=== PATIENT | male | born 1935 | race Caucasian/White ===

== ENCOUNTER 2020-01-03 11:58 | Observation (INO) | payer MEDICARE ==
[2020-01-03 12:03] LABS: Glucose,Whole Blood 87 mg/dL (75-99)
--- NOTE | 2020-01-03 12:09 | ED ---
General Adult HPI - General Chief complaint: Neuro Symptoms/Deficit Stated complaint: Altered Mental Status Time Seen by Provider: 01/03/20 11:58 Source: patient, EMS, RN notes reviewed, old records reviewed Mode of arrival: EMS Limitations: altered mental status - History of Present Illness Initial comments: patient is a pleasant 84-year-old male presenting to the emergency departmentfollowing episode of decreased responsiveness. Incident occurred just prior to arrival. Patient was eating lunchwhen he started shaking then fell back. Patient did strike the back of his head. Unclear whether or not patient lost consciousness. Patient has not been verbal with EMS. Patient has been moaning. EMS reports no change. Patient is talking at this point. Patient does state his name. Patient is unclear where he is athowever when told he does remember this. Patient does have some repetitive questioning. No complaint of headache. No chest pain or dyspnea. Unclear patient has history of similar symptoms previously. - Related Data Home Medications Medication Instructions Recorded Confirmed HYDROcodone/APAP 7.5-325MG [[place] 1 tab PO Q12H PRN 08/12/14 01/03/20 7.5-325] Pravastatin Sodium [Pravachol] 80 mg PO HS 09/26/14 01/03/20 Cetirizine HCl [Zyrtec] 10 mg PO DAILY 01/03/20 01/03/20 Fluocinolone Acetonide [Synalar] 1 applic TOPICAL HS 01/03/20 01/03/20 lisinopriL [Zestril] 2.5 mg PO DAILY 01/03/20 01/03/20 Previous Rx's Medication Instructions Recorded Tamsulosin [Flomax] 0.4 mg PO DAILY cap.er.24h 08/30/14 Allergies Allergy/AdvReac Type Severity Reaction Status Date / Time propoxyphene napsylate Allergy Unknown Nausea & Verified 01/03/20 13:26 [From Jr-N 100] Vomiting Surgical Tape AdvReac Severe Blisters Uncoded 09/26/14 13:27 Review of Systems ROS Statement: Those systems with pertinent positive or pertinent negative responses have been documented in the HPI. ROS Other: All systems not noted in ROS Statement are negative. Constitutional: Denies: fever Eyes: Denies: eye pain ENT: Denies: ear pain Respiratory: Denies: cough, dyspnea Cardiovascular: Denies: chest pain Endocrine: Denies: fatigue Gastrointestinal: Denies: abdominal pain Genitourinary: Denies: dysuria Musculoskeletal: Denies: back pain Skin: Denies: rash Neurological: Reports: as per HPI, confusion. Denies: headache, weakness Past Medical History Past Medical History: Cancer, Hyperlipidemia, Hypertension, Prostate Disorder Additional Past Medical History / Comment(s): HX OF 1 SEIZURE APPROX 30 YRS AGO History of Any Multi-Drug Resistant Organisms: None Reported Past Surgical History: Appendectomy, Back Surgery, Orthopedic Surgery Additional Past Surgical History / Comment(s): APPENDECTOMY (17 YRS OLD), LEFT ANKLE ACHEILLES TENDON, BACK SURGERYS, CERVICAL SPINE SURGERY WITH HARDWARE, CARPAL TUNNEL. , NERVE STIMULATOR LEFT HIP.(ST SULEMAN) Past Anesthesia/Blood Transfusion Reactions: Postoperative Nausea & Vomiting (PONV) Past Psychological History: No Psychological Hx Reported Past Alcohol Use History: Occasional Past Drug Use History: None Reported - Past Family History Mother Family Medical History: No Reported History General Exam Limitations: altered mental status General appearance: alert, in no apparent distress Head exam: Present: normocephalic Eye exam: Present: normal appearance, PERRL, EOMI ENT exam: Present: other (tongue abrasion) Neck exam: Present: normal inspection. Absent: tenderness Respiratory exam: Present: normal lung sounds bilaterally Cardiovascular Exam: Present: regular rate, normal rhythm GI/Abdominal exam: Present: soft. Absent: tenderness Extremities exam: Present: normal inspection, full ROM. Absent: tenderness Neurological exam: Present: alert, CN II-XII intact. Absent: motor sensory deficit Expanded Neurological exam: Present: protecting the airway Patient oriented to: Present: person. Absent: time Speech: Present: fluid speech Cranial nerves: EOM's Intact: Normal Sensory exam: Upper Extremity Light Touch: Normal, Lower Extremity Light Touch: Normal Motor strength exam: RUE: 5, LUE: 5, RLE: 5, LLE: 5 Eye Response: (4) open spontaneously Motor Response: (6) obeys commands Verbal Response: (4) confused conversation Psychiatric exam: Present: normal affect, normal mood Skin exam: Present: normal color Course Vital Signs 01/03/20 11:59 Temperature 98.1 F Pulse Rate 107 H Respiratory 16 Rate Blood Pressure 136/90 O2 Sat by Pulse 95 Oximetry EKG Findings - EKG Comments: EKG Findings:: sinus tachycardia 110. ID 156. QRS 88. QT 346. QTc 468. Normal axis. Normal QRS. No acute ST change. Medical Decision Making - Medical Decision Making patient reevaluated and significantly improved. Patient acting appropriately patient and spouse updated on results. Case was discussed with Dr. Bautista who did come evaluate patient and will admit.it is unclear still if patient lost consciousness. states she does not believe that he did however patient bel ieves that he did. - Lab Data Result diagrams: 01/03/20 12:13 01/03/20 12:13 Lab Results 01/03/20 01/03/20 01/03/20 Range/Units 12:01 12:13 12:13 WBC 12.4 H (3.8-10.6) k/uL RBC 4.99 (4.30-5.90) m/uL Hgb 16.1 (13.0-17.5) gm/dL Hct 48.6 (39.0-53.0) % MCV 97.5 (80.0-100.0) fL MCH 32.4 (25.0-35.0) pg MCHC 33.2 (31.0-37.0) g/dL RDW 12.8 (11.5-15.5) % Plt Count 273 (150-450) k/uL Neutrophils % 51 % Lymphocytes % 38 % Monocytes % 7 % Eosinophils % 2 % Basophils % 1 % Neutrophils # 6.3 (1.3-7.7) k/uL Lymphocytes # 4.6 (1.0-4.8) k/uL Monocytes # 0.8 (0-1.0) k/uL Eosinophils # 0.2 (0-0.7) k/uL Basophils # 0.1 (0-0.2) k/uL PT (9.0-12.0) sec INR (<1.2) APTT (22.0-30.0) sec Sodium 140 (137-145) mmol/L Potassium 4.1 (3.5-5.1) mmol/L Chloride 108 H (98-107) mmol/L Carbon Dioxide 13 L (22-30) mmol/L Anion Gap 19 mmol/L BUN 17 (9-20) mg/dL Creatinine 1.19 (0.66-1.25) mg/dL Est GFR (CKD-EPI)AfAm 65 (>60 ml/min/1.73 sqM) Est GFR (CKD-EPI)NonAf 56 (>60 ml/min/1.73 sqM) Glucose 88 (74-99) mg/dL POC Glucose (mg/dL) 87 (75-99) mg/dL POC Glu Patternmaker Sathya Zuniga Calcium 9.4 (8.4-10.2) mg/dL Magnesium 2.5 H (1.6-2.3) mg/dL Total Bilirubin 0.5 (0.2-1.3) mg/dL AST 29 (17-59) U/L ALT 21 (4-49) U/L Alkaline Phosphatase 55 (38-126) U/L Troponin I (0.000-0.034) ng/mL Total Protein 6.8 (6.3-8.2) g/dL Albumin 4.3 (3.5-5.0) g/dL 01/03/20 01/03/20 Range/Units 12:13 12:13 WBC (3.8-10.6) k/uL RBC (4.30-5.90) m/uL Hgb (13.0-17.5) gm/dL Hct (39.0-53.0) % MCV (80.0-100.0) fL MCH (25.0-35.0) pg MCHC (31.0-37.0) g/dL RDW (11.5-15.5) % Plt Count (150-450) k/uL Neutrophils % % Lymphocytes % % Monocytes % % Eosinophils % % Basophils % % Neutrophils # (1.3-7.7) k/uL Lymphocytes # (1.0-4.8) k/uL Monocytes # (0-1.0) k/uL Eosinophils # (0-0.7) k/uL Basophils # (0-0.2) k/uL PT 9.7 (9.0-12.0) sec INR 0.9 (<1.2) APTT 21.6 L (22.0-30.0) sec Sodium (137-145) mmol/L Potassium (3.5-5.1) mmol/L Chloride (98-107) mmol/L Carbon Dioxide (22-30) mmol/L Anion Gap mmol/L BUN (9-20) mg/dL Creatinine (0.66-1.25) mg/dL Est GFR (CKD-EPI)AfAm (>60 ml/min/1.73 sqM) Est GFR (CKD-EPI)NonAf (>60 ml/min/1.73 sqM) Glucose (74-99) mg/dL POC Glucose (mg/dL) (75-99) mg/dL POC Glu Patternmaker ID Calcium (8.4-10.2) mg/dL Magnesium (1.6-2.3) mg/dL Total Bilirubin (0.2-1.3) mg/dL AST (17-59) U/L ALT (4-49) U/L Alkaline Phosphatase (38-126) U/L Troponin I <0.012 (0.000-0.034) ng/mL Total Protein (6.3-8.2) g/dL Albumin (3.5-5.0) g/dL - Radiology Data Radiology results: report reviewed (computed tomography scan of the brain and cervical spine shows no acute abnormality. Chronic microvascular ischemic changes. Postsurgical spine changes. Degenerative spine changes.), image reviewed (chest x-ray shows some atelectasis, no acute process) Disposition Clinical Impression: Unresponsive episode Disposition: ADMITTED IP TO THIS HOSP Is patient prescribed a controlled substance at d/c from ED?: No Referrals: Nonstaff,Physician [REFERRING] - 1-2 days Decision Time: 13:37
[2020-01-03 12:40] LABS: Basophils # (A) 0.1 k/uL (0-0.2); Basophils % (A) 1 %; Eosinophils # (A) 0.2 k/uL (0-0.7); Eosinophils % (A) 2 %; HCT 48.6 % (39.0-53.0); HGB 16.1 gm/dL (13.0-17.5); Lymphocytes # (A) 4.6 k/uL (1.0-4.8); Lymphocytes % (A) 38 %; MCH 32.4 pg (25.0-35.0); MCHC 33.2 g/dL (31.0-37.0); MCV 97.5 fL (80.0-100.0); Mean Platelet Volume 7.6; Monocytes # (A) 0.8 k/uL (0-1.0); Monocytes % (A) 7 %; Neutrophils # (A) 6.3 k/uL (1.3-7.7); Neutrophils % (A) 51 %; Platelet Count 273 k/uL (150-450); RBC 4.99 m/uL (4.30-5.90); RDW 12.8 % (11.5-15.5); WBC 12.4 k/uL (3.8-10.6)
[2020-01-03 12:52] LABS: Albumin 4.3 g/dL (3.5-5.0); Calcium 9.4 mg/dL (8.4-10.2); Magnesium 2.5 mg/dL (1.6-2.3); Potassium 4.1 mmol/L (3.5-5.1); Total Bilirubin 0.5 mg/dL (0.2-1.3); Total Protein 6.8 g/dL (6.3-8.2)
[2020-01-03 12:59] LABS: INR 0.9 (<1.2); Partial Thromboplastin Time 21.6 sec (22.0-30.0); Prothrombin Time 9.7 sec (9.0-12.0)
--- NOTE | 2020-01-03 12:59 | CT ---
EXAMINATION TYPE: CT brain gayatriine wo con DATE OF EXAM: 01/03/2020 COMPARISON: CT brain 09/26/2014 HISTORY: Fall CT DLP: 1602.3 mGycm Automated exposure control for dose reduction was used. TECHNIQUE: CT scan of the head and cervical spine are performed without contrast. FINDINGS: There is no acute intracranial hemorrhage, mass effect, or midline shift identified. No extra-axial fluid collection. Patchy white matter hypodensities likely sequela of chronic microvascul ar ischemic change. The ventricles and sulci are within prominent in size concordant with volume loss . No depressed calvarial fracture. Globes are grossly symmetric with postsurgical changes. Mastoid ai r cells are clear. There is mucosal thickening of the left sphenoid sinus.. Anterior fixation changes of C3-C5. No evidence of hardware fracture or loosening. Diffuse degenerati ve changes of the spine. Varying degrees of neural foramina narrowing and canal stenosis. There may b e high-grade canal stenosis at C7-T1. Cervical spine is visualized in its entirety from C1 through up per thoracic levels and demonstrates no evidence of acute fracture or dislocation. Prevertebral soft tissue appears within normal limits. The C1-C2 articulation is unremarkable. IMPRESSION: 1. No acute intracranial hemorrhage, mass effect, or midline shift is seen. 2. Diffuse volume loss. Patchy white matter hypodensities are likely sequela of chronic microvascular ischemic change. 3. No acute fracture or dislocation of the cervical spine. C3-C5 anterior fixation hardware appears i ntact. 4. Cervical spine degenerative changes. There may be high-grade canal stenosis at C7-T1.
--- NOTE | 2020-01-03 13:04 | XR ---
EXAMINATION TYPE: XR chest 1V portable DATE OF EXAM: 01/03/2020 Comparison: 10/13/2014 Clinical History: 84 year-old male altered mental status, syncope, confusion Findings: Heart normal size. Spinal stimulator present at the mid thoracic spinal canal. Median sternotomy wire s and post-CABG clips. Heart upper limits of normal in size. Hazy lung densities relating to overlyin g soft tissue and portable technique. Slight asymmetric elevation left hemidiaphragm may in part be p ositional. No jamee consolidation or pleural effusion. Some strandy areas of atelectasis in the lower lungs. Impression: Some limitations due to portable technique and patient body habitus. There are strandy lower lung are as of atelectasis. No definite acute process.
[2020-01-03] MEDS ORDERED: LIDOCAINE VISCOUS 2% 15 ML CUP MUCOUS MEM SCH (13:15)
[2020-01-03] MEDS ORDERED: NALOXONE 0.4 MG/ML 1 ML VIAL IV PRN (13:37)
[2020-01-03] MEDS ORDERED: HYDROcodone/APAP 7.5-325MG 1 EACH TAB PO PRN (14:46)
--- NOTE | 2020-01-03 14:51 | P.HPIM ---
History of Present Illness H&P Date: 01/03/20 Chief Complaint: syncope This is an 84-year-old male patient of Dr. Bautista with past medical history of coronary artery disease with previous myocardial infarction and stenting status post 5 vessel CABG with placement of left internal mammary to the 100% occluded left anterior descending, reverse saphenous vein graft as a natural Y sequential to the 100% occluded first diagonal in the subtotally occluded second obtuse marginal, and reverse saphenous vein graft to the 80% occluded right coronary, which was a 2.5 mm vessel, and short jump graft to the terminal circumflex, seasonal ALLERGIES, hyperlipidemia, hypertension, benign prostatic hypertrophy, generalized osteoarthritis, 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 Patient's states that he was going to the refrigerator to get wind out of the refrigerator and fell backward hitting the hardwood floor and shaking all over. There is no bladder loss. His called 911 and patient was brought in to the hospital for evaluation. Patient denies having any headache. He does complain of soreness in his neck he does have history of spondylosis of the neck and lumbar spine. Patient noted to have abrasions on his tongue. He does have history of workup for thought to be seizure activity 30 years ago and [facility] was told it was vasovagal episode. Patient does not recall any incident home and just remembers waking up in the emergency center. Patient presented to [facility] emergency center for evaluation. Temperature 98.1, heart rate 107, blood pressure 136/90, pulse ox 95% on room air. EKG is a sinus rhythm with no acute ST changes. CBC reveals white count of 12.4, hemoglobin 16.1, platelet count 273. Sodium 140, potassium 4.1, chloride 108, CO2 13, BUN 17 and creatinine 1.19. Blood sugar 88. Magnesium 2.5, liver function tests normal. INR is 0.9. Troponin negative 1. Chest x-ray reveals limitations due to portable technique. Standing lower lung areas of atelectasis. No definite acute process. CAT scan of the brain and cervical spine reveals no acute intracranial hemorrhage, mass effect, or midline shift. Diffuse volume loss. Patchy white matter hypodensities are likely seque lae of chronic micro-vascular ischemic change. No acute fracture-dislocation of the cervical spine. C3 through C5 anterior fixation hardware appears intact. Cervical spine degenerative changes with high-grade spinal canal stenosis at C7- T1. Carotid ultrasound, echocardiogram, EEG, neuro consult requested and patient admitted to the floor. Review of Systems Constitutional: Denies anorexia, Denies chills, Denies fatigue, Denies fever, Denies lethargy, Denies malaise, Denies poor appetite, Denies weakness Eyes: denies blurred vision, denies pain Ears, nose, mouth and throat: Denies dysphagia, Denies headache, Denies nasal congestion, Denies nasal discharge, Denies sore throat, Denies vertigo Cardiovascular: Reports syncope, Denies chest pain, Denies decreased exercise tolerance, Denies dyspnea on exertion, Denies edema, Denies leg edema, Denies lightheadedness, Denies palpitations Respiratory: Denies cough, Denies cough with sputum, Denies dyspnea, Denies excessive sputum, Denies hemoptysis, Denies home oxygen, Denies respiratory infections, Denies wheezing Gastrointestinal: Denies abdominal pain, Denies diarrhea, Denies loss of appetite, Denies melena, Denies nausea, Denies vomiting Genitourinary: Denies dysuria, Denies urinary frequency, Denies urinary retention Musculoskeletal: Reports neck pain, Denies frequent falls, Denies gait dysfunction, Denies muscle weakness, Denies myalgias Integumentary: Denies pruritus, Denies rash, Denies wounds Neurological: Reports headaches, Reports syncope, Denies change in speech, Denies gait dysfunction, Denies numbness, Denies vertigo, Denies weakness Psychiatric: Denies anxiety, Denies depression Endocrine: Denies fatigue, Denies weight change Past Medical History Past Medical History: Cancer, Hyperlipidemia, Hypertension, Prostate Disorder Additional Past Medical History / Comment(s): HX OF 1 SEIZURE APPROX 30 YRS AGO History of Any Multi-Drug Resistant Organisms: None Reported Past Surgical History: Appendectomy, Back Surgery, Orthopedic Surgery Additional Past Surgical History / Comment(s): APPENDECTOMY (17 YRS OLD), LEFT ANKLE ACHEILLES TENDON, BACK SURGERYS, CERVICAL SPINE SURGERY WITH HARDWARE, CARPAL TUNNEL. 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 He drinks a glass of wine a couple times per week and last intake was on Friday. 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 Past Drug Use History: None Reported - Past Family History Mother Family Medical History: No Reported History Additional Family Medical History / Comment(s): Mother at age 76 with heart disease. Father Additional Family Medical History / Comment(s): Father at age 92 with history of coronary artery disease. Brother(s) Additional Family Medical History / Comment(s): Patient has total of 3 brothers one has from Parkinson's 1 from old age and one with throat cancer. Sister(s) Additional Family Medical History / Comment(s): Patient has one sister that from lung cancer with history of smoking and one at age 40 from a brain aneurysm. Patient has a total of 4 children. 3 sons, one has bipolar disorder. One daughter with no major medical problems. Medications and Allergies Home Medications Medication Instructions Recorded Confirmed Type HYDROcodone/APAP 7.5-325MG [[place] 1 tab PO Q12H PRN 08/12/14 01/03/20 History 7.5-325] Tamsulosin [Flomax] 0.4 mg PO DAILY cap.er.24h 08/30/14 01/03/20 Rx Pravastatin Sodium [Pravachol] 80 mg PO HS 09/26/14 01/03/20 History Cetirizine HCl [Zyrtec] 10 mg PO DAILY 01/03/20 01/03/20 History Fluocinolone Acetonide [Synalar] 1 applic TOPICAL HS 01/03/20 01/03/20 History lisinopriL [Zestril] 2.5 mg PO DAILY 01/03/20 01/03/20 History Allergies Allergy/AdvReac Type Severity Reaction Status Date / Time propoxyphene napsylate Allergy Unknown Nausea & Verified 01/03/20 13:26 [From Jr-N 100] Vomiting Surgical Tape AdvReac Severe Blisters Uncoded 09/26/14 13:27 Physical Exam Vitals: Vital Signs Temp Pulse Resp BP Pulse Ox 01/03/20 11:59 98.1 F 107 H 16 136/90 95 Intake and Output 10/01/03/20 01/03/20 22:59 06:59 14:59 Other: Weight 89.176 kg Physical Examination Gen: This is an 84-year-old male. He is resting on the ER stretcher and appears to be comfortable. Patient's is at bedside. HEENT: Head is atraumatic, normocephalic. Pupils equal, round. Sclerae is anicteric. Oral mucous membranes are slightly dry. Abrasions to the bilateral edges of the tongue. Hard cervical collar in place. NECK: Supple. No JVD. No lymphadenopathy. No thyromegaly. LUNGS: Clear to auscultation. No wheezes or rhonchi. No intercostal retractions. HEART: Regular rate and rhythm. No murmur. ABDOMEN: Soft. Bowel sounds are present. No masses. No tenderness. EXTREMITIES: No pedal edema. No calf tenderness. NEUROLOGICAL: Patient is awake, alert and oriented x3. Cranial nerves 2 through 12 are grossly intact. Poor recall of incident. Results CBC & Chem 7: 01/03/20 12:13 01/03/20 12:13 Labs: Abnormal Lab Results - Last 24 Hours (Table) 01/03/20 01/03/20 Range/Units 12:13 12:13 WBC 12.4 H (3.8-10.6) k/uL Chloride 108 H (98-107) mmol/L Carbon Dioxide 13 L (22-30) mmol/L Magnesium 2.5 H (1.6-2.3) mg/dL Thrombosis Risk Factor Assmnt - DVT/VTE Prophylaxis DVT/VTE Prophylaxis: Pharmacologic Prophylaxis ordered Assessment and Plan Plan: 1. Syncopal episode, rule out seizure disorder. Patient placed in the observation unit. Consult with neurology. Carotid ultrasound, echocardiogram, EEG ordered. Continue neuro checks per protocol. 2. Hypertension. Continue lisinopril 2.5 mg daily. 3. Hyperlipidemia. Continue pravastatin 80 mg at bedtime. 4. History of coronary artery disease status post 5 vessel CABG, stable. Patient follows with Dr. Alexis as an outpatient. 5. Seasonal ALLERGIES. Continue Zyrtec. 6. Benign prostatic hypertrophy. Continue Flomax 0.4 mg daily. 7. Spondylosis of the cervical spine and lumbar spine, stable. 8. Abrasions to the tongue. Viscous lidocaine. 9. Remote history of tobacco use and dependence. 10. DVT prophylaxis. Heparin subcu. 11. GI prophylaxis. Protonix. Patient will be admitted to the hospital for a minimum of 2 night stay. Discharge plan: Return home Impression and plan of care have been directed as dictated by the signing physician. Damaris Tanner nurse practitioner acting as scribe for signing physician.
--- NOTE | 2020-01-03 14:59 | US ---
EXAMINATION TYPE: US carotid duplex BILAT DATE OF EXAM: 01/03/2020 COMPARISON: CLINICAL HISTORY: syncope. Patient states passing out. No HTN. EXAM MEASUREMENTS: RIGHT: Peak Systolic Velocity (PSV) cm/sec ----- Right CCA: 90.0 ----- Right ICA: 119.4 ----- Right ECA: 148.5 ICA/CCA ratio: 1.3 RIGHT: End Diastole cm/sec ----- Right CCA: 0.0 ----- Right ICA: 12.8 ----- Right ECA: 0.0 LEFT: Peak Systolic Velocity (PSV) cm/sec ----- Left CCA: 68.0 ----- Left ICA: 85.3 ----- Left ECA: 69.1 ICA/CCA ratio: 1.3 LEFT: End Diastole cm/sec ----- Left CCA: 8.7 ----- Left ICA: 16.7 ----- Left ECA: 0.0 VERTEBRALS (direction of flow): Right Vertebral: Antegrade Left Vertebral: Antegrade Rhythm: Normal No significant stenosis. Plaque visualized in bilateral bulbs. Elevated right ECA. No wall thicken ing. Grayscale, color Doppler, spectral Doppler imaging performed of the carotid arteries. Waveform analysis does not show significant stenosis of the internal carotid arteries. IMPRESSION: No hemodynamic significant stenosis of the proximal internal carotid arteries by Doppler criteria, an indirect measurement of carotid stenosis Criteria for Assigning % of Stenosis / Diameter reduction (Estimation based on the indirect measurements of the internal carotid artery velocities (ICA PSV). 1. Normal (no stenosis)=ICA PSV < 125 cm/s: ratio < 2.0: ICA EDV<40 cm/s. 2. Less than 50% stenosis=ICA PSV < 125 cm/s: ratio < 2.0: ICA EDV<40 cm/s. 3. 50 to 69% stenosis=ICA PSV of 125 to 230 cm/s: ration 2.0 ? 4.0: ICA EDV 40-100 cm/s. 4. Greater than 70% stenosis to near occlusion= ICA PSV > 230 cm/s: ratio > 4.0: ICA EDV > 100 cm/s. 5. Near occlusion= ICA PSV velocities may be low or undetectable: variable ratio and ICA EDV. 6. Total occlusion=unable to detect flow.
--- NOTE | 2020-01-03 16:12 | EEG ---
ELECTROENCEPHALOGRAM REPORT CLINICAL HISTORY: This is an 84-year-old gentleman who presented to the emergency department on 01/03/2020 after an episode of shaking and loss of consciousness. This video EEG was obtained to evaluate for seizure and epileptiform activity. Relevant medication: None. EEG TYPE: This is a routine 21-channel EEG was performed with video using the 10/20 electrode placement system. DESCRIPTION: Wakefulness and drowsiness are obtained. During wakefulness, there is a posterior- dominant rhythm of low to moderate voltage, reactive, well-modulated 8-9 hertz activity. During drowsiness there is slowing and attenuation of the background activity. There was no physiological stage II sleep seen. Interictal and ictal: None. ACTIVATION PROCEDURE: Photic stimulation did not evoke a posterior driving response. Hyperventilation was not performed because of the patient's clinical history. CLINICAL INTERPRETATION: This is a normal routine EEG. There are no focal slowing, epileptiform activity or seizure seen during the study. Clinical correlation is recommended. VERA / MARLEYN: [id number] / BERNADETTE
[2020-01-03] MEDS: SODIUM CHLORIDE 0.9% 1,000 ML IV SCH (16:48)
[2020-01-03] MEDS: HYDROCORTISONE 1% CREAM 30 GM TUBE TOPICAL SCH (20:29)
[2020-01-03] MEDS: PRAVASTATIN SODIUM 80 MG TAB PO SCH (20:29)
[2020-01-03] MEDS: LIDOCAINE VISCOUS 2% 15 ML CUP MUCOUS MEM SCH (20:29)
[2020-01-03] MEDS: ACETAMINOPHEN TAB 325 MG TAB PO PRN (20:29)
--- NOTE | 2020-01-04 10:00 | ECHOF ---
Referral Reason:LVF MEASUREMENTS -------- HEIGHT: 180.3 cm WEIGHT: 91.6 kg BP: 140/85 RVIDd: 3.0 cm (< 3.3) IVSd: 1.1 cm (0.6 - 1.1) LVIDd: 4.0 cm (3.9 - 5.3) LVPWd: 1.0 cm (0.6 - 1.1) IVSs: 1.5 cm LVIDs: 2.4 cm LVPWs: 1.3 cm LA Diam: 2.7 cm (2.7 - 3.8) Ao Diam: 3.2 cm (2.0 - 3.7) AV Cusp: 2.0 cm (1.5 - 2.6) MV E Colton: 0.83 m/s MV DecT: 188 ms MV A Colton: 1.26 m/s MV E/A Ratio: 0.66 RAP: 5.00 mmHg RVSP: 23.73 mmHg FINDINGS -------- Sinus rhythm. This was a technically difficult study with suboptimal views. The left ventricular size is normal. There is borderline concentric left ventricular hypertrophy. Overall left ventricular systolic function is normal with, an EF between 60 - 65 %. The right ventricle is normal in size. The left atrial size is normal. The right atrium was not well visualized. 5 ml of Lumason was utilized for enhancement of images. Interatrial and interventricular septum intact. There is mild aortic valve sclerosis. The mitral valve is normal. Trace tricuspid regurgitation present. Right ventricular systolic pressure is normal at < 35 mmHg. The pulmonic valve was not well visualized. The aortic root size is normal. Normal inferior vena cava with normal inspiratory collapse consistent with estimated right atrial pre ssure of 5 mmHg. There is no pericardial effusion. CONCLUSIONS -------- 1. This was a technically difficult study with suboptimal views. 2. The left ventricular size is normal. 3. There is borderline concentric left ventricular hypertrophy. 4. Overall left ventricular systolic function is normal with, an EF between 60 - 65 %. 5. 5 ml of Lumason was utilized for enhancement of images. 6. Trace tricuspid regurgitation present. 7. There is no pericardial effusion. REHAB DIRECTOR: Anna Pulido RD
[2020-01-04] MEDS: LIDOCAINE VISCOUS 2% 15 ML CUP MUCOUS MEM SCH ×4 (10:09→20:57)
[2020-01-04] MEDS: LORATADINE 10 MG TAB PO SCH (10:09)
[2020-01-04] MEDS: TAMSULOSIN 0.4 MG CAP.ER.24H PO SCH (10:09)
--- NOTE | 2020-01-04 11:11 | P.CNNES ---
History of Present Illness Consult date: 01/04/20 Requesting physician: Damaris Tanner Reason for Consult: episode of unresponsiveness. Rule out seizure History of Present Illness: This is an 84-year-old left-handed gentleman with the medical history of CAD status post stenting and CABG, hyperlipidemia, hypertension, cervical s/p decompression and lumbar spondylosis, remote history of tobacco use who presented to the emergency department on 01/03/2020 because of episode of unresponsiveness. Patient stated that he does not recall the episode. He remembers that around noon, he was in the kitchen preparing his lunch, then was told that he went to the refrigerator then fell backwards and start shaken. He does not know the duration of the episode. He did bite that the side of both his tongues. He denies L5 urinary incontinence or bowel incontinence. He gerry es any warning signs prior to the episode that. He denies of any chest pain, palpitation or visual disturbance prior to the episode. He denies feeling diaphoretic. Denies fever. He said that about 30 years ago he had the similar presentation and the he was taken to the hospital. He doesn't recall off the workup but he does not recall having an EEG at. He does not feel like the hospital did a very thorough workup on him. Then he saw his Medicare physician and he was notified that he had vasovagal episode. He denies any history of seizures otherwise. He denies any family history of seizures. He denies being on any new medications. Patient uses a cane because of his the cervical tish nosis as well as lumbar stenosis and he's been using for he said 5-8 years. history: He is a product all thought normal at term. Normal vaginal delivery and no complication. His sister has a history of a brain aneurysm in her 30s which she as a result. Work-up in the hospital consisted of: Initial vital sign is a blood pressure of 136/90, heart rate 107, with fair is 16, temperature of 98.1 Fahrenheit axillary and pulse ox of 95% room air. CT of the head was reported as no acute intracranial hemorrhage, mass effect or midline shift is seen. There is diffuse volume loss. Patchy white matter hypodensity likely sequela of chronic microvascular ischemic changes. I personally reviewed the CT of the head and I do not see any acute ischemia or hemorrhage. Patient does have chronic small vessel ischemic changes. CT cervical spine was reported as no acute fracture or dislocation of cervical spine. C3 to C5 anterior fixation hardware appears intact. Cervical spine degenerative changes. There may be high grade canal stenosis at C7 to T1. EKG was reported as sinus tachycardia. Ventricle rate of 110. Cannot rule out inferior infarct, age undetermined. Abnormal EKG. Carotid duplex was reported as no hemodynamic significant stenosis of the proximal internal carotid arteries by Doppler criteria, and in direct measurement of carotid stenosis. Routine EEG was performed on 01/03/2020 and was the I personally viewed it and I felt was normal. There are no focal slowing, interictal or seizure during the routine EEG. Review of Systems Review of system: The 12 point system was reviewed and apparent positive and negative per HPI. Past Medical History Past Medical History: Cancer, Hyperlipidemia, Hypertension, Prostate Disorder Additional Past Medical History / Comment(s): HX OF 1 SEIZURE APPROX 30 YRS AGO History of Any Multi-Drug Resistant Organisms: None Reported Past Surgical History: Appendectomy, Back Surgery, Orthopedic Surgery Additional Past Surgical History / Comment(s): APPENDECTOMY (17 YRS OLD), LEFT ANKLE ACHEILLES TENDON, BACK SURGERYS, CERVICAL SPINE SURGERY WITH HARDWARE, CARPAL TUNNEL. 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 He drinks a glass of wine a couple times per week and last intake was on Friday. 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 Past Drug Use History: None Reported - Past Family History Father Additional Family Medical History / Comment(s): Father at age 92 with history of coronary artery disease. Brother(s) Additional Family Medical History / Comment(s): Patient has total of 3 brothers one has from Parkinson's 1 from old age and one with throat cancer. Sister(s) Additional Family Medical History / Comment(s): Patient has one sister that from lung cancer with history of smoking and one at age 40 from a brain aneurysm. Patient has a total of 4 children. 3 sons, one has bipolar disorder. One daughter with no major medical problems. Mother Family Medical History: No Reported History Additional Family Medical History / Comment(s): Mother at age 76 with heart disease. Medications and Allergies Home Medications Medication Instructions Recorded Confirmed Type HYDROcodone/APAP 7.5-325MG [Maury 1 tab PO Q12H PRN 08/12/14 01/03/20 History 7.5-325] Tamsulosin [Flomax] 0.4 mg PO DAILY cap.er.24h 08/30/14 01/03/20 Rx Pravastatin Sodium [Pravachol] 80 mg PO HS 09/26/14 01/03/20 History Cetirizine HCl [Zyrtec] 10 mg PO DAILY 01/03/20 01/03/20 History Fluocinolone Acetonide [Synalar] 1 applic TOPICAL HS 01/03/20 01/03/20 History lisinopriL [Zestril] 2.5 mg PO DAILY 01/03/20 01/03/20 History Allergies Allergy/AdvReac Type Severity Reaction Status Date / Time propoxyphene napsylate Allergy Unknown Nausea & Verified 01/03/20 13:26 [From Darvocet-N 100] Vomiting Surgical Tape AdvReac Severe Blisters Uncoded 09/26/14 13:27 Physical Examination - Vital Signs Vital Signs: Vital Signs Temp Pulse Pulse Resp BP BP Pulse Ox 01/04/20 08:31 98.2 F 66 16 125/73 96 01/04/20 02:00 98 F 61 17 116/61 98 01/03/20 20:05 98.7 F 79 16 127/71 96 01/03/20 14:22 80 17 145/76 98 01/03/20 14:10 97.3 F L 76 16 151/78 97 01/03/20 12:30 98.0 F 79 17 130/76 01/03/20 12:15 98.1 F 80 18 122/77 98 01/03/20 12:00 98.0 F 78 17 134/72 97 01/03/20 11:59 98.1 F 107 H 16 136/90 95 Intake and Output 01/03/20 01/04/20 01/04/20 22:59 06:59 14:59 Other: Voiding Method Toilet Toilet Toilet # Voids 1 1 GENERAL: The patient is lying in bed and is not in acute distress. CHEST: The heart rate is regular rate rhythm. No murmurs to auscultation. LUNG: Clear to auscultation bilaterally no wheezing noted throughout. Not labored breathing. ABDOMEN/GI: Bowel sounds present in all 4 quadrants. No tenderness to palpation throughout. NEUROLOGICAL: Higher mental function: The patient is awake, alert, oriented to self, place and time. Patient is following commands. No aphasia and no neglect. Cranial nerves: The pupils are round, equal (3mm) and reactive to light and accommodation. Visual jacobsen are full to confrontation throughout. Extraocular movement is intact no nystagmus is noted. Facial sensation is normal to touch throughout. The facial strength is normal throughout. Hearing is normal bilaterally to hand rub. Tongue has bruise on lateral side of both tongues. To ngue is midline and moved [id number] without any difficulty. No dysarthria is noted. Shoulder shrug is normal bilaterally. Motor: Gait is defered. The strength is 5 over 5 throughout. Normal tone and bulk. Cerebellum: Normal finger to nose heel to chin bilaterally. Sensation: Sensation is normal to touch throughout. Reflexes (right/left): 2+ Plantars are downgoing bilaterally. Results Medium of 2.5 the. AST of 29, ALT of 21. Correlation study: PT of 9.7, INR 0.9, PTT of 21.6. - Laboratory Findings CBC and BMP: 01/03/20 12:13 01/03/20 12:13 Abnormal Lab Findings: Abnormal Labs 01/03/20 01/03/20 01/03/20 12:13 12:13 12:13 WBC 12.4 H APTT 21.6 L Chloride 108 H Carbon Dioxide 13 L Magnesium 2.5 H Assessment and Plan Assessment: 84-year-old gentleman with multiple medical problems that presented for an episode of unresponsiveness. Patient had a seizure-like episode about 30 years ago and was told it was vasovagal. Episode seemed more seizure. Had similar episode 30 years ago and was told ?vasovagal syncope. Cannot rule out cardiac etiology. High grade stenosis C7-T1 Hx Cervical spondylosis s/p decompression Lumbar spondylosis Hypertension Hyperlipidemia Coronary artery disease status post stenting Hx of CABG Remote history of tobacco use Plan: This current episode seemed seizure-like and he had a similar episode about 30 years ago but he said that was questionable vasovagal syncope but he said that he didn't have a good workup and he didn't have an EEG at that time. Therefore I will place the patient on Keppra 500 mg twice a day. Routine EEG on 01/03/2020 was normal. There is no focal slowing, epileptiform discharges or seizure seen on the study. MRI the brain was ordered by the primary team which is pending. I ordered MRA of the head because of the family history of brain aneurysm. Pending 2-D echo. Continue cardiac monitoring. Cardiology is on board Recommend the Holter monitoring to rule out any cardiac etiology. Regarding the patient high-grade stenosis C7 to T1 I consulted orthopedic surgery team. Patient was notified that since he had an episode of unresponsiveness this current event that that he is to avoid the driving for 6 month according to the [facility] law. He is also to avoid the swimming unassisted, avoid climbing ladders or heights and that using had heavy machinery. Upon discharge the patient needs to follow-up with a neurologist as an outpatient Thank you for the consultation. The plan was discussed with the patient. Major Vital M.D. Neuro-hospitalist Time with Patient: Greater than 30
[2020-01-04] MEDS: levETIRAcetam 500 MG TAB PO SCH ×2 (12:00→19:54)
--- NOTE | 2020-01-04 12:09 | P.PN ---
Subjective Progress Note Date: 01/04/20 This is an 84-year-old male patient of Dr. Bautista with past medical history of coronary artery disease with previous myocardial infarction and stenting status post 5 vessel CABG with placement of left internal mammary to the 100% occluded left anterior descending, reverse saphenous vein graft as a natural Y sequential to the 100% occluded first diagonal in the subtotally occluded second obtuse marginal, and reverse saphenous vein graft to the 80% occluded right coronary, which was a 2.5 mm vessel, and short jump graft to the terminal circumflex, seasonal ALLERGIES, hyperlipidemia, hypertension, benign prostatic hypertrophy, generalized osteoarthritis, 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 Patient's states that he was going to the refrigerator to get wind out of the refrigerator and fell backward hitting the hardwood floor and shaking all over. There is no bladder loss. His called 911 and patient was brought in to the hospital for evaluation. Patient denies having any headache. He does complain of soreness in his neck he does have history of spondylosis of the neck and lumbar spine. Patient noted to have abrasions on his tongue. He does have history of workup for thought to be seizure activity 30 years ago and [facility] was told it was vasovagal episode. Patient does not recall any incident home and just remembers waking up in the emergency center. Patient presented to [facility] emergency center for evaluation. Temperature 98.1, heart rate 107, blood pressure 136/90, pulse ox 95% on room air. EKG is a sinus rhythm with no acute ST changes. CBC reveals white count of 12.4, hemoglobin 16.1, platelet count 273. Sodium 140, potassium 4.1, chloride 108, CO2 13, BUN 17 and creatinine 1.19. Blood sugar 88. Magnesium 2.5, liver function tests normal. INR is 0.9. Troponin negative 1. Chest x-ray reveals limitations due to portable technique. Standing lower lung areas of atelectasis. No definite acute process. CAT scan of the brain and cervical spine reveals no acute intracranial hemorrhage, mass effect, or midline shift. Diffuse volume loss. Patchy white matter hypodensities are likely sequelae of chronic micro-vascular ischemic change. No acute fracture- dislocation of the cervical spine. C3 through C5 anterior fixation hardware appears intact. Cervical spine degenerative changes with high-grade spinal canal stenosis at C7-T1. Carotid ultrasound, echocardiogram, EEG, neuro consult requested and patient admitted to the floor. 01/03: Patient has been seen by neurology for seizure like episode and started on Keppra 500 mg twice daily. MRI of the brain ordered and MRA of the head was also ordered by neurology due to family history of brain aneurysm. EEG was normal with no focal slowing, epileptiform activity or seizure. Echocardiogram reveals EF of 60-65%, borderline concentric left ventricular hypertrophy, trace tricuspid regurgitation. Carotid ultrasound reveals no hemodynamically significant stenosis of the carotid arteries. Consult with cardiology added. Patient has been afebrile, heart rate in the 60s, blood pressure 125/73, pulse ox 96% on room air. Orthostatic vital signs have been negative. Troponins negative on 3 draws. Anticipate possible discharge in the next 24-48 hrs. Objective - Vital Signs Vital signs: Vital Signs Temp 98.2 F 01/04/20 08:31 Pulse 66 01/04/20 08:31 Resp 16 01/04/20 08:31 BP 125/73 01/04/20 08:31 Pulse Ox 96 01/04/20 08:31 Intake & Output 01/03/20 01/04/20 01/04/20 18:59 06:59 18:59 Weight 89.176 kg Other: Voiding Method Toilet Toilet # Voids 1 - Exam Review of Systems Constitutional: Denies anorexia, Denies chills, Denies fatigue, Denies fever, Denies lethargy, Denies malaise, Denies poor appetite, Denies weakness Eyes: denies blurred vision, denies pain, no double vision Ears, nose, mouth and throat: Denies dysphagia, Denies headache, Denies nasal congestion, Denies nasal discharge, Denies sore throat, Denies vertigo Cardiovascular: Reports syncope, Denies chest pain, Denies decreased exercise tolerance, Denies dyspnea on exertion, Denies edema, Denies leg edema, Denies lightheadedness, Denies palpitations Respiratory: Denies cough, Denies cough with sputum, Denies dyspnea, Denies excessive sputum, Denies hemoptysis, Denies home oxygen, Denies respiratory infections, Denies wheezing Gastrointestinal: Denies abdominal pain, Denies diarrhea, Denies loss of appetite, Denies melena, Denies nausea, Denies vomiting Genitourinary: Denies dysuria, Denies urinary frequency, Denies urinary retention Musculoskeletal: Reports neck pain, Denies frequent falls, Denies gait dysfunction, Denies muscle weakness, Denies myalgias Integumentary: Denies pruritus, Denies rash, Denies wounds Neurological: Reports headaches, Reports syncope, Denies change in speech, Denies gait dysfunction, Denies numbness, Denies vertigo, Denies weakness Psychiatric: Denies anxiety, Denies depression Endocrine: Denies fatigue, Denies weight change Physical Examination Gen: This is an 84-year-old male. He is resting on the ER stretcher and appears to be comfortable. HEENT: Head is atraumatic, normocephalic. Pupils equal, round. Sclerae is anicteric. Oral mucous membranes are slightly dry. Abrasions to the bilateral edges of the tongue. Hard cervical collar in place. NECK: Supple. No JVD. No lymphadenopathy. No thyromegaly. LUNGS: Clear to auscultation. No wheezes or rhonchi. No intercostal retractions. HEART: Regular rate and rhythm. No murmur. ABDOMEN: Soft. Bowel sounds are present. No masses. No tenderness. EXTREMITIES: No pedal edema. No calf tenderness. NEUROLOGICAL: Patient is awake, alert and oriented x3. Cranial nerves 2 through 12 are grossly intact. Poor recall of incident. - Labs CBC & Chem 7: 01/03/20 12:13 01/03/20 12:13 Labs: Abnormal Lab Results - Last 24 Hours (Table) 01/03/20 01/03/20 01/03/20 Range/Units 12:13 12:13 12:13 WBC 12.4 H (3.8-10.6) k/uL APTT 21.6 L (22.0-30.0) sec Chloride 108 H (98-107) mmol/L Carbon Dioxide 13 L (22-30) mmol/L Magnesium 2.5 H (1.6-2.3) mg/dL Assessment and Plan Plan: 1. Syncopal episode, rule out seizure disorder, rule out cardiac cause. Cons ult with neurology appreciated. Patient started on Keppra 500 mg every 12 hours. MRI and MRA of the brain have been ordered. Cardiology consult added. 2. Hypertension. Continue lisinopril 2.5 mg daily. 3. Hyperlipidemia. Continue pravastatin 80 mg at bedtime. 4. History of coronary artery disease status post 5 vessel CABG, stable. Patient follows with Dr. Alexis as an outpatient. 5. Seasonal ALLERGIES. Continue Zyrtec. 6. Benign prostatic hypertrophy. Continue Flomax 0.4 mg daily. 7. Spondylosis of the cervical spine and lumbar spine, stable. 8. Abrasions to the tongue. Viscous lidocaine. 9. Remote history of tobacco use and dependence. 10. DVT prophylaxis. Heparin subcu. 11. GI prophylaxis. Protonix. Discharge plan: Return home in the next 24 hours Impression and plan of care have been directed as dictated by the signing physician. Damaris Tanner nurse practitioner acting as scribe for signing physician.
--- NOTE | 2020-01-04 12:37 | P.CRDCN ---
History of Present Illness Consult date: 01/04/20 History of present illness: CHIEF COMPLAINT: Syncope HISTORY OF PRESENT ILLNESS: This is a 84-year old male with a past medical history significant for coronary artery disease with previous CABG 5 in 2015, hypertension, and hyperlipidemia. Patient follows in the office with Dr Alexis. We have been asked to see the patient in consultation for syncope. Patient reports he was standing in his kitchen when he suddenly fell to the floor. Patient reports hitting his head. He states he did not feel any chest pain or pressure, shortness of breath, or dizziness or lightheadedness prior to this episode. Patient does not remember anything following that until he woke up in the emergency room. Patient states he bit his tongue during this episode. His is not at the bedside but apparently she believes she witnessed some "shaking" movements by the patient when he was on the floor. DIAGNOSTICS: EKG reveals sinus tachycardia without acute ischemic changes Chest xray some limitations due to portable technique. Strandy lower lung areas of atelectasis. No definite acute process. Laboratory data: WBC 12.4. Hemoglobin 16.1. Platelet count 273. Sodium 140. Potassium 4.1. BUN 17. Creatinine 1.19. Magnesium 2.5. Troponin negative x 3. Current home cardiac medications include lisinopril 2.5 mg daily, Pravachol 80 mg daily Carotid Doppler: No significant stenosis of internal carotid arteries EEG negative for seizure activity Echocardiogram: Ejection fraction 60-65%, trace tricuspid regurgitation REVIEW OF SYSTEMS: At the time of my exam: CONSTITUTIONAL: Denies fever or chills. HEENT: Denies blurred vision, vision changes, or eye pain. Denies hemoptysis CARDIOVASCULAR: Denies chest pain, orthopnea, PND or palpitations RESPIRATORY: No shortness of breath. GASTROINTESTINAL: Denies abdominal pain. Denies nausea or vomiting. HEMATOLOGIC: Denies bleeding disorders. GENITOURINARY: Denies any blood in urine. SKIN: Denies pruitis. Denies rash. PHYSICAL EXAM: VITAL SIGNS: Reviewed. GENERAL: Well-developed in no acute distress. HEENT: Head is normocephalic. Pupils are equal, round. Sclerae anicteric. Mucous membranes of the mouth are moist. Neck supple. No JVD or thyromegaly LUNGS: Respirations even and unlabored. Lungs essentially clear to auscultation bilaterally. HEART: Regular rate and rhythm. S1 and S2 heard. ABDOMEN: Soft. Nondistended. Nontender. EXTREMITIES: Normal range of motion. No clubbing or cyanosis. Peripheral pulses intact. No lower extremity edema NEUROLOGIC: Awake and alert. Oriented x 3. ASSESSMENT: Syncope, suspected seizure Coronary artery disease with previous CABG 2014 Hypertension Hyperlipidemia History of nicotine dependence, in remission PLAN: Orthostatics unremarkable No evidence of an acute coronary event Patients syncopal episode appears to be more likely due to seizure activity rather than vasovagal episode Neurology is following and has started the patient on Keppra No further workup from a cardiac standpoint We will follow on as-needed basis. Please call with questions or concerns Nurse practitioner note has been reviewed by physician. Signing provider agrees with the documented findings, assessment, and plan of care. Past Medical History Past Medical History: Cancer, Hyperlipidemia, Hypertension, Prostate Disorder Additional Past Medical History / Comment(s): HX OF 1 SEIZURE APPROX 30 YRS AGO History of Any Multi-Drug Resistant Organisms: None Reported Past Surgical History: Appendectomy, Back Surgery, Orthopedic Surgery Additional Past Surgical History / Comment(s): APPENDECTOMY (17 YRS OLD), LEFT ANKLE ACHEILLES TENDON, BACK SURGERYS, CERVICAL SPINE SURGERY WITH HARDWARE, CARPAL TUNNEL. 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 He drinks a glass of wine a couple times per week and last intake was on Friday. 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 Past Drug Use History: None Reported - Past Family History Father Additional Family Medical History / Comment(s): Father at age 92 with history of coronary artery disease. Brother(s) Additional Family Medical History / Comment(s): Patient has total of 3 brothers one has from Parkinson's 1 from old age and one with throat cancer. Sister(s) Additional Family Medical History / Comment(s): Patient has one sister that from lung cancer with history of smoking and one at age 40 from a brain aneurysm. Patient has a total of 4 children. 3 sons, one has bipolar disorder. One daughter with no major medical problems. Mother Family Medical History: No Reported History Additional Family Medical History / Comment(s): Mother at age 76 with heart disease. Medications and Allergies Home Medications Medication Instructions Recorded Confirmed Type HYDROcodone/APAP 7.5-325MG [[place] 1 tab PO Q12H PRN 08/12/14 01/03/20 History 7.5-325] Tamsulosin [Flomax] 0.4 mg PO DAILY cap.er.24h 08/30/14 01/03/20 Rx Pravastatin Sodium [Pravachol] 80 mg PO HS 09/26/14 01/03/20 History Cetirizine HCl [Zyrtec] 10 mg PO DAILY 01/03/20 01/03/20 History Fluocinolone Acetonide [Synalar] 1 applic TOPICAL HS 01/03/20 01/03/20 History lisinopriL [Zestril] 2.5 mg PO DAILY 01/03/20 01/03/20 History Allergies Allergy/AdvReac Type Severity Reaction Status Date / Time propoxyphene napsylate Allergy Unknown Nausea & Verified 01/03/20 13:26 [From Darcet-N 100] Vomiting Surgical Tape AdvReac Severe Blisters Uncoded 09/26/14 13:27 Physical Exam Vitals: Vital Signs Temp Pulse Pulse Pulse Pulse Pulse Resp 01/04/20 10:35 69 68 63 01/04/20 08:31 98.2 F 66 16 01/04/20 02:00 98 F 61 17 01/03/20 20:05 98.7 F 79 16 01/03/20 14:22 80 17 01/03/20 14:10 97.3 F L 76 16 01/03/20 12:30 98.0 F 79 17 01/03/20 12:15 98.1 F 80 18 01/03/20 12:00 98.0 F 78 17 01/03/20 11:59 98.1 F 107 H 16 BP BP BP BP BP Pulse Ox 01/04/20 10:35 135/74 130/77 129/69 01/04/20 08:31 125/73 96 01/04/20 02:00 116/61 98 01/03/20 20:05 127/71 96 01/03/20 14:22 145/76 98 01/03/20 14:10 151/78 97 01/03/20 12:30 130/76 01/03/20 12:15 122/77 98 01/03/20 12:00 134/72 97 01/03/20 11:59 136/90 95 Intake and Output 01/03/20 01/04/20 01/04/20 22:59 06:59 14:59 Other: Voiding Method Toilet Toilet Toilet # Voids 1 1 Results 01/03/20 12:13 01/03/20 12:13 Cardiac Enzymes 01/03/20 01/03/20 01/03/20 Range/Units 12:13 12:13 15:38 AST 29 (17-59) U/L Troponin I <0.012 <0.012 (0.000-0.034) ng/mL 01/03/20 Range/Units 17:48 AST (17-59) U/L Troponin I 0.021 (0.000-0.034) ng/mL Coagulation 01/03/20 Range/Units 12:13 PT 9.7 (9.0-12.0) sec APTT 21.6 L (22.0-30.0) sec CBC 01/03/20 Range/Units 12:13 WBC 12.4 H (3.8-10.6) k/uL RBC 4.99 (4.30-5.90) m/uL Hgb 16.1 (13.0-17.5) gm/dL Hct 48.6 (39.0-53.0) % Plt Count 273 (150-450) k/uL Comprehensive Metabolic Panel 01/03/20 Range/Units 12:13 Sodium 140 (137-145) mmol/L Potassium 4.1 (3.5-5.1) mmol/L Chloride 108 H (98-107) mmol/L Carbon Dioxide 13 L (22-30) mmol/L BUN 17 (9-20) mg/dL Creatinine 1.19 (0.66-1.25) mg/dL Glucose 88 (74-99) mg/dL Calcium 9.4 (8.4-10.2) mg/dL AST 29 (17-59) U/L ALT 21 (4-49) U/L Alkaline Phosphatase 55 (38-126) U/L Total Protein 6.8 (6.3-8.2) g/dL Albumin 4.3 (3.5-5.0) g/dL Current Medications Generic Name Dose Route Start Last Admin Trade Name Cmailoq PRN Reason Stop Dose Admin Acetaminophen 650 mg 01/03/20 13:37 01/03/20 20:29 Acetaminophen Tab 325 Mg Tab PO 650 mg Q6HR PRN Administration Mild Pain or Fever > 100.5 Hydrocodone Bitart/Acetaminophen 1 each 01/03/20 14:46 Hydrocodone/Apap 7.5-325mg 1 Each Tab PO Q12H PRN Pain Hydrocortisone 1 applic 01/03/20 21:00 01/03/20 20:29 Hydrocortisone 1% Cream 30 Gm Tube TOPICAL 1 applic HS GUCCI Administration Sodium Chloride 1,000 mls @ 20 mls/hr 01/03/20 13:45 01/03/20 16:48 Saline 0.9% IV 20 mls/hr .Q24H GUCCI Administration Lidocaine HCl 5 ml 01/03/20 21:00 01/04/20 10:09 Lidocaine Viscous 2% 15 Ml Cup MUCOUS MEM 5 ml QID GUCCI Administration Lisinopril 2.5 mg 01/04/20 09:00 01/04/20 10:24 Lisinopril 2.5 Mg Tab PO 2.5 mg DAILY GUCCI Administration Loratadine 10 mg 01/04/20 09:00 01/04/20 10:09 Loratadine 10 Mg Tab PO 10 mg DAILY GUCCI Administration Naloxone HCl 0.2 mg 01/03/20 13:37 Naloxone 0.4 Mg/Ml 1 Ml Vial IV Q2M PRN Opioid Reversal Pravastatin Sodium 80 mg 01/03/20 21:00 01/03/20 20:29 Pravastatin Sodium 80 Mg Tab PO 80 mg HS GUCCI Administration Tamsulosin HCl 0.4 mg 01/04/20 09:00 01/04/20 10:09 Tamsulosin 0.4 Mg Cap.Er.24h PO 0.4 mg DAILY GUCCI Administration Intake and Output 01/03/20 01/04/20 01/04/20 22:59 06:59 14:59 Other: Voiding Method Toilet Toilet Toilet # Voids 1 1 01/03/20 12:13 01/03/20 12:13
--- NOTE | 2020-01-04 12:53 | P.CNOR ---
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 He presented to the hospital due to an unresponsive episode and possible seizure. He had imaging and workup and was found have significant degenerative changes at his cervical spine and has history of spinal surgery at his neck. We're counseled in regards to his cervical spinal stenosis. The patient feels that his symptoms at his neck have not really changed. He does not really have radicular symptoms or numbness tingling at his upper extremities. He had surgery at his cervical spine with Dr. Lovelace more than 20 years ago and feels that it did well for him. He says that he has significant issues in his lower back with stenosis and lower extremity radicular symptoms and neurogenic claudication which has been there for years as well. He does not feel that this has had acute change. He is unsure if he had a seizure. He denies any chest pain shortness of breath. Denies any fevers chills or night sweats. She denies any new weakness in his upper extremities. He feels that he has some general deconditioning at his bilateral upper and lower extremities without any specific pattern. He denies any new neck pain. Review of Systems He is unsure whether he had a seizure. He apparently was unresponsive and that brought him into the hospital. As stated per HPI he denies any new changes in his neurologic status at his upper extremities and lower extremity. Denies any neck pain. Past Medical History Past Medical History: Cancer, Hyperlipidemia, Hypertension, Prostate Disorder Additional Past Medical History / Comment(s): HX OF 1 SEIZURE APPROX 30 YRS AGO. History of cervical stenosis with prior surgery over 20 years ago with fusion at C4 5 and C3 4 History of Any Multi-Drug Resistant Organisms: None Reported Past Surgical History: Appendectomy, Back Surgery, Orthopedic Surgery Additional Past Surgical History / Comment(s): APPENDECTOMY (17 YRS OLD), LEFT ANKLE ACHEILLES TENDON, BACK SURGERYS, CERVICAL SPINE SURGERY WITH HARDWARE, CARPAL TUNNEL. 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 He drinks a glass of wine a couple times per week and last intake was on Friday. 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 Past Drug Use History: None Reported - Past Family History Father Additional Family Medical History / Comment(s): Father at age 92 with history of coronary artery disease. Brother(s) Additional Family Medical History / Comment(s): Patient has total of 3 brothers one has from Parkinson's 1 from old age and one with throat cancer. Sister(s) Additional Family Medical History / Comment(s): Patient has one sister that from lung cancer with history of smoking and one at age 40 from a brain aneurysm. Patient has a total of 4 children. 3 sons, one has bipolar disorder. One daughter with no major medical problems. Mother Family Medical History: No Reported History Additional Family Medical History / Comment(s): Mother at age 76 with heart disease. Medications and Allergies Home Medications Medication Instructions Recorded Confirmed Type HYDROcodone/APAP 7.5-325MG [[place] 1 tab PO Q12H PRN 08/12/14 01/03/20 History 7.5-325] Tamsulosin [Flomax] 0.4 mg PO DAILY cap.er.24h 08/30/14 01/03/20 Rx Pravastatin Sodium [Pravachol] 80 mg PO HS 09/26/14 01/03/20 History Cetirizine HCl [Zyrtec] 10 mg PO DAILY 01/03/20 01/03/20 History Fluocinolone Acetonide [Synalar] 1 applic TOPICAL HS 01/03/20 01/03/20 History lisinopriL [Zestril] 2.5 mg PO DAILY 01/03/20 01/03/20 History Allergies Allergy/AdvReac Type Severity Reaction Status Date / Time propoxyphene napsylate Allergy Unknown Nausea & Verified 01/03/20 13:26 [From [place]-N 100] Vomiting Surgical Tape AdvReac Severe Blisters Uncoded 09/26/14 13:27 Physical Examination Osteopathic Statement: *. No significant issues noted on an osteopathic struc tural exam other than those noted in the History and Physical/Consult. Results - Labs Labs: Abnormal Lab Results - Last 24 Hours (Table) 01/03/20 01/03/20 Range/Units 12:13 12:13 APTT 21.6 L (22.0-30.0) sec Chloride 108 H (98-107) mmol/L Carbon Dioxide 13 L (22-30) mmol/L Magnesium 2.5 H (1.6-2.3) mg/dL H & H 01/03/20 Range/Units 12:13 Hgb 16.1 (13.0-17.5) gm/dL Hct 48.6 (39.0-53.0) % Coagulation 01/03/20 Range/Units 12:13 INR 0.9 (<1.2) Result Diagrams: 01/03/20 12:13 01/03/20 12:13 - Diagnostic results CT scan - cervical: report reviewed, image reviewed (Computed tomography scan of cervical spine shows evidence of prior fusion C3 4 5. It appears to be stable. He has significant degenerative disease and evidence of stenosis at C56 and C6 7. No new fracture.) Assessment and Plan Assessment: Recent seizure History of cervical stenosis with prior fusion C3 4 5 which is stable. 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 He is not having any new radicular symptoms or evidence of myelopathy. He is not having acute neurologic decline in terms of his upper or lower extremities. I do not think that we need new imaging acutely at his cervical spine at this point. It is okay for him to mobilize to his tolerance. At his lumbar spine he has significant spinal stenosis and lower extremity claudication with some radiculopathy. He has had interventional pain management in the past with some limited results. I think it is reasonable to continue conservative care which can be done outpatient basis with interventional pain management. He has seen Dr. Grey in the past for his interventional pain management and I think that is appropriate. I discussed this with him and his at bedside and they're agreeable. We will have therapy see him to try to mobilize and work on his mobility and ablation and gait and balance. He can follow-up with us on an as-needed basis.
[2020-01-04] MEDS: ACETAMINOPHEN TAB 325 MG TAB PO PRN (19:53)
[2020-01-04] MEDS: PRAVASTATIN SODIUM 80 MG TAB PO SCH (19:54)
[2020-01-04] MEDS: HYDROCORTISONE 1% CREAM 30 GM TUBE TOPICAL SCH (19:54)
[2020-01-04] MEDS: SODIUM CHLORIDE 0.9% 1,000 ML IV SCH (22:28)
[2020-01-05] MEDS: TAMSULOSIN 0.4 MG CAP.ER.24H PO SCH (08:16)
[2020-01-05] MEDS: levETIRAcetam 500 MG TAB PO SCH (08:16)
[2020-01-05] MEDS: LORATADINE 10 MG TAB PO SCH (08:16)
[2020-01-05] MEDS: LIDOCAINE VISCOUS 2% 15 ML CUP MUCOUS MEM SCH (08:22)
[2020-01-05] MEDS ORDERED: TRIAMCINOLONE ACET 0.1% ORAL PASTE 5 GM TUBE MUCOUS MEM SCH (08:30)
[2020-01-05 10:00] LABS: Calcium 9.1 mg/dL (8.4-10.2); Potassium 4.4 mmol/L (3.5-5.1)
[2020-01-05 10:14] VITALS: BP 123/71; PULSE 74; RESP 18; TEMP 97.6
--- NOTE | 2020-01-05 12:41 | P.DS ---
Providers Date of admission: 01/04/20 09:32 Expected date of discharge: 01/05/20 Attending physician: Mehnaz Bautista Consults: 01/03/20 13:09 Consult Physician Routine Consulting Provider: Major Vital Consult Reason/Comments: syncope, r/o seizure Do you want consulting provider notified?: Yes 01/04/20 09:05 Consult Physician Routine Consulting Provider: Kari Kaye Consult Reason/Comments: syncope Do you want consulting provider notified?: Yes 01/04/20 10:56 Consult Physician Routine Consulting Provider: Jenni Zamora Consult Reason/Comments: High grade cervical stenosis Do you want consulting provider notified?: Yes Primary care physician: Mehnaz Bautista [place] Hospital Course: This is an 84-year-old male patient of Dr. Bautista with past medical history of coronary artery disease with previous myocardial infarction and stenting status post 5 vessel CABG with placement of left internal mammary to the 100% occluded left anterior descending, reverse saphenous vein graft as a natural Y sequential to the 100% occluded first diagonal in the subtotally occluded second obtuse marginal, and reverse saphenous vein graft to the 80% occluded right coronary, which was a 2.5 mm vessel, and short jump graft to the terminal circumflex, seasonal ALLERGIES, hyperlipidemia, hypertension, benign prostatic hypertrophy, generalized osteoarthritis, 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 Patient's states that he was going to the refrigerator to get wind out of the refrigerator and fell backward hitting the hardwood floor and shaking all over. There is no bladder loss. His called 911 and patient was brought in to the hospital for evaluation. Patient denies having any headache. He does complain of soreness in his neck he does have history of spondylosis of the neck and lumbar spine. Patient noted to have abrasions on his tongue. He does have history of workup for thought to be seizure activity 30 years ago and [facility] was told it was vasovagal episode. Patient does not recall any incident home and just remembers waking up in the emergency center. Patient presented to [facility] emergency center for evaluation. Temperature 98.1, heart rate 107, blood pressure 136/90, pulse ox 95% on room air. EKG is a sinus rhythm with no acute ST changes. CBC reveals white count of 12.4, hemoglobin 16.1, platelet count 273. Sodium 140, potassium 4.1, chloride 108, CO2 13, BUN 17 and creatinine 1.19. Blood sugar 88. Magnesium 2.5, liver function tests normal. INR is 0.9. Troponin negative 1. Chest x-ray reveals limitations due to portable technique. Standing lower lung areas of atelectasis. No definite acute process. CAT scan of the brain and cervical spine reveals no acute intracranial hemorrhage, mass effect, or midline shift. Diffuse volume loss. Patchy white matter hypodensities are likely sequelae of chronic micro-vascular ischemic change. No acute fracture- dislocation of the cervical spine. C3 through C5 anterior fixation hardware appears intact. Cervical spine degenerative changes with high-grade spinal canal stenosis at C7-T1. Carotid ultrasound, echocardiogram, EEG, neuro consult requested and patient admitted to the floor. 01/03: Patient has been seen by neurology for seizure like episode and started on Keppra 500 mg twice daily. MRI of the brain ordered and MRA of the head was also ordered by neurology due to family history of brain aneurysm. EEG was normal with no focal slowing, epileptiform activity or seizure. Echocardiogram reveals EF of 60-65%, borderline concentric left ventricular hypertrophy, trace tricuspid regurgitation. Carotid ultrasound reveals no hemodynamically significant stenosis of the carotid arteries. Consult with cardiology added. Patient has been afebrile, heart rate in the 60s, blood pressure 125/73, pulse ox 96% on room air. Orthostatic vital signs have been negative. Troponins negative on 3 draws. Anticipate possible discharge in the next 24-48 hrs. 01/04: Patient has a spinal cord stimulator that was placed in his back by Dr. Tim. Because of this, we will cancel the MRI and obtain CT angiogram of the [place]. If this is normal, patient will be discharged home today. Again patient has been reminded that he is unable to drive for 6 months. He has been seen by Dr. Rangel regarding cervical stenosis with recommendations that patient could mobilize to his tolerance and continue conservative management for the lumbar spinal stenosis. He has been afebrile, heart rate 74, blood pressure 123/71, pulse ox 95% on room air. Repeat chemistry reveals normal electrolytes, BUN 18 and creatinine 0.93, blood sugar 196. Patient will be discharged home to day in stable condition. CT angiogram of the [place] revealed no significant new focal stenosis or aneurysmal change. Discharge diagnoses: 1. Syncopal episode, most likely seizure disorder. 2. Hypertension. 3. Hyperlipidemia. 4. History of coronary artery disease status post 5 vessel CABG, stable. 5. Seasonal ALLERGIES. 6. Benign prostatic hypertrophy. 7. Spondylosis and stenosis of the cervical spine and lumbar spine, stable. 8. Abrasions to the tongue. 9. Remote history of tobacco use and dependence. Discharge plan: Return home Impression and plan of care have been directed as dictated by the signing physician. Damaris Tanner nurse practitioner acting as scribe for signing physician. Patient Condition at Discharge: Good Plan - Discharge Summary Discharge Rx Participant: No New Discharge Prescriptions: New levETIRAcetam [Keppra] 500 mg PO Q12HR #60 tab Triamcinolone 0.1% Paste [Oralone 0.1% Paste] 1 applic MUCOUS MEM PC-TID #1 tube Continue HYDROcodone/APAP 7.5-325MG [[place] 7.5-325] 1 tab PO Q12H PRN PRN Reason: Pain Tamsulosin [Flomax] 0.4 mg PO DAILY cap.er.24h Pravastatin Sodium [Pravachol] 80 mg PO HS lisinopriL [Zestril] 2.5 mg PO DAILY Cetirizine HCl [Zyrtec] 10 mg PO DAILY Fluocinolone Acetonide [Synalar] 1 applic TOPICAL HS Discharge Medication List HYDROcodone/APAP 7.5-325MG [[place] 7.5-325] 1 tab PO Q12H PRN 08/12/14 [History] Tamsulosin [Flomax] 0.4 mg PO DAILY cap.er.24h 08/30/14 [Rx] Pravastatin Sodium [Pravachol] 80 mg PO HS 09/26/14 [History] Cetirizine HCl [Zyrtec] 10 mg PO DAILY 01/03/20 [History] Fluocinolone Acetonide [Synalar] 1 applic TOPICAL HS 01/03/20 [History] lisinopriL [Zestril] 2.5 mg PO DAILY 01/03/20 [History] Triamcinolone 0.1% Paste [Oralone 0.1% Paste] 1 applic MUCOUS MEM PC-TID #1 tube 01/05/20 [Rx] levETIRAcetam [Keppra] 500 mg PO Q12HR #60 tab 01/05/20 [Rx] Follow up Appointment(s)/Referral(s): Mehnaz Bautista MD [Primary Care Provider] - 1 Week Discharge Disposition: HOME SELF-CARE
--- NOTE | 2020-01-05 12:45 | CT ---
EXAMINATION TYPE: CT angio COW [place] DATE OF EXAM: 01/05/2020 11:55 AM COMPARISON: MRA brain July 18, 2011 HISTORY: Unresponsive episode, family history of aneurysm, seizure. CT DLP: 1071.3 mGycm Automated exposure control for dose reduction was used. TECHNIQUE: Performed with IV Contrast, patient injected with 100 mL of Isovue 370. 2-D and 3-D reconstructive im ages. Independent workstation and reviewed. . FINDINGS: Redemonstration of dominant left vertebral artery. Vertebral arteries remain patent to basilar juncti on. Persistent patent but small caliber left posterior communicating artery. Hypoplastic right pnp ior communicating artery. No significant focal stenosis or aneurysmal change in the posterior circula tion. There is small caliber right A1 segment with better filling of A2 segment due to patent anterior comm unicating artery redemonstrated. No new significant focal stenosis or aneurysmal change in the anteri or circulation. There is persistent mild to moderate diffuse cerebral atrophy and moderate to advanced chronic small vessel ischemic change. There is anterior fusion plate in the mid cervical spine noted on localizer. Bilateral scleral calcifications are present. Some dependent fluid in the dominant or larger right sp henoid sinus noted along left aspect similar to CT 2 days earlier IMPRESSION: No significant new focal stenosis or aneurysmal change at the level of the [place] is.
--- NOTE | 2020-01-05 18:53 | P.PN ---
Subjective Progress Note Date: 01/05/20 He was seen at bedside and he had that he had no further seizure episodes. Per the patient nurse he also stated that the had no further seizure episodes. Patient states that he's doing well and has no further neurological complaints. Patient was unable to get MRI of the brain or MRA since he has spinal cord stimulator that was placed back by Dr. Tim because of his lower back pain. Therefore as CT angiography was ordered instead. Objective - Vital Signs Vital signs: Vital Signs Temp 97.6 F 01/05/20 09:00 Pulse 74 01/05/20 09:00 Resp 18 01/05/20 09:00 BP 123/71 01/05/20 09:00 Pulse Ox 95 01/05/20 09:00 Intake & Output 01/04/20 01/05/20 01/05/20 18:59 06:59 18:59 Intake Total 300 1080 480 Balance 300 1080 480 Intake: Oral 300 1080 480 Other: Voiding Method Toilet Toilet Toilet # Voids 2 1 1 - Exam GENERAL: The patient is lying in bed and is not in acute distress. CHEST: The heart rate is regular rate rhythm. No murmurs to auscultation. LUNG: Clear to auscultation bilaterally no wheezing noted throughout. Not labored breathing. NEUROLOGICAL: Higher mental function: The patient is awake, alert, oriented to self, place and time. Patient is following commands. No aphasia and no neglect. Cranial nerves: The pupils are round, equal (3mm) and reactive to light and accommodation. Visual jacobsen are full to confrontation throughout. Extraocular movement is intact no nystagmus is noted. Facial sensation is normal to touch throughout. The facial strength is normal throughout. Hearing is normal bilaterally to hand rub. Tongue has bruise on lateral side of both tongues. Tongue is midline and moved [id number] without any difficulty. No dysarthria is noted. Shoulder shrug is normal bilaterally. Motor: Gait is defered. The strength is 5 over 5 throughout. Normal tone and bulk. Cerebellum: Normal finger to nose heel to chin bilaterally. Sensation: Sensation is normal to touch throughout. Reflexes (right/left): 2+ Plantars are downgoing bilaterally. - Labs CBC & Chem 7: 01/03/20 12:13 01/05/20 09:08 Labs: Abnormal Lab Results - Last 24 Hours (Table) 01/05/20 Range/Units 09:08 Glucose 196 H (74-99) mg/dL Assessment and Plan Assessment: 84-year-old gentleman with multiple medical problems that presented for an episode of unresponsiveness. Patient had a seizure-like episode about 30 years ago and was told it was vasovagal. Episode seemed more of seizure. 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 Therefore I will place the patient on Keppra 500 mg twice a day. Routine EEG on 01/03/2020 was normal. There is no focal slowing, epileptiform discharges or seizure seen on the study. MRI of the brain and MRA cannot be done because of the spinal cord stimulator that was placed by Dr. Tim because of the patient Back pain in the past. CT angiography of the head was done because of a family history of aneurysm, and was reported as the no significant focal stenosis or aneurysm Pending 2-D echo. Continue cardiac monitoring. Cardiology is on board Recommend the Holter monitoring to rule out any cardiac etiology. Orthopedic surgery valid the patient and surgical candidate for now inserted management for his cervical stenosis. Patient was notified that since he had an episode of unresponsiveness this current event that that he is to avoid the driving for 6 month according to the [facility] law. He is also to avoid the swimming unassisted, avoid climbing ladders or heights and that using had heavy machinery. Upon discharge the patient needs to follow-up with a neurologist as an outpatient There is no further workup from neurology standpoint. The plan was discussed with the patient. Major Vital M.D. Neuro-hospitalist Time with Patient: Less than 30
== END 2020-01-05 14:05 | disposition home or self-care (01) ==
LOC: EC 11:58 → 3NCARDOBS 13:49 → OBSVTOIN 01-04 09:32 → INTOOBSV 01-04 09:32 → UNDODISIN 01-05 14:05
PROVIDERS: ADMIT Internal Medicine; ATTEND Internal Medicine
DX: R55 Syncope and collapse (principal); I10 Essential (primary) hypertension; E78.5 Hyperlipidemia, unspecified; I25.10 Atherosclerotic heart disease of native coronary artery without angina pectoris; J30.2 Other seasonal allergic rhinitis; N40.0 Benign prostatic hyperplasia without lower urinary tract symptoms; M47.893 Other spondylosis, cervicothoracic region; M48.03 Spinal stenosis, cervicothoracic region; M47.26 Other spondylosis with radiculopathy, lumbar region; M48.062 Spinal stenosis, lumbar region with neurogenic claudication; S00.512A Abrasion of oral cavity, initial encounter; I67.82 Cerebral ischemia; J98.11 Atelectasis; R00.0 Tachycardia, unspecified; I25.2 Old myocardial infarction; M15.9 Polyosteoarthritis, unspecified; I65.23 Occlusion and stenosis of bilateral carotid arteries; R94.31 Abnormal electrocardiogram [ECG] [EKG]; Z79.899 Other long term (current) drug therapy; Z79.891 Long term (current) use of opiate analgesic; Z79.52 Long term (current) use of systemic steroids; Z88.5 Allergy status to narcotic agent; Z91.09 Other allergy status, other than to drugs and biological substances; Z85.9 Personal history of malignant neoplasm, unspecified; Z86.69 Personal history of other diseases of the nervous system and sense organs; Z90.49 Acquired absence of other specified parts of digestive tract; Z98.890 Other specified postprocedural states; Z87.39 Personal history of other diseases of the musculoskeletal system and connective tissue; Z96.82 Presence of neurostimulator; Z91.89 Other specified personal risk factors, not elsewhere classified; Z95.5 Presence of coronary angioplasty implant and graft; Z95.1 Presence of aortocoronary bypass graft; Z87.891 Personal history of nicotine dependence; Z98.1 Arthrodesis status; Z82.49 Family history of ischemic heart disease and other diseases of the circulatory system; Z81.8 Family history of other mental and behavioral disorders; Z80.8 Family history of malignant neoplasm of other organs or systems; Z80.1 Family history of malignant neoplasm of trachea, bronchus and lung; Z81.2 Family history of tobacco abuse and dependence; W18.39XA Other fall on same level, initial encounter; Y92.010 Kitchen of single-family (private) house as the place of occurrence of the external cause
CPT/HCPCS: 99285; 36415; 95816; 93005; 97161; 80053; 80048; 83735; 84484; 85025; 85610; 85730; 71045; 93880; 72125; 70496; 70450; G0378 ×3; C8929; Q9950; Q9967; 93306

== ENCOUNTER → 2020-07-28 | Outpatient (CLI) | payer MEDICARE ==
--- NOTE | 2020-07-28 11:39 | XR ---
EXAMINATION TYPE: XR lumbar spine 2 or 3V DATE OF EXAM: 07/28/2020 CLINICAL HISTORY: pain TECHNIQUE: Three views of the lumbar spine are submitted. COMPARISON: None. FINDINGS: Severe multilevel degenerative disc space narrowing greatest at L4-5 and L5-S1. Grade 1 anterolisthes is L4 and L5 of 7.9 mm. Endplate sclerosis and facet joint arthropathy noted. No compression fracture s seen. IMPRESSION: Advanced degenerative changes.
== END | disposition home or self-care (01) ==
LOC: RADXRMAIN 10:48
PROVIDERS: ATTEND Internal Medicine
DX: M47.816 Spondylosis without myelopathy or radiculopathy, lumbar region (principal)
CPT/HCPCS: 72100

== ENCOUNTER → 2020-08-04 | Outpatient (CLI) | payer MEDICARE ==
--- NOTE | 2020-08-04 07:42 | CT ---
EXAMINATION TYPE: CT lumbar spine wo con DATE OF EXAM: 08/04/2020 COMPARISON: HISTORY: Spondylosis of lumbar region CT DLP: 824.[address] of the lumbar spine was performed. Bone and soft tissue window settings are submitted as well as coronal and sagittal reconstructions. L1-L2: Vacuum disc changes noted. Mild posterior disc bulge. No evidence for herniation protrusion or central stenosis. No foraminal encroachment. Mild facet joint arthropathy. L2-L3: Vacuum disc changes noted. Posterior disc bulge. Degenerative changes of the facet joints with hypertrophy of the ligamentum flavum resulting in ylby-gx-zrlynscr central stenosis. L3-L4: Vacuum disc changes noted. Posterior disc bulge. Degenerative changes of the facet joints with hypertrophy of the ligamentum flavum resulting in oxkx-ej-zkhagrfx central stenosis. L4-L5: Vacuum disc changes noted. Grade 1 anterolisthesis measuring 6 mm of L4 and L5. Lumbar laminec rusty changes. Lack of contrast limits evaluation for recurrent or residual disease. L5-S1: Vacuum disc changes noted. Grade 1 retrolisthesis L5 on S1 of approximately 3.3 mm. Posterior disc bulge. Decompressive laminectomy changes. Bilateral foraminal encroachment. No definite evidence for recurrent or residual disease. Mild curvature convex to the left of the lumbar spine. Ventral spondylosis. No evidence for compressi on fracture. IMPRESSION: 1. Multilevel degenerative disc disease with central stenosis at L2-3 and L3-4.
== END | disposition home or self-care (01) ==
LOC: RADCTMAIN 06:36
PROVIDERS: ATTEND Internal Medicine
DX: M47.816 Spondylosis without myelopathy or radiculopathy, lumbar region (principal); M48.061 Spinal stenosis, lumbar region without neurogenic claudication; M51.36 Other intervertebral disc degeneration, lumbar region
CPT/HCPCS: 72131

== ENCOUNTER 2020-09-15 07:47 | Day surgery (SDC) | payer MEDICARE ==
[~2020-09-15 07:47] MED LIST: PREMYELOGRAM MEDICATION REVIEW 1 EACH MISC PO ONE
[2020-09-15] MEDS ORDERED: diazePAM 5 MG TAB PO STA (08:59)
[2020-09-15 09:36] VITALS: TEMP 97.9
[2020-09-15] MEDS ORDERED: HYDROcodone/APAP 5-325MG 1 EACH TAB PO PRN (10:03)
--- NOTE | 2020-09-15 10:54 | FL ---
PROCEDURE: Fluoroscopic lumbar myelogram injection DATE: 09/15/2020 CLINICAL HISTORY: 85-year-old male M47.16, lumbar region spondylosis and pain COMPLICATIONS: None Fluoroscopy time: 2 minutes 46 seconds Total images: 7. The patient and the patient's vital signs were monitored by qualified independent radiology personnel . TECHNIQUE: The procedure and potential risks were explained to patient and an informed consent was obtained with teach back. Site and side was verified. A time out was performed. The patient was placed prone on the fluoroscopy table and the L3-L4 level was localized and the skin was marked and was prepped and draped in the usual sterile fashion. Lidocaine was used for local anesthesia. Utilizing fluoroscopic guidance a 22-gauge 5 inch spinal nee dle was placed through the skin but multiple attempts at accessing the subarachnoid space were unsucc essful. Subsequently, lidocaine was used for local anesthesia at the L5 level given the patient's laminectomy and the spinal needle was successfully advanced into the subarachnoid space. Clear CSF was visualized. Subsequently, a total of 10 mL Isovue-M 300 was administered into the theca l sac. The patient tolerated the procedure well and was to CT to complete the exam. The estimated blood loss was minimal. The patient's condition was unchanged following the procedure. IMPRESSION: Successful lumbar myelogram injection for CT at the patient's L5 laminectomy level.
[2020-09-15 15:33] VITALS: RESP 16
[2020-09-15 15:50] VITALS: PULSE 67
[2020-09-15 15:51] VITALS: BP 141/82
--- NOTE | 2020-09-15 17:45 | CT ---
EXAMINATION TYPE: CT lumbar spine w con DATE OF EXAM: 09/15/2020 COMPARISON: None HISTORY: 85-year-old male M43.16, low back pain, spondylolisthesis TECHNIQUE: Contiguous axial scanning of the lumbar spine performed after lumbar myelogram injection. Please refer to mammogram injection report of the same day for further details. Coronal and sagittal reconstructions performed. CT DLP: 995.6 mGycm Automated exposure control for dose reduction was used. FINDINGS: Left-sided generator device. Leads extend up along the left posterior back with stimulator array in t he mid thoracic spinal canal. Vertebral body heights are preserved. Advanced hypertrophic facet arthropathy throughout the lumbar spine. Degenerative grade 1 anterolisthesis at L4-L5. Moderate multilevel degenerative disc disease with bulging discs and vacuum phenomenon throughout. Conus medullaris is normal. At T11-T12, small left paracentral protrusion impressing on the thecal sac. Ligamentum flavum thicken ing is also present. No significant canal or foraminal stenosis. At T12-L1, no significant canal or foraminal stenosis. At L1-L2, large right paracentral disc extrusion with some superior migration of disc material. Corre sponding ligamentum flavum thickening and facet arthropathy. There is moderate spinal canal stenosis with right lateral recess stenosis. Moderate to severe right neuroforaminal stenosis. At L2-L3, diffuse disc bulge with facet arthropathy and ligamentum flavum thickening. Moderate focal spinal canal stenosis along with moderate bilateral neuroforaminal stenosis. At L3-L4, diffuse disc bulge, facet arthropathy, and moderate right and mild left neural foraminal st enosis. There appears to be right lateral recess stenosis and mild overall spinal canal stenosis. At L4-L5, advanced hypertrophic facet arthropathy with grade 1 anterolisthesis. No spinal canal steno sis. There is moderate right and mild left neuroforaminal stenosis. At L5-S1, there is laminectomy with decompression of the ventral spinal canal. Mild disc bulge and fa cet arthropathy is present. No spinal canal stenosis. There is severe left and moderate to severe rig ht neuroforaminal stenosis. IMPRESSION: 1. PREVIOUS L5 LAMINECTOMY. 2. MODERATE MULTILEVEL DEGENERATIVE DISC DISEASE. HYPERTROPHIC FACET ARTHROPATHY AND LIGAMENTUM FLAVU M THICKENING THROUGHOUT. 3. DEGENERATIVE GRADE 1 ANTEROLISTHESIS L4-L5. 4. LARGE RIGHT PARACENTRAL DISC EXTRUSION WITH SUPERIOR MIGRATION OF DISC MATERIAL AT L1-L2. THERE IS MODERATE SPINAL CANAL STENOSIS HERE WITH RIGHT LATERAL RECESS STENOSIS AND MODERATE TO SEVERE RIGHT NEUROFORAMINAL STENOSIS. 5. OVERALL MODERATE FOCAL SPINAL CANAL STENOSIS AT L2-L3 WITH MODERATE BILATERAL NEUROFORAMINAL STENO SIS. 6. OVERALL MILD SPINAL CANAL STENOSIS AT L3-L4 THOUGH WITH RIGHT LATERAL RECESS STENOSIS AND MODERATE RIGHT NEUROFORAMINAL STENOSIS. 7. AT L5-S1, THERE IS DORSAL DECOMPRESSION OF THE SPINAL CANAL BUT SEVERE LEFT AND MODERATE TO SEVERE RIGHT NEUROFORAMINA STENOSIS.
== END 2020-09-15 14:04 | disposition home or self-care (01) ==
LOC: RADPROMAIN 07:47
PROVIDERS: ATTEND Neurological Surgery
DX: M43.16 Spondylolisthesis, lumbar region (principal); M47.16 Other spondylosis with myelopathy, lumbar region
CPT/HCPCS: 62304; 72132; J2001; Q9967

== ENCOUNTER → 2020-11-03 | Outpatient (CLI) | payer MEDICARE ==
[2020-11-03 11:55] LABS: Appearance,Urine Clear (Clear); Bilirubin,Urine Negative (Negative); Blood,Urine Negative (Negative); Color,Urine Yellow; Glucose,Urine (UA) Negative (Negative); Ketones,Urine Negative (Negative); Leukocyte Esterase,Urine Negative (Negative); Nitrite,Urine Negative (Negative); Protein,Urine Negative (Negative); Specific Gravity,Urine 1.024 (1.001-1.035); Urobilinogen,Urine <2.0 mg/dL (<2.0)
[2020-11-03 11:56] LABS: Basophils % (A) 1 %; Eosinophils # (A) 0.2 k/uL (0-0.7); Eosinophils % (A) 3 %; HCT 47.3 % (39.0-53.0); HGB 15.7 gm/dL (13.0-17.5); Lymphocytes # (A) 1.7 k/uL (1.0-4.8); Lymphocytes % (A) 26 %; MCH 32.1 pg (25.0-35.0); MCHC 33.3 g/dL (31.0-37.0); MCV 96.6 fL (80.0-100.0); Mean Platelet Volume 7.9; Monocytes # (A) 0.4 k/uL (0-1.0); Monocytes % (A) 6 %; Neutrophils # (A) 4.1 k/uL (1.3-7.7); Neutrophils % (A) 62 %; Platelet Count 251 k/uL (150-450); RBC 4.89 m/uL (4.30-5.90); RDW 13.1 % (11.5-15.5); WBC 6.6 k/uL (3.8-10.6)
[2020-11-03 12:20] LABS: ALT 16 U/L (4-49); AST 23 U/L (17-59); African American GFR (CKD) >90 (>60 ml/min/1.73 sqM); Albumin 4.2 g/dL (3.5-5.0); Alkaline Phosphatase 63 U/L (38-126); Anion Gap 8 mmol/L; Blood Urea Nitrogen 25 mg/dL (9-20); Calcium 9.6 mg/dL (8.4-10.2); Carbon Dioxide 26 mmol/L (22-30); Chloride 104 mmol/L (98-107); Glucose 85 mg/dL (74-99); Non-African American GFR(CKD) 79 (>60 ml/min/1.73 sqM); Potassium 4.1 mmol/L (3.5-5.1); Sodium 138 mmol/L (137-145); Total Bilirubin 0.3 mg/dL (0.2-1.3); Total Protein 6.4 g/dL (6.3-8.2)
--- NOTE | 2020-11-03 12:20 | XR ---
EXAMINATION TYPE: XR chest 2V DATE OF EXAM: 11/03/2020 COMPARISON: 01/03/2020 HISTORY: 85-year-old male preoperative for spine surgery. M43.16,M47.16 TECHNIQUE: Frontal and lateral views FINDINGS: Median sternotomy wires are present. Post-CABG clips. Spinal stimulator ray centered along the mid to lower thoracic spinal canal. Asymmetric elevation left hemidiaphragm is unchanged. Atherosclerotic a rch calcifications. Heart normal size. Suspect normal variant azygous fissure. Mild interstitial prom inence has a chronic appearance. No consolidation or pleural effusion. Minimal strandy atelectasis at the left base. IMPRESSION: Chronic changes. No acute cardiopulmonary process. Similar asymmetric elevation left hemidiaphragm. I f indicated, sniff test can be performed to exclude hemidiaphragmatic paralysis.
[2020-11-03 12:35] LABS: INR 0.9 (<1.2); Partial Thromboplastin Time 24.2 sec (22.0-30.0); Prothrombin Time 10.1 sec (9.0-12.0)
== END | disposition home or self-care (01) ==
LOC: RADXRMAIN 10:32
PROVIDERS: ATTEND Neurological Surgery
DX: Z01.818 Encounter for other preprocedural examination (principal); J98.6 Disorders of diaphragm
CPT/HCPCS: 36415; 71046; 80053; 81003; 85025; 85610; 85730; 87070

== ENCOUNTER → 2021-04-09 | Outpatient (CLI) | payer MEDICARE ==
[2021-04-09 08:36] LABS: Appearance,Urine Clear (Clear); Bilirubin,Urine Negative (Negative); Blood,Urine Negative (Negative); Color,Urine Yellow; Glucose,Urine (UA) Negative (Negative); Ketones,Urine Negative (Negative); Leukocyte Esterase,Urine Negative (Negative); Nitrite,Urine Negative (Negative); Protein,Urine Negative (Negative); Specific Gravity,Urine 1.021 (1.001-1.035); Urobilinogen,Urine <2.0 mg/dL (<2.0)
[2021-04-09 10:09] LABS: Basophils # (A) 0.03 X 10*3/uL (0.00-0.10); Basophils % (A) 0.4 %; Eosinophils % (A) 2.9 %; HCT 47.7 % (39.6-50.0); HGB 15.7 g/dL (13.0-17.0); Lymphocytes # (A) 1.86 X 10*3/uL (0.90-5.00); Lymphocytes % (A) 26.6 %; MCH 30.9 pg (27.0-32.0); MCHC 32.9 g/dL (32.0-37.0); MCV 93.9 fL (80.0-97.0); Monocytes # (A) 0.56 X 10*3/uL (0.20-1.00); Neutrophils # (A) 4.31 X 10*3/uL (1.80-7.70); Neutrophils % (A) 61.7 %; Platelet Count 226 X 10*3/uL (140-440); RBC 5.08 X 10*6/uL (4.40-5.60); RDW 13.2 % (11.5-14.5); WBC 6.99 X 10*3/uL (4.50-10.00)
[2021-04-09 10:31] LABS: ALT 13 U/L (10-49); AST 19 U/L (14-35); African American GFR (CKD) 90.6 (60.0-200.0); Albumin 4.5 g/dL (3.8-4.9); Alkaline Phosphatase 72 U/L (41-126); BUN/Creat Ratio 23.33 Ratio (12.00-20.00); Calcium 9.7 mg/dL (8.7-10.3); Carbon Dioxide 22.6 mmol/L (20.0-27.5); Chloride 104 mmol/L (96-109); Chol/HDL Ratio 2.34 Ratio; Globulin 2.5 g/dL (1.6-3.3); Glucose 90 mg/dL (70-110); LDL Cholesterol,Calculated 57.8 mg/dL (0.0-131.0); Magnesium 2.3 mg/dL (1.5-2.4); Non-African American GFR(CKD) 78.2 (60.0-200.0); Potassium 4.5 mmol/L (3.5-5.5); Sodium 140 mmol/L (135-145)
== END | disposition home or self-care (01) ==
LOC: LABWHC1 07:05
PROVIDERS: ATTEND Internal Medicine
DX: I10 Essential (primary) hypertension (principal); E78.2 Mixed hyperlipidemia; R56.9 Unspecified convulsions
CPT/HCPCS: 36415; 80053; 80061; 80177; 81003; 83735; 84443; 85025

== ENCOUNTER → 2021-07-05 | Outpatient (CLI) | payer MEDICARE | END | disposition home or self-care (01) | LOC: LABWHC1 07:07 | PROVIDERS: ATTEND Internal Medicine | DX: Z53.9 Procedure and treatment not carried out, unspecified reason (principal) ==

== ENCOUNTER → 2021-07-09 | Outpatient (CLI) | payer MEDICARE ==
[2021-07-09 10:47] LABS: Basophils # (A) 0.02 X 10*3/uL (0.00-0.10); Basophils % (A) 0.3 %; Eosinophils # (A) 0.22 X 10*3/uL (0.04-0.35); Eosinophils % (A) 3.4 %; HCT 45.3 % (39.6-50.0); HGB 14.8 g/dL (13.0-17.0); Immature Grans, Automated 0.3 %; Lymphocytes # (A) 1.71 X 10*3/uL (0.90-5.00); Lymphocytes % (A) 26.1 %; MCH 30.5 pg (27.0-32.0); MCHC 32.7 g/dL (32.0-37.0); MCV 93.2 fL (80.0-97.0); Mean Platelet Volume 10.5 fL (9.5-12.2); Monocytes # (A) 0.52 X 10*3/uL (0.20-1.00); Monocytes % (A) 7.9 %; NRBC Per 100 WBC 0 /100 WBCS (0.0-0.0); Neutrophils # (A) 4.07 X 10*3/uL (1.80-7.70); Platelet Count 256 X 10*3/uL (140-440); RBC 4.86 X 10*6/uL (4.40-5.60); WBC 6.56 X 10*3/uL (4.50-10.00)
[2021-07-09 11:12] LABS: ALT 17 U/L (10-49); AST 21 U/L (14-35); African American GFR (CKD) 95.1 (60.0-200.0); Albumin 4.2 g/dL (3.8-4.9); Albumin/Globulin Ratio 1.68 (1.60-3.17); Alkaline Phosphatase 77 U/L (41-126); BUN/Creat Ratio 22.25 Ratio (12.00-20.00); Blood Urea Nitrogen 17.8 mg/dL (9.0-27.0); Calcium 9.5 mg/dL (8.7-10.3); Carbon Dioxide 22.8 mmol/L (20.0-27.5); Chloride 105 mmol/L (96-109); Chol/HDL Ratio 2.18 Ratio; Globulin 2.5 g/dL (1.6-3.3); Glucose 93 mg/dL (70-110); LDL Cholesterol,Calculated 49.3 mg/dL (0.0-131.0); Potassium 4.3 mmol/L (3.5-5.5); Sodium 139 mmol/L (135-145); Total Protein 6.7 g/dL (6.2-8.2); VLDL Calculation 18.38 mg/dL (5.00-40.00)
== END | disposition home or self-care (01) ==
LOC: LABWHC1 06:55
PROVIDERS: ATTEND Internal Medicine
DX: Z13.29 Encounter for screening for other suspected endocrine disorder (principal); I10 Essential (primary) hypertension; E78.2 Mixed hyperlipidemia; R56.9 Unspecified convulsions
CPT/HCPCS: 36415; 80053; 80061; 80177; 84153; 84443; 85025

== ENCOUNTER → 2022-01-28 | Outpatient (CLI) | payer MEDICARE ==
[2022-01-28 10:43] LABS: Basophils # (A) 0.02 X 10*3/uL (0.00-0.10); Basophils % (A) 0.3 %; Eosinophils # (A) 0.22 X 10*3/uL (0.04-0.35); HGB 14.8 g/dL (13.0-17.0); Immature Grans, Automated 0.4 %; Lymphocytes # (A) 1.62 X 10*3/uL (0.90-5.00); Lymphocytes % (A) 22.3 %; MCH 30.8 pg (27.0-32.0); MCHC 32.9 g/dL (32.0-37.0); MCV 93.6 fL (80.0-97.0); Mean Platelet Volume 10.3 fL (9.5-12.2); Monocytes % (A) 8.2 %; NRBC Per 100 WBC 0 /100 WBCS (0.0-0.0); Neutrophils # (A) 4.79 X 10*3/uL (1.80-7.70); Neutrophils % (A) 65.8 %; Platelet Count 243 X 10*3/uL (140-440); RBC 4.81 X 10*6/uL (4.40-5.60); RDW 13.5 % (11.5-14.5); WBC 7.28 X 10*3/uL (4.50-10.00)
[2022-01-28 11:02] LABS: ALT 14 U/L (10-49); AST 15 U/L (14-35); African American GFR (CKD) 94.4 (60.0-200.0); Albumin 4.3 g/dL (3.8-4.9); Albumin/Globulin Ratio 2.05 (1.60-3.17); Alkaline Phosphatase 87 U/L (41-126); Calcium 9.6 mg/dL (8.7-10.3); Carbon Dioxide 25.2 mmol/L (20.0-27.5); Chloride 102 mmol/L (96-109); Chol/HDL Ratio 2.08 Ratio; Globulin 2.1 g/dL (1.6-3.3); Glucose 86 mg/dL (70-110); LDL Cholesterol,Calculated 46.1 mg/dL (0.0-131.0); Magnesium 2.1 mg/dL (1.5-2.4); Non-African American GFR(CKD) 81.5 (60.0-200.0); Potassium 4.1 mmol/L (3.5-5.5); Sodium 143 mmol/L (135-145); Total Protein 6.4 g/dL (6.2-8.2)
== END | disposition home or self-care (01) ==
LOC: LABWHC1 06:57
PROVIDERS: ATTEND Internal Medicine
DX: E55.9 Vitamin D deficiency, unspecified (principal); I10 Essential (primary) hypertension; E78.2 Mixed hyperlipidemia; R56.9 Unspecified convulsions
CPT/HCPCS: 36415; 80053; 80061; 80177; 82306; 83036; 83735; 84439; 84443; 85025

== ENCOUNTER 2022-11-14 23:54 | Emergency (ER) | payer MEDICARE ==
--- NOTE | 2022-11-15 01:00 | XR ---
EXAM: XR Chest, 1 View CLINICAL HISTORY: ITS.REASON XR Reason: chest pain TECHNIQUE: Frontal view of the chest. COMPARISON: Prior dated 11/03/20. FINDINGS: Lungs: Unremarkable. No consolidation. Pleural space: Unremarkable. No pneumothorax. Heart: Unremarkable. No cardiomegaly. Mediastinum: Unremarkable. Bones/joints: Median sternotomy wires. Upper 3 wires are fractured, similar to the prior. Vasculature: Tortuous aorta with calcifications. Tubes, lines and devices: Spinal stimulator as on the prior. Upper abdomen: Elevated left hemidiaphragm, stable. IMPRESSION: No acute findings in the chest.
[2022-11-15] MEDS ORDERED: KETOROLAC 15 MG/ML 1 ML VIAL IVP STA (01:13)
[2022-11-15 02:06] LABS: Basophils % (A) 0 %; Eosinophils # (A) 0.2 k/uL (0-0.7); Eosinophils % (A) 2 %; HCT 41.9 % (39.0-53.0); HGB 14.2 gm/dL (13.0-17.5); Lymphocytes # (A) 1.7 k/uL (1.0-4.8); Lymphocytes % (A) 17 %; MCH 31.5 pg (25.0-35.0); MCV 92.8 fL (80.0-100.0); Mean Platelet Volume 8.7; Monocytes # (A) 0.6 k/uL (0-1.0); Monocytes % (A) 6 %; Neutrophils # (A) 7.3 k/uL (1.3-7.7); Neutrophils % (A) 73 %; Platelet Count 224 k/uL (150-450); RBC 4.52 m/uL (4.30-5.90); RDW 13.4 % (11.5-15.5); WBC 9.9 k/uL (3.8-10.6)
[2022-11-15 02:17] LABS: Partial Thromboplastin Time 24.4 sec (22.0-30.0); Prothrombin Time 10.2 sec (9.0-12.0)
[2022-11-15 02:35] VITALS: TEMP 98.2
--- NOTE | 2022-11-15 02:54 | ED ---
Chest Pain HPI - General Chief Complaint: Chest Pain Stated Complaint: Chest pain Time Seen by Provider: 11/15/22 00:28 Source: patient, EMS Mode of arrival: EMS - History of Present Illness Initial Comments: 87-year-old male with past medical history of coronary artery disease status post bypass surgery, chronic back pain who presents to the emergency department reporting chest pain. States that he was woken up from sleep around 10:30 PM with pain on his right lateral chest wall. States that the pain is reproducible upon movement of his right arm and therefore does not want to lift his arm greater than 90 due to pain. The area is also tender to touch over the right chest wall. He denies any trauma. He is left-hand dominant therefore denies any repetitive movements with the right arm. He denies any shoulder pain. He did take some Tylenol at home which did not help the symptoms. He has a mild nonproductive cough and no fevers. Denies shortness of breath. He denies any calf pain or swelling. No history of DVT or PE. No other alleviating, precipitating or modifying factors - Related Data Home Medications Medication Instructions Recorded Confirmed HYDROcodone/APAP 7.5-325MG [[place] 1 tab PO Q6H PRN 08/12/14 09/07/20 7.5-325] Pravastatin Sodium [Pravachol] 80 mg PO HS 09/26/14 09/07/20 Cetirizine HCl [Zyrtec] 10 mg PO HS 01/03/20 09/07/20 Fluocinolone Acetonide [[place]alar 1 applic TOPICAL HS 01/03/20 09/07/20 0.01%] lisinopriL [Zestril] 2.5 mg PO DAILY 01/03/20 09/07/20 Aspirin [Adult Low Dose Aspirin EC] 81 mg PO DAILY 09/07/20 09/07/20 Biotin [Biotin Disolve] 5,000 mcg PO DAILY 09/07/20 09/07/20 Cholecalciferol [Vitamin D3 (25 50 mcg PO DAILY 09/07/20 09/07/20 Mcg = 1000 Iu)] Ferrous Sulfate [Feosol] 325 mg PO DAILY 09/07/20 09/07/20 Tamsulosin [Flomax] 0.4 mg PO HS 09/07/20 09/07/20 bisacodyL [Dulcolax] 5 mg PO DAILY PRN 09/07/20 09/07/20 Previous Rx's Medication Instructions Recorded levETIRAcetam [Keppra] 500 mg PO Q12HR #60 tab 01/05/20 polyethylene glycoL 3350 [Miralax] 17 gm PO DAILY #14 packet 07/26/21 Ketorolac [Toradol] 10 mg PO Q8HR #15 tab 11/15/22 Allergies Allergy/AdvReac Type Severity Reaction Status Date / Time propoxyphene napsylate Allergy Unknown Nausea & Verified 07/26/21 01:25 [From Darvocet-N 100] Vomiting Surgical Tape AdvReac Severe Blisters Uncoded 07/26/21 01:25 Review of Systems ROS Statement: Those systems with pertinent positive or pertinent negative responses have been documented in the HPI. ROS Other: All systems not noted in ROS Statement are negative. Past Medical History Past Medical History: Prostate Disorder Additional Past Medical History / Comment(s): HX OF 1 SEIZURE APPROX 30 YRS AGO History of Any Multi-Drug Resistant Organisms: None Reported Past Surgical History: Appendectomy, Back Surgery, Coronary Bypass/CABG, Orthopedic Surgery Additional Past Surgical History / Comment(s): APPENDECTOMY (17 YRS OLD), LEFT ANKLE ACHEILLES TENDON, BACK SURGERYS, CERVICAL SPINE SURGERY WITH HARDWARE, CARPAL TUNNEL. , NERVE STIMULATOR LEFT HIP.(ST SULEMAN), CABG Past Anesthesia/Blood Transfusion Reactions: Postoperative Nausea & Vomiting (PONV) Past Psychological History: No Psychological Hx Reported Smoking Status: Former smoker Past Alcohol Use History: Occasional Past Drug Use History: None Reported - Past Family History Father Additional Family Medical History / Comment(s): Father at age 92 with history of coronary artery disease. Brother(s) Additional Family Medical History / Comment(s): Patient has total of 3 brothers one has from Parkinson's 1 from old age and one with throat cancer. Sister(s) Additional Family Medical History / Comment(s): Patient has one sister that from lung cancer with history of smoking and one at age 40 from a brain aneurysm. Patient has a total of 4 children. 3 sons, one has bipolar disorder. One daughter with no major medical problems. Mother Family Medical History: No Reported History Additional Family Medical History / Comment(s): Mother at age 76 with heart disease. General Exam General appearance: alert, in no apparent distress Head exam: Present: atraumatic, normocephalic, normal inspection Eye exam: Present: normal appearance, PERRL, EOMI. Absent: scleral icterus, conjunctival injection, periorbital swelling ENT exam: Present: normal exam, mucous membranes moist Neck exam: Present: normal inspection. Absent: tenderness, meningismus, lymphadenopathy Respiratory exam: Present: normal lung sounds bilaterally, chest wall tenderness (Right lateral chest wall/ pectoral muscle). Absent: respiratory distress, wheezes, rales, rhonchi, stridor Cardiovascular Exam: Present: regular rate, normal rhythm, normal heart sounds. Absent: systolic murmur, diastolic murmur, rubs, gallop, clicks GI/Abdominal exam: Present: soft, normal bowel sounds. Absent: distended, tenderness, guarding, rebound, rigid Extremities exam: Present: normal inspection, full ROM, normal capillary refill. Absent: tenderness, pedal edema, joint swelling, calf tenderness Back exam: Present: normal inspection Neurological exam: Present: alert, oriented X3, CN II-XII intact Psychiatric exam: Present: normal affect, normal mood Skin exam: Present: warm, dry, intact, normal color. Absent: rash Course Vital Signs 11/14/22 11/15/22 11/15/22 23:57 02:34 03:43 Temperature 98.6 F 98.2 F Pulse Rate 71 67 68 Respiratory 18 17 18 Rate Blood Pressure 161/78 147/80 142/80 O2 Sat by Pulse 98 98 97 Oximetry Chest Pain MDM - MDM Was pt. sent in by a medical professional or institution (, PA, ACADEMIC SUPPORT CENTER DIRECTOR, urgent care, hospital, or jail...) When possible be specific @ -No Did you speak to anyone other than the patient for history (EMS, parent, family, police, friend...)? What history was obtained from this source @ -No Did you review nursing and triage notes (agree or disagree)? Why? @ -I reviewed and agree with nursing and triage notes Were old charts reviewed (outside hosp., previous admission, EMS record, old EKG, old radiological studies, urgent care reports/EKG's, jail records)? Report findings @ -No old charts were reviewed Differential Diagnosis (chest pain, altered mental status, abdominal pain women, abdominal pain men, vaginal bleeding, weakness, fever, dyspnea, syncope, headache, dizziness, GI bleed, back pain, seizure, CVA, palpatations, mental health, musculoskeletal)? @ -Differential Chest Pain: Stable Angina, Unstable Angina, STEMI, NSTEMI Aortic Dissection, Pneumothorax, Musculoskeletal, Esophageal Spasm GERD, Cholecystitis, Pancreatitis, Zoster, this is not meant to be an all-inclusive list. EKG interpreted by me (3pts min.). @ -Yes and demonstrates sinus rhythm with a rate of 68. OH interval 198. QRS 84. QTC of 394. No acute ST segment elevations or depressions X-rays interpreted by me (1pt min.). @ -Yes and demonstrates no acute intrathoracic process. No rib fractures CT interpreted by me (1pt min.). @ -None done U/S interpreted by me (1pt. min.). @ -None done What testing was considered but not performed or refused? (CT, X-rays, U/S, labs)? Why? @ -None What meds were considered but not given or refused? Why? @ -Narcotic pain medications were considered however patient had good relief with Toradol Did you discuss the management of the patient with other professionals (professionals i.e. , PA, [facility] DIRECTOR, lab, RT, psych nurse, social work administrator, precision honing machine operator, teacher, housing officer, caser)? Give summary @ -No Was smoking cessation discussed for >3mins.? @ -No Was critical care preformed (if so, how long)? @ -No Were there social determinants of health that impacted care today? How? (Homelessness, low income, unemployed, alcoholism, drug addiction, transportation, low edu. Level, literacy, decrease access to med. care, prison, rehab)? @ -None Was there de-escalation of care discussed even if they declined (Discuss DNR or withdrawal of care, Hospice)? DNR status @ -No What co-morbidities impacted this encounter? (DM, HTN, Smoking, COPD, CAD, Cancer, CVA, ARF, Chemo, Hep., AIDS, mental health diagnosis, sleep apnea, morbid obesity)? @ -Coronary artery disease status post bypass Was patient admitted / discharged? Hospital course, mention meds given and route , prescriptions, significant lab abnormalities, going to OR and other pertinent info. @ -Upon arrival patient was placed into room 17. A thorough history and physical exam was performed. Patient does have reproducible pain upon palpation of the right lateral chest wall, especially with elevation of the right arm. He is offered something for pain control. He is given a dose of Toradol. IV access is established and laboratory studies were conducted. 12-lead EKG was completed and the patient remains on continuous pulse ox and cardiac monitoring. Chest x-rays performed. Upon return results they're discuss the patient. I did offer admission to the hospital in order to trend his troponins and have him see cardiology however the patient refused. States he would prefer to go home at this time. The risks of leaving and are discussed with the patient. He does understand these risks. I requested the patient follow up with his primary care doctor within the next 2-4 days. He'll be prescribed Toradol as he did have good improvement in his pain with the medication. Return for any worsening symptoms. patient was agreeable to plan and was discharged in stable condition Undiagnosed new problem with uncertain prognosis? @ -Yes Drug Therapy requiring intensive monitoring for toxicity (Heparin, Nitro, Insuli n, Cardizem)? @ -No Were any procedures done? @ -No Diagnosis/symptom? @ -Acute right-sided chest wall pain Acute, or Chronic, or Acute on Chronic? @ -Acute Uncomplicated (without systemic symptoms) or Complicated (systemic symptoms)? @ -Acute Side effects of treatment? @ -No Exacerbation, Progression, or Severe Exacerbation? @ -No Poses a threat to life or bodily function? How? (Chest pain, [place], [place], pneumonia, PE, COPD, DKA, ARF, appy, cholecystitis, CVA, Diverticulitis, Homicidal, Suicidal, threat to staff... and all critical care pts) @ -No Disposition Clinical Impression: Chest wall pain Disposition: HOME SELF-CARE Condition: Stable Instructions (If sedation given, give patient instructions): Chest Wall Pain (ED) Additional Instructions: Please use the pain medications as needed. Follow-up with your primary care in 2-4 days. Return for any new or worsening symptoms Prescriptions: Ketorolac [Toradol] 10 mg PO Q8HR #15 tab Is patient prescribed a controlled substance at d/c from ED?: No Referrals: Mehnaz Bautista MD [Primary Care Provider] - 1-2 days Time of Disposition: 03:36
[2022-11-15 03:06] LABS: ALT 20 U/L (4-49); AST 24 U/L (17-59); African American GFR (CKD) >90 (>60 ml/min/1.73 sqM); Albumin 3.9 g/dL (3.5-5.0); Alkaline Phosphatase 104 U/L (38-126); Anion Gap 10 mmol/L; Blood Urea Nitrogen 21 mg/dL (9-20); Calcium 9.4 mg/dL (8.4-10.2); Carbon Dioxide 22 mmol/L (22-30); Chloride 105 mmol/L (98-107); Glucose 105 mg/dL (74-99); Magnesium 2.2 mg/dL (1.6-2.3); Non-African American GFR(CKD) 80 (>60 ml/min/1.73 sqM); Potassium 4.3 mmol/L (3.5-5.1); Sodium 137 mmol/L (137-145); Total Bilirubin 0.5 mg/dL (0.2-1.3); Total Protein 6.6 g/dL (6.3-8.2)
[2022-11-15 03:47] VITALS: BP 142/80; PULSE 68; RESP 18
== END 2022-11-15 03:46 | disposition home or self-care (01) ==
LOC: EC 23:54
DX: R07.89 Other chest pain (principal); I25.10 Atherosclerotic heart disease of native coronary artery without angina pectoris; Z79.82 Long term (current) use of aspirin; Z79.899 Other long term (current) drug therapy; Z87.891 Personal history of nicotine dependence; Z90.49 Acquired absence of other specified parts of digestive tract; Z95.1 Presence of aortocoronary bypass graft
CPT/HCPCS: 36415; 93005; 80053; 83735; 84484; 85025; 85610; 85730; 71045; 99285; 96374; J1885

== ENCOUNTER 2023-02-14 09:55 | Emergency (ER) | payer MEDICARE ==
[2023-02-14 10:12] VITALS: BP 174/85; PULSE 79; RESP 17; TEMP 97.7
[2023-02-14] MEDS ORDERED: KETOROLAC 15 MG/ML 1 ML VIAL IVP STA (10:28)
--- NOTE | 2023-02-14 10:40 | ED ---
Back Pain HPI - General Chief Complaint: Back Pain/Injury Stated Complaint: back pain Time Seen by Provider: 02/14/23 10:17 Source: patient, EMS, RN notes reviewed Limitations: no limitations - History of Present Illness Initial Comments: Patient is a 7-year-old male presented ER with chief complaint of back pain and urinary retention. Patient has a past medical history significant for spinal stenosis and enlarged prostate. Patient has had numerous surgeries on his back. Patient states getting in the shower this morning he believes he twisted and now is endorsing pain on his right lower back right hip with radiation down his right leg. Pain is worse with movement. Patient states that he did take a [id number] Motrin with no relief. Patient also has tried lidocaine patches. Patient denies any fevers, chills, night sweats, paresthesias. He also states that he has not urinated today and he feels pressure in his bladder. - Related Data Home Medications Medication Instructions Recorded Confirmed Pravastatin Sodium [Pravachol] 80 mg PO HS 09/26/14 02/14/23 lisinopriL [Zestril] 2.5 mg PO DAILY 01/03/20 02/14/23 Aspirin [Adult Low Dose Aspirin EC] 81 mg PO HS 09/07/20 02/14/23 Cholecalciferol [Vitamin D3 (25 25 mcg PO DAILY 09/07/20 02/14/23 Mcg = 1000 Iu)] Tamsulosin [Flomax] 0.4 mg PO HS 09/07/20 02/14/23 Biotin [Biotin Disolve] 10,000 mcg PO DAILY 02/14/23 02/14/23 Co Q-10 100mg 100 mg PO DAILY 02/14/23 02/14/23 Cyanocobalamin (Vitamin B-12) 1,000 mcg PO DAILY 02/14/23 02/14/23 [Vitamin B-12] Docusate [Colace] 300 mg PO DAILY 02/14/23 02/14/23 Fluocinolone 0.01% Oil 1 applic TOPICAL BID PRN 02/14/23 02/14/23 HYDROcodone/APAP 10-325MG [[place] 1 tab PO Q12H PRN 02/14/23 02/14/23 10-325] Isosorbide Mononitrate ER [Imdur] 30 mg PO DAILY 02/14/23 02/14/23 Vit C/E/Zn/Coppr/Lutein/Zeaxan 1 cap PO BID 02/14/23 02/14/23 [Preservision Areds 2 Softgel] levETIRAcetam [Keppra] 500 mg PO Q12H 02/14/23 02/14/23 Allergies Allergy/AdvReac Type Severity Reaction Status Date / Time propoxyphene napsylate AdvReac Unknown Nausea & Verified 02/14/23 13:08 [From Darvocet-N 100] Vomiting Surgical Tape Allergy Severe Blisters Uncoded 02/14/23 13:08 Review of Systems ROS Statement: Those systems with pertinent positive or pertinent negative responses have been documented in the HPI. ROS Other: All systems not noted in ROS Statement are negative. Past Medical History Past Medical History: Prostate Disorder Additional Past Medical History / Comment(s): HX OF 1 SEIZURE APPROX 30 YRS AGO History of Any Multi-Drug Resistant Organisms: None Reported Past Surgical History: Appendectomy, Back Surgery, Coronary Bypass/CABG, Orthopedic Surgery Additional Past Surgical History / Comment(s): APPENDECTOMY (17 YRS OLD), LEFT ANKLE ACHEILLES TENDON, BACK SURGERYS, CERVICAL SPINE SURGERY WITH HARDWARE, CARPAL TUNNEL. , NERVE STIMULATOR LEFT HIP.(ST SULEMAN), CABG Past Anesthesia/Blood Transfusion Reactions: Postoperative Nausea & Vomiting (PONV) Past Psychological History: No Psychological Hx Reported Smoking Status: Former smoker Past Alcohol Use History: Occasional Past Drug Use History: None Reported - Past Family History Father Additional Family Medical History / Comment(s): Father at age 92 with history of coronary artery disease. Brother(s) Additional Family Medical History / Comment(s): Patient has total of 3 brothers one has from Parkinson's 1 from old age and one with throat cancer. Sister(s) Additional Family Medical History / Comment(s): Patient has one sister that from lung cancer with history of smoking and one at age 40 from a brain aneurysm. Patient has a total of 4 children. 3 sons, one has bipolar disorder. One daughter with no major medical problems. Mother Family Medical History: No Reported History Additional Family Medical History / Comment(s): Mother at age 76 with heart disease. General Exam Limitations: no limitations General appearance: alert, in no apparent distress Head exam: Present: atraumatic, normocephalic, normal inspection Respiratory exam: Present: normal lung sounds bilaterally. Absent: respiratory distress, wheezes, rales, rhonchi, stridor Cardiovascular Exam: Present: regular rate, normal rhythm, normal heart sounds. Absent: systolic murmur, diastolic murmur, rubs, gallop, clicks Back exam: Present: normal inspection, tenderness (lumbar) Neurological exam: Present: alert, oriented X3, CN II-XII intact Psychiatric exam: Present: normal affect, normal mood Skin exam: Present: warm, dry, intact, normal color. Absent: rash Course Vital Signs 02/14/23 09:57 Temperature 97.7 F Pulse Rate 79 Respiratory 17 Rate Blood Pressure 174/85 O2 Sat by Pulse 97 Oximetry Medical Decision Making - Medical Decision Making Was pt. sent in by a medical professional or institution (, PA, CUSTOMER SALES SPECIALIST, urgent care, hospital, or long-term...) When possible be specific @ -No Did you speak to anyone other than the patient for history (EMS, parent, family, police, friend...)? What history was obtained from this source @ - Did you review nursing and triage notes (agree or disagree)? Why? @ -I reviewed and agree with nursing and triage notes Were old charts reviewed (outside hosp., previous admission, EMS record, old EKG, old radiological studies, urgent care reports/EKG's, long-term records)? Report findings @ -No old charts were reviewed Differential Diagnosis (chest pain, altered mental status, abdominal pain women, abdominal pain men, vaginal bleeding, weakness, fever, dyspnea, syncope, headache, dizziness, GI bleed, back pain, seizure, CVA, palpatations, mental health, musculoskeletal)? @ -Differential Back Pain: Strain, zoster, cauda equina syndrome, epidural abscess, vertebral osteomyelitis, discitis, fracture, subluxation, disc herniation, DJD, spinal stenosis, dissection, AAA, pancreatitis, peptic ulcer disease, pyelonephritis, kidney stone, this is not meant to be an all-inclusive list. EKG interpreted by me (3pts min.). @ -None X-rays interpreted by me (1pt min.). @ -Lumbar spine x-ray shows no acute radiographic abnormality. There is osseous demineralization and moderate to severe multilevel degenerative changes of lumbar spine. CT interpreted by me (1pt min.). @ -None done U/S interpreted by me (1pt. min.). @ -None done What testing was considered but not performed or refused? (CT, X-rays, U/S, labs)? Why? @ -None What meds were considered but not given or refused? Why? @ -None Did you discuss the management of the patient with other professionals (professionals i.e. , PA, CUSTOMER SALES SPECIALIST, lab, RT, psych nurse, geriatric social worker, physician allergist immunologist, teacher, safety security officer, briefcase sewer)? Give summary @ -No Was smoking cessation discussed for >3mins.? @ -No Was critical care preformed (if so, how long)? @ -No Were there social determinants of health that impacted care today? How? (Homelessness, low income, unemployed, alcoholism, drug addiction, transportation, low edu. Level, literacy, decrease access to med. care, shelter, rehab)? @ -No Was there de-escalation of care discussed even if they declined (Discuss DNR or withdrawal of care, Hospice)? DNR status @ -No What co-morbidities impacted this encounter? (DM, HTN, Smoking, COPD, CAD, Cancer, CVA, ARF, Chemo, Hep., AIDS, mental health diagnosis, sleep apnea, morbid obesity)? @ -Chronic back pain, benign prostatic hypertrophy Was patient admitted / discharged? Hospital course, mention meds given and route, prescriptions, significant lab abnormalities, going to OR and other pertinent info. @ -Discharged. Patient is an 87 year old male presenting to the ER with a chief complaint of increasing back pain. Upon examination, patient was afebrile. Patient was tender to palpation of lumbar spine and had a positive straight leg raise. Patient received IV toradol prior to X-rays. A dowd catheter was placed due to urinary retention. Lumbar spine x-ray shows no acute radiographic abnormality. There is osseous demineralization moderate to severe multilevel degenerative changes of lumbar spine. Upon re-evaluation, patient was stating his pain was an 8/10 he then received IV 0.5 Dilaudid and Zofran. Shortly after patient stated his pain was a 2/10. Prior to discharge a bladder scan was done and showed 0 residual volume. Dowd catheter was removed. I discussed with patient will return parameters. I advised patient to follow-up with PCP and urology. Patient was discharged in stable condition with follow-up to PCP. Patient exposed understanding and agreement with care plan. Undiagnosed new problem with uncertain prognosis? @ -No Drug Therapy requiring intensive monitoring for toxicity (Heparin, Nitro, Insulin, Cardizem)? @ -No Were any procedures done? @ -No Diagnosis/symptom? @ -Back pain/urinary retention Acute, or Chronic, or Acute on Chronic? @ -Chronic Uncomplicated (without systemic symptoms) or Complicated (systemic symptoms)? @ -Uncomplicated Side effects of treatment? @ -No Exacerbation, Progression, or Severe Exacerbation? @ -No Poses a threat to life or bodily function? How? (Chest pain, [place], [place], pneumonia, PE, COPD, DKA, ARF, appy, cholecystitis, CVA, Diverticulitis, Homicidal, Suicidal, threat to staff... and all critical care pts) @ -No - Radiology Data Radiology results: report reviewed, image reviewed Disposition Clinical Impression: Back pain, Urinary retention due to benign prostatic hyperplasia Disposition: HOME SELF-CARE Additional Instructions: Please return to the Emergency Department if symptoms worsen or any other concerns. Is patient prescribed a controlled substance at d/c from ED?: No Referrals: Mehnaz Bautista MD [Primary Care Provider] - 1-2 days Time of Disposition: 14:30
--- NOTE | 2023-02-14 11:44 | XR ---
EXAMINATION TYPE: XR lumbar spine 2 or 3V DATE OF EXAM: 02/14/2023 11:19 AM CLINICAL INDICATION:Male, 87 years old with history of pain; [facility] COMPARISON: None TECHNIQUE: XR lumbar spine 2 or 3V - Frontal, lateral and coned in L5-S1 lateral views of the spine. FINDINGS: Bones appear demineralized. There is moderate to severe multilevel degenerative disc diseas e with disc space narrowing and marginal osteophytes. Moderate to severe multilevel facet arthrosis. There is straightening of the normal lumbar lordosis and grade 1 anterolisthesis L4 over L5 measuring about 9 mm. No evidence of compression fracture or destructive bony lesion. Mild mid lumbar levoscol iosis. Moderately heavy atherosclerotic calcification of the aorta and iliac arteries. Partial fusion of the SI joints. Partially seen electronic conduction device in the posterior soft tissues of the u pper left pelvis, the leads extend into the thoracic region with the tips beyond the field of view. IMPRESSION: 1. Osseous demineralization, and moderate to severe multilevel degenerative changes of the lumbar sp ine as above. 2. No acute radiographic abnormality.
[2023-02-14] MEDS ORDERED: HYDROmorphone 0.5 MG/0.5 ML SYRINGE IVP STA (11:58)
[2023-02-14] MEDS ORDERED: ONDANSETRON 4 MG/2 ML VIAL IVP STA (11:58)
== END 2023-02-14 14:50 | disposition home or self-care (01) ==
LOC: EC 09:55
DX: N40.0 Benign prostatic hyperplasia without lower urinary tract symptoms (principal); R33.8 Other retention of urine; M47.816 Spondylosis without myelopathy or radiculopathy, lumbar region; Z87.891 Personal history of nicotine dependence; Z88.8 Allergy status to other drugs, medicaments and biological substances
CPT/HCPCS: 51798; 72100; 51702; 99284; 96374; 96375 ×2; J2405; J1885; J1170

== ENCOUNTER 2023-02-15 07:43 | Emergency (ER) | payer MEDICARE ==
[2023-02-15] MEDS ORDERED: KETOROLAC 15 MG/ML 1 ML VIAL IVP STA (08:06)
[2023-02-15] MEDS ORDERED: ORPHENADRINE 30 MG/ML 2 ML VIAL IVP STA (08:06)
[2023-02-15] MEDS ORDERED: HYDROmorphone 0.5 MG/0.5 ML SYRINGE IVP STA (08:06)
[2023-02-15] MEDS ORDERED: LIDOCAINE 4% PATCH TOPICAL ONE (08:07)
[2023-02-15 08:19] VITALS: RESP 18
--- NOTE | 2023-02-15 08:22 | ED ---
Back Pain HPI - General Chief Complaint: Back Pain/Injury Stated Complaint: lower back pain Time Seen by Provider: 02/15/23 07:48 Source: patient, family, RN notes reviewed Mode of arrival: wheelchair Limitations: no limitations - History of Present Illness Initial Comments: This is an 87-year-old male who presents to the emergency department for lower b ack pain. Patient was evaluated here yesterday for lower back pain that began after getting out of the shower that morning. Believes that he twisted wrong, causing this pain. He does have a history of chronic low back pain and multiple surgeries, and this is an exacerbation of his chronic pain. He was taking ibuprofen and using lidocaine patches with no relief. He was also exhibiting urinary retention yesterday and was catheterized. He has since been able to urinate on his own at home. Denies any loss of bowel/bladder control or saddle anesthesia. Yesterday he had pain going down the right leg, which he states is still the case, however he now feels like he has numbness in the left foot as well. MD Complaint: back pain - Related Data Home Medications Medication Instructions Recorded Confirmed Pravastatin Sodium [Pravachol] 80 mg PO HS 09/26/14 02/14/23 lisinopriL [Zestril] 2.5 mg PO DAILY 01/03/20 02/14/23 Aspirin [Adult Low Dose Aspirin EC] 81 mg PO HS 09/07/20 02/14/23 Cholecalciferol [Vitamin D3 (25 25 mcg PO DAILY 09/07/20 02/14/23 Mcg = 1000 Iu)] Tamsulosin [Flomax] 0.4 mg PO HS 09/07/20 02/14/23 Biotin [Biotin Disolve] 10,000 mcg PO DAILY 02/14/23 02/14/23 Co Q-10 100mg 100 mg PO DAILY 02/14/23 02/14/23 Cyanocobalamin (Vitamin B-12) 1,000 mcg PO DAILY 02/14/23 02/14/23 [Vitamin B-12] Docusate [Colace] 300 mg PO DAILY 02/14/23 02/14/23 Fluocinolone 0.01% Oil 1 applic TOPICAL BID PRN 02/14/23 02/14/23 HYDROcodone/APAP 10-325MG [[place] 1 tab PO Q12H PRN 02/14/23 02/14/23 10-325] Isosorbide Mononitrate ER [Imdur] 30 mg PO DAILY 02/14/23 02/14/23 Vit C/E/Zn/Coppr/Lutein/Zeaxan 1 cap PO BID 02/14/23 02/14/23 [Preservision Areds 2 Softgel] levETIRAcetam [Keppra] 500 mg PO Q12H 02/14/23 02/14/23 Previous Rx's Medication Instructions Recorded Lidocaine 5% Patch [Lidoderm 5% 1 patch TOPICAL DAILY PRN #30 patch 02/15/23 Patch] methocarbamoL [Robaxin-750] 1,500 mg PO TID PRN #30 tab 02/15/23 predniSONE 50 mg PO DAILY 5 Days #5 tab 02/15/23 Allergies Allergy/AdvReac Type Severity Reaction Status Date / Time propoxyphene napsylate AdvReac Unknown Nausea & Verified 02/15/23 07:58 [From Jr-N 100] Vomiting Surgical Tape Allergy Severe Blisters Uncoded 02/15/23 07:58 Review of Systems ROS Statement: Those systems with pertinent positive or pertinent negative responses have been documented in the HPI. ROS Other: All systems not noted in ROS Statement are negative. Past Medical History Past Medical History: Prostate Disorder Additional Past Medical History / Comment(s): HX OF 1 SEIZURE APPROX 30 YRS AGO History of Any Multi-Drug Resistant Organisms: None Reported Past Surgical History: Appendectomy, Back Surgery, Coronary Bypass/CABG, Orthopedic Surgery Additional Past Surgical History / Comment(s): APPENDECTOMY (17 YRS OLD), LEFT ANKLE ACHEILLES TENDON, BACK SURGERYS, CERVICAL SPINE SURGERY WITH HARDWARE, CARPAL TUNNEL. , NERVE STIMULATOR LEFT HIP.(ST SULEMAN), CABG Past Anesthesia/Blood Transfusion Reactions: Postoperative Nausea & Vomiting (PONV) Past Psychological History: No Psychological Hx Reported Smoking Status: Former smoker Past Alcohol Use History: Occasional Past Drug Use History: None Reported - Past Family History Father Additional Family Medical History / Comment(s): Father at age 92 with history of coronary artery disease. Brother(s) Additional Family Medical History / Comment(s): Patient has total of 3 brothers one has from Parkinson's 1 from old age and one with throat cancer. Sister(s) Additional Family Medical History / Comment(s): Patient has one sister that from lung cancer with history of smoking and one at age 40 from a brain aneurysm. Patient has a total of 4 children. 3 sons, one has bipolar disorder. One daughter with no major medical problems. Mother Family Medical History: No Reported History Additional Family Medical History / Comment(s): Mother at age 76 with heart disease. General Exam Limitations: no limitations General appearance: alert, in no apparent distress Head exam: Present: atraumatic, normocephalic, normal inspection Respiratory exam: Present: normal lung sounds bilaterally. Absent: respiratory distress, wheezes, rales, rhonchi, stridor Cardiovascular Exam: Present: regular rate, normal rhythm, normal heart sounds. Absent: systolic murmur, diastolic murmur, rubs, gallop, clicks Back exam: Present: tenderness (Lower lumbar spine) Neurological exam: Present: alert, oriented X3, CN II-XII intact Psychiatric exam: Present: normal affect, normal mood Skin exam: Present: warm, dry, intact, normal color. Absent: rash Course Vital Signs 02/15/23 02/15/23 02/15/23 07:50 08:34 10:05 Temperature 97.7 F 97.9 F Pulse Rate 78 84 66 Respiratory 18 18 18 Rate Blood Pressure 197/99 175/88 156/72 O2 Sat by Pulse 98 96 97 Oximetry Medical Decision Making - Medical Decision Making This is an 87 year old male who presents to the emergency department for lower back pain. Was pt. sent in by a medical professional or institution? @ -No Did you speak to anyone other than the patient for history? @ -No Did you review nursing and triage notes? @ -Yes, and I agree, it is accurate with regards to the patient's symptoms. Were old charts reviewed? @ -X-ray of the lumbar spine obtained yesterday demonstrating osseous demineralization and moderate to severe multilevel degenerative changes of the lumbar spine without any acute process. Differential Diagnosis? @ -Differential Back Pain: Strain, zoster, cauda equina syndrome, epidural abscess, vertebral osteomyelitis, discitis, fracture, subluxation, disc herniation, DJD, spinal stenosis, dissection, AAA, pancreatitis, peptic ulcer disease, pyelonephritis, kidney stone, this is not meant to be an all-inclusive list. EKG interpreted by me (3pts min.)? @ -Not obtained X-rays interpreted by me (1pt min.)? @ -Not obtained CT interpreted by me (1pt min.)? @ -Not obtained U/S interpreted by me (1pt. min.)? @ -Not obtained What testing was considered but not performed? (CT, X-rays, U/S, labs)? Why? @ -None What meds were considered but not given? Why? @ -None Did you discuss the management of the patient with other professionals? @ -No Did you reconcile home meds? @ -No Was smoking cessation discussed for >3mins.? @ -No Was critical care preformed (if so, how long)? @ -No Were there social determinants of health that impacted care today? How? (Heather elessness, low income, unemployed, alcoholism, drug addiction, transportation, low edu. Level, literacy, decrease access to med. care, snf, rehab)? @ -No Was there de-escalation of care discussed even if they declined? (Discuss DNR or withdrawal of care, Hospice)? @ -No What co-morbidities impacted this encounter? (DM, HTN, Smoking, COPD, CAD, Cancer, CVA, Hep., AIDS, mental health diagnosis, sleep apnea, morbid obesity)? @ -Chronic back pain Was patient admitted / discharged? @ -Discharged. X-ray of the lumbar spine obtained yesterday was reviewed demonstrating degenerative changes without any acute process. Urinalysis negative for signs of infection. His symptoms were well controlled in the emergency department. When discussing outpatient management, states that he has been treated with steroids and muscle relaxants in the past. Given that he has not had any improvement with what he has been on already, he was given a prescription for prednisone, robaxin, and lidocaine patches with dosing instructions reviewed. Otherwise advised follow up with his primary care provider. Patient discharged home in stable condition. Undiagnosed new problem with uncertain prognosis? @ -None Drug Therapy requiring intensive monitoring for toxicity (Heparin, Nitro, Insulin, Cardizem)? @ -None Were any procedures done? @ -None Diagnosis/symptom? @ -Lumbar strain, lumbar radiculopathy Acute, or Chronic, or Acute on Chronic? @ -Acute Uncomplicated (without systemic symptoms) or Complicated (systemic symptoms)? @ -Uncomplicated Side effects of treatment? @ -None Exacerbation, Progression, or Severe Exacerbation] @ -Not applicable Poses a threat to life or bodily function? @ -No Return precautions reviewed in depth, the patient is instructed to return to the emergency department with any new, worsening, or concerning symptoms. Patient verbalized understanding. This case was discussed in detail with the attending ED physician, Dr. Dougherty. Presentation, findings, and treatment plan discussed in detail as well. - Lab Data Lab Results 02/15/23 Range/Units 08:56 Urine Color Yellow Urine Appearance Clear (Clear) Urine pH 6.0 (5.0-8.0) Ur Specific [place] 1.030 (1.001-1.035) Urine Protein Trace H (Negative) Urine Glucose (UA) Negative (Negative) Urine Ketones Negative (Negative) Urine Blood Negative (Negative) Urine Nitrite Negative (Negative) Urine Bilirubin Negative (Negative) Urine Urobilinogen <2.0 (<2.0) mg/dL Ur Leukocyte Esterase Negative (Negative) Disposition Clinical Impression: Strain of lumbar region, Lumbar radiculopathy Disposition: HOME SELF-CARE Instructions (If sedation given, give patient instructions): Low Back Strain (ED), Acute Low Back Pain (ED), Lumbar Radiculopathy (ED) Additional Instructions: Return to the emergency department with any new, worsening, or concerning symptoms. Take the prednisone daily for 5 days. You can take the Robaxin as 1- 2 tablets up to 3-4 times daily. Be aware that this may make you drowsy and you should avoid driving or operating machinery until you know how it effects you. Take the Tramadol sparingly when your pain is the most severe and avoid driving or operating machinery when taking this medication. You can take MiraLAX or another stool softener preemptively due to the risk of constipation with the Tramadol. You can apply lidocaine patches daily as well. Follow up with your primary care provider in 1-2 days. Prescriptions: Lidocaine 5% Patch [Lidoderm 5% Patch] 1 patch TOPICAL DAILY PRN #30 patch PRN Reason: Pain predniSONE 50 mg PO DAILY 5 Days #5 tab methocarbamoL [Robaxin-750] 1,500 mg PO TID PRN #30 tab PRN Reason: Pain Is patient prescribed a controlled substance at d/c from ED?: No Referrals: Mehnaz Bautista MD [Primary Care Provider] - 1-2 days
[2023-02-15 09:11] LABS: Appearance,Urine Clear (Clear); Bilirubin,Urine Negative (Negative); Blood,Urine Negative (Negative); Color,Urine Yellow; Glucose,Urine (UA) Negative (Negative); Ketones,Urine Negative (Negative); Protein,Urine Trace (Negative)
[2023-02-15 09:12] LABS: Leukocyte Esterase,Urine Negative (Negative); Nitrite,Urine Negative (Negative); Urobilinogen,Urine <2.0 mg/dL (<2.0)
[2023-02-15] MEDS ORDERED: traMADol 50 MG STARTER PACK 3 TAB BTL PO STA (09:49)
[2023-02-15] MEDS ORDERED: DEXAMETHASONE SOD PHOSPHATE 10 MG/ML 1 ML VIAL IVP STA (09:53)
[2023-02-15 10:13] VITALS: BP 156/72; PULSE 66; TEMP 97.9
== END 2023-02-15 10:12 | disposition home or self-care (01) ==
LOC: EC 07:43
DX: S39.012A Strain of muscle, fascia and tendon of lower back, initial encounter (principal); Z87.891 Personal history of nicotine dependence; Z79.82 Long term (current) use of aspirin; Z91.09 Other allergy status, other than to drugs and biological substances; Z88.8 Allergy status to other drugs, medicaments and biological substances; X50.0XXA Overexertion from strenuous movement or load, initial encounter
CPT/HCPCS: 51798; 81003; 99284; 96374; 96375 ×2; J2360; J1885; J1170

== ENCOUNTER 2023-02-26 05:46 | Emergency (ER) | payer MEDICARE ==
[2023-02-26 05:58] VITALS: TEMP 97.6
[2023-02-26] MEDS ORDERED: LIDOCAINE 4% PATCH TOPICAL ONE (06:34)
[2023-02-26] MEDS ORDERED: KETOROLAC 15 MG/ML 1 ML VIAL IM STA (06:35)
[2023-02-26] MEDS ORDERED: CYCLOBENZAPRINE 10 MG TAB PO STA (06:36)
[2023-02-26] MEDS ORDERED: methylPREDNISolone SOD SUCCI 125 MG/2 ML VIAL IM ONE (07:01)
--- NOTE | 2023-02-26 07:24 | ED ---
General Adult HPI - General Chief complaint: Back Pain/Injury Stated complaint: back pain Time Seen by Provider: 02/26/23 06:06 Source: patient, EMS, RN notes reviewed Mode of arrival: EMS - History of Present Illness Initial comments: 87-year-old male with a past medical history significant for chronic back pain presents to the emergency department with a chief complaint of low back pain. Patient reports that he was seen and evaluated here on 02/15/2023. He reports no change in symptoms. He reports that with light movement his pain will flare up and will be a 20 out of 10. He denies any trauma or injury from the time of last evaluation. He denies any bedside symptoms such as fever, saddle paresthesia or loss of bowel or bladder function. Patient does offer that he has a pain management appointment@1:15 at this facility. Of note patient is refusing narcotics because he will cause him to be constipated. - Related Data Home Medications Medication Instructions Recorded Confirmed Pravastatin Sodium [Pravachol] 80 mg PO HS 09/26/14 02/14/23 lisinopriL [Zestril] 2.5 mg PO DAILY 01/03/20 02/14/23 Aspirin [Adult Low Dose Aspirin EC] 81 mg PO HS 09/07/20 02/14/23 Cholecalciferol [Vitamin D3 (25 25 mcg PO DAILY 09/07/20 02/14/23 Mcg = 1000 Iu)] Tamsulosin [Flomax] 0.4 mg PO HS 09/07/20 02/14/23 Biotin [Biotin Disolve] 10,000 mcg PO DAILY 02/14/23 02/14/23 Co Q-10 100mg 100 mg PO DAILY 02/14/23 02/14/23 Cyanocobalamin (Vitamin B-12) 1,000 mcg PO DAILY 02/14/23 02/14/23 [Vitamin B-12] Docusate [Colace] 300 mg PO DAILY 02/14/23 02/14/23 Fluocinolone 0.01% Oil 1 applic TOPICAL BID PRN 02/14/23 02/14/23 HYDROcodone/APAP 10-325MG [[place] 1 tab PO Q12H PRN 02/14/23 02/14/23 10-325] Isosorbide Mononitrate ER [Imdur] 30 mg PO DAILY 02/14/23 02/14/23 Vit C/E/Zn/Coppr/Lutein/Zeaxan 1 cap PO BID 02/14/23 02/14/23 [Preservision Areds 2 Softgel] levETIRAcetam [Keppra] 500 mg PO Q12H 02/14/23 02/14/23 Previous Rx's Medication Instructions Recorded Lidocaine 5% Patch [Lidoderm 5% 1 patch TOPICAL DAILY PRN #30 patch 02/15/23 Patch] methocarbamoL [Robaxin-750] 1,500 mg PO TID PRN #30 tab 02/15/23 predniSONE 50 mg PO DAILY 5 Days #5 tab 02/15/23 traMADol HCL 50 mg PO Q6H PRN 3 Days #12 tab 02/16/23 Allergies Allergy/AdvReac Type Severity Reaction Status Date / Time propoxyphene napsylate AdvReac Unknown Nausea & Verified 02/15/23 07:58 [From Darnickicet-N 100] Vomiting Surgical Tape Allergy Severe Blisters Uncoded 02/15/23 07:58 Review of Systems ROS Statement: Those systems with pertinent positive or pertinent negative responses have been documented in the HPI. ROS Other: All systems not noted in ROS Statement are negative. Past Medical History Past Medical History: Prostate Disorder Additional Past Medical History / Comment(s): HX OF 1 SEIZURE APPROX 30 YRS AGO History of Any Multi-Drug Resistant Organisms: None Reported Past Surgical History: Appendectomy, Back Surgery, Coronary Bypass/CABG, Orthopedic Surgery Additional Past Surgical History / Comment(s): APPENDECTOMY (17 YRS OLD), LEFT ANKLE ACHEILLES TENDON, BACK SURGERYS, CERVICAL SPINE SURGERY WITH HARDWARE, CARPAL TUNNEL. , NERVE STIMULATOR LEFT HIP.(ST SULEMAN), CABG Past Anesthesia/Blood Transfusion Reactions: Postoperative Nausea & Vomiting (PONV) Past Psychological History: No Psychological Hx Reported Smoking Status: Former smoker Past Alcohol Use History: Occasional Past Drug Use History: None Reported - Past Family History Father Additional Family Medical History / Comment(s): Father at age 92 with history of coronary artery disease. Brother(s) Additional Family Medical History / Comment(s): Patient has total of 3 brothers one has from Parkinson's 1 from old age and one with throat cancer. Sister(s) Additional Family Medical History / Comment(s): Patient has one sister that from lung cancer with history of smoking and one at age 40 from a brain aneurysm. Patient has a total of 4 children. 3 sons, one has bipolar disorder. One daughter with no major medical problems. Mother Family Medical History: No Reported History Additional Family Medical History / Comment(s): Mother at age 76 with heart disease. General Exam - General Exam Comments Initial Comments: General: Alert, in no acute distress Head: atraumatic normocephalic. Eyes PERRL, EOMI intact, mucous membranes moist Respiratory: Lungs clear to auscultation bilaterally Cardiovascular: Rate regular rate and rhythm Abdominal: Soft without guarding or rebound Extremities: Normal inspection with full range of motion and normal capillary refill Neuroogic: alert and oriented 3, CN II-XII intact, able to ambulate with steady gait Skin: warm dry and intact with normal color Course Vital Signs 02/26/23 02/26/23 05:51 07:31 Temperature 97.6 F Pulse Rate 78 70 Respiratory 19 18 Rate Blood Pressure 116/78 107/65 O2 Sat by Pulse 97 95 Oximetry - Reevaluation(s) Reevaluation #1: 02/26/23 06:30 Initial history and physical exam performed. Patient refusing narcotics. Agreeable to lidoderm, muscle relaxers, and NSAIDs for management Reevaluation #2: 02/26/23 07:15 Notified of patient's bladder scan results. Patient requesting gastric catheterization done and to be discharged Medical Decision Making - Medical Decision Making Was pt. sent in by a medical professional or institution (, PA, WOOD FENCE INSTALLER, urgent care, hospital, or long term...) When possible be specific @ -[No] Did you speak to anyone other than the patient for history (EMS, parent, family, police, friend...)? What history was obtained from this source @ -[No] Did you review nursing and triage notes (agree or disagree)? Why? @ -[I reviewed and agree with nursing and triage notes] Were old charts reviewed (outside hosp., previous admission, EMS record, old EKG, old radiological studies, urgent care reports/EKG's, long term records)? Report findings @ -Yes, XR from 02/15/2023 do not reveal any evidence of acute fracture or dislocation, there are severe osteoarthritic changes Differential Diagnosis (chest pain, altered mental status, abdominal pain women, abdominal pain men, vaginal bleeding, weakness, fever, dyspnea, syncope, headache, dizziness, GI bleed, back pain, seizure, CVA, palpatations, mental health, musculoskeletal)? @ -[not applicable] EKG interpreted by me (3pts min.). @ -[As above] X-rays interpreted by me (1pt min.). @ -[None done] CT interpreted by me (1pt min.). @ -[None done] U/S interpreted by me (1pt. min.). @ -[None done] What testing was considered but not performed or refused? (CT, X-rays, U/S, labs)? Why? @ -X-rays were considered however patient is denying any new symptoms from previous visit What meds were considered but not given or refused? Why? @ -[None] Did you discuss the management of the patient with other professionals (professionals i.e. , PA, WOOD FENCE INSTALLER, lab, RT, psych nurse, social work associate, motor mechanic, teacher, contracting officer, rn field case manager)? Give summary @ -[No] Was smoking cessation discussed for >3mins.? @ -[No] Was critical care preformed (if so, how long)? @ -[No] Were there social determinants of health that impacted care today? How? (Homelessness, low income, unemployed, alcoholism, drug addiction, transportation, low edu. Level, literacy, decrease access to med. care, care home, rehab)? @ -[No] Was there de-escalation of care discussed even if they declined (Discuss DNR or withdrawal of care, Hospice)? DNR status @ -[No] What co-morbidities impacted this encounter? (DM, HTN, Smoking, COPD, CAD, Cancer, CVA, ARF, Chemo, Hep., AIDS, mental health diagnosis, sleep apnea, morbid obesity)? @ -[None] Was patient admitted / discharged? Hospital course, mention meds given and route, prescriptions, significant lab abnormalities, going to OR and other pertinent info. @ -Discharged. This is a pleasant 87-year-old male who presents the emergency department with back pain. Patient had a thorough history and physical exam performed. Physical exam is essentially unremarkable. Heart rate regular rate and rhythm, lungs auscultation bilaterally. He should was offered imaging however he denies any new symptoms which was decision-making was made between the patient and myself. He is agreeable for pain management and to be discharged home in order to attend his 1:15 pain management appointment. Of note patient's bladder scan to be 360s. Patient will have straight catheteri zation, she reports problems with his prostate in which his PCP manage his for him. In addition patient was offered narcotics however he refused. Patient be discharged home in stable condition. Return precautions discussed at length. Case discussed with Dr. Rizzo, ED attending who agrees with plan of care Undiagnosed new problem with uncertain prognosis? @ -[No] Drug Therapy requiring intensive monitoring for toxicity (Heparin, Nitro, Insulin, Cardizem)? @ -[No] Were any procedures done? @ -[No] Diagnosis/symptom? @ -Chronic Back Pain Acute, or Chronic, or Acute on Chronic? @ -Acute on Chronic Uncomplicated (without systemic symptoms) or Complicated (systemic symptoms)? @ -Uncomplicated Side effects of treatment? @ -[No] Exacerbation, Progression, or Severe Exacerbation? @ -[No] Poses a threat to life or bodily function? How? (Chest pain, USA, VT, pneumonia, PE, COPD, DKA, ARF, appy, cholecystitis, CVA, Diverticulitis, Homicidal, Suicidal, threat to staff... and all critical care pts) @ -Low likelihood Disposition Clinical Impression: Back pain Disposition: HOME SELF-CARE Condition: Stable Instructions (If sedation given, give patient instructions): Acute Low Back Pain (ED) Additional Instructions: PLease follow up with your pain management appointment at 1:15pm PLease return if worsening pain or symptoms Is patient prescribed a controlled substance at d/c from ED?: No Referrals: Mehnaz Bautista MD [Primary Care Provider] - 1-2 days Time of Disposition: 07:23
[2023-02-26 07:57] VITALS: BP 107/65; PULSE 70; RESP 18
== END 2023-02-26 08:15 | disposition home or self-care (01) ==
LOC: EC 05:46
DX: G89.29 Other chronic pain (principal); M54.9 Dorsalgia, unspecified; Z87.891 Personal history of nicotine dependence; Z79.82 Long term (current) use of aspirin; Z91.09 Other allergy status, other than to drugs and biological substances; Z88.8 Allergy status to other drugs, medicaments and biological substances
CPT/HCPCS: 99285; 96372 ×2; J2930; J1885

== ENCOUNTER → 2023-02-26 | Outpatient (CLI) | payer MEDICARE ==
[2023-02-26 13:42] VITALS: BP 103/60; PULSE 85; RESP 15; TEMP 98.6
--- NOTE | 2023-02-26 14:11 | P.PAINPG ---
PQRS Measure Charge Sheet Comment: HISTORY OF PRESENT ILLNESS: A 87 yr old wheelchair bound male w and grandchildren at side as a referral from Dr Bautista presents today w severe and chronic LBP secondary to post laminectomy syndrome for evaluation. Pt states pain level is provoked at 10 /10 in intensity, constant, localized in the lower lumbar spine, predominantly axial, R> L tingling in character w occasional shooting pain towards the R hip. Pain is provoked by sitting for periods >10 min. Pain is alleviated by PT in 2020, physician guided home stretches daily since 2020, medications ([place]akin Sabot, Robaxin), heat, manual massage, use of a wheelchair or cane for ambulatory assistance, repositioning and rest . Oswestry axial pain score at 32. PMH: OA, BPH, Seizure (in ), BL Carpal Tunnel, Vitamin D Deficiency PSH: Appendectomy (age 17), CABG x5 (2014), L Ankle Achilles Tendon Surgery (2004), L5-S1 Laminectomy (), Cervical Surgeries w Hardware (2007), L Hip PNS Device, R Total Hip Arthroplasty (2014), R Shoulder Surgery (2008), BL Cataract Extraction (2014), Colonoscopy SH: Former tobacco user, Occasional ETOH use, No illicit drug use FH: Mo- CAD/ age 76. Fa- CAD/ age 92. Bro- Parkinsons Disease/ . Bro- Esophageal CA. Sis- Lung CA/ . Sis- Brain Aneurysm/ . Son- Bipolar Disorder. Daughter- No Reported History All: See list Meds: See list REVIEW OF ORGAN SYSTEMS: CONSTITUTIONAL: No fevers or chills. No recent weight loss. NEUROLOGICAL: + numbness and tingling along the distal extremities. No seizure disorders or headaches. MUSCULOSKELETAL: + pain PSYCHIATRIC: Denies current depression or suicidal thoughts. Physical Examinations : Constitutional : Cooperative , not in acute distress . Neurologic : Cranial nerve II to XII intact. No focal neurological deficits. Psychiatric : alert & oriented x 3. Matching mood & appropriate affect. Judgment & insight intact. Musculoskeletal : Cervical Spine Motor strength in the deltoid and biceps: Normal right side. Normal Left side Motor strength biceps and the wrist extensors: Normal right side . Normal left side Motor strength in the triceps muscle: Normal right side. Normal left side Deep tendon reflexes: Normal at the biceps. Normal at Brachioradialis. Normal at triceps Vertebral body tenderness to deep palpation over Cervical facet loading test: positive bilaterally Spurling test: positive bilaterally Neck distraction test: positive bilaterally Rich sign: positive bilaterally Lumbar spine Motor strength lower extremities ,thigh and legs 5/5 Right side , 5/5 Left side Deep tendon reflexes : Normal Knee Jerk. Normal Ankle Jerk Vertebral body tenderness over Gregorio Test positive Lumbar facet Loading Test: positive Right / positive Left Range of motion of the lumbar spine Flexion 30 degrees, extension 10 degrees Straight Leg Raise test: Left/ Right positive at degrees Julio test: positive right / positive left. Severe tenderness over the Sacroiliac joint on the Right / Left sides Gaenslen test: positive bilaterally Seated flexion test: positive bilaterally. Sacral spine : Severe tenderness over the Sacroiliac joint: right side / left side Range of motion: Flexion of the lumbar spine <60 degrees Range of motion: Extension of the lumbar spine <20 degrees Gaenslen's Test positive R > L Julio test: positive right side > left side Thigh Thrust Test Sacral Thrust Test BL positive Imaging: CT with contrast of the lumbar spine from 09/15/20 reviewed Assessment/ Plan : Lumbar post laminectomy syndrome Recommendation of BL SI injection #1. May need a series of injections for optimal pain relief. Risks, benefits of procedure discussed and patient verbalized understanding. Admits to anti- coagulant use or medical history of diabetes. Protocol for discontinuation/ continuation of medications lisa procedure discussed. All questions answered. I have spent greater than 30 minutes on patient care today. Dr Saunders was available by phone for the evaluation of this patient. The time was used to review the medical records including relevant urine studies and Prescription history (MAPs), review of the available imaging, evaluation and examination of the patient, coordination of care with the medical staff and if applicable referring physicians, as well as creation of the medical record PQRS Narrative: Smoking Status Former smoker Home Medications: Ambulatory Orders Pravastatin Sodium [Pravachol] 80 mg PO HS 09/26/14 lisinopriL [Zestril] 2.5 mg PO DAILY 01/03/20 Aspirin [Adult Low Dose Aspirin EC] 81 mg PO HS 09/07/20 Cholecalciferol [Vitamin D3 (25 Mcg = 1000 Iu)] 25 mcg PO DAILY 09/07/20 Tamsulosin [Flomax] 0.4 mg PO HS 09/07/20 Biotin [Biotin Disolve] 10,000 mcg PO DAILY 02/14/23 Co Q-10 100mg 100 mg PO DAILY 02/14/23 Cyanocobalamin (Vitamin B-12) [Vitamin B-12] 1,000 mcg PO DAILY 02/14/23 Docusate [Colace] 300 mg PO DAILY 02/14/23 Fluocinolone 0.01% Oil 1 applic TOPICAL BID PRN 02/14/23 HYDROcodone/APAP 10-325MG [[place] 10-325] 1 tab PO Q12H PRN 02/14/23 Isosorbide Mononitrate ER [Imdur] 30 mg PO DAILY 02/14/23 Vit C/E/Zn/Coppr/Lutein/Zeaxan [Preservision Areds 2 Softgel] 1 cap PO BID 02/14/23 levETIRAcetam [Keppra] 500 mg PO Q12H 02/14/23 Lidocaine 5% Patch [Lidoderm 5% Patch] 1 patch TOPICAL DAILY PRN #30 patch 02/15/23 methocarbamoL [Robaxin-750] 1,500 mg PO TID PRN #30 tab 02/15/23 predniSONE 50 mg PO DAILY 5 Days #5 tab 02/15/23 traMADol HCL 50 mg PO Q6H PRN 3 Days #12 tab 02/16/23 Controlled Substance Measures - Controlled Substance Measures Is patient prescribed a controlled substance at discharge?: No
== END ==
LOC: PNWHC3 12:59
PROVIDERS: ATTEND Specialist
DX: M96.1 Postlaminectomy syndrome, not elsewhere classified (principal); M47.816 Spondylosis without myelopathy or radiculopathy, lumbar region; M19.90 Unspecified osteoarthritis, unspecified site; N40.0 Benign prostatic hyperplasia without lower urinary tract symptoms; G56.03 Carpal tunnel syndrome, bilateral upper limbs; Z86.69 Personal history of other diseases of the nervous system and sense organs; Z87.891 Personal history of nicotine dependence; Z79.82 Long term (current) use of aspirin; Z88.8 Allergy status to other drugs, medicaments and biological substances; Z91.048 Other nonmedicinal substance allergy status
CPT/HCPCS: 99211

== ENCOUNTER 2023-02-27 19:38 | Inpatient (IN) | payer MEDICARE ==
--- NOTE | 2023-02-27 21:34 | ED ---
General Adult HPI - General Source: patient Mode of arrival: wheelchair Limitations: physical limitation <Zaire Perrin - Last Filed: 02/27/23 21:36> <Hank Cruz - Last Filed: 02/28/23 01:43> - General Chief complaint: Urogenital Stated complaint: Trouble urinating Time Seen by Provider: 02/27/23 21:36 - History of Present Illness Initial comments: 87-year-old male presenting to the ED with a chief complaint of urinary frequency. Patient states for the past 1-2 days has had dysuria and urinary frequency. (Zaire Perrin) Dictation was produced using [employer] dictation software. please excuse any grammatical, word or spelling errors. Chief Complaint: 87-year-old male presents with acute on chronic back pain and urinary dribbling History of Present Illness: Patient is a 7-year-old male who presents to the ER for urinary dribbling and acute on chronic back pain patient has history of spine surgery. He states that his back pain feels like his usual back pain though slightly worse. Patient also has been having urinary dribbling for the last 2-3 days. He has history of prostate disorder. Denies any sick contacts. The ROS documented in this emergency department record has been reviewed and confirmed by me. Those systems with pertinent positive or negative responses have been documented in the HPI. All other systems are other negative and/or no ncontributory. (Hank Cruz) - Related Data Home Medications Medication Instructions Recorded Confirmed Pravastatin Sodium [Pravachol] 80 mg PO HS 09/26/14 02/14/23 lisinopriL [Zestril] 2.5 mg PO DAILY 01/03/20 02/14/23 Aspirin [Adult Low Dose Aspirin EC] 81 mg PO HS 09/07/20 02/14/23 Cholecalciferol [Vitamin D3 (25 25 mcg PO DAILY 09/07/20 02/14/23 Mcg = 1000 Iu)] Tamsulosin [Flomax] 0.4 mg PO HS 09/07/20 02/14/23 Biotin [Biotin Disolve] 10,000 mcg PO DAILY 02/14/23 02/14/23 Co Q-10 100mg 100 mg PO DAILY 02/14/23 02/14/23 Cyanocobalamin (Vitamin B-12) 1,000 mcg PO DAILY 02/14/23 02/14/23 [Vitamin B-12] Docusate [Colace] 300 mg PO DAILY 02/14/23 02/14/23 Fluocinolone 0.01% Oil 1 applic TOPICAL BID PRN 02/14/23 02/14/23 HYDROcodone/APAP 10-325MG [[place] 1 tab PO Q12H PRN 02/14/23 02/14/23 10-325] Isosorbide Mononitrate ER [Imdur] 30 mg PO DAILY 02/14/23 02/14/23 Vit C/E/Zn/Coppr/Lutein/Zeaxan 1 cap PO BID 02/14/23 02/14/23 [Preservision Areds 2 Softgel] levETIRAcetam [Keppra] 500 mg PO Q12H 02/14/23 02/14/23 Previous Rx's Medication Instructions Recorded Lidocaine 5% Patch [Lidoderm 5% 1 patch TOPICAL DAILY PRN #30 patch 02/15/23 Patch] methocarbamoL [Robaxin-750] 1,500 mg PO TID PRN #30 tab 02/15/23 predniSONE 50 mg PO DAILY 5 Days #5 tab 02/15/23 traMADol HCL 50 mg PO Q6H PRN 3 Days #12 tab 02/16/23 Allergies Allergy/AdvReac Type Severity Reaction Status Date / Time propoxyphene napsylate AdvReac Unknown Nausea & Verified 02/27/23 19:46 [From Darvocet-N 100] Vomiting Surgical Tape Allergy Severe Blisters Uncoded 02/15/23 07:58 Review of Systems ROS Other: All systems not noted in ROS Statement are negative. <Zaire Perrin - Last Filed: 02/27/23 21:36> ROS Other: All systems not noted in ROS Statement are negative. <Hank Cruz - Last Filed: 02/28/23 01:43> ROS Statement: Those systems with pertinent positive or pertinent negative responses have been documented in the HPI. Past Medical History Past Medical History: Prostate Disorder Additional Past Medical History / Comment(s): HX OF 1 SEIZURE APPROX 30 YRS AGO History of Any Multi-Drug Resistant Organisms: None Reported Past Surgical History: Appendectomy, Back Surgery, Coronary Bypass/CABG, Orthopedic Surgery Additional Past Surgical History / Comment(s): APPENDECTOMY (17 YRS OLD), LEFT ANKLE ACHEILLES TENDON, BACK SURGERYS, CERVICAL SPINE SURGERY WITH HARDWARE, CARPAL TUNNEL. , NERVE STIMULATOR LEFT HIP.([employer]), CABG Past Anesthesia/Blood Transfusion Reactions: Postoperative Nausea & Vomiting (PONV) Past Psychological History: No Psychological Hx Reported Smoking Status: Former smoker Past Alcohol Use History: Occasional Past Drug Use History: None Reported - Past Family History Father Additional Family Medical History / Comment(s): Father at age 92 with history of coronary artery disease. Brother(s) Additional Family Medical History / Comment(s): Patient has total of 3 brothers one has from Parkinson's 1 from old age and one with throat cancer. Sister(s) Additional Family Medical History / Comment(s): Patient has one sister that from lung cancer with history of smoking and one at age 40 from a brain aneurysm. Patient has a total of 4 children. 3 sons, one has bipolar disorder. One daughter with no major medical problems. Mother Family Medical History: No Reported History Additional Family Medical History / Comment(s): Mother at age 76 with heart disease. <Zaire Perrin - Last Filed: 02/27/23 21:36> General Exam Limitations: physical limitation <Zaire Perrin - Last Filed: 02/27/23 21:36> <Hank Cruz - Last Filed: 02/28/23 01:43> - General Exam Comments Initial Comments: Visual Physical Exam Vital signs reviewed General: Well-appearing, nontoxic, no acute distress. Head: Normocephalic, atraumatic Eyes: PERRLA, EOMI ENT: Airway patent Chest: Nonlabored breathing Skin: No visual rash, normal skin tone Neuro: Alert and oriented 3 Musculoskeletal: No gross abnormalities (Zaire Perrin) PHYSICAL EXAM: General Impression: Alert and oriented x3, not in acute distress HEENT: Normocephalic atraumatic, extra-ocular movements intact, pupils equal and reactive to light bilaterally, mucous membranes moist. Cardiovascular: Heart regular rate and rhythm Chest: Able to complete full sentences, no retractions, no tachypnea Abdomen: abdomen soft, non-tender, non-distended, no organomegaly Musculoskeletal: Pulses present and equal in all extremities, no peripheral edema Motor: no focal deficits noted Neurological: CN II-XII grossly intact, no focal motor or sensory deficits noted Skin: Intact with no visualized rashes Psych: Normal affect and mood (Hank Cruz) Course <Hank Cruz - Last Filed: 02/28/23 01:43> Vital Signs 02/27/23 02/27/23 02/28/23 19:44 22:35 00:09 Temperature 98.0 F 102.2 F H 103.3 F H Pulse Rate 75 Respiratory 18 Rate Blood Pressure 149/78 O2 Sat by Pulse 96 Oximetry - Reevaluation(s) Reevaluation #1: 02/27/23 22:59 Patient seen and evaluated at the bedside. Vital signs reviewed showing that patient's febrile at 102.2. He does report some symptoms of chills. However he does not have any localizing symptoms. (Hank Cruz) Procedures - Sepsis Sepsis Focused Exam #1 Time Sepsis Criteria Met: 00:49 Sepsis Focused Exam Date: 02/28/23 Sepsis Focused Exam Time: 00:49 Sepsis Focused Exam Complete: Yes Vital Signs & RN Notes Reviewed: Yes Capillary Refill: < 2 Seconds: Fingers, Toes Peripheral Pulses: Normal: Radial (R), Radial (L), Posterior Tibialis (R), Posterior Tibialis (L), Dorsalis Pedis (R), Dorsalis Pedis (L) Skin Color: Normal for Patient Respiratory Exam: normal lung sounds Cardiovascular Exam: regular rate, normal rhythm <Hank Cruz - Last Filed: 02/28/23 01:43> Medical Decision Making <Zaire Perrin - Last Filed: 02/27/23 21:36> - Lab Data Result diagrams: 02/27/23 22:58 02/27/23 22:58 <Hank Cruz - Last Filed: 02/28/23 01:43> - Medical Decision Making Quicknote portion performed. Signed Zaire Perrin PA-C (Zaire Perrin) Was pt. sent in by a medical professional or institution (, PA, POWER TRANSFORMER REPAIRER, urgent care, hospital, or halfway...) When possible be specific @ -No Did you speak to anyone other than the patient for history (EMS, parent, family, police, friend...)? What history was obtained from this source @ -No Did you review nursing and triage notes (agree or disagree)? Why? @ -I reviewed and agree with nursing and triage notes Were old charts reviewed (outside hosp., previous admission, EMS record, old EKG, old radiological studies, urgent care reports/EKG's, halfway records)? Report findings @ -No old charts were reviewed Differential Diagnosis (chest pain, altered mental status, abdominal pain women, abdominal pain men, vaginal bleeding, musculoskeletal, weakness, fever, dyspnea, syncope, headache, dizziness, GI bleed, back pain, seizure, CVA, palpatations, mental health)? @ -Differential Fever: Pneumonia, viral URI, endocarditis, myocarditis, pericarditis, otitis, sinusitis, peritonsillar Abscess, retropharyngeal Abscess, epiglottitis, peritonitis, appendicitis, Isabela cystitis, diverticulitis, hepatitis, colitis, UTI, PID, TOA, pyelonephritis, prostatitis, epididymitis, meningitis, encephalitis, pulmonary embolism, CVA, thyroid storm, pancreatitis, adrenal crisis, cavernous sinus thrombosis, this is not meant to be an all-inclusive list. EKG interpreted by me (3pts min.). @ -None done X-rays interpreted by me (1pt min.). @ -Chest x-ray shows no lung infiltrate CT interpreted by me (1pt min.). @ -None done U/S interpreted by me (1pt. min.). @ -None done What testing was considered but not performed or refused? (CT, X-rays, U/S, labs)? Why? @ -None What meds were considered but not given or refused? Why? @ -None Did you discuss the management of the patient with other professionals (professionals i.e. , PA, POWER TRANSFORMER REPAIRER, lab, RT, psych nurse, healthcare social worker, parking technician, teacher, chief security and safety officer, case managers)? Give summary @ -Discussed with Dr. Dr. Bautista for admission Was smoking cessation discussed for >3mins.? @ -No Was critical care preformed (if so, how long)? @ -No Were there social determinants of health that impacted care today? How? (Homelessness, low income, unemployed, alcoholism, drug addiction, transportation, low edu. Level, literacy, decrease access to med. care, nursing home, rehab)? @ -No Was there de-escalation of care discussed even if they declined (Discuss DNR or withdrawal of care, Hospice)? DNR status @ -No What co-morbidities impacted this encounter? (DM, HTN, Smoking, COPD, CAD, Cancer, CVA, ARF, Chemo, Hep., AIDS, mental health diagnosis, sleep apnea, morbid obesity)? @ -None Was patient admitted / discharged? Hospital course, mention meds given and route, prescriptions, significant lab abnormalities, going to OR and other pertinent info. @ -Year-old male presents emergency department for urinary symptoms and lower back pain. Vital signs upon arrival showed temperature of 90.0. Repeat temperature is 102.2 and repeat temperature is 103.3. Rest vital signs within acceptable limits. Patient in no acute distress at the bedside. Laboratory evaluation obtained. Leukocytosis of 17.3. Lactic acidosis 2.7. Urine positive for urinary tract infection. Viral testing negative. X-ray shows no acute infiltrate. Clinical presentation consistent with UTI sepsis. Patient treated with antibiotic to be admitted for further care. Patient does not meet criteria for severe sepsis Undiagnosed new problem with uncertain prognosis? @ -No Drug Therapy requiring intensive monitoring for toxicity (Heparin, Nitro, Insulin, Cardizem)? @ -No Were any procedures done? @ -No Diagnosis/symptom? Acute, or Chronic, or Acute on Chronic? Uncomplicated (without systemic symptoms) or Complicated (systemic symptoms)? @ -UTI sepsis Side effects of treatment? @ -No Exacerbation, Progression, or Severe Exacerbation? @ -No (Hank Cruz) - Lab Data Lab Results 02/27/23 02/27/23 02/27/23 Range/Units 22:58 22:58 22:58 WBC 17.3 H (3.8-10.6) k/uL RBC 4.96 (4.30-5.90) m/uL Hgb 15.3 (13.0-17.5) gm/dL Hct 46.3 (39.0-53.0) % MCV 93.2 (80.0-100.0) fL MCH 30.8 (25.0-35.0) pg MCHC 33.1 (31.0-37.0) g/dL RDW 13.0 (11.5-15.5) % Plt Count 228 (150-450) k/uL MPV 7.7 Neutrophils % 94 % Lymphocytes % 3 % Monocytes % 3 % Eosinophils % 0 % Basophils % 0 % Neutrophils # 16.2 H (1.3-7.7) k/uL Lymphocytes # 0.5 L (1.0-4.8) k/uL Monocytes # 0.5 (0-1.0) k/uL Eosinophils # 0.1 (0-0.7) k/uL Basophils # 0.0 (0-0.2) k/uL Sodium 139 (137-145) mmol/L Potassium 4.9 (3.5-5.1) mmol/L Chloride 102 (98-107) mmol/L Carbon Dioxide 22 (22-30) mmol/L Anion Gap 15 mmol/L BUN 40 H (9-20) mg/dL Creatinine 0.97 (0.66-1.25) mg/dL Est GFR (CKD-EPI)AfAm 82 (>60 ml/min/1.73 sqM) Est GFR (CKD-EPI)NonAf 71 (>60 ml/min/1.73 sqM) Glucose 102 H (74-99) mg/dL Plasma Lactic Acid Mack (0.7-2.0) mmol/L Calcium 9.8 (8.4-10.2) mg/dL Total Bilirubin 0.8 (0.2-1.3) mg/dL AST 37 (17-59) U/L ALT 42 (4-49) U/L Alkaline Phosphatase 89 (38-126) U/L C-Reactive Protein 0.6 (<1.0) mg/dL Total Protein 7.2 (6.3-8.2) g/dL Albumin 4.6 (3.5-5.0) g/dL Urine Color Light Yellow Urine Appearance Cloudy (Clear) Urine pH 5.0 (5.0-8.0) Ur Specific [place] 1.026 (1.001-1.035) Urine Protein Trace H (Negative) Urine Glucose (UA) Negative (Negative) Urine Ketones Negative (Negative) Urine Blood Small H (Negative) Urine Nitrite Negative (Negative) Urine Bilirubin Negative (Negative) Urine Urobilinogen <2.0 (<2.0) mg/dL Ur Leukocyte Esterase Large H (Negative) Urine RBC 15 H (0-5) /hpf Urine WBC >182 H (0-5) /hpf Urine WBC Clumps Occasional H (None) /hpf Ur Squamous Epith Cells <1 (0-4) /hpf Urine Bacteria Occasional H (None) /hpf Hyaline Casts 3 H (0-2) /lpf Urine Mucus Rare H (None) /hpf Influenza Type A (PCR) (Not Detectd) Influenza Type B (PCR) (Not Detectd) RSV (PCR) (Not Detectd) SARS-CoV-2 (PCR) (Not Detectd) 02/27/23 02/27/23 Range/Units 22:58 22:58 WBC (3.8-10.6) k/uL RBC (4.30-5.90) m/uL Hgb (13.0-17.5) gm/dL Hct (39.0-53.0) % MCV (80.0-100.0) fL MCH (25.0-35.0) pg MCHC (31.0-37.0) g/dL RDW (11.5-15.5) % Plt Count (150-450) k/uL MPV Neutrophils % % Lymphocytes % % Monocytes % % Eosinophils % % Basophils % % Neutrophils # (1.3-7.7) k/uL Lymphocytes # (1.0-4.8) k/uL Monocytes # (0-1.0) k/uL Eosinophils # (0-0.7) k/uL Basophils # (0-0.2) k/uL Sodium (137-145) mmol/L Potassium (3.5-5.1) mmol/L Chloride (98-107) mmol/L Carbon Dioxide (22-30) mmol/L Anion Gap mmol/L BUN (9-20) mg/dL Creatinine (0.66-1.25) mg/dL Est GFR (CKD-EPI)AfAm (>60 ml/min/1.73 sqM) Est GFR (CKD-EPI)NonAf (>60 ml/min/1.73 sqM) Glucose (74-99) mg/dL Plasma Lactic Acid Mack 2.7 H* (0.7-2.0) mmol/L Calcium (8.4-10.2) mg/dL Total Bilirubin (0.2-1.3) mg/dL AST (17-59) U/L ALT (4-49) U/L Alkaline Phosphatase (38-126) U/L C-Reactive Protein (<1.0) mg/dL Total Protein (6.3-8.2) g/dL Albumin (3.5-5.0) g/dL Urine Color Urine Appearance (Clear) Urine pH (5.0-8.0) Ur Specific [place] (1.001-1.035) Urine Protein (Negative) Urine Glucose (UA) (Negative) Urine Ketones (Negative) Urine Blood (Negative) Urine Nitrite (Negative) Urine Bilirubin (Negative) Urine Urobilinogen (<2.0) mg/dL Ur Leukocyte Esterase (Negative) Urine RBC (0-5) /hpf Urine WBC (0-5) /hpf Urine WBC Clumps (None) /hpf Ur Squamous Epith Cells (0-4) /hpf Urine Bacteria (None) /hpf Hyaline Casts (0-2) /lpf Urine Mucus (None) /hpf Influenza Type A (PCR) Not Detected (Not Detectd) Influenza Type B (PCR) Not Detected (Not Detectd) RSV (PCR) Not Detected (Not Detectd) SARS-CoV-2 (PCR) Not Detected (Not Detectd) Disposition <Zaire Perrin - Last Filed: 02/27/23 21:36> Decision Time: 01:00 <Hank Cruz - Last Filed: 02/28/23 01:43> Clinical Impression: Sepsis secondary to UTI Disposition: ADMITTED IP TO THIS HOSP Condition: Fair Referrals: Mehnaz Bautista MD [Primary Care Provider] - 1-2 days
[2023-02-27] MEDS ORDERED: SODIUM CHLORIDE 0.9% 500 ML 500 ML IV STA (22:51)
[2023-02-27] MEDS ORDERED: ACETAMINOPHEN TAB 500 MG TAB PO STA (22:51)
[2023-02-27 23:30] LABS: Basophils % (A) 0 %; Eosinophils # (A) 0.1 k/uL (0-0.7); Eosinophils % (A) 0 %; HCT 46.3 % (39.0-53.0); HGB 15.3 gm/dL (13.0-17.5); Lymphocytes # (A) 0.5 k/uL (1.0-4.8); Lymphocytes % (A) 3 %; MCH 30.8 pg (25.0-35.0); MCHC 33.1 g/dL (31.0-37.0); MCV 93.2 fL (80.0-100.0); Mean Platelet Volume 7.7; Monocytes # (A) 0.5 k/uL (0-1.0); Monocytes % (A) 3 %; Neutrophils # (A) 16.2 k/uL (1.3-7.7); Neutrophils % (A) 94 %; Platelet Count 228 k/uL (150-450); RBC 4.96 m/uL (4.30-5.90); WBC 17.3 k/uL (3.8-10.6)
[2023-02-27 23:34] LABS: Appearance,Urine Cloudy (Clear); Bacteria,Urine Occasional /hpf; Bilirubin,Urine Negative (Negative); Blood,Urine Small (Negative); Color,Urine Light Yellow; Glucose,Urine (UA) Negative (Negative); Hyaline Casts,Urine 3 /lpf (0-2); Ketones,Urine Negative (Negative); Leukocyte Esterase,Urine Large (Negative); Mucus,Urine Rare /hpf; Nitrite,Urine Negative (Negative); Protein,Urine Trace (Negative); RBC,Urine 15 /hpf (0-5); Specific Gravity,Urine 1.026 (1.001-1.035); Squamous Epithelial Cell,Urine <1 /hpf (0-4); Urobilinogen,Urine <2.0 mg/dL (<2.0); WBC,Urine >182 /hpf (0-5)
[2023-02-27 23:44] LABS: ALT 42 U/L (4-49); AST 37 U/L (17-59); African American GFR (CKD) 82 (>60 ml/min/1.73 sqM); Albumin 4.6 g/dL (3.5-5.0); Alkaline Phosphatase 89 U/L (38-126); Anion Gap 15 mmol/L; Blood Urea Nitrogen 40 mg/dL (9-20); C Reactive Protein 0.6 mg/dL (<1.0); Calcium 9.8 mg/dL (8.4-10.2); Carbon Dioxide 22 mmol/L (22-30); Chloride 102 mmol/L (98-107); Glucose 102 mg/dL (74-99); Non-African American GFR(CKD) 71 (>60 ml/min/1.73 sqM); Potassium 4.9 mmol/L (3.5-5.1); Sodium 139 mmol/L (137-145); Total Bilirubin 0.8 mg/dL (0.2-1.3); Total Protein 7.2 g/dL (6.3-8.2)
[2023-02-27] MEDS ORDERED: cefTRIAXone IN SWFI 1,000 MG/10 ML SYRINGE IVP STA (23:44)
--- NOTE | 2023-02-28 03:18 | XR ---
EXAM: XR Chest, 1 View CLINICAL HISTORY: ITS.REASON XR Reason: sepsis TECHNIQUE: Frontal view of the chest. COMPARISON: No relevant prior studies available. FINDINGS: Lungs: No consolidation or mass. Pleural space: No acute findings Heart: No cardiomegaly. Bones/joints: No acute findings. IMPRESSION: No acute cardiopulmonary process.
[2023-02-28] MEDS ORDERED: NALOXONE 0.4 MG/ML 1 ML VIAL IV PRN (04:16)
[2023-02-28 09:27] LABS: Erythrocyte Sedimentation Rate 32 mm/Hr (0-20)
[2023-02-28] MEDS ORDERED: FLUOCINOLONE 0.01% TOPICAL PRN (13:29)
[2023-02-28] MEDS ORDERED: bisacodyL 5 MG TABLET.DR PO PRN (13:29)
[2023-02-28] MEDS ORDERED: DOCUSATE 100 MG CAP PO PRN (13:29)
[2023-02-28] MEDS ORDERED: ACETAMINOPHEN TAB 325 MG TAB PO PRN (14:23)
[2023-02-28] MEDS: levETIRAcetam 500 MG TAB PO SCH (14:56)
[2023-02-28] MEDS: SODIUM CHLORIDE 0.9% 1,000 ML IV SCH (15:32)
--- NOTE | 2023-02-28 15:48 | P.HPIM ---
History of Present Illness H&P Date: 02/28/23 Chief Complaint: UTI with sepsis/ Urinary retention HISTORY OF PRESENT ILLNESS: This is an 87-year-old male patient of Dr. Bautista with past medical history of coronary artery disease with previous myocardial infarction and stenting status post 5 vessel CABG with placement of left internal mammary to the 100% occluded left anterior descending, reverse saphenous vein graft as a natural Y sequential to the 100% occluded first diagonal in the subtotally occluded second obtuse marginal, and reverse saphenous vein graft to the 80% occluded right coronary, which was a 2.5 mm vessel, and short jump graft to the terminal circumflex, seasonal ALLERGIES, hyperlipidemia, hypertension, benign prostatic hypertrophy, generalized osteoarthritis, 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 SI joint injection and possible epidural injection for pain control, as the patient is not controlled with the current pain management including the [place] as well as muscle relaxer, patient was seen in my office few days ago, he was placed on [place] 10/325 mg orally twice every day along with methocarbamol 750 mg orally 3 times every day, without any relief, patient developed to have a significant pain lumbar spine associated with inability to urinate, he had a high temperature, he ended up coming to the emergency department at [facility] last night, he was found to have urinary tract infection with sepsis with urinary retention, had a Taylor catheter placement, he was started on IV antibiotic in the form of ceftriaxone 2 g IV piggyback every 24 hours, he was admitted to the hospital after obtaining urine culture and blood culture and infectious disease consultation was obtained from Dr. Singh and urology consultation from Dr. Covarrubias REVIEW OF SYSTEMS: Constitutional: positive for documented fever, positive for chills, no night sweats. No weight change. positive for weakness, fatigue or lethargy. positive for daytime sleepiness. HEENT: No headache. No blurred vision or double vision, no loss of vision. positive for loss of Hearing, no ringing in the ears, no dizziness. No nasal drainage or congestion. No epistaxis. No sore throat. Lungs: No shortness of breath, no cough, no sputum production. No wheezing. R eports dyspnea with activity. Cardiovascular: No chest pain, no lower extremity edema. No palpitations. No paroxysmal nocturnal dyspnea. No orthopnea. No lightheadedness or dizziness. No syncopal episodes. Abdominal: Reports no abdominal pain. No nausea, vomiting. No diarrhea. positive for constipation. No bloody or tarry stools reports loss of appetite. Genitourinary: No dysuria, increased frequency, urgency. positive for urinary retention. Musculoskeletal: No myalgias. positive for muscle weakness, positive for gait dysfunction, frequent falls. severe back pain. moderate neck pain. Integumentary: No wounds, no lesions. No rash or pruritus. No unusual bruising. No change in hair or nails. Neurologic: No aphasia. No facial droop. No change in mentation. No head injury. No headache. No paralysis. No paresthesia. Psychiatric: No depression. No anxiety. No mood swings. Endocrine: No abnormal blood sugars. No weight change. PAST MEDICAL HISTORY: CAD post CABG 5 with MARTINEZ to LAD, as. G2 first diagonal and second obtuse marginal SVG to the RCA, SVG to LCx Hypertension and hypertensive cardio vascular disease. Hyperlipidemia. ALLERGIC rhinitis. BPH. Osteoarthritis. Spondylo-listhesis of the lumbar spine and cervical spine. Seizure. Constipation. postlaminectomy syndrome. PAST SURGICAL HISTORY: CABG 5. Appendectomy. Multiple back surgeries. Posterior or cervical discectomy with fusion. Spinal cord stimulator on the left side. left Achilles tendon repair SOCIAL HISTORY: Patient is as well as a pack every day, he smoked for years and quit many years ago, he drinks occasionally, he loses , he uses a walker and wheelchair for ambulation. FAMILY HISTORY: Father at age 92 from coronary artery disease, mother at age of 76 from [place], patient had 3 brothers one from old age one from Parkinson and the other one from throat cancer patient had 2 sisters one from lung cancer and the other one at age of 40 from brain aneurysm patient has 3 sons one with bipolar and one daughter PHYSICAL EXAMINATION: General: 87-year-old male laying down in bed in minimal distress. HEENT: Head is atraumatic, normocephalic, pupils were equal round reactive to light and recommendation, extraocular muscle movement were intact, sclera nonicteric, conjunctivae were pale, mucous membranes of the mouth are somewhat dry. Neck: Supple, no JVP, normal carotid upstroke bilaterally, no lymphadenopathy. Chest: Decreased breath sounds at the bases, few rhonchi, no expiratory wheezes, no chest wall tenderness, no intercostal retractions. Heart: First heart sound is normal, second heart sound is normal there is systolic ejection murmur 2/6 located in the left sternal border. Abdomen: Soft, nontender, nondistended, positive bowel sounds. Extremities: There is no edema no calf tenderness DP +2 bilaterally. Neurologic examination: Patient is awake alert and oriented X 3, cranial nerves II-12 appear grossly intact, muscle power were 4 out of 5 in upper extremities and 3 out of 5 in bilateral lower extremities, deep tendon reflexes normal bilaterally. ASSESSMENT AND PLAN: 1. Urinary tract infection with sepsis. Blood culture, urine culture, Rocephin 2 g IV piggyback every 24 hours, Tylenol 650 every 6 hours as needed, ID consult, IV fluid resuscitation the form of normal saline 100 mL an hour. 2. Urinary retention. Continue patient with Taylor catheter, continue IV antibiotic, consult urology, continue tamsulosin 0.4 mg once every day. 3. Coronary artery disease status post coronary artery bypass graft 5. Continue patient on aspirin 81 mg once every day, pravastatin 80 mg at bedtime. 4. Hypertension and hypertensive cardiovascular disease. Continue patient on lisinopril 2.5 mg orally once every day. 5. Mixed hyperlipidemia. Continue pravastatin 80 mg at bedtime, monitor lipid panel, keep LDL 55-70. 6. Seizure disorder. Continue Keppra 500 mg orally twice every day. 7. BPH with urinary retention continue tamsulosin 0.4 mg once every day urology consultation. 8. Constipation. Continue Dulcolax 5 mg once every day, Colace 100 mg once every day, increase fluid intake. 9. Lumbar spondylolisthesis status post multiple back surgeries. Continue methocarbamol 1500 mg orally 2 times every day, hydrocodone 10/325 mg orally twice every day. 10. ALLERGIC rhinitis. Continue loratadine 10 mg once every day, Flonase nasal. 1 puff in each nostril twice every day. 11. DVT prophylaxis. Lovenox 40 mg subcutaneous every 24 hours. 12. GI prophylaxis. Continue Protonix 40 mg orally once every day. 13. Admit to inpatient. Estimate a length of stay 2 midnights. 14. Full code. Past Medical History Past Medical History: Prostate Disorder Additional Past Medical History / Comment(s): HX OF 1 SEIZURE APPROX 30 YRS AGO History of Any Multi-Drug Resistant Organisms: None Reported Past Surgical History: Appendectomy, Back Surgery, Coronary Bypass/CABG, Ortho pedic Surgery Additional Past Surgical History / Comment(s): APPENDECTOMY (17 YRS OLD), LEFT ANKLE ACHEILLES TENDON, BACK SURGERYS, CERVICAL SPINE SURGERY WITH HARDWARE, CARPAL TUNNEL. , NERVE STIMULATOR LEFT HIP.(ST SULEMAN), CABG Past Anesthesia/Blood Transfusion Reactions: Postoperative Nausea & Vomiting (PONV) Past Psychological History: No Psychological Hx Reported Smoking Status: Former smoker Past Alcohol Use History: Occasional Past Drug Use History: None Reported - Past Family History Father Additional Family Medical History / Comment(s): Father at age 92 with history of coronary artery disease. Brother(s) Additional Family Medical History / Comment(s): Patient has total of 3 brothers one has from Parkinson's 1 from old age and one with throat cancer. Sister(s) Additional Family Medical History / Comment(s): Patient has one sister that from lung cancer with history of smoking and one at age 40 from a brain aneurysm. Patient has a total of 4 children. 3 sons, one has bipolar disorder. One daughter with no major medical problems. Mother Family Medical History: No Reported History Additional Family Medical History / Comment(s): Mother at age 76 with heart disease. Medications and Allergies Home Medications Medication Instructions Recorded Confirmed Type Pravastatin Sodium [Pravachol] 80 mg PO HS 09/26/14 02/28/23 History lisinopriL [Zestril] 2.5 mg PO DAILY 01/03/20 02/28/23 History Aspirin [Adult Low Dose Aspirin EC] 81 mg PO HS 09/07/20 02/28/23 History Cholecalciferol [Vitamin D3 (25 25 mcg PO DAILY 09/07/20 02/28/23 History Mcg = 1000 Iu)] Tamsulosin [Flomax] 0.4 mg PO HS 09/07/20 02/28/23 History Biotin [Biotin Disolve] 10,000 mcg PO DAILY 02/14/23 02/28/23 History Docusate [Colace] 100 mg PO DAILY PRN 02/14/23 02/28/23 History Fluocinolone 0.01% Oil 1 applic TOPICAL BID PRN 02/14/23 02/28/23 History HYDROcodone/APAP 10-325MG [[place] 1 tab PO Q12H PRN 02/14/23 02/28/23 History 10-325] Vit C/E/Zn/Coppr/Lutein/Zeaxan 1 cap PO BID 02/14/23 02/28/23 History [Preservision Areds 2 Softgel] levETIRAcetam [Keppra] 500 mg PO Q12H 02/14/23 02/28/23 History methocarbamoL [Robaxin-750] 1,500 mg PO TID PRN #30 tab 02/15/23 02/28/23 Rx Cetirizine HCl [Zyrtec] 10 mg PO DAILY 02/28/23 02/28/23 History Co Q-10 200mg 1 cap PO DAILY 02/28/23 02/28/23 History Fluticasone Nasal [place] [Flonase 1 spray EA NOSTRIL DAILY 02/28/23 02/28/23 History Nasal [place]] bisacodyL [Dulcolax] 5 mg PO DAILY PRN 02/28/23 02/28/23 History Allergies Allergy/AdvReac Type Severity Reaction Status Date / Time propoxyphene napsylate AdvReac Unknown Nausea & Verified 02/28/23 09:07 [From Jr-N 100] Vomiting Surgical Tape Allergy Severe Blisters Uncoded 02/28/23 09:07 Physical Exam Vitals: Vital Signs Temp Pulse Resp BP Pulse Ox 02/28/23 10:09 99.1 F 88 20 106/62 94 L 02/28/23 06:00 99.7 F H 95 18 106/67 94 L 02/28/23 02:08 101.3 F H 94 16 106/65 93 L 02/28/23 00:09 103.3 F H 02/27/23 22:35 102.2 F H 02/27/23 19:44 98.0 F 75 18 149/78 96 Intake and Output 02/27/23 02/28/23 02/28/23 22:59 06:59 14:59 Other: Voiding Method Urinal Weight 84.368 kg Results CBC & Chem 7: 02/27/23 22:58 02/27/23 22:58 Labs: Abnormal Lab Results - Last 24 Hours (Table) 02/27/23 02/27/23 02/27/23 Range/Units 22:58 22:58 22:58 WBC 17.3 H (3.8-10.6) k/uL Neutrophils # 16.2 H (1.3-7.7) k/uL Lymphocytes # 0.5 L (1.0-4.8) k/uL ESR 32 H (0-20) mm/Hr BUN 40 H (9-20) mg/dL Glucose 102 H (74-99) mg/dL Plasma Lactic Acid Mack (0.7-2.0) mmol/L Urine Protein Trace H (Negative) Urine Blood Small H (Negative) Ur Leukocyte Esterase Large H (Negative) Urine RBC 15 H (0-5) /hpf Urine WBC >182 H (0-5) /hpf Urine WBC Clumps Occasional H (None) /hpf Urine Bacteria Occasional H (None) /hpf Hyaline Casts 3 H (0-2) /lpf Urine Mucus Rare H (None) /hpf 02/27/23 02/28/23 Range/Units 22:58 01:56 WBC (3.8-10.6) k/uL Neutrophils # (1.3-7.7) k/uL Lymphocytes # (1.0-4.8) k/uL ESR (0-20) mm/Hr BUN (9-20) mg/dL Glucose (74-99) mg/dL Plasma Lactic Acid Mack 2.7 H* 2.5 H* (0.7-2.0) mmol/L Urine Protein (Negative) Urine Blood (Negative) Ur Leukocyte Esterase (Negative) Urine RBC (0-5) /hpf Urine WBC (0-5) /hpf Urine WBC Clumps (None) /hpf Urine Bacteria (None) /hpf Hyaline Casts (0-2) /lpf Urine Mucus (None) /hpf
[2023-02-28] MEDS: methocarbamoL 750 MG TAB PO PRN (18:38)
[2023-02-28] MEDS: PRAVASTATIN SODIUM 80 MG TAB PO SCH (20:58)
[2023-02-28] MEDS: TAMSULOSIN 0.4 MG CAP.ER.24H PO SCH (20:58)
[2023-02-28] MEDS: ASPIRIN 81 MG PO SCH (20:58)
[2023-02-28] MEDS: VIT A,C & E-LUTEIN-MINERALS 1 EACH TAB PO SCH (20:58)
--- NOTE | 2023-02-28 22:25 | P.CONS ---
History of Present Illness - Reason for Consult Consult date: 02/28/23 Sepsis Requesting physician: Hank Cruz - Chief Complaint Difficulty urination and dribbling x few days - History of Present Illness Patient is a 87-year-old male with a past medical history significant for enlarged prostate history of seizure disorder patient presenting to the hospital last night for evaluation of urinary dribbling and did have some burni ng and difficulty urination patient symptom has been getting worse for the last 2 to 3 days before presentation to the hospital patient denies having any suprapubic or flank pain patient did have some nausea but no vomiting no chest pain shortness of breath or cough on arrival to the ER the patient was noticed to be in urinary retention requiring Taylor catheter placement he also noticed to have a temperature of 102.2 F patient was mildly tachycardic but not hypotensive or hypoxic 24 supplemental oxygen did have white count of 17.3 with a left shift lactic acid was elevated creatinine was normal urine was positive influenza RSV and COVID testing was negative patient did have a chest x-ray no acute cardiopulmonary disease process patient was given a dose of Rocephin admit to the hospital infectious disease was consulted for further management of antibiotic therapy Review of Systems Positive point and negatives has been mentioned in the HPI, complete review of systems was performed and all other systems are negative Past Medical History Past Medical History: Prostate Disorder Additional Past Medical History / Comment(s): HX OF 1 SEIZURE APPROX 30 YRS AGO History of Any Multi-Drug Resistant Organisms: None Reported Past Surgical History: Appendectomy, Back Surgery, Coronary Bypass/CABG, Orthopedic Surgery Additional Past Surgical History / Comment(s): APPENDECTOMY (17 YRS OLD), LEFT ANKLE ACHEILLES TENDON, BACK SURGERYS, CERVICAL SPINE SURGERY WITH HARDWARE, CARPAL TUNNEL. , NERVE STIMULATOR LEFT HIP.(ST SULEMAN), CABG Past Anesthesia/Blood Transfusion Reactions: Postoperative Nausea & Vomiting (PONV) Past Psychological History: No Psychological Hx Reported Smoking Status: Former smoker Past Alcohol Use History: Occasional Past Drug Use History: None Reported - Past Family History Father Additional Family Medical History / Comment(s): Father at age 92 with history of coronary artery disease. Brother(s) Additional Family Medical History / Comment(s): Patient has total of 3 brothers one has from Parkinson's 1 from old age and one with throat cancer. Sister(s) Additional Family Medical History / Comment(s): Patient has one sister that from lung cancer with history of smoking and one at age 40 from a brain aneurysm. Patient has a total of 4 children. 3 sons, one has bipolar disorder. One daughter with no major medical problems. Mother Family Medical History: No Reported History Additional Family Medical History / Comment(s): Mother at age 76 with heart disease. Medications and Allergies Home Medications Medication Instructions Recorded Confirmed Type Pravastatin Sodium [Pravachol] 80 mg PO HS 09/26/14 02/28/23 History lisinopriL [Zestril] 2.5 mg PO DAILY 01/03/20 02/28/23 History Aspirin [Adult Low Dose Aspirin EC] 81 mg PO HS 09/07/20 02/28/23 History Cholecalciferol [Vitamin D3 (25 25 mcg PO DAILY 09/07/20 02/28/23 History Mcg = 1000 Iu)] Tamsulosin [Flomax] 0.4 mg PO HS 09/07/20 02/28/23 History Biotin [Biotin Disolve] 10,000 mcg PO DAILY 02/14/23 02/28/23 History Docusate [Colace] 100 mg PO DAILY PRN 02/14/23 02/28/23 History Fluocinolone 0.01% Oil 1 applic TOPICAL BID PRN 02/14/23 02/28/23 History HYDROcodone/APAP 10-325MG [[place] 1 tab PO Q12H PRN 02/14/23 02/28/23 History 10-325] Vit C/E/Zn/Coppr/Lutein/Zeaxan 1 cap PO BID 02/14/23 02/28/23 History [Preservision Areds 2 Softgel] levETIRAcetam [Keppra] 500 mg PO Q12H 02/14/23 02/28/23 History methocarbamoL [Robaxin-750] 1,500 mg PO TID PRN #30 tab 02/15/23 02/28/23 Rx Cetirizine HCl [Zyrtec] 10 mg PO DAILY 02/28/23 02/28/23 History Co Q-10 200mg 1 cap PO DAILY 02/28/23 02/28/23 History Fluticasone Nasal [place] [Flonase 1 spray EA NOSTRIL DAILY 02/28/23 02/28/23 History Nasal [place]] bisacodyL [Dulcolax] 5 mg PO DAILY PRN 02/28/23 02/28/23 History cefUROXime axetiL [Ceftin] 500 mg PO BID 10 Days #20 tab 03/04/23 Rx Allergies Allergy/AdvReac Type Severity Reaction Status Date / Time propoxyphene napsylate AdvReac Unknown Nausea & Verified 02/28/23 09:07 [From [facility]-N 100] Vomiting Surgical Tape Allergy Severe Blisters Uncoded 02/28/23 09:07 Physical Exam Vitals: Vital Signs Temp Pulse Resp BP Pulse Ox 02/28/23 10:09 99.1 F 88 20 106/62 94 L 02/28/23 06:00 99.7 F H 95 18 106/67 94 L 02/28/23 02:08 101.3 F H 94 16 106/65 93 L 02/28/23 00:09 103.3 F H 02/27/23 22:35 102.2 F H 02/27/23 19:44 98.0 F 75 18 149/78 96 Intake and Output 02/27/23 02/28/23 02/28/23 22:59 06:59 14:59 Other: Voiding Method Urinal Weight 84.368 kg GENERAL DESCRIPTION elderly male lying in bed, no distress. No tachypnea or accessory muscle of respiration use. HEENT: Shows Pallor , no scleral icterus. Oral mucous membrane is dry. No pharyngeal erythema or thrush NECK: Trachea central, no thyromegaly. LUNGS: Unlabored breathing. Clear to auscultation anteriorly. No wheeze or crackle. HEART: S1, S2, regular rate and rhythm. No loud murmur ABDOMEN: Soft, no tenderness , guarding or rigidity, no organomegaly EXTREMITIES: No edema of feet. SKIN: No rash, no masses palpable. NEUROLOGICAL: The patient is awake, alert, oriented x3, mood and affect normal. Results CBC & Chem 7: 03/03/23 05:56 03/03/23 05:56 Labs: Abnormal Lab Results - Last 24 Hours (Table) 02/27/23 02/27/23 02/27/23 Range/Units 22:58 22:58 22:58 WBC 17.3 H (3.8-10.6) k/uL Neutrophils # 16.2 H (1.3-7.7) k/uL Lymphocytes # 0.5 L (1.0-4.8) k/uL ESR 32 H (0-20) mm/Hr BUN 40 H (9-20) mg/dL Glucose 102 H (74-99) mg/dL Plasma Lactic Acid Mack (0.7-2.0) mmol/L Urine Protein Trace H (Negative) Urine Blood Small H (Negative) Ur Leukocyte Esterase Large H (Negative) Urine RBC 15 H (0-5) /hpf Urine WBC >182 H (0-5) /hpf Urine WBC Clumps Occasional H (None) /hpf Urine Bacteria Occasional H (None) /hpf Hyaline Casts 3 H (0-2) /lpf Urine Mucus Rare H (None) /hpf 02/27/23 02/28/23 Range/Units 22:58 01:56 WBC (3.8-10.6) k/uL Neutrophils # (1.3-7.7) k/uL Lymphocytes # (1.0-4.8) k/uL ESR (0-20) mm/Hr BUN (9-20) mg/dL Glucose (74-99) mg/dL Plasma Lactic Acid Mack 2.7 H* 2.5 H* (0.7-2.0) mmol/L Urine Protein (Negative) Urine Blood (Negative) Ur Leukocyte Esterase (Negative) Urine RBC (0-5) /hpf Urine WBC (0-5) /hpf Urine WBC Clumps (None) /hpf Urine Bacteria (None) /hpf Hyaline Casts (0-2) /lpf Urine Mucus (None) /hpf Assessment and Plan (1) Sepsis secondary to UTI Status: Acute Code(s): A41.9 - SEPSIS, UNSPECIFIED ORGANISM; N39.0 - URINARY TRACT INFECTION, SITE NOT SPECIFIED SNOMED Code(s): 413154752 Plan: 1patient presents to hospital with sepsis in this patient who did have a fever tachycardia elevated white count and elevated lactic acid source is likely urinary in this patient with a positive UA and did have a urinary symptoms suggestive of urinary tract infection likely from enteric gram-negative pathogen 2-we will obtain ultrasound of the kidney bladder to make sure no evidence of any obstructive uropathy 3-we will start the patient on Rocephin 2 g daily while waiting for the culture to finalize We will follow on clinical condition and cultures to further adjust medication if needed Thank you for this consultation we will follow the patient along with you Dictation was produced using [employer] dictation software. please excuse any grammatical, word or spelling errors. Time with Patient: Greater than 30
[2023-03-01] MEDS: levETIRAcetam 500 MG TAB PO SCH ×3 (01:14→23:22)
[2023-03-01] MEDS: SODIUM CHLORIDE 0.9% 1,000 ML IV SCH ×3 (01:15→20:37)
[2023-03-01] MEDS: methocarbamoL 750 MG TAB PO PRN ×2 (05:25→13:32)
[2023-03-01] MEDS ORDERED: NON FORMULARY DRUG (Biotin [Biotin Disolve] 10,000 MCG Tablet) PO SCH (09:00)
[2023-03-01] MEDS ORDERED: CO Q10 200 MG PO SCH (09:00)
[2023-03-01] MEDS: LORATADINE 10 MG TAB PO SCH (09:09)
[2023-03-01] MEDS: CHOLECALCIFEROL 25 MCG (1000 IU) TABLET PO SCH (09:10)
[2023-03-01] MEDS: FLUTICASONE 50MCG/SPRAY NASAL 16GM EA NOSTRIL SCH ×3 (09:10→10:11)
[2023-03-01] MEDS: HYDROcodone/APAP 10-325MG 1 EACH TAB PO PRN ×2 (09:10→23:21)
[2023-03-01] MEDS: ENOXAPARIN 40 MG/0.4 ML SYRINGE SQ SCH (09:10)
[2023-03-01] MEDS: VIT A,C & E-LUTEIN-MINERALS 1 EACH TAB PO SCH ×2 (09:10→20:37)
[2023-03-01 09:13] LABS: Basophils # (A) 0.06 X 10*3/uL (0.00-0.10); Basophils % (A) 0.3 %; Eosinophils # (A) 0.03 X 10*3/uL (0.04-0.35); Eosinophils % (A) 0.1 %; HCT 40.3 % (39.6-50.0); HGB 13.7 g/dL (13.0-17.0); Lymphocytes # (A) 1.18 X 10*3/uL (0.90-5.00); Lymphocytes % (A) 5.7 %; MCH 30.8 pg (27.0-32.0); MCV 90.6 FL (80.0-97.0); Mean Platelet Volume 10.2 FL (9.5-12.2); Monocytes # (A) 1.05 X 10*3/uL (0.20-1.00); Monocytes % (A) 5.1 %; NRBC Per 100 WBC 0 X 10*3/uL (0.00-0.01); Neutrophils # (A) 18.19 X 10*3/uL (1.80-7.70); Neutrophils % (A) 88.2 %; Platelet Count 175 X 10*3/uL (140-440); RBC 4.45 X 10*6/uL (4.40-5.60); RDW 13.7 % (11.5-14.5); WBC 20.64 X 10*3/uL (4.50-10.00)
[2023-03-01 09:23] LABS: ALT 23 U/L (10-49); AST 23 U/L (14-35); Albumin 3.4 g/dL (3.8-4.9); Albumin/Globulin Ratio 1.89 Ratio (1.60-3.17); Alkaline Phosphatase 75 U/L (41-126); Calcium 8.8 mg/dL (8.7-10.3); Carbon Dioxide 20.7 mmol/L (21.6-31.8); Chloride 106 mmol/L (96-109); Globulin 1.8 g/dL (1.6-3.3); Glucose 91 mg/dL (70-110); Potassium 4.3 mmol/L (3.5-5.5); Sodium 137 mmol/L (135-145); Total Bilirubin 0.3 mg/dL (0.3-1.2); Total Protein 5.2 g/dL (6.2-8.2)
--- NOTE | 2023-03-01 13:10 | P.GSCN ---
History of Present Illness Consult date: 03/01/23 Reason for Consult: Urinary retention, UTI Requesting physician: Mehnaz Bautista History of present illness: The patient is an 87-year-old white male well known to me. I previously followed him annually for BPH. Though I have not seen him in the office in many years, he continues to take tamsulosin. He states that he has experienced difficulty voiding "for years". Specifically, he states that he sits to void and experiences hesitancy, and only voids small amounts at a time. He states that he came to the ER for exacerbation of back pain, and experienced chills in the ER. He stated to me that he has not experienced dysuria, though the ER records indicate that he did report dysuria upon presentation. He reports significant degenerative disc disease causing spinal stenosis. Review of Systems - Constitutional Reports chills, Reports fever - Genitourinary Reports as per HPI Past Medical History Past Medical History: Prostate Disorder Additional Past Medical History / Comment(s): HX OF 1 SEIZURE APPROX 30 YRS AGO History of Any Multi-Drug Resistant Organisms: None Reported Past Surgical History: Appendectomy, Back Surgery, Coronary Bypass/CABG, Orthopedic Surgery Additional Past Surgical History / Comment(s): APPENDECTOMY (17 YRS OLD), LEFT ANKLE ACHEILLES TENDON, BACK SURGERYS, CERVICAL SPINE SURGERY WITH HARDWARE, CARPAL TUNNEL. , NERVE STIMULATOR LEFT HIP.([employer]), CABG Past Anesthesia/Blood Transfusion Reactions: Postoperative Nausea & Vomiting (PONV) Past Psychological History: No Psychological Hx Reported Smoking Status: Former smoker Past Alcohol Use History: Occasional Past Drug Use History: None Reported - Past Family History Father Additional Family Medical History / Comment(s): Father at age 92 with history of coronary artery disease. Brother(s) Additional Family Medical History / Comment(s): Patient has total of 3 brothers one has from Parkinson's 1 from old age and one with throat cancer. Sister(s) Additional Family Medical History / Comment(s): Patient has one sister that from lung cancer with history of smoking and one at age 40 from a brain aneurysm. Patient has a total of 4 children. 3 sons, one has bipolar disorder. One daughter with no major medical problems. Mother Family Medical History: No Reported History Additional Family Medical History / Comment(s): Mother at age 76 with heart disease. Medications and Allergies Home Medications Medication Instructions Recorded Confirmed Type Pravastatin Sodium [Pravachol] 80 mg PO HS 09/26/14 02/28/23 History lisinopriL [Zestril] 2.5 mg PO DAILY 01/03/20 02/28/23 History Aspirin [Adult Low Dose Aspirin EC] 81 mg PO HS 09/07/20 02/28/23 History Cholecalciferol [Vitamin D3 (25 25 mcg PO DAILY 09/07/20 02/28/23 History Mcg = 1000 Iu)] Tamsulosin [Flomax] 0.4 mg PO HS 09/07/20 02/28/23 History Biotin [Biotin Disolve] 10,000 mcg PO DAILY 02/14/23 02/28/23 History Docusate [Colace] 100 mg PO DAILY PRN 02/14/23 02/28/23 History Fluocinolone 0.01% Oil 1 applic TOPICAL BID PRN 02/14/23 02/28/23 History HYDROcodone/APAP 10-325MG [[place] 1 tab PO Q12H PRN 02/14/23 02/28/23 History 10-325] Vit C/E/Zn/Coppr/Lutein/Zeaxan 1 cap PO BID 02/14/23 02/28/23 History [Preservision Areds 2 Softgel] levETIRAcetam [Keppra] 500 mg PO Q12H 02/14/23 02/28/23 History methocarbamoL [Robaxin-750] 1,500 mg PO TID PRN #30 tab 02/15/23 02/28/23 Rx Cetirizine HCl [Zyrtec] 10 mg PO DAILY 02/28/23 02/28/23 History Co Q-10 200mg 1 cap PO DAILY 02/28/23 02/28/23 History Fluticasone Nasal [place] [Flonase 1 spray EA NOSTRIL DAILY 02/28/23 02/28/23 History Nasal [place]] bisacodyL [Dulcolax] 5 mg PO DAILY PRN 02/28/23 02/28/23 History Allergies Allergy/AdvReac Type Severity Reaction Status Date / Time propoxyphene napsylate AdvReac Unknown Nausea & Verified 02/28/23 09:07 [From Darvocet-N 100] Vomiting Surgical Tape Allergy Severe Blisters Uncoded 02/28/23 09:07 Surgical - Exam Vital Signs Temp Pulse Resp BP Pulse Ox 98.0 F 75 18 149/78 96 02/27/23 19:44 02/27/23 19:44 02/27/23 19:44 02/27/23 19:44 02/27/23 19:44 - General well developed, well nourished, no distress - Respiratory normal respiratory effort - Abdomen Abdomen: soft, non tender, no guarding, no rigid, no rebound - Genitourinary Normal phallus. Taylor catheter is draining clear yellow urine. The scrotum and testes are normal. A small right hydrocele is noted. - Rectum Rectum: normal sphincter tone, no masses, other (Prostate approximately 50 g in size and smooth in consistency; non-tender.) - Psychiatric oriented to time, oriented to person, oriented to place, speech is normal, memory intact Results - Labs 03/01/23 06:08 03/01/23 06:08 Abnormal Lab Results - Last 24 Hours (Table) 02/27/23 Range/Units 22:58 ESR 32 H (0-20) mm/Hr Microbiology - Last 24 Hours (Table) 02/27/23 22:58 Blood Culture Gram Stain - Preliminary Blood Assessment and Plan (1) Sepsis secondary to UTI Current Visit: Yes Status: Acute Code(s): A41.9 - SEPSIS, UNSPECIFIED ORGANISM; N39.0 - URINARY TRACT INFECTION, SITE NOT SPECIFIED SNOMED Code(s): 641057389 (2) Urinary retention due to benign prostatic hyperplasia Current Visit: No Status: Acute Code(s): N40.1 - BENIGN PROSTATIC HYPERPLASIA WITH LOWER URINARY TRACT SYMP; R33.8 - OTHER RETENTION OF URINE SNOMED Code(s): 942117893 Plan: Urinalysis is suggestive of a UTI. A urine culture was not obtained, but blood cultures have shown gram-negative bacilli which I presume to be of urinary origin. A Taylor catheter was placed for urinary retention. Unfortunately, the amount of urine obtained upon catheter placement was not recorded. However, based upon the patient's history it appears that the urinary retention is chronic or subacute rather than acute. In view of this, I would suggest that the catheter remain in place and that Mr. Lowery continue to receive broad- spectrum antibiotics pending the final culture result. He is currently afebrile, but his leukocytosis persists. If this fails to improve, consider renal ultrasound for upper tract evaluation. Once Mr. Lowery's condition has improved, he may be discharged home on culture appropriate antibiotics, with the Taylor catheter. My office will contact him to arrange in office urodynamic testing and cystoscopy for further evaluation. Time with Patient: Greater than 30
--- NOTE | 2023-03-01 14:45 | P.PN ---
Subjective Progress Note Date: 03/01/23 This is an 87-year-old male patient of Dr. Bautista with past medical history of coronary artery disease with previous myocardial infarction and stenting status post 5 vessel CABG with placement of left internal mammary to the 100% occluded left anterior descending, reverse saphenous vein graft as a natural Y sequential to the 100% occluded first diagonal in the subtotally occluded second obtuse marginal, and reverse saphenous vein graft to the 80% occluded right coronary, which was a 2.5 mm vessel, and short jump graft to the terminal circumflex, seasonal ALLERGIES, hyperlipidemia, hypertension, benign prostatic hypertrophy, generalized osteoarthritis, 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 SI joint injection and possible epidural injection for pain control, as the patient is not controlled with the current pain management including the [place] as well as muscle relaxer, patient was seen in my office few days ago, he was placed on [place] 10/325 mg orally twice every day along with methocarbamol 750 mg orally 3 times every day, without any relief, patient developed to have a significant pain lumbar spine associated with inability to urinate, he had a high temperature, he ended up coming to the emergency department at [facility] last night, he was found to have urinary tract infection with sepsis with urinary retention, had a Taylor catheter placement, he was started on IV antibiotic in the form of ceftriaxone 2 g IV piggyback every 24 hours, he was admitted to the hospital after obtaining urine culture and blood culture and infectious disease consultation was obtained from Dr. Singh and urology consultation from Dr. Covarrubias 03/01. Patient seen and examined. Patient has been afebrile. White cell count still elevated at 20,000. Denies any nausea vomiting or abdominal pain. REVIEW OF SYSTEMS: CONSTITUTIONAL: No fever, no malaise,. CARDIOVASCULAR: No chest pain, no palpitations, no syncope. PULMONARY: No shortness of breath, no cough, GASTROINTESTINAL: No diarrhea, no nausea, no vomiting, no abdominal pain. NEUROLOGICAL: No headaches, no weakness, PHYSICAL EXAMINATION: GENERAL: The patient is alert and oriented x3, not in any acute distress. Well developed, well nourished. HEENT: Pupils are round and equally reacting to light. EOMI. No scleral icterus. No conjunctival pallor. Normocephalic, atraumatic. No pharyngeal erythema. No thyromegaly. CARDIOVASCULAR: S1 and S2 present. No murmurs, rubs, or gallops. PULMONARY: Chest is clear to auscultation, no wheezing or crackles. ABDOMEN: Soft, nontender, nondistended, normoactive bowel sounds. No palpable organomegaly. MUSCULOSKELETAL: No joint swelling or deformity. EXTREMITIES: No cyanosis, clubbing, or pedal edema. NEUROLOGICAL: Gross neurological examination did not reveal any focal deficits. SKIN: No rashes. Assessment and plan Urinary tract infection with sepsis. Monitor vital signs Monitor CBC Follow-up on Blood culture, urine culture Continue Rocephin 2 g IV piggyback every 24 hours, ID following Urinary retention. BPH Continue patient with Taylor catheter, continue tamsulosin 0.4 mg once every day. Urology following Coronary artery disease status post coronary artery bypass graft 5. Continue patient on aspirin 81 mg once every day, pravastatin 80 mg at bedtime. Hypertension and hypertensive cardiovascular disease. Continue patient on lisinopril 2.5 mg orally once every day. Mixed hyperlipidemia. Continue pravastatin 80 mg at bedtime, monitor lipid panel, keep LDL 55-70. Seizure disorder. Continue Keppra 500 mg orally twice every day. Constipation. Continue Dulcolax 5 mg once every day, Colace 100 mg once every day, increase fluid intake. Lumbar spondylolisthesis status post multiple back surgeries. Continue methocarbamol 1500 mg orally 2 times every day, hydrocodone 10/325 mg orally twice every day. Labs and medication were reviewed.. Continue same treatment. Continue with symptomatic treatment. Resume home medication. Monitor labs and vitals. DVT and GI prophylaxis. Further recommendations as per clinical course of the patient Dictation was produced using [employer] dictation software. please excuse any grammatical, word or spelling errors. Objective - Vital Signs Vital signs: Vital Signs Temp 98.6 F 03/01/23 08:01 Pulse 72 03/01/23 08:01 Resp 16 03/01/23 08:01 BP 113/58 03/01/23 08:01 Pulse Ox 97 03/01/23 08:01 FiO2 Intake & Output 02/28/23 03/01/23 03/01/23 18:59 06:59 18:59 Output Total 100 500 Balance -100 -500 Weight 84.368 kg Output: Urine 100 500 Other: Voiding Method Indwelling Catheter # Voids 1 - Labs CBC & Chem 7: 03/01/23 06:08 03/01/23 06:08 Labs: Abnormal Lab Results - Last 24 Hours (Table) 03/01/23 03/01/23 Range/Units 06:08 06:08 WBC 20.64 H (4.50-10.00) X 10*3/uL Immature Gran # 0.13 H (0.00-0.04) X 10*3/uL Neutrophils # 18.19 H (1.80-7.70) X 10*3/uL Monocytes # 1.05 H (0.20-1.00) X 10*3/uL Eosinophils # 0.03 L (0.04-0.35) X 10*3/uL Carbon Dioxide 20.7 L (21.6-31.8) mmol/L BUN/Creatinine Ratio 27.50 H (12.00-20.00) Ratio Total Protein 5.2 L (6.2-8.2) g/dL Albumin 3.4 L (3.8-4.9) g/dL Microbiology - Last 24 Hours (Table) 02/27/23 22:58 Blood Culture Gram Stain - Preliminary Blood Blood Culture - Preliminary Gram Neg Bacilli
--- NOTE | 2023-03-01 16:02 | US ---
EXAMINATION TYPE: US kidneys/renal and bladder DATE OF EXAM: 03/01/2023 COMPARISON: NONE CLINICAL INDICATION: Male, 87 years old with history of uti and bacteremia; Bladder Dowd. EXAM MEASUREMENTS: Right Kidney: 9.6 x 5.0 x 5.4 cm Left Kidney: 9.7 x 4.6 x 6.0 cm Right Kidney: No hydronephrosis or masses seen Left Kidney: Multiple hypoechoic lesion = 1.1 x 1.0 x 1.1 cm. Low level echoes could be artifactual o r could represent debris. Bladder: Bladder dowd Bilateral Jets not seen due to Dowd IMPRESSION: 1. No hydronephrosis. 2. Indeterminate 1.1 cm mid pole cortical lesion left kidney. Suspect a cyst with low-level echoes re presenting artifact or debris. Six-month follow-up ultrasound to reassess. 3. Bladder not adequately assessed due to the indwelling Dowd catheter.
[2023-03-01] MEDS: PRAVASTATIN SODIUM 80 MG TAB PO SCH (20:37)
[2023-03-01] MEDS: TAMSULOSIN 0.4 MG CAP.ER.24H PO SCH (20:37)
[2023-03-01] MEDS: ASPIRIN 81 MG PO SCH (20:37)
[2023-03-02] MEDS: SODIUM CHLORIDE 0.9% 1,000 ML IV SCH (05:43)
[2023-03-02] MEDS: LORATADINE 10 MG TAB PO SCH (08:35)
[2023-03-02] MEDS: VIT A,C & E-LUTEIN-MINERALS 1 EACH TAB PO SCH ×2 (08:35→20:10)
[2023-03-02] MEDS: FLUTICASONE 50MCG/SPRAY NASAL 16GM EA NOSTRIL SCH (08:35)
[2023-03-02] MEDS: ENOXAPARIN 40 MG/0.4 ML SYRINGE SQ SCH (08:35)
[2023-03-02] MEDS: CHOLECALCIFEROL 25 MCG (1000 IU) TABLET PO SCH (08:35)
[2023-03-02] MEDS: HYDROcodone/APAP 10-325MG 1 EACH TAB PO PRN (08:43)
[2023-03-02 10:26] LABS: HCT 40.1 % (39.6-50.0); HGB 13.4 g/dL (13.0-17.0); MCH 30.2 pg (27.0-32.0); MCHC 33.4 g/dL (32.0-37.0); MCV 90.5 FL (80.0-97.0); Mean Platelet Volume 10.5 FL (9.5-12.2); NRBC Per 100 WBC 0 X 10*3/uL (0.00-0.01); Platelet Count 171 X 10*3/uL (140-440); RBC 4.43 X 10*6/uL (4.40-5.60); RDW 13.4 % (11.5-14.5); WBC 12.55 X 10*3/uL (4.50-10.00)
[2023-03-02 10:34] LABS: BUN/Creat Ratio 21.14 Ratio (12.00-20.00); Blood Urea Nitrogen 14.8 mg/dL (9.0-27.0); Glucose 75 mg/dL (70-110)
[2023-03-02 10:35] LABS: ALT 20 U/L (10-49); AST 22 U/L (14-35); Albumin 3.1 g/dL (3.8-4.9); Albumin/Globulin Ratio 1.72 Ratio (1.60-3.17); Alkaline Phosphatase 74 U/L (41-126); Calcium 8.5 mg/dL (8.7-10.3); Carbon Dioxide 19.3 mmol/L (21.6-31.8); Chloride 106 mmol/L (96-109); Globulin 1.8 g/dL (1.6-3.3); Potassium 4.3 mmol/L (3.5-5.5); Sodium 136 mmol/L (135-145); Total Bilirubin 0.4 mg/dL (0.3-1.2); Total Protein 4.9 g/dL (6.2-8.2)
--- NOTE | 2023-03-02 11:21 | P.PN ---
Subjective Progress Note Date: 03/01/23 Principal diagnosis: Reason for follow-up visit urinary tract infection and bacteremia Patient is a 87-year-old male with a past medical history significant for enlarged prostate history of seizure disorder patient presenting to the hospital for evaluation of urine dribbling burning and difficulty urination patient was noticed to be febrile elevated white count concerning for sepsis from urinary tract infection. On today's evaluation that is 03/01/2023 patient did have resolution of his fever and is afebrile this morning patient is breathing comfortably on room air patient denies having any chest pain shortness of breath or cough no nausea vomiting no abdominal pain no diarrhea. Patient white count is up to 20.64 creatinine 0.8 blood cultures came back posit ana with gram-negative bacilli Objective - Vital Signs Vital signs: Vital Signs Temp 98.6 F 03/01/23 08:01 Pulse 72 03/01/23 08:01 Resp 16 03/01/23 08:01 BP 113/58 03/01/23 08:01 Pulse Ox 97 03/01/23 08:01 FiO2 Intake & Output 02/28/23 03/01/23 03/01/23 18:59 06:59 18:59 Output Total 100 500 Balance -100 -500 Weight 84.368 kg Output: Urine 100 500 Other: Voiding Method Indwelling Catheter Indwelling Catheter # Voids 1 # Bowel Movements 1 - Exam GENERAL DESCRIPTION: An elderly male lying in bed in no distress RESPIRATORY SYSTEM: Unlabored breathing , decreased breath sounds at bases HEART: S1 S2 regular rate and rhythm , ABDOMEN: Soft , no tenderness EXTREMITIES: No edema feet - Labs CBC & Chem 7: 03/02/23 06:00 03/02/23 06:00 Labs: Abnormal Lab Results - Last 24 Hours (Table) 03/01/23 03/01/23 Range/Units 06:08 06:08 WBC 20.64 H (4.50-10.00) X 10*3/uL Immature Gran # 0.13 H (0.00-0.04) X 10*3/uL Neutrophils # 18.19 H (1.80-7.70) X 10*3/uL Monocytes # 1.05 H (0.20-1.00) X 10*3/uL Eosinophils # 0.03 L (0.04-0.35) X 10*3/uL Carbon Dioxide 20.7 L (21.6-31.8) mmol/L BUN/Creatinine Ratio 27.50 H (12.00-20.00) Ratio Total Protein 5.2 L (6.2-8.2) g/dL Albumin 3.4 L (3.8-4.9) g/dL Microbiology - Last 24 Hours (Table) 02/27/23 22:58 Blood Culture Gram Stain - Preliminary Blood Blood Culture - Preliminary Gram Neg Bacilli Assessment and Plan (1) Leukocytosis Current Visit: Yes Status: Acute Code(s): D72.829 - ELEVATED WHITE BLOOD CELL COUNT, UNSPECIFIED SNOMED Code(s): 440767553 (2) Gram-negative bacteremia Current Visit: Yes Status: Acute Code(s): R78.81 - BACTEREMIA SNOMED C ode(s): 991597355377 (3) Sepsis secondary to UTI Current Visit: Yes Status: Acute Code(s): A41.9 - SEPSIS, UNSPECIFIED ORGANISM; N39.0 - URINARY TRACT INFECTION, SITE NOT SPECIFIED SNOMED Code(s): 597877569 Plan: 1patient presents to hospital with sepsis in this patient who did have a fever tachycardia elevated white count and elevated lactic acid source is likely urinary in this patient with a positive UA and did have a urinary symptoms suggestive of urinary tract infection likely from enteric gram-negative pathogen 2currently waiting for ultrasound of the kidney bladder area. 3patient clinical course complicated by development of bacteremia with gram- negative, Source likely complicated UTI and also noticed to have worsening of his white count will be monitored closely 4we will give the patient Rocephin 2 g daily while waiting for the culture to finalize Question concern were answered Dictation was produced using [employer] dictation software. please excuse any grammatical, word or spelling errors.
--- NOTE | 2023-03-02 11:23 | P.PN ---
Subjective Progress Note Date: 03/02/23 Principal diagnosis: Reason for follow-up visit urinary tract infection and bacteremia Patient is a 87-year-old male with a past medical history significant for enlarged prostate history of seizure disorder patient presenting to the hospital for evaluation of urine dribbling burning and difficulty urination patient was noticed to be febrile elevated white count concerning for sepsis from urinary tract infection. On today's evaluation that is 03/02/2023 patient remains to be afebrile, the patient is breathing comfortably on room air patient denies having any chest pain shortness of breath or cough no nausea vomiting abdominal pain or any diarrhea Patient white count is down to 12.55, creatinine 0.7 blood culture with gram- negative bacilli ID sensitivities pending Objective - Vital Signs Vital signs: Vital Signs Temp 98.2 F 03/02/23 07:29 Pulse 69 03/02/23 07:29 Resp 16 03/02/23 07:29 BP 157/83 03/02/23 07:29 Pulse Ox 96 03/02/23 07:29 FiO2 Intake & Output 03/01/23 03/02/23 03/02/23 18:59 06:59 18:59 Intake Total 1250 Output Total 800 400 Balance 450 -400 Intake: Intake, IV Titration 1250 Amount Sodium Chloride 0.9% 1, 1200 000 ml @ 100 mls/hr IV . Q10H GUCCI Rx#:[id number] cefTRIAXone 2 gm In 50 Sodium Chloride 0.9% 50 ml @ 100 mls/hr IVPB Q24HR GUCCI Rx#:[id number] Output: Urine 800 400 Other: Voiding Method Indwelling Catheter Indwelling Catheter # Bowel Movements 1 - Exam GENERAL DESCRIPTION: An elderly male lying in bed in no distress RESPIRATORY SYSTEM: Unlabored breathing , decreased breath sounds at bases HEART: S1 S2 regular rate and rhythm , ABDOMEN: Soft , no tenderness EXTREMITIES: No edema feet - Labs CBC & Chem 7: 03/02/23 06:00 03/02/23 06:00 Labs: Microbiology - Last 24 Hours (Table) 02/28/23 15:00 Blood Culture - Preliminary Blood 02/28/23 14:45 Blood Culture - Preliminary Blood 02/27/23 22:58 Blood Culture Gram Stain - Preliminary Blood Blood Culture - Preliminary Gram Neg Bacilli Assessment and Plan (1) Gram-negative bacteremia Current Visit: Yes Status: Acute Code(s): R78.81 - BACTEREMIA SNOMED Code(s): 596798325728 (2) Leukocytosis Current Visit: Yes Status: Acute Code(s): D72.829 - ELEVATED WHITE BLOOD CELL COUNT, UNSPECIFIED SNOMED Code(s): 967793156 (3) Sepsis secondary to UTI Current Visit: Yes Status: Acute Code(s): A41.9 - SEPSIS, UNSPECIFIED ORGANISM; N39.0 - URINARY TRACT INFECTION, SITE NOT SPECIFIED SNOMED Code(s): 467686046 Plan: 1patient presents to hospital with sepsis in this patient who did have a fever tachycardia elevated white count and elevated lactic acid source is likely urinary in this patient with a positive UA and did have a urinary symptoms suggestive of urinary tract infection likely from enteric gram-negative pathogen 2 ultrasound of the kidney bladder area did not show any obstructive uropathy or abscess. 3patient with gram-negative bacteremia source likely urinary ID sensitivities pending 4patient to continue with Rocephin 2 g daily while waiting for the culture to finalize Question concern were answered Dictation was produced using [employer] dictation software. please excuse any grammatical, word or spelling errors.
[2023-03-02] MEDS: levETIRAcetam 500 MG TAB PO SCH (13:18)
--- NOTE | 2023-03-02 13:38 | P.PN ---
Subjective Progress Note Date: 03/02/23 This is an 87-year-old male patient of Dr. Bautista with past medical history of coronary artery disease with previous myocardial infarction and stenting status post 5 vessel CABG with placement of left internal mammary to the 100% occluded left anterior descending, reverse saphenous vein graft as a natural Y sequential to the 100% occluded first diagonal in the subtotally occluded second obtuse marginal, and reverse saphenous vein graft to the 80% occluded right coronary, which was a 2.5 mm vessel, and short jump graft to the terminal circumflex, seasonal ALLERGIES, hyperlipidemia, hypertension, benign prostatic hypertrophy, generalized osteoarthritis, 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 SI joint injection and possible epidural injection for pain control, as the patient is not controlled with the current pain management including the [place] as well as muscle relaxer, patient was seen in my office few days ago, he was placed on [place] 10/325 mg orally twice every day along with methocarbamol 750 mg orally 3 times every day, without any relief, patient developed to have a significant pain lumbar spine associated with inability to urinate, he had a high temperature, he ended up coming to the emergency department at [facility] last night, he was found to have urinary tract infection with sepsis with urinary retention, had a Taylor catheter placement, he was started on IV antibiotic in the form of ceftriaxone 2 g IV piggyback every 24 hours, he was admitted to the hospital after obtaining urine culture and blood culture and infectious disease consultation was obtained from Dr. Singh and urology consultation from Dr. Covarrubias 03/01. Patient seen and examined. Patient has been afebrile. White cell count still elevated at 20,000. Denies any nausea vomiting or abdominal pain. 03/02. Patient seen and examined. Patient still has leukocytosis. Denies any fever or chills. Vital signs stable REVIEW OF SYSTEMS: CONSTITUTIONAL: No fever, no malaise,. CARDIOVASCULAR: No chest pain, no palpitations, no syncope. PULMONARY: No shortness of breath, no cough, GASTROINTESTINAL: No diarrhea, no nausea, no vomiting, no abdominal pain. NEUROLOGICAL: No headaches, no weakness, PHYSICAL EXAMINATION: GENERAL: The patient is alert and oriented x3, not in any acute distress. Well developed, well nourished. HEENT: Pupils are round and equally reacting to light. EOMI. No scleral icterus. No conjunctival pallor. Normocephalic, atraumatic. No pharyngeal erythema. No thyromegaly. CARDIOVASCULAR: S1 and S2 present. No murmurs, rubs, or gallops. PULMONARY: Chest is clear to auscultation, no wheezing or crackles. ABDOMEN: Soft, nontender, nondistended, normoactive bowel sounds. No palpable organomegaly. MUSCULOSKELETAL: No joint swelling or deformity. EXTREMITIES: No cyanosis, clubbing, or pedal edema. NEUROLOGICAL: Gross neurological examination did not reveal any focal deficits. SKIN: No rashes. Assessment and plan Urinary tract infection with sepsis. Monitor vital signs Monitor CBC Follow-up on Blood culture, urine culture DC fluids Continue Rocephin 2 g IV piggyback every 24 hours, ID following Urinary retention. BPH Continue patient with Taylor catheter, continue tamsulosin 0.4 mg once every day. Urology following Coronary artery disease status post coronary artery bypass graft 5. Continue patient on aspirin 81 mg once every day, pravastatin 80 mg at bedtime. Hypertension and hypertensive cardiovascular disease. Continue patient on lisinopril 2.5 mg orally once every day. Mixed hyperlipidemia. Continue pravastatin 80 mg at bedtime, monitor lipid panel, keep LDL 55-70. Seizure disorder. Continue Keppra 500 mg orally twice every day. Constipation. Continue Dulcolax 5 mg once every day, Colace 100 mg once every day, increase fluid intake. Lumbar spondylolisthesis status post multiple back surgeries. Continue methocarbamol 1500 mg orally 2 times every day, hydrocodone 10/325 mg orally twice every day. Labs and medication were reviewed.. Continue same treatment. Continue with symptomatic treatment. Resume home medication. Monitor labs and vitals. DVT and GI prophylaxis. Further recommendations as per clinical course of the patient Dictation was produced using [employer] dictation software. please excuse any grammatical, word or spelling errors. Objective - Vital Signs Vital signs: Vital Signs Temp 98.3 F 03/02/23 11:18 Pulse 75 03/02/23 11:18 Resp 16 03/02/23 11:18 BP 158/88 03/02/23 11:18 Pulse Ox 96 03/02/23 11:18 FiO2 Intake & Output 03/01/23 03/02/23 03/02/23 18:59 06:59 18:59 Intake Total 1250 Output Total 800 400 Balance 450 -400 Intake: Intake, IV Titration 1250 Amount Sodium Chloride 0.9% 1, 1200 000 ml @ 100 mls/hr IV . Q10H [facility] Rx#:[id number] cefTRIAXone 2 gm In 50 Sodium Chloride 0.9% 50 ml @ 100 mls/hr IVPB Q24HR [facility] Rx#:[id number] Output: Urine 800 400 Other: Voiding Method Indwelling Catheter Indwelling Catheter Indwelling Catheter # Bowel Movements 1 - Labs CBC & Chem 7: 03/02/23 06:00 03/02/23 06:00 Labs: Abnormal Lab Results - Last 24 Hours (Table) 03/02/23 03/02/23 Range/Units 06:00 06:00 WBC 12.55 H (4.50-10.00) X 10*3/uL Carbon Dioxide 19.3 L (21.6-31.8) mmol/L BUN/Creatinine Ratio 21.14 H (12.00-20.00) Ratio Calcium 8.5 L (8.7-10.3) mg/dL Total Protein 4.9 L (6.2-8.2) g/dL Albumin 3.1 L (3.8-4.9) g/dL Microbiology - Last 24 Hours (Table) 02/28/23 15:00 Blood Culture - Preliminary Blood 02/28/23 14:45 Blood Culture - Preliminary Blood 02/27/23 22:58 Blood Culture Gram Stain - Preliminary Blood Blood Culture - Preliminary Gram Neg Bacilli
[2023-03-02] MEDS: TAMSULOSIN 0.4 MG CAP.ER.24H PO SCH (20:10)
[2023-03-02] MEDS: PRAVASTATIN SODIUM 80 MG TAB PO SCH (20:10)
[2023-03-02] MEDS: ASPIRIN 81 MG PO SCH (20:10)
[2023-03-03] MEDS: levETIRAcetam 500 MG TAB PO SCH ×2 (01:32→13:18)
[2023-03-03] MEDS: HYDROcodone/APAP 10-325MG 1 EACH TAB PO PRN ×2 (01:36→15:50)
[2023-03-03] MEDS: methocarbamoL 750 MG TAB PO PRN (04:47)
[2023-03-03 08:58] LABS: HCT 39.1 % (39.6-50.0); HGB 13.4 g/dL (13.0-17.0); MCH 30.5 pg (27.0-32.0); MCHC 34.3 g/dL (32.0-37.0); MCV 88.9 FL (80.0-97.0); Mean Platelet Volume 10.3 FL (9.5-12.2); NRBC Per 100 WBC 0 X 10*3/uL (0.00-0.01); Platelet Count 196 X 10*3/uL (140-440); RDW 13.2 % (11.5-14.5); WBC 7.48 X 10*3/uL (4.50-10.00)
[2023-03-03 08:59] LABS: Basophils # (A) 0.03 X 10*3/uL (0.00-0.10); Basophils % (A) 0.4 %; Eosinophils # (A) 0.11 X 10*3/uL (0.04-0.35); Eosinophils % (A) 1.5 %; Lymphocytes # (A) 0.96 X 10*3/uL (0.90-5.00); Lymphocytes % (A) 12.8 %; Monocytes # (A) 0.77 X 10*3/uL (0.20-1.00); Monocytes % (A) 10.3 %; Neutrophils # (A) 5.57 X 10*3/uL (1.80-7.70); Neutrophils % (A) 74.5 %
[2023-03-03 09:18] LABS: ALT 42 U/L (10-49); AST 37 U/L (14-35); Albumin/Globulin Ratio 1.58 Ratio (1.60-3.17); Alkaline Phosphatase 66 U/L (41-126); BUN/Creat Ratio 18.57 Ratio (12.00-20.00); Calcium 8.6 mg/dL (8.7-10.3); Carbon Dioxide 20.5 mmol/L (21.6-31.8); Chloride 106 mmol/L (96-109); Globulin 1.9 g/dL (1.6-3.3); Glucose 92 mg/dL (70-110); Potassium 4.1 mmol/L (3.5-5.5); Sodium 137 mmol/L (135-145); Total Bilirubin 0.3 mg/dL (0.3-1.2); Total Protein 4.9 g/dL (6.2-8.2)
[2023-03-03] MEDS: LORATADINE 10 MG TAB PO SCH (09:40)
[2023-03-03] MEDS: CHOLECALCIFEROL 25 MCG (1000 IU) TABLET PO SCH (09:40)
[2023-03-03] MEDS: FLUTICASONE 50MCG/SPRAY NASAL 16GM EA NOSTRIL SCH (09:40)
[2023-03-03] MEDS: ENOXAPARIN 40 MG/0.4 ML SYRINGE SQ SCH (09:40)
[2023-03-03] MEDS: VIT A,C & E-LUTEIN-MINERALS 1 EACH TAB PO SCH ×2 (09:40→21:11)
--- NOTE | 2023-03-03 10:36 | P.PN ---
Subjective Progress Note Date: 03/03/23 This is an 87-year-old male patient of Dr. Bautista with past medical history of coronary artery disease with previous myocardial infarction and stenting status post 5 vessel CABG with placement of left internal mammary to the 100% occluded left anterior descending, reverse saphenous vein graft as a natural Y sequential to the 100% occluded first diagonal in the subtotally occluded second obtuse marginal, and reverse saphenous vein graft to the 80% occluded right coronary, which was a 2.5 mm vessel, and short jump graft to the terminal circumflex, seasonal ALLERGIES, hyperlipidemia, hypertension, benign prostatic hypertrophy, generalized osteoarthritis, 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 SI joint injection and possible epidural injection for pain control, as the patient is not controlled with the current pain management including the [place] as well as muscle relaxer, patient was seen in my office few days ago, he was placed on [place] 10/325 mg orally twice every day along with methocarbamol 750 mg orally 3 times every day, without any relief, patient developed to have a significant pain lumbar spine associated with inability to urinate, he had a high temperature, he ended up coming to the emergency department at [facility] last night, he was found to have urinary tract infection with sepsis with urinary retention, had a Taylor catheter placement, he was started on IV antibiotic in the form of ceftriaxone 2 g IV piggyback every 24 hours, he was admitted to the hospital after obtaining urine culture and blood culture and infectious disease consultation was obtained from Dr. Singh and urology consultation from Dr. Covarrubias 03/01. Patient seen and examined. Patient has been afebrile. White cell count still elevated at 20,000. Denies any nausea vomiting or abdominal pain. 03/02. Patient seen and examined. Patient still has leukocytosis. Denies any fever or chills. Vital signs stable 03/03. Patient seen and examined. Laying comfortably in bed, not in acute distress. Discussed with patient and I'll need for him to get out of the bed and sit in chair. Patient worried about Taylor being pulled while walking. Ex plained to him the need for him to ambulate on his own and to sit in the chair, patient agreeable. REVIEW OF SYSTEMS: CONSTITUTIONAL: No fever, no malaise,. CARDIOVASCULAR: No chest pain, no palpitations, no syncope. PULMONARY: No shortness of breath, no cough, GASTROINTESTINAL: No diarrhea, no nausea, no vomiting, no abdominal pain. NEUROLOGICAL: No headaches, no weakness, PHYSICAL EXAMINATION: GENERAL: The patient is alert and oriented x3, not in any acute distress. Well developed, well nourished. HEENT: Pupils are round and equally reacting to light. EOMI. No scleral icterus. No conjunctival pallor. Normocephalic, atraumatic. No pharyngeal erythema. No thyromegaly. CARDIOVASCULAR: S1 and S2 present. No murmurs, rubs, or gallops. PULMONARY: Chest is clear to auscultation, no wheezing or crackles. ABDOMEN: Soft, nontender, nondistended, normoactive bowel sounds. No palpable organomegaly. MUSCULOSKELETAL: No joint swelling or deformity. EXTREMITIES: No cyanosis, clubbing, or pedal edema. NEUROLOGICAL: Gross neurological examination did not reveal any focal deficits. SKIN: No rashes. Assessment and plan Urinary tract infection with sepsis. Gram-negative bacteremia Monitor vital signs Monitor CBC Follow-up on Blood culture growing E. coli, urine culture Continue Rocephin 2 g IV piggyback every 24 hours, ID following Urinary retention. BPH Continue patient with Taylor catheter, continue tamsulosin 0.4 mg once every day. Urology following Coronary artery disease status post coronary artery bypass graft 5. Continue patient on aspirin 81 mg once every day, pravastatin 80 mg at bedtime. Hypertension and hypertensive cardiovascular disease. Continue patient on lisinopril 2.5 mg orally once every day. Mixed hyperlipidemia. Continue pravastatin 80 mg at bedtime, monitor lipid panel, keep LDL 55-70. Seizure disorder. Continue Keppra 500 mg orally twice every day. Constipation. Continue Dulcolax 5 mg once every day, Colace 100 mg once every day, increase fluid intake. Lumbar spondylolisthesis status post multiple back surgeries. Continue methocarbamol 1500 mg orally 2 times every day, hydrocodone 10/325 mg orally twice every day. Labs and medication were reviewed.. Continue same treatment. Continue with symptomatic treatment. Resume home medication. Monitor labs and vitals. DVT and GI prophylaxis. Further recommendations as per clinical course of the patient Dictation was produced using [employer] dictation software. please excuse any grammatical, word or spelling errors. Objective - Vital Signs Vital signs: Vital Signs Temp 99.2 F 03/03/23 08:12 Pulse 74 03/03/23 08:12 Resp 18 03/03/23 08:12 BP 140/76 03/03/23 08:12 Pulse Ox 97 03/03/23 08:12 FiO2 Intake & Output 03/02/23 03/03/23 03/03/23 18:59 06:59 18:59 Output Total 1600 1300 Balance -1600 -1300 Output: Urine 1600 1300 Other: Voiding Method Indwelling Catheter Indwelling Catheter - Labs CBC & Chem 7: 03/03/23 05:56 03/03/23 05:56 Labs: Abnormal Lab Results - Last 24 Hours (Table) 03/02/23 03/03/23 03/03/23 Range/Units 06:00 05:56 05:56 Hct 39.1 L (39.6-50.0) % Carbon Dioxide 19.3 L 20.5 L (21.6-31.8) mmol/L BUN/Creatinine Ratio 21.14 H (12.00-20.00) Ratio Calcium 8.5 L 8.6 L (8.7-10.3) mg/dL AST 37 H (14-35) U/L Total Protein 4.9 L 4.9 L (6.2-8.2) g/dL Albumin 3.1 L 3.0 L (3.8-4.9) g/dL Albumin/Globulin Ratio 1.58 L (1.60-3.17) Ratio Microbiology - Last 24 Hours (Table) 02/28/23 15:00 Blood Culture - Preliminary Blood 02/28/23 14:45 Blood Culture - Preliminary Blood 02/27/23 22:58 Blood Culture Gram Stain - Final Blood Blood Culture - Final Escherichia coli
[2023-03-03] MEDS: PRAVASTATIN SODIUM 80 MG TAB PO SCH (21:11)
[2023-03-03] MEDS: ASPIRIN 81 MG PO SCH (21:11)
[2023-03-03] MEDS: TAMSULOSIN 0.4 MG CAP.ER.24H PO SCH (21:11)
[2023-03-04] MEDS: HYDROcodone/APAP 10-325MG 1 EACH TAB PO PRN ×2 (00:29→13:59)
[2023-03-04] MEDS: levETIRAcetam 500 MG TAB PO SCH ×2 (00:29→13:03)
[2023-03-04] MEDS: methocarbamoL 750 MG TAB PO PRN ×2 (04:23→14:46)
--- NOTE | 2023-03-04 07:16 | P.PN ---
Subjective Progress Note Date: 03/03/23 Principal diagnosis: Reason for follow-up visit urinary tract infection and bacteremia Patient is a 87-year-old male with a past medical history significant for enlarged prostate history of seizure disorder patient presenting to the hospital for evaluation of urine dribbling burning and difficulty urination patient was noticed to be febrile elevated white count concerning for sepsis from urinary tract infection. On today's evaluation that is 03/03/2023 the patient continues to be afebrile the patient is breathing comfortably on room air without need for supplemental oxygen patient denies having any chest pain shortness of breath or cough no nausea no vomiting no abdominal pain or diarrhea. The patient white count normalized to 7.48, creatinine 0.7. Objective - Vital Signs Vital signs: Vital Signs Temp 99.4 F 03/03/23 14:10 Pulse 75 03/03/23 14:10 Resp 18 03/03/23 14:10 BP 129/78 03/03/23 14:10 Pulse Ox 99 03/03/23 14:10 FiO2 Intake & Output 03/02/23 03/03/23 03/03/23 18:59 06:59 18:59 Output Total 1600 1300 Balance -1600 -1300 Output: Urine 1600 1300 Other: Voiding Method Indwelling Catheter Indwelling Catheter Indwelling Catheter - Exam GENERAL DESCRIPTION: An elderly male lying in bed in no distress RESPIRATORY SYSTEM: Unlabored breathing , decreased breath sounds at bases HEART: S1 S2 regular rate and rhythm , ABDOMEN: Soft , no tenderness EXTREMITIES: No edema feet - Labs CBC & Chem 7: 03/03/23 05:56 03/03/23 05:56 Labs: Abnormal Lab Results - Last 24 Hours (Table) 03/03/23 03/03/23 Range/Units 05:56 05:56 Hct 39.1 L (39.6-50.0) % Carbon Dioxide 20.5 L (21.6-31.8) mmol/L Calcium 8.6 L (8.7-10.3) mg/dL AST 37 H (14-35) U/L Total Protein 4.9 L (6.2-8.2) g/dL Albumin 3.0 L (3.8-4.9) g/dL Albumin/Globulin Ratio 1.58 L (1.60-3.17) Ratio Microbiology - Last 24 Hours (Table) 02/28/23 15:00 Blood Culture - Preliminary Blood 02/28/23 14:45 Blood Culture - Preliminary Blood 02/27/23 22:58 Blood Culture Gram Stain - Final Blood Blood Culture - Final Escherichia coli Assessment and Plan (1) Gram-negative bacteremia Current Visit: Yes Status: Acute Code(s): R78.81 - BACTEREMIA SNOMED Code(s): 923577475843 (2) Leukocytosis Current Visit: Yes Status: Acute Code(s): D72.829 - ELEVATED WHITE BLOOD CELL COUNT, UNSPECIFIED SNOMED Code(s): 328381335 (3) Sepsis secondary to UTI Current Visit: Yes Status: Acute Code(s): A41.9 - SEPSIS, UNSPECIFIED ORGANISM; N39.0 - URINARY TRACT INFECTION, SITE NOT SPECIFIED SNOMED Code(s): 521242783 Plan: 1patient presents to hospital with sepsis in this patient who did have a fever tachycardia elevated white count and elevated lactic acid source is likely urinary in this patient with a positive UA and did have a urinary symptoms suggestive of urinary tract infection likely from enteric gram-negative pathogen 2 ultrasound of the kidney bladder area did not show any obstructive uropathy or abscess. 3patient with an E. coli bacteremia source likely urinary unfortunately no urine culture done, blood culture finalized with the sensitive pathogen. 4patient to continue with Rocephin 2 g daily with a plan to finish therapy with oral Ceftin x 10 days on discharge Dictation was produced using [employer] dictation software. please excuse any gram matical, word or spelling errors.
[2023-03-04] MEDS: VIT A,C & E-LUTEIN-MINERALS 1 EACH TAB PO SCH (09:15)
[2023-03-04] MEDS: LORATADINE 10 MG TAB PO SCH (09:15)
[2023-03-04] MEDS: FLUTICASONE 50MCG/SPRAY NASAL 16GM EA NOSTRIL SCH (09:16)
[2023-03-04] MEDS: CHOLECALCIFEROL 25 MCG (1000 IU) TABLET PO SCH (09:16)
[2023-03-04] MEDS: ENOXAPARIN 40 MG/0.4 ML SYRINGE SQ SCH (09:16)
--- NOTE | 2023-03-04 13:00 | P.DS ---
Providers Date of admission: 02/28/23 04:16 Expected date of discharge: 03/04/23 Attending physician: Mehnaz Bautista Consults: 02/28/23 00:49 Consult Physician Routine Consulting Provider: Adrienne Singh Consult Reason/Comments: sepsis Do you want consulting provider notified?: Yes 02/28/23 13:31 Consult Physician Routine Consulting Provider: Justin Covarrubias Consult Reason/Comments: Urinary retention Do you want consulting provider notified?: Yes Primary care physician: Mehnaz Bautista Hospital Course: Discharge diagnoses; Urinary tract infection with sepsis. Gram-negative bacteremia Discharge on oral Ceftin for 10 days Urinary retention. BPH continue tamsulosin 0.4 mg once every day Coronary artery disease status post coronary artery bypass graft 5. Continue patient on aspirin 81 mg once every day, pravastatin 80 mg at bedtime. Hypertension and hypertensive cardiovascular disease. Continue patient on lisinopril 2.5 mg orally once every day. Mixed hyperlipidemia. Continue pravastatin 80 mg at bedtime, monitor lipid panel, keep LDL 55-70. Seizure disorder. Continue Keppra 500 mg orally twice every day. Constipation. Continue Dulcolax 5 mg once every day, Colace 100 mg once every day, increase fluid intake. Lumbar spondylolisthesis status post multiple back surgeries. Continue methocarbamol 1500 mg orally 2 times every day, hydrocodone 10/325 mg orally twice every day. Hospital course; This is an 87-year-old male patient of Dr. Bautista with past medical history of coronary artery disease with previous myocardial infarction and stenting status post 5 vessel CABG with placement of left internal mammary to the 100% occluded left anterior descending, reverse saphenous vein graft as a natural Y sequential to the 100% occluded first diagonal in the subtotally occluded second obtuse marginal, and reverse saphenous vein graft to the 80% occluded right coronary, which was a 2.5 mm vessel, and short jump graft to the terminal circumflex, seasonal ALLERGIES, hyperlipidemia, hypertension, benign prostatic hypertrophy, generalized osteoarthritis, 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 SI joint injection and possible epidural injection for pain control, as the patient is not controlled with the current pain management including the [place] as well as muscle relaxer, patient was seen in my office few days ago, he was placed on [place] 10/325 mg orally twice every day along with methocarbamol 750 mg orally 3 times every day, without any relief, patient developed to have a significant pain lumbar spine associated with inability to urinate, he had a high temperature, he ended up coming to the emergency department at [facility] last night, he was found to have urinary tract infection with sepsis with urinary retention, had a Taylor catheter placement, he was started on IV antibiotic in the form of ceftriaxone 2 g IV piggyback every 24 hours, he was admitted to the hospital after obtaining urine culture and blood culture and infectious disease consultation was obtained from Dr. Singh and urology consultation from Dr. Covarrubias 03/01. Patient seen and examined. Patient has been afebrile. White cell count still elevated at 20,000. Denies any nausea vomiting or abdominal pain. 03/02. Patient seen and examined. Patient still has leukocytosis. Denies any fever or chills. Vital signs stable 03/03. Patient seen and examined. Laying comfortably in bed, not in acute distress. Discussed with patient and I'll need for him to get out of the bed and sit in chair. Patient worried about Taylor being pulled while walking. Explained to him the need for him to ambulate on his own and to sit in the chair, patient agreeable. 03/04. Patient seen and examined. Patient keen to go home. Being discharged on oral Ceftin for 10 more days PHYSICAL EXAMINATION: GENERAL: The patient is alert and oriented x3, not in any acute distress. Well developed, well nourished. HEENT: Pupils are round and equally reacting to light. EOMI. No scleral icterus. No conjunctival pallor. Normocephalic, atraumatic. No pharyngeal erythema. No thyromegaly. CARDIOVASCULAR: S1 and S2 present. No murmurs, rubs, or gallops. PULMONARY: Chest is clear to auscultation, no wheezing or crackles. ABDOMEN: Soft, nontender, nondistended, normoactive bowel sounds. No palpable organomegaly. MUSCULOSKELETAL: No joint swelling or deformity. EXTREMITIES: No cyanosis, clubbing, or pedal edema. NEUROLOGICAL: Gross neurological examination did not reveal any focal deficits. SKIN: No rashes. Dictation was produced using [employer] dictation software. please excuse any grammatical, word or spelling errors. Plan - Discharge Summary Discharge Rx Participant: No New Discharge Prescriptions: New cefUROXime axetiL [Ceftin] 500 mg PO BID 10 Days #20 tab Continue Pravastatin Sodium [Pravachol] 80 mg PO HS lisinopriL [Zestril] 2.5 mg PO DAILY Cholecalciferol [Vitamin D3 (25 Mcg = 1000 Iu)] 25 mcg PO DAILY Aspirin [Adult Low Dose Aspirin EC] 81 mg PO HS levETIRAcetam [Keppra] 500 mg PO Q12H Co Q-10 200mg 1 cap PO DAILY Cetirizine HCl [Zyrtec] 10 mg PO DAILY Tamsulosin [Flomax] 0.4 mg PO HS Docusate [Colace] 100 mg PO DAILY PRN PRN Reason: Constipation Biotin [Biotin Disolve] 10,000 mcg PO DAILY Vit C/E/Zn/Coppr/Lutein/Zeaxan [Preservision Areds 2 Softgel] 1 cap PO BID HYDROcodone/APAP 10-325MG [[place] 10-325] 1 tab PO Q12H PRN PRN Reason: Pain Fluocinolone 0.01% Oil 1 applic TOPICAL BID PRN PRN Reason: Groin/Ear methocarbamoL [Robaxin-750] 1,500 mg PO TID PRN #30 tab PRN Reason: Pain bisacodyL [Dulcolax] 5 mg PO DAILY PRN PRN Reason: Constipation Fluticasone Nasal [place] [Flonase Nasal [place]] 1 spray EA NOSTRIL DAILY Discharge Medication List Pravastatin Sodium [Pravachol] 80 mg PO HS 09/26/14 [History] lisinopriL [Zestril] 2.5 mg PO DAILY 01/03/20 [History] Aspirin [Adult Low Dose Aspirin EC] 81 mg PO HS 09/07/20 [History] Cholecalciferol [Vitamin D3 (25 Mcg = 1000 Iu)] 25 mcg PO DAILY 09/07/20 [History] Tamsulosin [Flomax] 0.4 mg PO HS 09/07/20 [History] Biotin [Biotin Disolve] 10,000 mcg PO DAILY 02/14/23 [History] Docusate [Colace] 100 mg PO DAILY PRN 02/14/23 [History] Fluocinolone 0.01% Oil 1 applic TOPICAL BID PRN 02/14/23 [History] HYDROcodone/APAP 10-325MG [[place] 10-325] 1 tab PO Q12H PRN 02/14/23 [History] Vit C/E/Zn/Coppr/Lutein/Zeaxan [Preservision Areds 2 Softgel] 1 cap PO BID 02/14/23 [History] levETIRAcetam [Keppra] 500 mg PO Q12H 02/14/23 [History] methocarbamoL [Robaxin-750] 1,500 mg PO TID PRN #30 tab 02/15/23 [Rx] Cetirizine HCl [Zyrtec] 10 mg PO DAILY 02/28/23 [History] Co Q-10 200mg 1 cap PO DAILY 02/28/23 [History] Fluticasone Nasal [place] [Flonase Nasal [place]] 1 spray EA NOSTRIL DAILY 02/28/23 [History] bisacodyL [Dulcolax] 5 mg PO DAILY PRN 02/28/23 [History] cefUROXime axetiL [Ceftin] 500 mg PO BID 10 Days #20 tab 03/04/23 [Rx] Follow up Appointment(s)/Referral(s): Mehnaz Bautista MD [Primary Care Provider] - 1-2 days Adrienne Singh MD [STAFF PHYSICIAN] - 1 Week Discharge Disposition: HOME WITH HOME HEALTH SERVICES
[2023-03-04 13:03] VITALS: BP 124/78; PULSE 71; RESP 17; TEMP 98.1
--- NOTE | 2023-03-04 15:39 | P.PN ---
Subjective Progress Note Date: 03/04/23 Principal diagnosis: Reason for follow-up visit urinary tract infection and bacteremia Patient is a 87-year-old male with a past medical history significant for enlarged prostate history of seizure disorder patient presenting to the hospital for evaluation of urine dribbling burning and difficulty urination patient was noticed to be febrile elevated white count concerning for sepsis from urinary tract infection. On today's evaluation that is 03/04/2023 the patient remains to be afebrile, the patient is breathing comfortably on room air, the patient [place] having any chest pain shortness of breath or cough no nausea vomiting no abdominal pain no diarrhea feeling better wants to go home. The patient white count normalized to 7.4 as of yesterday creatinine 0.7 blood culture repeat has been negative Objective - Vital Signs Vital signs: Vital Signs Temp 97.6 F 03/04/23 07:54 Pulse 67 03/04/23 07:54 Resp 16 03/04/23 07:54 BP 113/65 03/04/23 07:54 Pulse Ox 99 03/04/23 07:54 FiO2 Intake & Output 03/03/23 03/04/23 03/04/23 18:59 06:59 18:59 Intake Total 1020 590 Output Total 1000 700 Balance 20 -110 Intake: Oral 1020 590 Output: Urine 1000 700 Other: Voiding Method Indwelling Catheter Indwelling Catheter Indwelling Catheter - Exam GENERAL DESCRIPTION: An elderly male lying in bed in no distress RESPIRATORY SYSTEM: Unlabored breathing , decreased breath sounds at bases HEART: S1 S2 regular rate and rhythm , ABDOMEN: Soft , no tenderness EXTREMITIES: No edema feet - Labs CBC & Chem 7: 03/03/23 05:56 03/03/23 05:56 Labs: Microbiology - Last 24 Hours (Table) 02/28/23 15:00 Blood Culture - Preliminary Blood 02/28/23 14:45 Blood Culture - Preliminary Blood Assessment and Plan (1) Gram-negative bacteremia Status: Acute Code(s): R78.81 - BACTEREMIA SNOMED Code(s): 040681971264 (2) Leukocytosis Status: Acute Code(s): D72.829 - ELEVATED WHITE BLOOD CELL COUNT, UNSPECIFIED SNOMED Code(s): 808759782 (3) Sepsis secondary to UTI Status: Acute Code(s): A41.9 - SEPSIS, UNSPECIFIED ORGANISM; N39.0 - URINARY TRACT INFECTION, SITE NOT SPECIFIED SNOMED Code(s): 635282450 Plan: 1patient presents to hospital with sepsis in this patient who did have a fever tachycardia elevated white count and elevated lactic acid source is likely urinary in this patient with a positive UA and did have a urinary symptoms suggestive of urinary tract infection likely from enteric gram-negative pathogen 2 ultrasound of the kidney bladder area did not show any obstructive uropathy or abscess. 3patient with an E. coli bacteremia source likely urinary unfortunately no urine culture done, blood culture finalized with the sensitive pathogen. 4patient has shown overall clinical improvement on Rocephin plan is to finish therapy with oral Ceftin x 10 days prescription was sent to the pharmacy and close outpatient follow-up Dictation was produced using [employer] dictation software. please excuse any grammatical, word or spelling errors. Time with Patient: Less than 30
== END 2023-03-04 14:52 | disposition home or self-care (01) | DRG 872 ==
LOC: EC 19:38 → 5NMEDONC 02-28 04:16
PROVIDERS: ADMIT Internal Medicine; ATTEND Internal Medicine
DX: A41.50 Gram-negative sepsis, unspecified (principal); E87.20 Acidosis, unspecified; N39.0 Urinary tract infection, site not specified; I11.9 Hypertensive heart disease without heart failure; G40.909 Epilepsy, unspecified, not intractable, without status epilepticus; E11.9 Type 2 diabetes mellitus without complications; I25.10 Atherosclerotic heart disease of native coronary artery without angina pectoris; G89.4 Chronic pain syndrome; E78.2 Mixed hyperlipidemia; N40.1 Benign prostatic hyperplasia with lower urinary tract symptoms; R33.8 Other retention of urine; M43.16 Spondylolisthesis, lumbar region; M47.812 Spondylosis without myelopathy or radiculopathy, cervical region; M96.1 Postlaminectomy syndrome, not elsewhere classified; M48.00 Spinal stenosis, site unspecified; K59.00 Constipation, unspecified; J30.9 Allergic rhinitis, unspecified; I25.2 Old myocardial infarction; M15.9 Polyosteoarthritis, unspecified; Z79.82 Long term (current) use of aspirin; Z79.899 Other long term (current) drug therapy; Z87.891 Personal history of nicotine dependence; Z95.1 Presence of aortocoronary bypass graft; Z95.5 Presence of coronary angioplasty implant and graft; Z88.5 Allergy status to narcotic agent
CPT/HCPCS: 36415; 51798; 71045; 76770; 80053; 81001; 83605; 85025; 85027; 85652; 86140; 87040; 87077; 87186; 87636; 96361; 96365; 96366; 96376; 99285

== ENCOUNTER 2023-04-03 05:36 | Day surgery (SDC) | payer MEDICARE ==
[2023-03-28 16:09] VITALS: BMI 25.2
[2023-04-03] MEDS ORDERED: LACTATED RINGERS 1,000 ML IV SCH (06:06)
[2023-04-03 06:39] VITALS: TEMP 97.4
[2023-04-03] MEDS ORDERED: ROPIVACAINE 5MG/ML 20ML VIAL ONE (07:01)
[2023-04-03] MEDS ORDERED: IOPAMIDOL M200 10 ML VIAL ONE (07:01)
[2023-04-03] MEDS ORDERED: methylPREDNISolone ACETATE 40 MG/ML 1 ML VIAL ONE (07:01)
--- NOTE | 2023-04-03 07:16 | P.PCN ---
Date of Procedure: 04/03/23 Procedure(s) Performed: Procedure= bilateral sacroiliac joints steroid injection under fluoroscopy guidance (fluoroscopy image stored on file in the radiology Department ) Preoperative diagnosis= 1-sacroiliitis 2-lumbar degenerative disc disease 3- history of lumbar laminectomy surgery Postoperative diagnosis=Same as preop Diagnosis . Complication = none Condition= stable Anesthesia= local anesthesia with ropivacaine 0.5% 4 ml only Indication for the procedure= patient complaining of low back pain , examination was positive for severe tenderness over the sacroiliac joints bilaterally and patient diagnosed with sacroiliitis, for this reason he was good candidate for sacroiliac joint steroid injection. Description of the procedure= procedure risk and benefits discussed with the patient, including but not limited, risk of infection and bleeding, and ALLERGIC reaction to the medication and not complete pain relief and patient agreed with the preceding patient taken to the operating room, placed in prone position or standard monitors applied to the patient then after induction of anesthesia back prepped with chlorhexidine 3 times , Then under strict sterile technique, first I did the right sacroiliac joint the which was identified under fluoroscopy guidance been local infiltration of the skin and subcu interstitial with lidocaine 1% then 22-gauge Quincke Needle advanced slowly under fluoroscopy and placed in the right sacroiliac joint needle placement confirmed with AP and oblique and lateral view, then after that Isovue 200 one mL injected which confirmed the correct needle placement with the appropriate arthrogram of the sacroiliac joint, and after appropriate needle placement confirmed and after negative aspiration, or heme , then Ropivacaine 0.5% 2 mL, and 20 mg of Depo-Medrol mixed together and injected in the right sacroiliac joint after negative aspiration patient tolerated the procedure well without any complication. Then the left sacroiliac joint steroid injection done under strict sterile technique local infiltration of the skin and subcu interstitial at the location of the left sacroiliac joint then a 22-gauge Quincke Needle advanced slowly under fluoroscopy time placed in the left sacroiliac joint, needle placement confirmed with AP and oblique and lateral view then after appropriate needle placement confirmed, with the AP and oblique and lateral then after negative aspiration Isovue 200 1 mL injected showed arthropathy of the left sacroiliac joint, and after negative aspiration 0.5% Ropivacaine 2 mL and 20 mg of Depo- Medrol injected in the left sacroiliac joint after negative aspiration patient tolerated the procedure well that any complications and she will follow up in clinic 3 weeks
[2023-04-03 07:53] VITALS: BP 113/68; PULSE 60; RESP 20
--- NOTE | 2023-04-03 08:16 | FL ---
EXAMINATION TYPE: FL guided pain mgmt statistic Intraoperative/procedural fluoroscopic services were provided. Total fluoroscopy time is 21.5 seconds with a total of 5 submitted images to PACS. Please s ee the operative/procedural note for further details. DAP: 0.96833 mGym2
== END 2023-04-03 07:51 | disposition home or self-care (01) ==
LOC: ORPAIN 05:36
PROVIDERS: ATTEND Specialist
DX: M46.1 Sacroiliitis, not elsewhere classified (principal); M51.36 Other intervertebral disc degeneration, lumbar region; Z79.82 Long term (current) use of aspirin
CPT/HCPCS: J1030; Q9966; J2795; G0260

== ENCOUNTER → 2023-04-24 | Outpatient (CLI) | payer MEDICARE ==
--- NOTE | 2023-04-24 13:43 | P.PAINPG ---
PQRS Measure Charge Sheet Comment: HISTORY OF PRESENT ILLNESS: A 87 yr old wheelchair bound male w at side presents today w severe and chronic LBP secondary to post laminectomy syndrome for evaluation s/p BL SI injection #1. Pt states he experienced 100% pain relief x 2 wks s/p procedure. Pt states pain level is provoked at 9 /10 in intensity, constant, localized in the lower lumbar spine, predominantly axial, R> L tingling in character w occasional shooting pain towards the R hip. Pain is provoked by sitting for periods >10 min. Pain is alleviated by PT in 2020, physician guided home stretches daily since 2020, medications, heat, manual massage, use of a wheelchair or cane for ambulatory assistance, repositioning and rest . Oswestry axial pain score at 31. Interventional procedures include BL SI injection #1 Medications include Holcomb, Robaxin REVIEW OF ORGAN SYSTEMS: CONSTITUTIONAL: No fevers or chills. No recent weight loss. NEUROLOGICAL: + numbness and tingling along the distal extremities. No seizure disorders or headaches. MUSCULOSKELETAL: + pain PSYCHIATRIC: Denies current depression or suicidal thoughts. Physical Examinations : Constitutional : Cooperative , not in acute distress . Neurologic : Cranial nerve II to XII intact. No focal neurological deficits. Psychiatric : alert & oriented x 3. Matching mood & appropriate affect. Judgment & insight intact. Musculoskeletal : Cervical Spine Motor strength in the deltoid and biceps: Normal right side. Normal Left side Motor strength biceps and the wrist extensors: Normal right side . Normal left side Motor strength in the triceps muscle: Normal right side. Normal left side Deep tendon reflexes: Normal at the biceps. Normal at Brachioradialis. Normal at triceps Vertebral body tenderness to deep palpation over Cervical facet loading test: positive bilaterally Spurling test: positive bilaterally Neck distraction test: positive bilaterally Rich sign: positive bilaterally Lumbar spine Motor strength lower extremities ,thigh and legs 5/5 Right side , 5/5 Left side Deep tendon reflexes : Normal Knee Jerk. Normal Ankle Jerk Vertebral body tenderness over L5 Gregorio Test positive Lumbar facet Loading Test: positive Right / positive Left Range of motion of the lumbar spine Flexion 30 degrees, extension 10 degrees Straight Leg Raise test: Left/ Right positive at <30 degrees Julio test: positive right / positive left. Severe tenderness over the Sacroiliac joint on the Right / Left sides Gaenslen test: positive bilaterally Seated flexion test: positive bilaterally. Sacral spine : Severe tenderness over the Sacroiliac joint: right side / left side Range of motion: Flexion of the lumbar spine <60 degrees Range of motion: Extension of the lumbar spine <20 degrees Gaenslen's Test positive R > L Julio test: positive right side > left side Thigh Thrust Test Sacral Thrust Test BL positive Imaging: CT with contrast of the lumbar spine from 09/15/20 reviewed Assessment/ Plan : Lumbar post laminectomy syndrome Recommendation of R TFESI L5-S1 #1. May need a series of injections for optimal pain relief. Risks, benefits of procedure discussed and patient verbalized understanding. Admits to anti- coagulant use or medical history of diabetes. Protocol for discontinuation/ continuation of medications lisa procedure discussed. All questions answered. I have spent greater than 30 minutes on patient care today. Dr Saunders was available by phone for the evaluation of this patient. The time was used to review the medical records including relevant urine studies and Prescription history (MAPs), review of the available imaging, evaluation and examination of the patient, coordination of care with the medical staff and if applicable referring physicians, as well as creation of the medical record PQRS Narrative: Smoking Status Former smoker Hx Alcohol Use (MH) No Home Medications: Ambulatory Orders Pravastatin Sodium [Pravachol] 80 mg PO HS 09/26/14 lisinopriL [Zestril] 2.5 mg PO DAILY 01/03/20 Aspirin [Adult Low Dose Aspirin EC] 81 mg PO HS 09/07/20 Cholecalciferol [Vitamin D3 (25 Mcg = 1000 Iu)] 25 mcg PO DAILY 09/07/20 Tamsulosin [Flomax] 0.4 mg PO HS 09/07/20 Biotin [Biotin Disolve] 10,000 mcg PO DAILY 02/14/23 Docusate [Colace] 300 mg PO DAILY PRN 02/14/23 HYDROcodone/APAP 10-325MG [Holcomb 10-325] 1 tab PO Q12H PRN 02/14/23 Vit C/E/Zn/Coppr/Lutein/Zeaxan [Preservision Areds 2 Softgel] 1 cap PO BID 02/14/23 levETIRAcetam [Keppra] 500 mg PO Q12H 02/14/23 Co Q-10 200mg 1 cap PO DAILY 12/22/23 Finasteride [Proscar] 5 mg PO DAILY 03/28/23 Isosorbide Mononitrate [Isosorbide Mononitrate ER] 30 mg PO DAILY 03/28/23 Lactulose 15 gm PO BID PRN 03/28/23 Sennosides/Docusate Sodium [Senna Plus 8.6-50 mg Softgel] 2 tab PO DAILY Vitamin B-12 (Unknown Dose) 1 tab PO DAILY 03/28/23 diazePAM [Valium] 5 - 10 mg PO DAILY PRN 03/28/23 Controlled Substance Measures - Controlled Substance Measures Is patient prescribed a controlled substance at discharge?: No
[2023-04-24 14:00] VITALS: BP 120/56; PULSE 78; RESP 16; TEMP 97.1
== END ==
LOC: PNWHC3 12:52
PROVIDERS: ATTEND Specialist
DX: M96.1 Postlaminectomy syndrome, not elsewhere classified (principal); Z87.891 Personal history of nicotine dependence; Z79.82 Long term (current) use of aspirin; Z88.5 Allergy status to narcotic agent; Z91.048 Other nonmedicinal substance allergy status
CPT/HCPCS: 99211

== ENCOUNTER 2023-05-08 05:45 | Day surgery (SDC) | payer MEDICARE ==
[2023-05-06 16:10] VITALS: BMI 25.7
[2023-05-08] MEDS ORDERED: LACTATED RINGERS 1,000 ML IV SCH (06:18)
[2023-05-08 06:40] VITALS: RESP 18; TEMP 97.4
[2023-05-08] MEDS ORDERED: IOPAMIDOL M300 15ML VIAL ONE (07:17)
[2023-05-08] MEDS ORDERED: DEXAMETHASONE SOD PHOSPHATE 10 MG/ML 1 ML VIAL ONE (07:17)
[2023-05-08] MEDS ORDERED: ROPIVACAINE 5MG/ML 20ML VIAL ONE (07:17)
--- NOTE | 2023-05-08 07:51 | P.PCN ---
Description of Procedure: PREOPERATIVE DIAGNOSIS: 1-Lumbar radiculopathy . 2-lumbar degenerative disc disease. 3-lumbar spondylosis with lumbar facet arthropathy without myelopathy POSTOPERATIVE DIAGNOSIS: 1-lumbar radiculopathy. 2-lumbar degenerative disc disease. 3-lumbar spondylosis with facet arthropathy without myelopathy PROCEDURE 1. Transforaminal epidural steroid injection under fluoroscopic guidance at right L5-S1 level. (Fluoroscopy images stored on file in the radiology Department ) 2. Lumbar epidurogram . ANESTHESIA: Local with 1% lidocaine 3 ml. EBL: Minimal PROCEDURE INDICATION: The patient with low back pain and radiculopathy symptoms unresponsive to conservative treatment. PROCEDURE DESCRIPTION / TECHNIQUE: The patient was seen and identified in the preoperative area. Risks, benefits, complications, and alternatives were discussed with the patient. The patient agreed to proceed with the procedure and signed the consent. IV was started, and vital signs were stable. Patient was taken to the OR and time out was completed. The patient was placed in the prone position on procedure table and a pillow was placed under the abdomen to reduce lumbar lordosis. The lumbosacral area was prepped and draped in the usual sterile fashion. Critical pause was taken. Vital signs were closely monitored during the procedure. Patient in OR in prone position. Back prepped with chlorhexidine and draped in sterile fashion. After injecting 5 cc of plain 1% lidocaine subcutaneously, a 22-gauge spinal needle was introduced, and oblique view at L5-S1 level. The tip of the needle was in the posterior inferior quadrant of the intervertebral forearm and in lateral view of the fluoroscope. After needle position confirmation by AP and crosstable lateral view, after negative aspiration, Isovue 300 contrast was injected with continuous fluoroscopy to rule out any intrathecal or intravascular injection. After repeat negative aspiration 3 cc solution was injected which consists of 1 cc of preservative-free normal saline mixed with 2 cc of 20 mg dexamethasone. Spinal needle was taken out. Band-Aid was applied. COMPLICATIONS:none DISPOSITION / PLANS: The patient was placed in a supine position and transferred to the recovery area in a stable condition for observation. There was no evidence of lower extremity motor or sensory deficit after the procedure. Patient was discharged from the recovery room after meeting discharge criteria. Home discharge instructions were given to the patient by the staff. The patient was reexamined prior to discharge.
--- NOTE | 2023-05-08 08:05 | FL ---
Fluoroscopy INDICATION: Pain FINDINGS: Fluoroscopy time: 1.22 seconds. Total dose area product (DAP) in uGy*m?, mGy*cm? (or similar): 0.97474 Images obtained: 3. IMPRESSION: 1. Documentation of fluoroscopy.
[2023-05-08 08:19] VITALS: BP 105/58; PULSE 60
== END 2023-05-08 08:11 | disposition home or self-care (01) ==
LOC: ORPAIN 05:45
PROVIDERS: ATTEND Pain Medicine Interventional Pain Medicine
DX: M51.16 Intervertebral disc disorders with radiculopathy, lumbar region (principal); M47.26 Other spondylosis with radiculopathy, lumbar region; Z79.82 Long term (current) use of aspirin
CPT/HCPCS: 64483; J1100; Q9967; J2795

== ENCOUNTER → 2023-05-22 | Outpatient (CLI) | payer MEDICARE ==
--- NOTE | 2023-05-22 14:00 | P.PAINPG ---
PQRS Measure Charge Sheet Comment: HISTORY OF PRESENT ILLNESS: A 74 yr old male w at side presents today w severe and chronic LBP x 1 yr secondary to DDD, spondylosis and facet arthropathy without myelopathy for evaluation s/p R TFESI L5-S1 #1. Pt states he experienced 70 % pain relief x 2 wks s/p procedure. Pt states pain level is provoked at 7 /10 in intensity, intermittent, localized in the mid to lower lumbar spine, sharp in character w shooting pain towards the knees. Pain is provoked by standing from a sitting position. Pain is alleviated by heat, ice, medications, topical, repositioning, reclining and rest. He admits there is a click in his knees, and he has to reposition while standing to induce the click before he can stand for 15 min to wash dishes. Oswestry axial pain score at 30. Interventional procedures include R TFESI L5-S1 #1 Medications include Ibu, Damon 5/325mg #90 REVIEW OF ORGAN SYSTEMS: CONSTITUTIONAL: No fevers or chills. No recent weight loss. NEUROLOGICAL: + numbness and tingling along the distal extremities. No seizure disorders or headaches. MUSCULOSKELETAL: + pain PSYCHIATRIC: Denies current depression or suicidal thoughts. Physical Examinations : Constitutional : Cooperative , not in acute distress . Neurologic : Cranial nerve II to XII intact. No focal neurological deficits. Psychiatric : alert & oriented x 3. Matching mood & appropriate affect. Judgment & insight intact. Musculoskeletal : Cervical Spine Motor strength in the deltoid and biceps: Normal right side. Normal Left side Motor strength biceps and the wrist extensors: Normal right side . Normal left side Motor strength in the triceps muscle: Normal right side. Normal left side Deep tendon reflexes: Normal at the biceps. Normal at Brachioradialis. Normal at triceps Vertebral body tenderness to deep palpation over Cervical facet loading test: positive bilaterally Spurling test: positive bilaterally Neck distraction test: positive bilaterally Rich sign: positive bilaterally Lumbar spine +BL Knee Diffuse TTP Motor strength lower extremities ,thigh and legs 5/5 Right side , 5/5 Left side Deep tendon reflexes : Normal Knee Jerk. Normal Ankle Jerk Vertebral body tenderness over Gregorio Test positive Lumbar facet Loading Test: positive Right / positive Left Range of motion of the lumbar spine Flexion 30 degrees, extension 10 degrees Straight Leg Raise test: Left/ Right positive at degree Julio test: positive right / positive left. Severe tenderness over the Sacroiliac joint on the Right / Left sides Gaenslen test: positive bilaterally Seated flexion test: positive bilaterally. Sacral spine : Severe tenderness over the Sacroiliac joint: right side / left side Range of motion: Flexion of the lumbar spine <60 degrees Range of motion: Extension of the lumbar spine <20 degrees Gaenslen's Test positive Jose's Test positive Julio test: positive right side / left side Thigh Thrust Test Sacral Thrust Test Imaging: CT non contrast of the lumbar spine from 11/13/22 reviewed X-ray BL knees from 12/23/22 reviewed Assessment/ Plan : Lumbar stenosis, Lumbar DDD, BL knee OA Recommendation of medication management. Opiate/ narcotic agreement signed 01/13/23 but receives Damon 7.5/325gm #[address] Bautista regularly per [facility]. Senokot #60 w 1 RF. Use, side effects, adverse reactions and safe storage discussed. Pt and at side acknowledged understanding. All questions answered. I have spent greater than 30 minutes on patient care today. Dr Saunders was available by phone for the evaluation of this patient. The time was used to review the medical records including relevant urine studies and Prescription history (MAPs), review of the available imaging, evaluation and examination of the patient, coordination of care with the medical staff and if applicable referring physicians, as well as creation of the medical record PQRS Narrative: Smoking Status Former smoker Hx Alcohol Use (MH) No Home Medications: Ambulatory Orders Pravastatin Sodium [Pravachol] 80 mg PO HS 09/26/14 Aspirin [Adult Low Dose Aspirin EC] 81 mg PO HS 09/07/20 Cholecalciferol [Vitamin D3 (25 Mcg = 1000 Iu)] 25 mcg PO DAILY 09/07/20 Tamsulosin [Flomax] 0.4 mg PO HS 09/07/20 Biotin [Biotin Disolve] 10,000 mcg PO DAILY 02/14/23 Docusate [Colace] 300 mg PO DAILY PRN 02/14/23 HYDROcodone/APAP 10-325MG [Damon 10-325] 1 tab PO Q12H PRN 02/14/23 Vit C/E/Zn/Coppr/Lutein/Zeaxan [Preservision Areds 2 Softgel] 1 cap PO BID 02/14/23 levETIRAcetam [Keppra] 500 mg PO Q12H 02/14/23 Co Q-10 200mg 1 cap PO DAILY 02/28/23 Finasteride [Proscar] 5 mg PO DAILY 03/28/23 Isosorbide Mononitrate [Isosorbide Mononitrate ER] 30 mg PO DAILY 03/28/23 Lactulose 15 gm PO BID PRN 03/28/23 Sennosides/Docusate Sodium [Senna Plus 8.6-50 mg Softgel] 2 tab PO DAILY 03/28/23 Vitamin B-12 (Unknown Dose) 1 tab PO DAILY 03/28/23 diazePAM [Valium] 5 - 10 mg PO DAILY PRN 03/28/23 Controlled Substance Measures - Controlled Substance Measures Is patient prescribed a controlled substance at discharge?: No
[2023-05-22 14:03] VITALS: BP 122/58; PULSE 64; RESP 16
== END ==
LOC: PNWHC3 12:51
PROVIDERS: ATTEND Specialist
DX: M51.36 Other intervertebral disc degeneration, lumbar region (principal); M48.061 Spinal stenosis, lumbar region without neurogenic claudication; M17.0 Bilateral primary osteoarthritis of knee; Z87.891 Personal history of nicotine dependence; Z79.82 Long term (current) use of aspirin; Z88.5 Allergy status to narcotic agent; Z91.048 Other nonmedicinal substance allergy status
CPT/HCPCS: 99211

== ENCOUNTER → 2023-07-17 | Outpatient (CLI) | payer MEDICARE ==
[2023-07-17 14:26] VITALS: BP 147/67; PULSE 69; RESP 16
--- NOTE | 2023-07-17 14:35 | P.PAINPG ---
PQRS Measure Charge Sheet Comment: HISTORY OF PRESENT ILLNESS: A 87 yr old wheelchair bound male w at side presents today w severe and chronic LBP > 1 yr secondary to DDD, spondylosis and facet arthropathy without myelopathy for evaluation. Pt states pain level is provoked at 7 /10 in intensity, intermittent, localized in the mid to lower lumbar spine, sharp in character w shooting pain towards the knees. Pain is provoked by standing from a sitting position. Pain is alleviated by injections, heat, ice, medications, topical, repositioning, reclining and rest. Oswestry axial pain score at 34. Interventional procedures include BL SI x1 (mar 2023), R TFESI L5-S1 x1 (Apr 2023) Medications include Ibu, Wild Rose 7.5/325mg #[address] Bautista REVIEW OF ORGAN SYSTEMS: CONSTITUTIONAL: No fevers or chills. No recent weight loss. NEUROLOGICAL: + numbness and tingling along the distal extremities. No seizure disorders or headaches. MUSCULOSKELETAL: + pain PSYCHIATRIC: Denies current depression or suicidal thoughts. Physical Examinations : Constitutional : Cooperative , not in acute distress . Neurologic : Cranial nerve II to XII intact. No focal neurological deficits. Psychiatric : alert & oriented x 3. Matching mood & appropriate affect. Judgment & insight intact. Musculoskeletal : Cervical Spine Motor strength in the deltoid and biceps: Normal right side. Normal Left side Motor strength biceps and the wrist extensors: Normal right side . Normal left side Motor strength in the triceps muscle: Normal right side. Normal left side Deep tendon reflexes: Normal at the biceps. Normal at Brachioradialis. Normal at triceps Vertebral body tenderness to deep palpation over Cervical facet loading test: positive bilaterally Spurling test: positive bilaterally Neck distraction test: positive bilaterally Rich sign: positive bilaterally Lumbar spine Motor strength lower extremities ,thigh and legs 5/5 Right side , 5/5 Left side Deep tendon reflexes : Normal Knee Jerk. Normal Ankle Jerk Vertebral body tenderness over Gregorio Test positive Lumbar facet Loading Test: positive Right / positive Left Range of motion of the lumbar spine Flexion 30 degrees, extension 10 degrees Straight Leg Raise test: Left/ Right positive at degree Julio test: positive right / positive left. Severe tenderness over the Sacroiliac joint on the Right / Left sides Gaenslen test: positive bilaterally Seated flexion test: positive bilaterally. Sacral spine : Severe tenderness over the Sacroiliac joint: right side / left side Range of motion: Flexion of the lumbar spine <60 degrees Range of motion: Extension of the lumbar spine <20 degrees Gaenslen's Test positive Jose's Test positive Julio test: positive right side / left side Thigh Thrust Test Sacral Thrust Test Imaging: CT non contrast of the lumbar spine from 11/13/22 reviewed X-ray BL knees from 12/23/22 reviewed Assessment/ Plan : Lumbar stenosis, Lumbar DDD, BL knee OA Recommendation of TENS unit use, form completed. Receives Wild Rose 7.5/325gm #[address] Bautista regularly per [facility]. Senokot #60 w 1 RF. Use, side effects, adverse reactions and safe storage discussed. Pt and at side acknowledged understanding. All questions answered. I have spent greater than 30 minutes on patient care today. Dr Saunders was available by phone for the evaluation of this patient. The time was used to review the medical records including relevant urine studies and Prescription history (MAPs), review of the available imaging, evaluation and examination of t he patient, coordination of care with the medical staff and if applicable referring physicians, as well as creation of the medical record PQRS Narrative: Smoking Status Former smoker Hx Alcohol Use (MH) No Home Medications: Ambulatory Orders Pravastatin Sodium [Pravachol] 80 mg PO HS 09/26/14 Aspirin [Adult Low Dose Aspirin EC] 81 mg PO HS 09/07/20 Cholecalciferol [Vitamin D3 (25 Mcg = 1000 Iu)] 25 mcg PO DAILY 09/07/20 Tamsulosin [Flomax] 0.4 mg PO HS 09/07/20 Biotin [Biotin Disolve] 10,000 mcg PO DAILY 02/14/23 Docusate [Colace] 300 mg PO DAILY PRN 02/14/23 HYDROcodone/APAP 10-325MG [Wild Rose 10-325] 1 tab PO Q12H PRN 02/14/23 Vit C/E/Zn/Coppr/Lutein/Zeaxan [Preservision Areds 2 Softgel] 1 cap PO BID 02/14/23 levETIRAcetam [Keppra] 500 mg PO Q12H 02/14/23 Co Q-10 200mg 1 cap PO DAILY 02/28/23 Finasteride [Proscar] 5 mg PO DAILY 03/28/23 Isosorbide Mononitrate [Isosorbide Mononitrate ER] 30 mg PO DAILY 03/28/23 Lactulose 15 gm PO BID PRN 03/28/23 Sennosides/Docusate Sodium [Senna Plus 8.6-50 mg Softgel] 2 tab PO DAILY 03/28/23 Vitamin B-12 (Unknown Dose) 1 tab PO DAILY 03/28/23 diazePAM [Valium] 5 - 10 mg PO DAILY PRN 03/28/23 Sennosides [Senokot] 8.6 mg PO BID PRN 30 Days #60 tablet 07/17/23 Controlled Substance Measures - Controlled Substance Measures Is patient prescribed a controlled substance at discharge?: No
== END ==
LOC: PNWHC3 12:51
PROVIDERS: ATTEND Specialist
DX: M48.061 Spinal stenosis, lumbar region without neurogenic claudication (principal); M51.36 Other intervertebral disc degeneration, lumbar region; M17.0 Bilateral primary osteoarthritis of knee; G89.29 Other chronic pain; Z87.891 Personal history of nicotine dependence; Z88.8 Allergy status to other drugs, medicaments and biological substances; Z91.048 Other nonmedicinal substance allergy status
CPT/HCPCS: 99211

== ENCOUNTER 2023-08-19 22:32 | Emergency (ER) | payer MEDICARE ==
[2023-08-19 22:38] VITALS: RESP 18
--- NOTE | 2023-08-19 23:03 | ED ---
Back Pain HPI - General Source: patient, RN notes reviewed Limitations: no limitations <Shruti Molina - Last Filed: 08/19/23 23:01> <Zaire Perrin - Last Filed: 08/20/23 00:10> - General Chief Complaint: Back Pain/Injury Stated Complaint: back pain Time Seen by Provider: 08/19/23 23:01 - History of Present Illness Initial Comments: Quick [id number] male with history of spinal stenosis presenting with back pain. States his low back pain has been gradually worsening and is now radiating down his left leg. States he has been seeing pain management and has been taking Waldron for pain. Denies numbness, weakness, or loss of bowel or bladder control. Denies trauma or injury. (Shruti Molina) 88-year-old male presenting to the ED with a chief complaint of back pain. Patient reports pain is chronic in nature. States he has a history of spinal stenosis. States over the last few days pain has been worse than usual. Has been seeing pain management for this however has not seen an infection prevention specialist. Denies saddle anesthesia or incontinence. Denies chest pain shortness of breath. Denies fever or chills. No other complaints at this time. (Zaire Perrin) - Related Data Home Medications Medication Instructions Recorded Confirmed Pravastatin Sodium [Pravachol] 80 mg PO HS 09/26/14 07/17/23 Aspirin [Adult Low Dose Aspirin EC] 81 mg PO HS 09/07/20 07/17/23 Cholecalciferol [Vitamin D3 (25 25 mcg PO DAILY 09/07/20 07/17/23 Mcg = 1000 Iu)] Tamsulosin [Flomax] 0.4 mg PO HS 09/07/20 07/17/23 Biotin [Biotin Disolve] 10,000 mcg PO DAILY 02/14/23 07/17/23 Docusate [Colace] 300 mg PO DAILY PRN 02/14/23 07/17/23 HYDROcodone/APAP 10-325MG [Waldron 1 tab PO Q12H PRN 02/14/23 07/17/23 10-325] Vit C/E/Zn/Coppr/Lutein/Zeaxan 1 cap PO BID 02/14/23 07/17/23 [Preservision Areds 2 Softgel] levETIRAcetam [Keppra] 500 mg PO Q12H 02/14/23 07/17/23 Co Q-10 200mg 1 cap PO DAILY 02/28/23 07/17/23 Finasteride [Proscar] 5 mg PO DAILY 03/28/23 07/17/23 Isosorbide Mononitrate [Isosorbide 30 mg PO DAILY 03/28/23 07/17/23 Mononitrate ER] Lactulose 15 gm PO BID PRN 03/28/23 07/17/23 Sennosides/Docusate Sodium [Senna 2 tab PO DAILY 03/28/23 07/17/23 Plus 8.6-50 mg Softgel] Vitamin B-12 (Unknown Dose) 1 tab PO DAILY 03/28/23 07/17/23 diazePAM [Valium] 5 - 10 mg PO DAILY PRN 03/28/23 07/17/23 Previous Rx's Medication Instructions Recorded Sennosides [Senokot] 8.6 mg PO BID PRN 30 Days #60 07/17/23 tablet Allergies Allergy/AdvReac Type Severity Reaction Status Date / Time propoxyphene napsylate AdvReac Unknown Nausea & Verified 08/19/23 22:38 [From Darvocet-N 100] Vomiting Surgical Tape Allergy Severe Blisters Uncoded 08/19/23 22:38 Review of Systems ROS Other: All systems not noted in ROS Statement are negative. <Shruti Molina - Last Filed: 08/19/23 23:01> ROS Other: All systems not noted in ROS Statement are negative. <Zaire Perrin - Last Filed: 08/20/23 00:10> ROS Statement: Those systems with pertinent positive or pertinent negative responses have been documented in the HPI. Past Medical History Past Medical History: Cancer, Eye Disorder, Hypertension, Musculoskeletal Disorder, Prostate Disorder, Sleep Apnea/CPAP/BIPAP Additional Past Medical History / Comment(s): "Get rash on joints, dry skin". Recent Bladder Infection/Sepsis, hospitalized 02/28/23-03/04/23. 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 Chronic pain. 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 Orthostatic hypotension. Spinal Stenosis. Constipation. HX OF 1 SEIZURE APPROX 30 YRS AGO. No CPAP use. History of Any Multi-Drug Resistant Organisms: None Reported Past Surgical History: Appendectomy, Back Surgery, Coronary Bypass/CABG, Orthopedic Surgery Additional Past Surgical History / Comment(s): "Dr Covarrubias blasted something." LEFT ANKLE ACHEILLES TENDON, BACK SURGERIES, CERVICAL SPINE SURGERY WITH HARDWARE, CARPAL TUNNEL SURGERY, NERVE STIMULATOR PLACED LEFT HIP(ST SULEMAN). Past Anesthesia/Blood Transfusion Reactions: Postoperative Nausea & Vomiting (PONV) Past Psychological History: No Psychological Hx Reported Smoking Status: Former smoker Past Alcohol Use History: None Reported Past Drug Use History: None Reported - Past Family History Father Family Medical History: Coronary Artery Disease (CAD) Additional Family Medical History / Comment(s): Father at age 92. Brother(s) Family Medical History: Cancer Additional Family Medical History / Comment(s): Patient has total of 3 brothers one has from Parkinson's, 1 from old age and one with throat cancer. Sister(s) Family Medical History: Cancer Additional Family Medical History / Comment(s): Patient has one sister that from cancer with history of smoking and one at age 40 from a brain aneurysm. Patient has a total of 4 children. 3 sons, one has bipolar disorder. One daughter with no major medical problems. Mother Family Medical History: No Reported History Additional Family Medical History / Comment(s): Mother at age 76 with heart disease. <Shruti Molina - Last Filed: 08/19/23 23:01> General Exam Limitations: no limitations <Shruti Molina - Last Filed: 08/19/23 23:01> General appearance: alert, in no apparent distress Eye exam: Present: normal appearance Neck exam: Present: normal inspection Respiratory exam: Present: normal lung sounds bilaterally Cardiovascular Exam: Present: regular rate GI/Abdominal exam: Present: soft Extremities exam: Present: normal inspection Back exam: Present: normal inspection Neurological exam: Present: alert, oriented X3, normal gait Skin exam: Present: warm, dry <Zaire Perrin - Last Filed: 08/20/23 00:10> - General Exam Comments Initial Comments: Visual Physical Exam Vital signs reviewed General: Well-appearing, nontoxic, no acute distress. Head: Normocephalic, atraumatic Eyes: PERRLA, EOMI ENT: Airway patent Chest: Nonlabored breathing Skin: No visual rash, normal skin tone Neuro: Alert and oriented 3 Musculoskeletal: No gross abnormalities (JesseShruti) Course Vital Signs 08/19/23 22:35 Temperature 98.3 F Pulse Rate 68 Respiratory 18 Rate Blood Pressure 168/85 O2 Sat by Pulse 96 Oximetry Medical Decision Making <JesseShruti - Last Filed: 08/19/23 23:01> <Zaire Perrin - Last Filed: 08/20/23 00:10> - Medical Decision Making I completed the quick note portion of this chart signed Shruti Molina PA-C (Shruti Molina) Was pt. sent in by a medical professional or institution (, PA, TRANSFERRER, urgent care, hospital, or usp...) When possible be specific @ -No Did you speak to anyone other than the patient for history (EMS, parent, family, police, friend...)? What history was obtained from this source @ -No Did you review nursing and triage notes (agree or disagree)? Why? @ -I reviewed and agree with nursing and triage notes Were old charts reviewed (outside hosp., previous admission, EMS record, old EKG, old radiological studies, urgent care reports/EKG's, usp records)? Report findings @ -No old charts were reviewed Differential Diagnosis (chest pain, altered mental status, abdominal pain women, abdominal pain men, vaginal bleeding, weakness, fever, dyspnea, syncope, headache, dizziness, GI bleed, back pain, seizure, CVA, palpatations, mental health, musculoskeletal)? @ -Differential Back Pain: Strain, zoster, cauda equina syndrome, epidural abscess, vertebral osteomyelitis, discitis, fracture, subluxation, disc herniation, DJD, spinal stenosis, dissection, AAA, pancreatitis, peptic ulcer disease, pyelonephritis, kidney stone, this is not meant to be an all-inclusive list. EKG interpreted by me (3pts min.). @ -None X-rays interpreted by me (1pt min.). @ -None done CT interpreted by me (1pt min.). @ -None done U/S interpreted by me (1pt. min.). @ -None done What testing was considered but not performed or refused? (CT, X-rays, U/S, labs)? Why? @ -Imaging study was considered however at this time patient reports pain is chronic in nature and has not had any recent injuries or trauma. Additionally no red flag symptoms. What meds were considered but not given or refused? Why? @ -None Did you discuss the management of the patient with other professionals (professionals i.e. , PA, TRANSFERRER, lab, RT, psych nurse, social welfare research worker, indirect fire infantryman, teacher, tactical intelligence officer, complex case manager)? Give summary @ -No Was smoking cessation discussed for >3mins.? @ -No Was critical care preformed (if so, how long)? @ -No Were there social determinants of health that impacted care today? How? (Homelessness, low income, unemployed, alcoholism, drug addiction, transportation, low edu. Level, literacy, decrease access to med. care, fpc, rehab)? @ -No Was there de-escalation of care discussed even if they declined (Discuss DNR or withdrawal of care, Hospice)? DNR status @ -No What co-morbidities impacted this encounter? (DM, HTN, Smoking, COPD, CAD, Cancer, CVA, ARF, Chemo, Hep., AIDS, mental health diagnosis, sleep apnea, morbid obesity)? @ -None Was patient admitted / discharged? Hospital course, mention meds given and route, prescriptions, significant lab abnormalities, going to OR and other pertinent info. @ -Discharge 88-year-old male presenting to the ED with complaints of back pain. Pain is chronic in nature. Follows with pain management however notes Waldron at home has not been helping for the past few days which prompted presentation to the ED for further evaluation. No red flag symptoms. Afebrile vital signs stable. Patient provided analgesia here and discharged home in stable condition with referral to see orthopedics. Discussed strict return precautions with patient who verbalized agreement. Undiagnosed new problem with uncertain prognosis? @ -No Drug Therapy requiring intensive monitoring for toxicity (Heparin, Nitro, Insulin, Cardizem)? @ -No Were any procedures done? @ -No Diagnosis/symptom? @ -Back pain Acute, or Chronic, or Acute on Chronic? @ -Acute on chronic Uncomplicated (without systemic symptoms) or Complicated (systemic symptoms)? @ -Uncomplicated Side effects of treatment? @ -No Exacerbation, Progression, or Severe Exacerbation? @ -No Poses a threat to life or bodily function? How? (Chest pain, [place], [place], pneumonia, PE, COPD, DKA, ARF, appy, cholecystitis, CVA, Diverticulitis, Homicidal, Suicidal, threat to staff... and all critical care pts) @ -No (Zaire Perrin) Disposition <Shruti Molina - Last Filed: 08/19/23 23:01> Is patient prescribed a controlled substance at d/c from ED?: No Time of Disposition: 00:10 <Zaire Perrin - Last Filed: 08/20/23 00:10> Clinical Impression: Back pain Disposition: HOME SELF-CARE Condition: Good Additional Instructions: Please return to the Emergency Department if symptoms worsen or any other concerns. Please follow-up with your PCP, orthopedics, and pain management. Referrals: Mehnaz Bautista MD [Primary Care Provider] - 1-2 days Manjit Sandoval DO [Doctor of Osteopathic Medicine] - 1-2 days
[2023-08-20] MEDS: KETOROLAC 15 MG/ML 1 ML VIAL IM STA (00:20)
[2023-08-20] MEDS: HYDROmorphone 1 MG/ML 1 ML SYRINGE IM STA (00:21)
[2023-08-20] MEDS: ACETAMINOPHEN TAB 500 MG TAB PO STA (00:23)
[2023-08-20 00:42] VITALS: BP 160/83; PULSE 69; TEMP 98.2
== END 2023-08-20 02:22 | disposition home or self-care (01) ==
LOC: EC 22:32
DX: M54.50 Low back pain, unspecified (principal); Z87.891 Personal history of nicotine dependence; Z88.8 Allergy status to other drugs, medicaments and biological substances
CPT/HCPCS: 99283; 96372 ×2; J1170; J1885

== ENCOUNTER 2023-08-22 01:12 | Emergency (ER) | payer MEDICARE ==
[2023-08-22 01:17] VITALS: RESP 18
[2023-08-22 01:39] LABS: Basophils % (A) 0 %; Eosinophils # (A) 0.2 k/uL (0-0.7); Eosinophils % (A) 2 %; HCT 43.9 % (39.0-53.0); HGB 14.2 gm/dL (13.0-17.5); Lymphocytes # (A) 1.9 k/uL (1.0-4.8); Lymphocytes % (A) 23 %; MCHC 32.3 g/dL (31.0-37.0); MCV 92.9 fL (80.0-100.0); Mean Platelet Volume 8.2; Monocytes # (A) 0.6 k/uL (0-1.0); Monocytes % (A) 7 %; Neutrophils # (A) 5.5 k/uL (1.3-7.7); Neutrophils % (A) 66 %; Platelet Count 235 k/uL (150-450); RBC 4.72 m/uL (4.30-5.90); RDW 12.9 % (11.5-15.5); WBC 8.3 k/uL (3.8-10.6)
[2023-08-22 01:53] LABS: ALT 29 U/L (4-49); AST 25 U/L (17-59); African American GFR (CKD) >90 (>60 ml/min/1.73 sqM); Albumin 4.1 g/dL (3.5-5.0); Alkaline Phosphatase 86 U/L (38-126); Anion Gap 7 mmol/L; Blood Urea Nitrogen 25 mg/dL (9-20); Calcium 9.2 mg/dL (8.4-10.2); Carbon Dioxide 24 mmol/L (22-30); Chloride 108 mmol/L (98-107); Glucose 101 mg/dL (74-99); Magnesium 2.2 mg/dL (1.6-2.3); Non-African American GFR(CKD) 82 (>60 ml/min/1.73 sqM); Potassium 3.9 mmol/L (3.5-5.1); Sodium 139 mmol/L (137-145); Total Bilirubin 0.7 mg/dL (0.2-1.3); Total Protein 6.2 g/dL (6.3-8.2)
[2023-08-22 01:57] LABS: Partial Thromboplastin Time 25.5 sec (22.0-30.0); Prothrombin Time 10.5 sec (10.0-12.5)
--- NOTE | 2023-08-22 05:44 | ED ---
General Adult HPI - General Chief complaint: Chest Pain Stated complaint: Chest pain, neck pain, back pain Source: patient Mode of arrival: wheelchair Limitations: no limitations - History of Present Illness Onset/Timin -: hour(s) Location: chest Radiation: back Quality: aching Consistency: now resolved Improves with: none Worsens with: none Associated Symptoms: denies other symptoms - Related Data Home Medications Medication Instructions Recorded Confirmed Pravastatin Sodium [Pravachol] 80 mg PO HS 09/26/14 09/12/23 Aspirin [Adult Low Dose Aspirin EC] 81 mg PO HS 09/07/20 09/12/23 Cholecalciferol [Vitamin D3 (25 25 mcg PO DAILY 09/07/20 09/12/23 Mcg = 1000 Iu)] Tamsulosin [Flomax] 0.4 mg PO HS 09/07/20 09/12/23 Biotin [Biotin Disolve] 10,000 mcg PO DAILY 02/14/23 09/12/23 Docusate [Colace] 300 mg PO DAILY PRN 02/14/23 09/12/23 HYDROcodone/APAP 10-325MG [Pike 1 tab PO Q12H PRN 02/14/23 09/12/23 10-325] Vit C/E/Zn/Coppr/Lutein/Zeaxan 1 cap PO BID 02/14/23 09/12/23 [Preservision Areds 2 Softgel] levETIRAcetam [Keppra] 500 mg PO Q12H 02/14/23 09/12/23 Co Q-10 200mg 1 cap PO DAILY 02/28/23 09/12/23 Isosorbide Mononitrate [Isosorbide 30 mg PO DAILY 03/28/23 09/12/23 Mononitrate ER] Lactulose 15 gm PO BID PRN 03/28/23 09/12/23 Sennosides/Docusate Sodium [Senna 2 tab PO DAILY 03/28/23 09/12/23 Plus 8.6-50 mg Softgel] Vitamin B-12 (Unknown Dose) 1 tab PO DAILY 03/28/23 09/12/23 diazePAM [Valium] 5 - 10 mg PO DAILY PRN 03/28/23 09/12/23 Previous Rx's Medication Instructions Recorded Sennosides [Senokot] 8.6 mg PO BID PRN 30 Days #60 07/17/23 tablet Amitriptyline HCl [Elavil] 25 mg PO HS 30 Days #30 tablet 08/27/23 Allergies Allergy/AdvReac Type Severity Reaction Status Date / Time propoxyphene napsylate AdvReac Unknown Nausea & Verified 09/12/23 15:19 [From Jr-N 100] Vomiting Surgical Tape Allergy Severe Blisters Uncoded 09/12/23 15:19 Review of Systems ROS Statement: Those systems with pertinent positive or pertinent negative responses have been documented in the HPI. ROS Other: All systems not noted in ROS Statement are negative. Constitutional: Denies: fever, chills Respiratory: Denies: dyspnea Cardiovascular: Reports: chest pain. Denies: palpitations, orthopnea, edema, syncope Gastrointestinal: Denies: abdominal pain, nausea, vomiting, diarrhea, constipation Genitourinary: Denies: dysuria, hematuria Musculoskeletal: Denies: back pain, arthralgia Skin: Denies: rash Neurological: Denies: headache, weakness, numbness Past Medical History Past Medical History: Cancer, Eye Disorder, Hypertension, Musculoskeletal Disorder, Prostate Disorder, Sleep Apnea/CPAP/BIPAP Additional Past Medical History / Comment(s): "Get rash on joints, dry skin". Recent Bladder Infection/Sepsis, hospitalized 02/28/23-03/04/23. 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 Chronic pain. 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 Orthostatic hypotension. Spinal Stenosis. Constipation. HX OF 1 SEIZURE APPROX 30 YRS AGO. No CPAP use. History of Any Multi-Drug Resistant Organisms: None Reported Past Surgical History: Appendectomy, Back Surgery, Coronary Bypass/CABG, Orthopedic Surgery Additional Past Surgical History / Comment(s): "Dr Covarrubias blasted something." LEFT ANKLE ACHEILLES TENDON, BACK SURGERIES, CERVICAL SPINE SURGERY WITH HARDWARE, CARPAL TUNNEL SURGERY, NERVE STIMULATOR PLACED LEFT HIP(ST SULEMAN). Past Anesthesia/Blood Transfusion Reactions: Postoperative Nausea & Vomiting (PONV) Past Psychological History: No Psychological Hx Reported Smoking Status: Former smoker Past Alcohol Use History: None Reported Past Drug Use History: None Reported - Past Family History Father Family Medical History: Coronary Artery Disease (CAD) Additional Family Medical History / Comment(s): Father at age 92. Brother(s) Family Medical History: Cancer Additional Family Medical History / Comment(s): Patient has total of 3 brothers one has from Parkinson's, 1 from old age and one with throat cancer. Sister(s) Family Medical History: Cancer Additional Family Medical History / Comment(s): Patient has one sister that from cancer with history of smoking and one at age 40 from a brain aneurysm. Patient has a total of 4 children. 3 sons, one has bipolar disorder. One daughter with no major medical problems. Mother Family Medical History: No Reported History Additional Family Medical History / Comment(s): Mother at age 76 with heart disease. General Exam Limitations: no limitations General appearance: alert, in no apparent distress Head exam: Present: atraumatic, normocephalic Eye exam: Present: normal appearance. Absent: scleral icterus, conjunctival i njection ENT exam: Present: normal exam Neck exam: Present: normal inspection, full ROM Respiratory exam: Present: normal lung sounds bilaterally. Absent: respiratory distress, wheezes, rales, rhonchi, stridor, accessory muscle use Cardiovascular Exam: Present: regular rate, normal rhythm, normal heart sounds. Absent: systolic murmur, diastolic murmur, rubs, gallop GI/Abdominal exam: Present: soft. Absent: distended, tenderness, guarding, rigid Extremities exam: Present: normal inspection, normal capillary refill. Absent: pedal edema, calf tenderness Back exam: Present: normal inspection. Absent: CVA tenderness (R), CVA tenderness (L) Neurological exam: Present: alert Skin exam: Present: warm, dry, intact, normal color. Absent: rash Course Vital Signs 08/22/23 08/22/23 01:16 05:57 Temperature 97.8 F 98 F Pulse Rate 81 60 Respiratory 18 18 Rate Blood Pressure 176/84 176/78 O2 Sat by Pulse 95 97 Oximetry Medical Decision Making - Medical Decision Making The patient had chest x-ray that I interpreted as negative for acute infiltrate, pneumothorax, congestive heart failure Was pt. sent in by a medical professional or institution (, PA, SINGE WINDER, urgent care, hospital, or usp...) When possible be specific @ -[No] Did you speak to anyone other than the patient for history (EMS, parent, family, police, friend...)? What history was obtained from this source @ -[No] Did you review nursing and triage notes (agree or disagree)? Why? @ -[I reviewed and agree with nursing and triage notes] Were old charts reviewed (outside hosp., previous admission, EMS record, old EKG, old radiological studies, urgent care reports/EKG's, usp records)? Report findings @ -[No old charts were reviewed] Differential Diagnosis (chest pain, altered mental status, abdominal pain women, abdominal pain men, vaginal bleeding, weakness, fever, dyspnea, syncope, headache, dizziness, GI bleed, back pain, seizure, CVA, palpatations, mental health, musculoskeletal)? @ -[Differential Chest Pain: Stable Angina, Unstable Angina, STEMI, NSTEMI Aortic Dissection, Pneumothorax, Musculoskeletal, Esophageal Spasm GERD, Cholecystitis, Pancreatitis, Zoster, this is not meant to be an all-inclusive list. EKG interpreted by me (3pts min.). @ -[As above] X-rays interpreted by me (1pt min.). @ -[I interpreted as above I interpreted as above CT interpreted by me (1pt min.). @ -[None done] U/S interpreted by me (1pt. min.). @ -[None done] What testing was considered but not performed or refused? (CT, X-rays, U/S, labs)? Why? @ -[None] What meds were considered but not given or refused? Why? @ -[None] Did you discuss the management of the patient with other professionals (professionals i.e. , PA, SINGE WINDER, lab, RT, psych nurse, child protective services social worker, electric motor fitter, teacher, jailer/training officer, employment evaluator/case manager)? Give summary @ -[No] Was smoking cessation discussed for >3mins.? @ -[No] Was critical care preformed (if so, how long)? @ -[No] Were there social determinants of health that impacted care today? How? (Homelessness, low income, unemployed, alcoholism, drug addiction, transportation, low edu. Level, literacy, decrease access to med. care, residential, rehab)? @ -[No] Was there de-escalation of care discussed even if they declined (Discuss DNR or withdrawal of care, Hospice)? DNR status @ -[No] What co-morbidities impacted this encounter? (DM, HTN, Smoking, COPD, CAD, Cancer, CVA, ARF, Chemo, Hep., AIDS, mental health diagnosis, sleep apnea, morbid obesity)? @ -[None] Was patient admitted / discharged? Hospital course, mention meds given and route, prescriptions, significant lab abnormalities, going to OR and other pertinent info. @ -[hospital course] Undiagnosed new problem with uncertain prognosis? @ -[No] Drug Therapy requiring intensive monitoring for toxicity (Heparin, Nitro, Insulin, Cardizem)? @ -[No] Were any procedures done? @ -[No] Diagnosis/symptom? @ -Acute chest pain Acute, or Chronic, or Acute on Chronic? @ -[Acute Uncomplicated (without systemic symptoms) or Complicated (systemic symptoms)? @ -[Uncomplicated Side effects of treatment? @ -[No] Exacerbation, Progression, or Severe Exacerbation? @ -[No] Poses a threat to life or bodily function? How? (Chest pain, [place], [place], pneumonia, PE, COPD, DKA, ARF, appy, cholecystitis, CVA, Diverticulitis, Homicidal, Suicidal, threat to staff... and all critical care pts) @ -[No] - Lab Data Result diagrams: 08/22/23 01:26 08/22/23 01:26 Lab Results 08/22/23 08/22/23 08/22/23 Range/Units 01:26 01: 01:26 WBC 8.3 (3.8-10.6) k/uL RBC 4.72 (4.30-5.90) m/uL Hgb 14.2 (13.0-17.5) gm/dL Hct 43.9 (39.0-53.0) % MCV 92.9 (80.0-100.0) fL MCH 30.0 (25.0-35.0) pg MCHC 32.3 (31.0-37.0) g/dL RDW 12.9 (11.5-15.5) % Plt Count 235 (150-450) k/uL MPV 8.2 Neutrophils % 66 % Lymphocytes % 23 % Monocytes % 7 % Eosinophils % 2 % Basophils % 0 % Neutrophils # 5.5 (1.3-7.7) k/uL Lymphocytes # 1.9 (1.0-4.8) k/uL Monocytes # 0.6 (0-1.0) k/uL Eosinophils # 0.2 (0-0.7) k/uL Basophils # 0.0 (0-0.2) k/uL PT 10.5 (10.0-12.5) sec INR 1.0 (<1.2) APTT 25.5 (22.0-30.0) sec Sodium 139 (137-145) mmol/L Potassium 3.9 (3.5-5.1) mmol/L Chloride 108 H (98-107) mmol/L Carbon Dioxide 24 (22-30) mmol/L Anion Gap 7 mmol/L BUN 25 H (9-20) mg/dL Creatinine 0.76 (0.66-1.25) mg/dL Est GFR (CKD-EPI)AfAm >90 (>60 ml/min/1.73 sqM) Est GFR (CKD-EPI)NonAf 82 (>60 ml/min/1.73 sqM) Glucose 101 H (74-99) mg/dL Calcium 9.2 (8.4-10.2) mg/dL Magnesium 2.2 (1.6-2.3) mg/dL Total Bilirubin 0.7 (0.2-1.3) mg/dL AST 25 (17-59) U/L ALT 29 (4-49) U/L Alkaline Phosphatase 86 (38-126) U/L Troponin I (0.000-0.034) ng/mL Total Protein 6.2 L (6.3-8.2) g/dL Albumin 4.1 (3.5-5.0) g/dL 08/22/23 Range/Units 01:26 WBC (3.8-10.6) k/uL RBC (4.30-5.90) m/uL Hgb (13.0-17.5) gm/dL Hct (39.0-53.0) % MCV (80.0-100.0) fL MCH (25.0-35.0) pg MCHC (31.0-37.0) g/dL RDW (11.5-15.5) % Plt Count (150-450) k/uL MPV Neutrophils % % Lymphocytes % % Monocytes % % Eosinophils % % Basophils % % Neutrophils # (1.3-7.7) k/uL Lymphocytes # (1.0-4.8) k/uL Monocytes # (0-1.0) k/uL Eosinophils # (0-0.7) k/uL Basophils # (0-0.2) k/uL PT (10.0-12.5) sec INR (<1.2) APTT (22.0-30.0) sec Sodium (137-145) mmol/L Potassium (3.5-5.1) mmol/L Chloride (98-107) mmol/L Carbon Dioxide (22-30) mmol/L Anion Gap mmol/L BUN (9-20) mg/dL Creatinine (0.66-1.25) mg/dL Est GFR (CKD-EPI)AfAm (>60 ml/min/1.73 sqM) Est GFR (CKD-EPI)NonAf (>60 ml/min/1.73 sqM) Glucose (74-99) mg/dL Calcium (8.4-10.2) mg/dL Magnesium (1.6-2.3) mg/dL Total Bilirubin (0.2-1.3) mg/dL AST (17-59) U/L ALT (4-49) U/L Alkaline Phosphatase (38-126) U/L Troponin I <0.012 (0.000-0.034) ng/mL Total Protein (6.3-8.2) g/dL Albumin (3.5-5.0) g/dL - EKG Data -: EKG Interpreted by Pa EKG shows normal: sinus rhythm, axis (Normal), intervals (Normal), QRS complexes (Normal), ST-T waves (Normal) Rate: normal (Rate 74 bpm) Interpretation: normal EKG Disposition Clinical Impression: Back pain Disposition: HOME SELF-CARE Condition: Good Instructions (If sedation given, give patient instructions): Chronic Back Pain (DC) Is patient prescribed a controlled substance at d/c from ED?: No Referrals: Mehnaz Bautista MD [Primary Care Provider] - 1-2 days
[2023-08-22] MEDS: KETOROLAC 15 MG/ML 1 ML VIAL IM STA (05:52)
[2023-08-22] MEDS: HYDROmorphone 1 MG/ML 1 ML SYRINGE IM STA (05:53)
[2023-08-22 05:58] VITALS: BP 176/78; PULSE 60; TEMP 98
--- NOTE | 2023-08-22 07:23 | XR ---
EXAM: XR Chest, 2 Views CLINICAL HISTORY: ITS.REASON XR Reason: Chest Pain TECHNIQUE: Frontal and lateral views of the chest. COMPARISON: XR Chest dated 02/28/23 FINDINGS: Lungs: Unremarkable. No consolidation. Pleural space: Unremarkable. No pneumothorax. Heart: Unremarkable. No cardiomegaly. Mediastinum: Unremarkable. Normal mediastinal contour. Bones/joints: Median sternotomy wires as on the prior. No acute fracture. Tubes, lines and devices: Spinal stimulator as on the prior. Upper abdomen: Elevated left hemidiaphragm, stable. IMPRESSION: No acute findings in the chest.
== END 2023-08-22 05:58 | disposition home or self-care (01) ==
LOC: EC 01:12
DX: M54.9 Dorsalgia, unspecified (principal); Z91.09 Other allergy status, other than to drugs and biological substances; Z88.8 Allergy status to other drugs, medicaments and biological substances; Z87.891 Personal history of nicotine dependence
CPT/HCPCS: 36415; 93005; 80053; 83735; 84484; 85025; 85610; 85730; 71046; 99285; 96372 ×2; J1170; J1885

== ENCOUNTER → 2023-08-27 | Outpatient (CLI) | payer MEDICARE ==
[2023-08-27 08:31] VITALS: BP 115/69; PULSE 71; RESP 16; TEMP 97.6
--- NOTE | 2023-08-27 14:46 | P.PAINPG ---
PQRS Measure Charge Sheet Comment: HISTORY OF PRESENT ILLNESS: A 87 yr old wheelchair bound male w at side presents today w severe and chronic LBP > 1 yr secondary to DDD, spondylosis and facet arthropathy without myelopathy for evaluation. Pt states pain level is provoked at 8 /10 in intensity, intermittent, localized in the mid to lower lumbar spine, burning in character w shooting pain towards the L hip and LLE. Pain is provoked by standing > 15 min. Pain is alleviated by use of TENS unit at home, injections, heat, ice, medications, topical, repositioning, reclining and rest. Oswestry axial pain score at 34. Interventional procedures include BL SI x1 (Mar 2023), R TFESI L5-S1 x1 (Apr 2023) Medications include Ibu, Welch 7.5/325mg #[address] Bautista REVIEW OF ORGAN SYSTEMS: CONSTITUTIONAL: No fevers or chills. No recent weight loss. NEUROLOGICAL: + numbness and tingling along the distal extremities. No seizure disorders or headaches. MUSCULOSKELETAL: + pain PSYCHIATRIC: Denies current depression or suicidal thoughts. Physical Examinations : Constitutional : Cooperative , not in acute distress . Neurologic : Cranial nerve II to XII intact. No focal neurological deficits. Psychiatric : alert & oriented x 3. Matching mood & appropriate affect. Judgment & insight intact. Musculoskeletal : Cervical Spine Motor strength in the deltoid and biceps: Normal right side. Normal Left side Motor strength biceps and the wrist extensors: Normal right side . Normal left side Motor strength in the triceps muscle: Normal right side. Normal left side Deep tendon reflexes: Normal at the biceps. Normal at Brachioradialis. Normal at triceps Vertebral body tenderness to deep palpation over Cervical facet loading test: positive bilaterally Spurling test: positive bilaterally Neck distraction test: positive bilaterally Rich sign: positive bilaterally Lumbar spine Motor strength lower extremities ,thigh and legs 5/5 Right side , 5/5 Left side Deep tendon reflexes : Normal Knee Jerk. Normal Ankle Jerk Vertebral body tenderness over L5 Gregorio Test positive L5-S1 R> L Lumbar facet Loading Test: positive Right / positive Left Range of motion of the lumbar spine Flexion 30 degrees, extension 10 degrees Straight Leg Raise test: Left/ Right positive at degree Julio test: positive right / positive left. Severe tenderness over the Sacroiliac joint on the Right / Left sides Gaenslen test: positive bilaterally Seated flexion test: positive bilaterally. Sacral spine : Severe tenderness over the Sacroiliac joint: right side / left side Range of motion: Flexion of the lumbar spine <60 degrees Range of motion: Extension of the lumbar spine <20 degrees Gaenslen's Test positive Jose's Test positive Julio test: positive right side / left side Thigh Thrust Test Sacral Thrust Test Imaging: CT non contrast of the lumbar spine from 11/13/22 reviewed X-ray BL knees from 12/23/22 reviewed Assessment/ Plan : Lumbar stenosis, Lumbar DDD, BL knee OA Recommendation of BL TFESI L5-S1 #2. May need a series of injections for optimal pain relief. Risks, benefits of procedure discussed and pt verbalized understanding. Protocol for discontinuation/ continuation of medications lisa procedure discussed. Receives Welch 7.5/325gm #[address] Bautista regularly per MAPS. Add Elavil 25mg #30 w 1 RF. Use, side effects, adverse reactions and safe storage discussed. Pt and at side acknowledged understanding. All questions answered. I have spent greater than 30 minutes on patient care today. Dr Saunders was available by phone for the evaluation of this patient. The time was used to review the medical records including relevant urine studies and Prescription history (MAPs), review of the available imaging, evaluation and examination of the patient, coordination of care with the medical staff and if applicable referring physicians, as well as creation of the medical record PQRS Narrative: Smoking Status Former smoker Hx Alcohol Use (MH) No Home Medications: Ambulatory Orders Pravastatin Sodium [Pravachol] 80 mg PO HS 09/26/14 Aspirin [Adult Low Dose Aspirin EC] 81 mg PO HS 09/07/20 Cholecalciferol [Vitamin D3 (25 Mcg = 1000 Iu)] 25 mcg PO DAILY 09/07/20 Tamsulosin [Flomax] 0.4 mg PO HS 09/07/20 Biotin [Biotin Disolve] 10,000 mcg PO DAILY 02/14/23 Docusate [Colace] 300 mg PO DAILY PRN 02/14/23 HYDROcodone/APAP 10-325MG [Welch 10-325] 1 tab PO Q12H PRN 02/14/23 Vit C/E/Zn/Coppr/Lutein/Zeaxan [Preservision Areds 2 Softgel] 1 cap PO BID 02/14/23 levETIRAcetam [Keppra] 500 mg PO Q12H 02/14/23 Co Q-10 200mg 1 cap PO DAILY 02/28/23 Finasteride [Proscar] 5 mg PO DAILY 03/28/23 Isosorbide Mononitrate [Isosorbide Mononitrate ER] 30 mg PO DAILY 03/28/23 Lactulose 15 gm PO BID PRN 03/28/23 Sennosides/Docusate Sodium [Senna Plus 8.6-50 mg Softgel] 2 tab PO DAILY 03/28/23 Vitamin B-12 (Unknown Dose) 1 tab PO DAILY 03/28/23 diazePAM [Valium] 5 - 10 mg PO DAILY PRN 03/28/23 Sennosides [Senokot] 8.6 mg PO BID PRN 30 Days #60 tablet 07/17/23 Controlled Substance Measures - Controlled Substance Measures Is patient prescribed a controlled substance at discharge?: No
== END ==
LOC: PNWHC3 07:49
PROVIDERS: ATTEND Specialist
DX: M51.37 Other intervertebral disc degeneration, lumbosacral region (principal); M48.061 Spinal stenosis, lumbar region without neurogenic claudication; M17.0 Bilateral primary osteoarthritis of knee; Z87.891 Personal history of nicotine dependence; Z88.5 Allergy status to narcotic agent; Z91.048 Other nonmedicinal substance allergy status
CPT/HCPCS: 99211

== ENCOUNTER 2023-08-31 05:34 | Emergency (ER) | payer MEDICARE ==
--- NOTE | 2023-08-31 05:55 | ED ---
Back Pain HPI - General Stated Complaint: back pain Time Seen by Provider: 08/31/23 05:39 Source: RN notes reviewed, old records reviewed Mode of arrival: ambulatory Limitations: no limitations - History of Present Illness Initial Comments: This is an 88-year-old male to ER for evaluation of back pain severe back pain with history of chronic back pain. Patient is here for dyscontrol of back pain patient presents to the ER occasionally for his uncontrolled back pain no new trauma no fevers no neurological complaints no loss of bowel or bladder MD Complaint: back pain -: days(s) Similar Symptoms Previously: Yes Place: home Radiation: none Severity: severe Severity scale (1-10): 10 Quality: sharp Consistency: constant Improves With: none Worsens With: none Associated Symptoms: denies other symptoms - Related Data Home Medications Medication Instructions Recorded Confirmed Pravastatin Sodium [Pravachol] 80 mg PO HS 09/26/14 09/12/23 Aspirin [Adult Low Dose Aspirin EC] 81 mg PO HS 09/07/20 09/12/23 Cholecalciferol [Vitamin D3 (25 25 mcg PO DAILY 09/07/20 09/12/23 Mcg = 1000 Iu)] Tamsulosin [Flomax] 0.4 mg PO HS 09/07/20 09/12/23 Biotin [Biotin Disolve] 10,000 mcg PO DAILY 02/14/23 09/12/23 Docusate [Colace] 300 mg PO DAILY PRN 02/14/23 09/12/23 HYDROcodone/APAP 10-325MG [[place] 1 tab PO Q12H PRN 02/14/23 09/12/23 10-325] Vit C/E/Zn/Coppr/Lutein/Zeaxan 1 cap PO BID 02/14/23 09/12/23 [Preservision Areds 2 Softgel] levETIRAcetam [Keppra] 500 mg PO Q12H 02/14/23 09/12/23 Co Q-10 200mg 1 cap PO DAILY 02/28/23 09/12/23 Isosorbide Mononitrate [Isosorbide 30 mg PO DAILY 03/28/23 09/12/23 Mononitrate ER] Lactulose 15 gm PO BID PRN 03/28/23 09/12/23 Sennosides/Docusate Sodium [Senna 2 tab PO DAILY 03/28/23 09/12/23 Plus 8.6-50 mg Softgel] Vitamin B-12 (Unknown Dose) 1 tab PO DAILY 03/28/23 09/12/23 diazePAM [Valium] 5 - 10 mg PO DAILY PRN 03/28/23 09/12/23 Previous Rx's Medication Instructions Recorded Sennosides [Senokot] 8.6 mg PO BID PRN 30 Days #60 07/17/23 tablet Amitriptyline HCl [Elavil] 25 mg PO HS 30 Days #30 tablet 08/27/23 Allergies Allergy/AdvReac Type Severity Reaction Status Date / Time propoxyphene napsylate AdvReac Unknown Nausea & Verified 09/12/23 15:19 [From Jr-N 100] Vomiting Surgical Tape Allergy Severe Blisters Uncoded 09/12/23 15:19 Review of Systems ROS Statement: Those systems with pertinent positive or pertinent negative responses have been documented in the HPI. ROS Other: All systems not noted in ROS Statement are negative. Past Medical History Past Medical History: Cancer, Eye Disorder, Hypertension, Musculoskeletal Disorder, Prostate Disorder, Sleep Apnea/CPAP/BIPAP Additional Past Medical History / Comment(s): "Get rash on joints, dry skin". Recent Bladder Infection/Sepsis, hospitalized 02/28/23-03/04/23. 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 Chronic pain. 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 Orthostatic hypotension. Spinal Stenosis. Constipation. HX OF 1 SEIZURE APPROX 30 YRS AGO. No CPAP use. History of Any Multi-Drug Resistant Organisms: None Reported Past Surgical History: Appendectomy, Back Surgery, Coronary Bypass/CABG, Orthopedic Surgery Additional Past Surgical History / Comment(s): "Dr Covarrubias blasted something." LEFT ANKLE ACHEILLES TENDON, BACK SURGERIES, CERVICAL SPINE SURGERY WITH HARDWARE, CARPAL TUNNEL SURGERY, NERVE STIMULATOR PLACED LEFT HIP(ST SULEMAN). Past Anesthesia/Blood Transfusion Reactions: Postoperative Nausea & Vomiting (PONV) Smoking Status: Former smoker - Past Family History Father Family Medical History: Coronary Artery Disease (CAD) Additional Family Medical History / Comment(s): Father at age 92. Brother(s) Family Medical History: Cancer Additional Family Medical History / Comment(s): Patient has total of 3 brothers one has from Parkinson's, 1 from old age and one with throat cancer. Sister(s) Family Medical History: Cancer Additional Family Medical History / Comment(s): Patient has one sister that from cancer with history of smoking and one at age 40 from a brain aneurysm. Patient has a total of 4 children. 3 sons, one has bipolar disorder. One daughter with no major medical problems. Mother Family Medical History: No Reported History Additional Family Medical History / Comment(s): Mother at age 76 with heart disease. General Exam General appearance: alert, in no apparent distress Head exam: Present: atraumatic, normocephalic, normal inspection Eye exam: Present: normal appearance, PERRL, EOMI. Absent: scleral icterus, conjunctival injection, periorbital swelling ENT exam: Present: normal exam, mucous membranes moist Neck exam: Present: normal inspection. Absent: tenderness, meningismus, lymphadenopathy Respiratory exam: Present: normal lung sounds bilaterally. Absent: respiratory distress, wheezes, rales, rhonchi, stridor Cardiovascular Exam: Present: regular rate, normal rhythm, normal heart sounds. Absent: systolic murmur, diastolic murmur, rubs, gallop, clicks GI/Abdominal exam: Present: soft, normal bowel sounds. Absent: distended, tenderness, guarding, rebound, rigid Extremities exam: Present: normal inspection, full ROM, normal capillary refill. Absent: tenderness, pedal edema, joint swelling, calf tenderness Back exam: Present: normal inspection Neurological exam: Present: alert, oriented X3, CN II-XII intact Psychiatric exam: Present: normal affect, normal mood Skin exam: Present: warm, dry, intact, normal color. Absent: rash Course Vital Signs 08/31/23 08/31/23 05:57 07:48 Temperature 98.4 F 98.1 F Pulse Rate 83 76 Respiratory 18 18 Rate Blood Pressure 136/74 148/86 O2 Sat by Pulse 96 94 L Oximetry - Reevaluation(s) Reevaluation #1: Medical records reviewed Reevaluation #2: Patient symptoms improved 09/13/23 18:07 Reevaluation #3: Informed of results and questions answered Reevaluation #4: Was pt. sent in by a medical professional or institution (, PA, HARDWARE ENGINEERING MANAGER, urgent care, hospital, or care home...) When possible be specific @ -no Did you speak to anyone other than the patient for history (EMS, parent, family, police, friend...)? What history was obtained from this source @ -no Did you review nursing and triage notes (agree or disagree)? Why? @ -agree Are old charts reviewed (outside hosp., previous admission, EMS record, old EKG, old radiological studies, urgent care reports/EKG's, care home records)? Report findings @ -yes Differential Diagnosis (chest pain, altered mental status, abdominal pain women, abdominal pain men, vaginal bleeding, weakness, fever, dyspnea, syncope, headache, dizziness, GI bleed, back pain, seizure, CVA, palpatations, mental health, musculoskeletal)? @ -prior EKG interpreted by me (3pts min.). @ -no X-rays interpreted by me (1pt min.). @ -no CT interpreted by me (1pt min.). @ -no U/S interpreted by me (1pt. min.). @ -no What testing was considered but not performed or refused? (CT, X-rays, U/S, labs)? Why? @ -none What meds were considered but not given or refused? Why? @ -none Did you discuss the management of the patient with other professionals (professionals i.e. , PA, HARDWARE ENGINEERING MANAGER, lab, RT, psych nurse, director social, station cook, teacher, professional security officer, corrections caseworker)? Give summary @ -no Was smoking cessation discussed for >3mins.? @ -no Was critical care preformed (if so, how long)? @ -no Were there social determinants of health that impacted care today? How? (Homelessness, low income, unemployed, alcoholism, drug addiction, transportation, low edu. Level, literacy, decrease access to med. care, shelter, rehab)? @ -none Was there de-escalation of care discussed even if they declined (Discuss DNR or withdrawal of care, Hospice)? DNR status @ -no What co-morbidities impacted this encounter? (DM, HTN, Smoking, COPD, CAD, Cancer, CVA, ARF, Chemo, Hep., AIDS, mental health diagnosis, sleep apnea, morbid obesity)? @ -none Was patient admitted / discharged? Hospital course, mention meds given and route, prescriptions, significant lab abnormalities, going to OR and other pertinent info. @ - 88 male to ER with back pain history of significant and severe back pain back pain is well-controlled here in the ER patient feels well and can be discharged home Discharge Undiagnosed new problem with uncertain prognosis? @ -no Drug Therapy requiring intensive monitoring for toxicity (Heparin, Nitro, Insulin, Cardizem)? @ -no Were any procedures done? @ -no Diagnosis/symptom? @ -Back pain Acute, or Chronic, or Acute on Chronic? @ -Acute Uncomplicated (without systemic symptoms) or Complicated (systemic symptoms)? @ -Complicated Side effects of treatment? @ -no Exacerbation, Progression, or Severe Exacerbation? @ -exacerbation Poses a threat to life or bodily function? How? (Chest pain, [place], [place], pneumonia, PE, COPD, DKA, ARF, appy, cholecystitis, CVA, Diverticulitis, Homicidal, Suicidal, threat to staff... and all critical care pts) @ -yes severe because of back pain back pain Reevaluation #5: Differential Back Pain: Strain, zoster, cauda equina syndrome, epidural abscess, vertebral osteomyelitis, discitis, fracture, subluxation, disc herniation, DJD, spinal stenosis, dissection, AAA, pancreatitis, peptic ulcer disease, pyelonephritis, kidney stone, this is not meant to be an all-inclusive list. Medical Decision Making - Medical Decision Making 88 male to ER with back pain history of significant and severe back pain back pain is well-controlled here in the ER patient feels well and can be discharged home Disposition Clinical Impression: Mechanical back pain, Back pain Disposition: HOME SELF-CARE Condition: Fair Instructions (If sedation given, give patient instructions): Acute Low Back Pain (ED) Is patient prescribed a controlled substance at d/c from ED?: No Referrals: Mehnaz Bautista MD [Primary Care Provider] - 1-2 days Time of Disposition: 06:30
[2023-08-31 06:04] VITALS: RESP 18
[2023-08-31] MEDS: HYDROmorphone 1 MG/ML 1 ML SYRINGE IVP STA (06:09)
[2023-08-31 07:51] VITALS: BP 148/86; PULSE 76; TEMP 98.1
== END 2023-08-31 07:50 | disposition home or self-care (01) ==
LOC: EC 05:34
DX: M54.50 Low back pain, unspecified (principal); Z87.891 Personal history of nicotine dependence; Z91.048 Other nonmedicinal substance allergy status; Z88.5 Allergy status to narcotic agent
CPT/HCPCS: 99283; 96374; J1170

== ENCOUNTER 2023-09-16 07:35 | Day surgery (SDC) | payer MEDICARE ==
[~2023-09-16 07:35] MED LIST changes: +LACTATED RINGERS 1,000 ML IV SCH; -PREMYELOGRAM MEDICATION REVIEW 1 EACH MISC PO ONE
[2023-09-16 09:19] VITALS: RESP 16; TEMP 97.4
[2023-09-16] MEDS ORDERED: methylPREDNISolone ACETATE 40 MG/ML 1 ML VIAL ONE (10:14)
[2023-09-16] MEDS ORDERED: IOPAMIDOL M200 10 ML VIAL ONE (10:14)
--- NOTE | 2023-09-16 10:31 | P.PCN ---
Date of Procedure: 09/16/23 Procedure(s) Performed: PREOPERATIVE DIAGNOSIS: 1-lumbar degenerative disc disease. 2-lumbar spondylosis with lumbar facet arthropathy without myelopathy POSTOPERATIVE DIAGNOSIS: 1-lumbar degenerative disc disease. 2-lumbar spondylosis with facet arthropathy without myelopathy PROCEDURE 1. Transforaminal epidural steroid injection under fluoroscopic guidance at Bilateral L5-S1 level. (Fluoroscopy images stored on file in the radiology Department ) 2. Lumbar epidurogram . ANESTHESIA: Local with 1% lidocaine 4 ml. EBL: Minimal PROCEDURE INDICATION: The patient with low back pain and radiculopathy symptoms unresponsive to conservative treatment. PROCEDURE DESCRIPTION / TECHNIQUE: The patient was seen and identified in the preoperative area. Risks, benefits, complications, and alternatives were discussed with the patient. The patient agreed to proceed with the procedure and signed the consent. IV was started, and vital signs were stable. Patient was taken to the OR and time out was completed. The patient was placed in the prone position on procedure table and a pillow was placed under the abdomen to reduce lumbar lordosis. The lumbosacral area was prepped and draped in the usual sterile fashion. Critical pause was taken. Vital signs were closely monitored during the procedure. Using oblique fluoroscopy, the chin of the `BhupendraJv dog at Right L5-S1 level was identified, and the skin and deeper tissues just below was localized with 1% lidocaine. Subsequently, a 22-gauge 3.5-inch spinal needle was advanced under a tunneled view fluoroscopic guidance just underneath the chin of the `Valoriey dog at the right L5-S1 Under lateral fluoroscopy, the needle was then advanced to the posterior border of the interforaminal space. After negative aspiration of CSF and blood and with no paresthesias, 1 mL Isovue 200 contrast dye was injected excellent epidurogram and outlining of the nerve root Subsequently, 3 mL of block solution containing 20 mg Depo-Medrol and 2 mL of 0.9% normal saline PF was injected. Needle was removed and the same procedure was repeated at the left L5-S1 level . At the end of the procedure, skin was cleansed, and bandages were applied. COMPLICATIONS:none DISPOSITION / PLANS: The patient was placed in a supine position and transferred to the recovery area in a stable condition for observation. There was no evidence of lower extremity motor or sensory deficit after the procedure. Patient was discharged from the recovery room after meeting discharge criteria. Home discharge instructions were given to the patient by the staff. The patient was reexamined prior to discharge.
--- NOTE | 2023-09-16 10:34 | FL ---
Intraoperative/procedural fluoroscopic services were provided for lumbar pain management. Total fluor oscopy time is 6.0 seconds with a total of 2 submitted images to PACS. Total DAP [id number] [id number]. Plea se see the operative note for further details.
[2023-09-16 10:36] VITALS: BP 118/66; PULSE 69
== END 2023-09-16 10:45 | disposition home or self-care (01) ==
LOC: ORPAIN 07:35
PROVIDERS: ATTEND Specialist
DX: M47.26 Other spondylosis with radiculopathy, lumbar region (principal); M51.16 Intervertebral disc disorders with radiculopathy, lumbar region; Z88.8 Allergy status to other drugs, medicaments and biological substances; Z79.82 Long term (current) use of aspirin
CPT/HCPCS: 64483; Q9966; J1010

== ENCOUNTER → 2023-10-09 | Outpatient (CLI) | payer MEDICARE ==
[2023-10-09 07:59] VITALS: BP 143/73; PULSE 64; RESP 16
--- NOTE | 2023-10-09 10:33 | P.PAINPG ---
PQRS Measure Charge Sheet Comment: HISTORY OF PRESENT ILLNESS: A 87 yr old wheelchair bound male w at side presents today w severe and chronic LBP > 1 yr secondary to L5-S1 post laminectomy syndrome for evaluation s/p BL TFESI L5-S1 #2. Pt states he experienced >50 % pain relief x 3 wks s/p procedure. Pt states pain level is provoked at 8 /10 in intensity, intermittent, localized in the mid to lower lumbar spine, burning in character w shooting pain L & R of midline. Pain is provoked by standing > 15 min. Pain is alleviated by use of TENS unit at home, injections, heat, ice, medications, topical, repositioning, reclining and rest. Oswestry axial pain score at 33. Interventional procedures include BL SI x1 (Mar 2023), R TFESI L5-S1 x2 (05/03, 09/30) Medications include Ibu, Placida 7.5/325mg #[address] Bautista REVIEW OF ORGAN SYSTEMS: CONSTITUTIONAL: No fevers or chills. No recent weight loss. NEUROLOGICAL: + numbness and tingling along the distal extremities. No seizure disorders or headaches. MUSCULOSKELETAL: + pain PSYCHIATRIC: Denies current depression or suicidal thoughts. Physical Examinations : Constitutional : Cooperative , not in acute distress . Neurologic : Cranial nerve II to XII intact. No focal neurological deficits. Psychiatric : alert & oriented x 3. Matching mood & appropriate affect. Judgment & insight intact. Musculoskeletal : Cervical Spine Motor strength in the deltoid and biceps: Normal right side. Normal Left side Motor strength biceps and the wrist extensors: Normal right side . Normal left side Motor strength in the triceps muscle: Normal right side. Normal left side Deep tendon reflexes: Normal at the biceps. Normal at Brachioradialis. Normal at triceps Vertebral body tenderness to deep palpation over Cervical facet loading test: positive bilaterally Spurling test: positive bilaterally Neck distraction test: positive bilaterally Rich sign: positive bilaterally Lumbar spine Motor strength lower extremities ,thigh and legs 5/5 Right side , 5/5 Left side Deep tendon reflexes : Normal Knee Jerk. Normal Ankle Jerk Vertebral body tenderness over L5 Gregorio Test positive L5-S1 R> L Lumbar facet Loading Test: positive Right / positive Left L3-L4, L4-L5 Range of motion of the lumbar spine Flexion 30 degrees, extension 10 degrees Straight Leg Raise test: Left/ Right positive at degree Julio test: positive right / positive left. Severe tenderness over the Sacroiliac joint on the Right / Left sides Gaenslen test: positive bilaterally Seated flexion test: positive bilaterally. Sacral spine : Severe tenderness over the Sacroiliac joint: right side / left side Range of motion: Flexion of the lumbar spine <60 degrees Range of motion: Extension of the lumbar spine <20 degrees Gaenslen's Test positive Jose's Test positive Julio test: positive right side / left side Thigh Thrust Test Sacral Thrust Test Imaging: CT non contrast of the lumbar spine from 11/13/22 reviewed X-ray BL knees from 12/23/22 reviewed Assessment/ Plan : Lumbar stenosis, Lumbar DDD, L5-S1 post laminectomy syndrome, BL knee OA Recommendation of BL MBB L3-L4, L4-L5 #1. Risks, benefits of procedure discussed and pt verbalized understanding. Protocol for discontinuation/ continuation of medications lisa procedure discussed. Disinterested in Placida at this time. Minimal anesthesia including Fentanyl and Versed if clinically indicated. Pt and at side acknowledged understanding. All questions answered. I have spent greater than 30 minutes on patient care today. Dr Saunders was available by phone for the evaluation of this patient. The time was used to review the medical records including relevant urine studies and Prescription history (MAPs), review of the available imaging, evaluation and examination of the patient, coordination of care with the medical staff and if applicable referring physicians, as well as creation of the medical record PQRS Narrative: Smoking Status Former smoker Hx Alcohol Use (MH) No Home Medications: Ambulatory Orders Pravastatin Sodium [Pravachol] 80 mg PO HS 09/26/14 Aspirin [Adult Low Dose Aspirin EC] 81 mg PO HS 09/07/20 Cholecalciferol [Vitamin D3 (25 Mcg = 1000 Iu)] 25 mcg PO DAILY 09/07/20 Tamsulosin [Flomax] 0.4 mg PO HS 09/07/20 Biotin [Biotin Disolve] 10,000 mcg PO DAILY 02/14/23 Docusate [Colace] 300 mg PO DAILY PRN 02/14/23 HYDROcodone/APAP 10-325MG [[place] 10-325] 1 tab PO Q12H PRN 02/14/23 Vit C/E/Zn/Coppr/Lutein/Zeaxan [Preservision Areds 2 Softgel] 1 cap PO BID 02/14/23 levETIRAcetam [Keppra] 500 mg PO Q12H 02/14/23 Co Q-10 200mg 1 cap PO DAILY 02/28/23 Isosorbide Mononitrate [Isosorbide Mononitrate ER] 30 mg PO DAILY 03/28/23 Lactulose 15 gm PO BID PRN 03/28/23 Sennosides/Docusate Sodium [Senna Plus 8.6-50 mg Softgel] 2 tab PO DAILY 0 03/28/23 Vitamin B-12 (Unknown Dose) 1 tab PO DAILY 03/28/23 diazePAM [Valium] 5 - 10 mg PO DAILY PRN 03/28/23 Sennosides [Senokot] 8.6 mg PO BID PRN 30 Days #60 tablet 07/17/23 Amitriptyline HCl [Elavil] 25 mg PO HS 30 Days #30 tablet 08/27/23 Controlled Substance Measures - Controlled Substance Measures Is patient prescribed a controlled substance at discharge?: No
== END ==
LOC: PNWHC3 07:13
PROVIDERS: ATTEND Specialist
DX: M51.36 Other intervertebral disc degeneration, lumbar region (principal); M48.061 Spinal stenosis, lumbar region without neurogenic claudication; M96.1 Postlaminectomy syndrome, not elsewhere classified; M17.0 Bilateral primary osteoarthritis of knee; Z87.891 Personal history of nicotine dependence; Z88.8 Allergy status to other drugs, medicaments and biological substances; Z91.048 Other nonmedicinal substance allergy status
CPT/HCPCS: 99211

== ENCOUNTER → 2023-10-14 | Outpatient (CLI) | payer MEDICARE | END | disposition home or self-care (01) | LOC: LABPRL 10:56 | PROVIDERS: ATTEND Internal Medicine | DX: I10 Essential (primary) hypertension | CPT/HCPCS: 80053; 80061; 82306; 83036; 83735; 84443; 84550; 85025 ==

== ENCOUNTER → 2023-11-27 | Outpatient (CLI) | payer MEDICARE ==
[2023-11-27 12:49] VITALS: BP 127/64; PULSE 69; RESP 16; TEMP 97.1
--- NOTE | 2023-11-27 13:26 | P.PAINPG ---
Objective - Vital Signs Vital signs: Intake & Output 11/26/23 11/27/23 11/27/23 18:59 06:59 18:59 Weight 79.832 kg PQRS Measure Charge Sheet Comment: HISTORY OF PRESENT ILLNESS: A 87 yr old wheelchair bound male w at side presents today w severe and chronic LBP > 1 yr secondary to L5-S1 post laminectomy syndrome for evaluation. Pt states pain level is provoked at 8 /10 in intensity, intermittent, localized in the mid to lower lumbar spine, predominantly axial, burning in character w occasional shooting pain L & R of midline. Pain is provoked by standing > 3 min. Pain is alleviated by PT x 8 wks in Mar-Apr 2023 & July-Aug 2023, physician guided stretches daily since Apr 2023, use of TENS unit at home, use of a wheelchair for ambulatory assistance, injections, heat, ice, medications, topical, repositioning, reclining and rest. Interventional procedures include BL SI x1 (Mar 2023), R TFESI L5-S1 x2 (05/03, 09/30) Medications include Ibu, [place] 7.5/325mg #[address] Bautista REVIEW OF ORGAN SYSTEMS: CONSTITUTIONAL: No fevers or chills. No recent weight loss. NEUROLOGICAL: + numbness and tingling along the distal extremities. No seizure disorders or headaches. MUSCULOSKELETAL: + pain PSYCHIATRIC: Denies current depression or suicidal thoughts. Physical Examinations : Constitutional : Cooperative , not in acute distress . Neurologic : Cranial nerve II to XII intact. No focal neurological deficits. Psychiatric : alert & oriented x 3. Matching mood & appropriate affect. Judgment & insight intact. Musculoskeletal : Cervical Spine Motor strength in the deltoid and biceps: Normal right side. Normal Left side Motor strength biceps and the wrist extensors: Normal right side . Normal left side Motor strength in the triceps muscle: Normal right side. Normal left side Deep tendon reflexes: Normal at the biceps. Normal at Brachioradialis. Normal at triceps Vertebral body tenderness to deep palpation over Cervical facet loading test: positive bilaterally Spurling test: positive bilaterally Neck distraction test: positive bilaterally Rich sign: positive bilaterally Lumbar spine Motor strength lower extremities ,thigh and legs 5/5 Right side , 5/5 Left side Deep tendon reflexes : Normal Knee Jerk. Normal Ankle Jerk Vertebral body tenderness over L5 Gregorio Test positive L5-S1 R> L Lumbar facet Loading Test: positive Right / positive Left L4-L5 Range of motion of the lumbar spine Flexion 30 degrees, extension 10 degrees Straight Leg Raise test: Left/ Right positive at degree Julio test: positive right / positive left. Severe tenderness over the Sacroiliac joint on the Right / Left sides Gaenslen test: positive bilaterally Seated flexion test: positive bilaterally. Sacral spine : Severe tenderness over the Sacroiliac joint: right side / left side Range of motion: Flexion of the lumbar spine <60 degrees Range of motion: Extension of the lumbar spine <20 degrees Gaenslen's Test positive Jose's Test positive Julio test: positive right side / left side Thigh Thrust Test Sacral Thrust Test Imaging: CT non contrast of the lumbar spine from 11/13/22 reviewed X-ray BL knees from 12/23/22 reviewed Assessment/ Plan : Lumbar stenosis, Lumbar radiculopathy, L5-S1 post laminectomy syndrome, BL knee OA Recommendation of BL MBB L4-l5 #1. Risks, benefits of procedure discussed and pt verbalized understanding. Protocol for discontinuation/ continuation of medications lisa procedure discussed. Disinterested in [place] at this time. Minimal anesthesia including Fentanyl and Versed if clinically indicated. Pt and at side acknowledged understanding. All questions answered. I have spent greater than 30 minutes on patient care today. Dr Saunders was available by phone for the evaluation of this patient. The time was used to review the medical records including relevant urine studies and Prescription history (MAPs), review of the available imaging, evaluation and examination of the patient, coordination of care with the medical staff and if applicable referring physicians, as well as creation of the medical record PQRS Narrative: Smoking Status Former smoker Hx Alcohol Use (MH) No Home Medications: Ambulatory Orders Pravastatin Sodium [Pravachol] 80 mg PO HS 09/26/14 Aspirin [Adult Low Dose Aspirin EC] 81 mg PO HS 09/07/20 Cholecalciferol [Vitamin D3 (25 Mcg = 1000 Iu)] 25 mcg PO DAILY 09/07/20 Tamsulosin [Flomax] 0.4 mg PO HS 09/07/20 Biotin [Biotin Disolve] 10,000 mcg PO DAILY 02/14/23 Docusate [Colace] 300 mg PO DAILY PRN 02/14/23 HYDROcodone/APAP 10-325MG [[place] 10-325] 1 tab PO Q12H PRN 02/14/23 Vit C/E/Zn/Coppr/Lutein/Zeaxan [Preservision Areds 2 Softgel] 1 cap PO BID 02/14/23 levETIRAcetam [Keppra] 500 mg PO Q12H 02/14/23 Co Q-10 200mg 1 cap PO DAILY 02/28/23 Isosorbide Mononitrate [Isosorbide Mononitrate ER] 30 mg PO DAILY 03/28/23 Lactulose 15 gm PO BID PRN 03/28/23 Sennosides/Docusate Sodium [Senna Plus 8.6-50 mg Softgel] 2 tab PO DAILY 03/28/23 Vitamin B-12 (Unknown Dose) 1 tab PO DAILY 03/28/23 diazePAM [Valium] 5 - 10 mg PO DAILY PRN 03/28/23 Sennosides [Senokot] 8.6 mg PO BID PRN 30 Days #60 tablet 07/17/23 Amitriptyline HCl [Elavil] 25 mg PO HS 30 Days #30 tablet 08/27/23 Controlled Substance Measures - Controlled Substance Measures Is patient prescribed a controlled substance at discharge?: No
== END ==
LOC: PNWHC3 12:10
PROVIDERS: ATTEND Specialist
DX: M54.16 Radiculopathy, lumbar region
CPT/HCPCS: 99211

== ENCOUNTER → 2023-12-30 | Day surgery (SDC) | payer MEDICARE ==
[2023-12-25 12:54] VITALS: BMI 25.2
[~2023-12-30] MED LIST changes: -LACTATED RINGERS 1,000 ML IV SCH; +MIDAZOLAM 2 MG/2 ML VIAL ONE; +ROPIVACAINE 5MG/ML 20ML VIAL ONE; +fentaNYL (PF) 50 MCG/ML 2 ML AMP ONE
[2023-12-30 07:11] VITALS: RESP 16; TEMP 97.5
[2023-12-30] MEDS: IV FLUID CONTINUATION 1,000 ML IV ONE ×2 (07:20→07:45)
[2023-12-30] MEDS: LACTATED RINGERS 1,000 ML IV SCH (07:20)
--- NOTE | 2023-12-30 07:41 | P.PCN ---
Date of Procedure: 12/30/23 Procedure(s) Performed: PREOPERATIVE DIAGNOSIS : 1- Lumbar spondylosis with Facet Arthropathy with out myelopathy . 2- Lumber degenerative disc disease POSTOPERATIVE DIAGNOSIS: 1- Lumbar spondylosis with Facet Arthropathy without myelopathy . 2- Lumber degenerative disc disease PROCEDURE: Diagnostic bilateral L3 , L4 medial branch block under fluoroscopy guidance(fluoroscopy images available in the radiology Department ) ( To target the facet joint between Bilateral L4-5 )#1st ANESTHESIA: moderate sedation with intravenous Versed 1 mg and Fentanyl 50 mcg. (Sedation start 07:29,end at 07:37 ) EBL: Minimal COMPLICATION: None PROCEDURE INDICATION: Chronic low back pain secondary to Facet arthropathy unresponsive to conservative treatment. PROCEDURE DESCRIPTION: the patient was seen and identified in the preop holding area , risks and benefits and possible complications of the procedure and alternative were discussed with the patient, and the patient agreed to proceed with the procedure and signed the consent and vital signs monitored during the procedure and fluoroscopy was used to maximize the benefit and accuracy of the needle placement, and sedation was given to decrease patient anxiety, patient was taken to the procedure room and placed in prone position vital signs monitored in the back prepped with chlorhexidine X3 then under strict sterile technique using a right oblique fluoroscopy ,the junction of the transverse process and the superior articulating process of the right L3 , L4 vertebra which corresponding to the fluoroscopy image of the eye of the Jv dog on the block side for the medial branches and subsequently , after local infiltration of skin and subcu tissuies with Ropivacaine 0.5 % , one mL at each level ,then 22-gauge Quincke-type needles , 3 needle was used , each one of them placed at the junction of the base of the transverse process and the superior articular process at the appropriate level, and the needle was advanced until the periosteum contacted, needle placement confirmed with AP oblique and lateral view and after appropriate needle placement confirmed, and after negative aspiration for heme and CSF and there was no paresthesia 1 mL of Ropiv acaine 0.5% , then half mL injected at each level after negative aspiration the needle subsequently removed and the same procedure repeated for the left side at left side at L3 , L4 levels. At the end of the procedure and the needles removed and a bandage applied after the skin was cleaned the cleaning solution patient taken to recovery room in stable condition and monitors in the recovery room for 20-30 minutes and discharged home in stable condition after discharge criteria met and patient will follow up with the pain clinic in 2-4 weeks
--- NOTE | 2023-12-30 07:57 | FL ---
Fluoroscopy History: Conrad Lumbar Facet CONRAD LUM FB INJ FL TIME 9.3 SECS DAP [id number] [facility], , 12/30/2023 7:55 AM
[2023-12-30 08:09] VITALS: BP 100/62; PULSE 63
== END ==
LOC: ORPAIN 06:14
PROVIDERS: ATTEND Specialist

== ENCOUNTER → 2024-01-06 | Outpatient (CLI) | payer MEDICARE ==
[2024-01-06 13:40] VITALS: BP 150/98; PULSE 62; RESP 16; TEMP 98.2
--- NOTE | 2024-01-06 16:19 | P.SLEEP ---
History of Present Illness H&P Date: 01/06/24 This is a 88-year-old male patient who was referred to me due to concerns of obstructive sleep apnea. 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 He is known to have multiple medical problems and comorbidities. Of significance, he is due to have coronary artery disease and the patient has undergone bypass surgery. He suffers from chronic back pain and the patient has undergone previous surgeries on his cervical spine and lumbar spine. Currently, his mobility is quite limited and the patient is walking well with the help of a cane. He is also known to have hypertension, hyperlipidemia, and macular degeneration and skin cancer. He has had a single episode of seizure more than 30 years ago and the patient is currently on Keppra. In regards to his sleep schedule, the patient goes to bed early at around 6 PM. He gets out of bed at around 4 AM in the morning. He sleeps solid for several hours and after 1 AM, his sleep becomes more fragmented. He sleeps in different body positions as the patient has difficulties in getting himself comfortable. She is a mouth breather and he has a dry mouth in the morning. He is curren has been diagnosed having obstructive sleep apnea more than 30 years ago. The patient was given CPAP therapy which she used for a total of 4 to 5 years. The treatment itself was uncomfortable and not attractive to the patient and he ended up quitting the treatment. During that time, he the patient did not see any major improvement in sleep quality. He has no issues with memory or concentration. He does not fall asleep during day-to-day activities. His weight has remained stable over the years. He does have nocturnal arousals mainly to urinate. Does not wake up choking or gasping for air. No nighttime chest pain shortness of breath or heartburn. No sleep paralysis. No hallucinations. No cataplexy. No sleepwalking. No other complaints. Review of Systems Constitutional: Reports fatigue Eyes: denies as per HPI, denies blurred vision, denies bulging eye, denies decreased vision, denies diplopia, denies discharge, denies dry eye, denies irritation, denies itching, denies pain, denies photophobia, denies loss of peripheral vision, denies loss of vision, denies tunnel vision/blind spots Ears: deny: decreased hearing, ear discharge, earache, tinnitus Ears, nose, mouth and throat: Reports as per HPI Breasts: absent: as per HPI, gynecomastia Cardiovascular: Reports as per HPI Respiratory: Reports as per HPI, Reports snoring Genitourinary: Reports as per HPI Musculoskeletal: Reports gait dysfunction, Reports low back pain, Reports neck stiffness Musculoskeletal: absent: ankle pain, ankle stiffness, ankle swelling, as per HPI, elbow pain, elbow stiffness, elbow swelling, foot pain, foot stiffness, foot swelling, hand pain, hand stiffness, hand swelling, hip pain, hip stiffness, hip swelling, knee pain, knee stiffness, knee swelling, shoulder pain, shoulder stiffness, shoulder swelling, wrist pain, wrist stiffness, wrist swelling Integumentary: Reports as per HPI Neurological: Reports as per HPI Psychiatric: Reports as per HPI, Reports sleep disturbances Endocrine: Reports as per HPI, Reports fatigue Hematologic/Lymphatic: Reports as per HPI Allergic/Immunologic: Reports as per HPI Past Medical History Past Medical History: Cancer, Chest Pain / Angina, Eye Disorder, Hyperlipidemia, Hypertension, Musculoskeletal Disorder, Prostate Disorder, Seizure Disorder, Sle ep Apnea/CPAP/BIPAP Additional Past Medical History / Comment(s): "Get rash on joints, dry skin" Bladder Infection/Sepsis, hospitalized 02/28/23-03/04/23. macular degeneration in right eye. Chronic pain. 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 Orthostatic hypotension- one incident. Spinal Stenosis. Constipation. HX OF 1 SEIZURE APPROX 30 YRS AGO. No CPAP use. "Silent heart attack" History of Any Multi-Drug Resistant Organisms: None Reported Past Surgical History: Appendectomy, Back Surgery, Coronary Bypass/CABG, Ortho pedic Surgery Additional Past Surgical History / Comment(s): Lithotripsy of kidney stone LEFT ANKLE ACHEILLES TENDON, BACK SURGERIES, CERVICAL SPINE SURGERY WITH HARDWARE, CA RPAL TUNNEL SURGERY, NERVE STIMULATOR PLACED LEFT HIP([employer])- not active at this time-still in lt hip. Past Anesthesia/Blood Transfusion Reactions: No Reported Reaction, Postoperative Nausea & Vomiting (PONV) Past Psychological History: No Psychological Hx Reported Smoking Status: Former smoker Past Alcohol Use History: Rare Additional Past Alcohol Use History / Comment(s): Patient was a smoker of one pack per day for 25-30 years, quit more than 30 years ago. Past Drug Use History: None Reported - Past Family History Father Family Medical History: Coronary Artery Disease (CAD) Additional Family Medical History / Comment(s): Father at age 92. Brother(s) Family Medical History: Cancer Additional Family Medical History / Comment(s): Patient has total of 3 brothers one has from Parkinson's, 1 from old age and one with throat cancer. Sister(s) Family Medical History: Cancer Additional Family Medical History / Comment(s): Patient has one sister that from cancer with history of smoking and one at age 40 from a brain aneurysm. Patient has a total of 4 children. 3 sons, one has bipolar disorder. One daughter with no major medical problems. Mother Family Medical History: No Reported History Additional Family Medical History / Comment(s): Mother at age 76 with heart disease. Medications and Allergies Home Medications Medication Instructions Recorded Confirmed Type Pravastatin Sodium [Pravachol] 80 mg PO HS 09/26/14 01/06/24 History Aspirin [Adult Low Dose Aspirin EC] 81 mg PO HS 09/07/20 01/06/24 History Cholecalciferol [Vitamin D3 (25 25 mcg PO DAILY 09/07/20 01/06/24 History Mcg = 1000 Iu)] Tamsulosin [Flomax] 0.4 mg PO HS 09/07/20 01/06/24 History Biotin [Biotin Disolve] 10,000 mcg PO DAILY 02/14/23 01/06/24 History Docusate [Colace] 300 mg PO DAILY PRN 02/14/23 01/06/24 History Vit C/E/Zn/Coppr/Lutein/Zeaxan 1 cap PO BID 02/14/23 01/06/24 History [Preservision Areds 2 Softgel] levETIRAcetam [Keppra] 500 mg PO Q12H 02/14/23 01/06/24 History Co Q-10 200mg 1 cap PO DAILY 02/28/23 01/06/24 History Isosorbide Mononitrate [Isosorbide 30 mg PO DAILY 03/28/23 01/06/24 History Mononitrate ER] Sennosides/Docusate Sodium [Senna 2 tab PO DAILY 03/28/23 12/30/23 History Plus 8.6-50 mg Softgel] Vitamin B-12 (Unknown Dose) 1 tab PO DAILY 03/28/23 01/06/24 History Sennosides [Senokot] 8.6 mg PO BID PRN 30 Days #60 07/17/23 01/06/24 Rx tablet Finasteride [Proscar] 5 mg PO HS 12/25/23 01/06/24 History lisinopriL [Zestril] 2.5 mg PO DAILY 12/25/23 01/06/24 History Allergies Allergy/AdvReac Type Severity Reaction Status Date / Time propoxyphene napsylate AdvReac Unknown Nausea & Verified 12/30/23 06:58 [From Darvocet-N 100] Vomiting Surgical Tape Allergy Severe Blisters Uncoded 12/30/23 06:58 Physical Exam Vitals: Vital Signs Temp Pulse Resp BP Pulse Ox 01/06/24 13:34 98.2 F 62 16 150/98 96 Intake and Output 01/06/24 01/06/24 01/06/24 06:59 14:59 22:59 Other: Weight 83.007 kg The patient appeared well nourished and normally developed. Vital signs as documented. Head exam is unremarkable. No scleral icterus or corneal arcus noted. Neck is without jugular venous distension, thyromegaly, or carotid bruits. Carotid upstrokes are brisk bilaterally. Mallampati class IV with crowding of the posterior pharynx Lungs are clear to auscultation and percussion. Thoracotomy scar over the anterior chest. Cardiac exam reveals the PMI to be normally sized and situated. Rhythm is regular. First and second heart sounds normal. No murmurs, rubs or gallops. Abdominal exam reveals normal bowel sounds, no masses, no organomegaly and no aortic enlargement. Extremities are nonedematous and both femoral and pedal pulses are normal. Examination of the skin revealed no evidence of significant rashes, suspicious appearing nevi or other concerning lesions. Neurologically, the patient is awake and alert and the patient does not have any focal neurological deficit. Cranial nerves are essentially intact. Weakness in lower extremities and difficulties with gait and mobility and the patient walks around with the help of a cane. Assessment and Plan Plan: Obstructive sleep apnea, history of, and the patient has been diagnosed having CÉSAR more than 30 years ago and was treated with CPAP therapy for a total of 45 years. Treatments have has not been satisfactory as the patient has not seen major improvement in sleep quality while being on treatment and the patient has pretreatment since then. For now, he is still having some snoring. Nevertheless, as he retired, he has developed an advanced sleep phase syndrome and the patient is spending more than 10 hours in bed which obviously has resulted into a poor sleep efficiency. He does have multiple comorbidities affecting his sleep quality and maintenance most significant of which is pain as the patient has chronic degenerative arthritis and spinal stenosis with ongoing pain in his back. My overall suspicion for a clinically significant sleep breathing disorder remains low in this patient. Comorbidities include hypertension, hyperlipidemia, BPH, and coronary artery disease with previous bypass surgery. Plan Will do a home sleep study to reevaluate the presence and severity of sleep apnea. Based on that, we will make a decision if treatment will be of any value for this patient. I think his sleep is fragmented as the patient has developed an advanced sleep phase syndrome in addition to various other comorbidities disrupting his sleep including chronic pain. Will work on optimizing sleep hygiene measures. Will work on maintaining regular sleep schedule and timing. Will continue to follow. Sleep Note - Sleep Data ESS Total: 2 - Sleep Note Sleep Note: Temperature: 98.2 F Pulse Rate: 62 Respiratory Rate: 16 Blood Pressure: 150/98 SpO2: 96 Height: 5 ft 5.2 in Weight: 83.007 kg BMI: Neck Circumference: 15.5
== END ==
LOC: 3 N SLEEP 13:06
PROVIDERS: ATTEND Internal Medicine Critical Care Medicine
CPT/HCPCS: 99211

== ENCOUNTER → 2024-01-14 | Outpatient (CLI) | payer MEDICARE ==
--- NOTE | 2024-01-23 10:26 | P.PCN ---
Date of Procedure: 01/15/24 Operative Findings: Patient home sleep study testing report Downloaded the home sleep study unit. No data was collected. This could be related to either machine dysfunction or patient inability to activate the machine properly. Plan Recommend repeating the study. If unable to perform a home sleep study, a overnight polysomnography will be ordered.
== END ==
LOC: 3 N SLEEP 11:08
PROVIDERS: ATTEND Internal Medicine Critical Care Medicine
DX: G47.33 Obstructive sleep apnea (adult) (pediatric) (principal); Z88.5 Allergy status to narcotic agent; Z91.048 Other nonmedicinal substance allergy status; Z87.891 Personal history of nicotine dependence

== ENCOUNTER → 2024-01-15 | Outpatient (CLI) | payer MEDICARE ==
[2024-01-15 08:10] VITALS: BP 116/61; PULSE 64; RESP 16
--- NOTE | 2024-01-15 14:53 | P.PAINPG ---
PQRS Measure Charge Sheet Comment: HISTORY OF PRESENT ILLNESS: A 88 yr old wheelchair bound male w at side presents today w severe and chronic LBP > 1 yr secondary to L5-S1 post laminectomy syndrome for evaluation s/p BL MBB L4-L5 #1. Pt states he experienced 90 % pain relief x 3 days s/p procedure. Pt states pain level is provoked at 8 /10 in intensity, intermittent, localized in the mid to lower lumbar spine, predominantly axial, burning in character w occasional shooting pain L & R of midline. Pain is provoked by standing > 3 min. Pain is alleviated by PT x 8 wks in Mar-Apr 2023 & July-Aug 2023, physician guided stretches daily since Apr 2023, use of TENS unit at home, use of a wheelchair for ambulatory assistance, injections, heat, ice, medications, topical, repositioning, reclining and rest. Interventional procedures include BL SI x1 (Mar 2023), R TFESI L5-S1 x2 (05/03, 09/30), BL MBB L3-L5x1 Medications include Ibu, [place] 7.5/325mg #[address] Bautista REVIEW OF ORGAN SYSTEMS: CONSTITUTIONAL: No fevers or chills. No recent weight loss. NEUROLOGICAL: + numbness and tingling along the distal extremities. No seizure disorders or headaches. MUSCULOSKELETAL: + pain PSYCHIATRIC: Denies current depression or suicidal thoughts. Physical Examinations : Constitutional : Cooperative , not in acute distress . Neurologic : Cranial nerve II to XII intact. No focal neurological deficits. Psychiatric : alert & oriented x 3. Matching mood & appropriate affect. Judgment & insight intact. Musculoskeletal : Cervical Spine Motor strength in the deltoid and biceps: Normal right side. Normal Left side Motor strength biceps and the wrist extensors: Normal right side . Normal left side Motor strength in the triceps muscle: Normal right side. Normal left side Deep tendon reflexes: Normal at the biceps. Normal at Brachioradialis. Normal at triceps Vertebral body tenderness to deep palpation over Cervical facet loading test: positive bilaterally Spurling test: positive bilaterally Neck distraction test: positive bilaterally Rich sign: positive bilaterally Lumbar spine Motor strength lower extremities ,thigh and legs 5/5 Right side , 5/5 Left side Deep tendon reflexes : Normal Knee Jerk. Normal Ankle Jerk Vertebral body tenderness over L5 Gregorio Test positive L5-S1 R> L Lumbar facet Loading Test: positive Right / positive Left L4-L5 Range of motion of the lumbar spine Flexion 30 degrees, extension 10 degrees Straight Leg Raise test: Left/ Right positive at degree Julio test: positive right / positive left. Severe tenderness over the Sacroiliac joint on the Right / Left sides Gaenslen test: positive bilaterally Seated flexion test: positive bilater ally. Sacral spine : Severe tenderness over the Sacroiliac joint: right side / left side Range of motion: Flexion of the lumbar spine <60 degrees Range of motion: Extension of the lumbar spine <20 degrees Gaenslen's Test positive Jose's Test positive Julio test: positive right side / left side Thigh Thrust Test Sacral Thrust Test Imaging: CT non contrast of the lumbar spine from 11/13/22 reviewed X-ray BL knees from 12/23/22 reviewed Assessment/ Plan : Lumbar stenosis, Lumbar radiculopathy, L5-S1 post laminectomy syndrome, BL knee OA Recommendation of BL MBB L4-L5 #2. Risks, benefits of procedure discussed and pt verbalized understanding. Protocol for discontinuation/ continuation of medications lisa procedure discussed. Disinterested in [place] at this time. Minimal anesthesia including Fentanyl and Versed if clinically indicated. Pt and at side acknowledged understanding. All questions answered. I have spent greater than 30 minutes on patient care today. Dr Saunders was available by phone for the evaluation of this patient. The time was used to review the medical records including relevant urine studies and Prescription history (MAPs), review of the available imaging, evaluation and examination of the patient, coordination of care with the medical staff and if applicable referring physicians, as well as creation of the medical record PQRS Narrative: Smoking Status Former smoker Hx Alcohol Use (MH) No Home Medications: Ambulatory Orders Pravastatin Sodium [Pravachol] 80 mg PO HS 09/26/14 Aspirin [Adult Low Dose Aspirin EC] 81 mg PO HS 09/07/20 Cholecalciferol [Vitamin D3 (25 Mcg = 1000 Iu)] 25 mcg PO DAILY 09/07/20 Tamsulosin [Flomax] 0.4 mg PO HS 09/07/20 Biotin [Biotin Disolve] 10,000 mcg PO DAILY 02/14/23 Docusate [Colace] 300 mg PO DAILY PRN 02/14/23 Vit C/E/Zn/Coppr/Lutein/Zeaxan [Preservision Areds 2 Softgel] 1 cap PO BID 02/14 levETIRAcetam [Keppra] 500 mg PO Q12H 02/14/23 Co Q-10 200mg 1 cap PO DAILY 02/28/23 Isosorbide Mononitrate [Isosorbide Mononitrate ER] 30 mg PO DAILY 03/28/23 Sennosides/Docusate Sodium [Senna Plus 8.6-50 mg Softgel] 2 tab PO DAILY 03/28/23 Vitamin B-12 (Unknown Dose) 1 tab PO DAILY 03/28/23 Sennosides [Senokot] 8.6 mg PO BID PRN 30 Days #60 tablet 07/17/23 Finasteride [Proscar] 5 mg PO HS 12/25/23 lisinopriL [Zestril] 2.5 mg PO DAILY 12/25/23 Controlled Substance Measures - Controlled Substance Measures Is patient prescribed a controlled substance at discharge?: No
== END ==
LOC: PNWHC3 07:18
PROVIDERS: ATTEND Specialist
DX: M48.07 Spinal stenosis, lumbosacral region (principal); M47.26 Other spondylosis with radiculopathy, lumbar region; M96.1 Postlaminectomy syndrome, not elsewhere classified; M17.0 Bilateral primary osteoarthritis of knee; Z87.891 Personal history of nicotine dependence; Z88.8 Allergy status to other drugs, medicaments and biological substances; Z91.048 Other nonmedicinal substance allergy status
CPT/HCPCS: 99211

== ENCOUNTER 2024-01-23 06:28 | Day surgery (SDC) | payer MEDICARE ==
[2024-01-23] MEDS ORDERED: LACTATED RINGERS 1,000 ML IV SCH (07:19)
[2024-01-23 07:31] VITALS: RESP 18; TEMP 97.5
[2024-01-23] MEDS ORDERED: ROPIVACAINE 5MG/ML 20ML VIAL ONE (07:40)
--- NOTE | 2024-01-23 07:52 | P.PCN ---
Date of Procedure: 01/23/24 Procedure(s) Performed: PREOPERATIVE DIAGNOSIS : 1- Lumbar spondylosis with Facet Arthropathy without myelopathy . 2- Lumber degenerative disc disease POSTOPERATIVE DIAGNOSIS: 1- Lumbar spondylosis with Facet Arthropathy without myelopathy . 2- Lumber degenerative disc disease PROCEDURE: Diagnostic bilateral L3 , L4 medial branch block under fluoroscopy guidance(fluoroscopy images available in the radiology Department ) ( To target the facet joint between Bilateral L4-5 )#2nd ANESTHESIA: Local anesthesia only with ropivacaine 0.5% 4 mL for skin and subcu infiltration. EBL: Minimal COMPLICATION: None PROCEDURE INDICATION: Chronic low back pain secondary to Facet arthropathy unresponsive to conservative treatment. PROCEDURE DESCRIPTION: the patient was seen and identified in the preop holding area , risks and benefits and possible complications of the procedure and alternative were discussed with the patient, and the patient agreed to proceed with the procedure and signed the consent and vital signs monitored during the procedure and fluoroscopy was used to maximize the benefit and accuracy of the needle placement, no sedation was used as per patient request, patient was taken to the procedure room and placed in prone position vital signs monitored in the back prepped with chlorhexidine X3 then under strict sterile technique using a right oblique fluoroscopy ,the junction of the transverse process and the superior articulating process of the right L3 , L4 vertebra which corresponding to the fluoroscopy image of the eye of the Jv dog on the block side for the medial branches and subsequently , after local infiltration of skin and subcu tissuies with Ropivacaine 0.5 % , one mL at each level ,then 22-gauge Quincke-type needles , 2 needle was used , each one of them placed at the junction of the base of the transverse process and the superior articular process at the appropriate level, and the needle was advanced until the periosteum contacted, needle placement confirmed with AP oblique and lateral view and after appropriate needle placement confirmed, and after negative aspiration for heme and CSF and there was no paresthesia 1 mL of Ropivacaine 0.5% , then half mL injected at each level after negative aspiration the needle subsequently removed and the same procedure repeated for the left side at left side at L3 , L4 levels. At the end of the procedure and the needles removed and a bandage applied after the skin was cleaned the cleaning solution patient taken to recovery room in stable condition and monitors in the recovery room for 20-30 minutes and discharged home in stable condition after discharge criteria met and patient will follow up with the pain clinic in 1-2 weeks
[2024-01-23 07:57] VITALS: BP 143/81; PULSE 64
--- NOTE | 2024-01-23 08:55 | FL ---
EXAMINATION TYPE: FL guided pain mgmt statistic DATE OF EXAM: 01/23/2024 8:24 AM COMPARISON: Pre Operative Images if available both CT/MRI or plain film CLINICAL INDICATION: Male, 88 years old with history of PAIN; TECHNIQUE: FL guided pain mgmt statistic, multiple fluoroscopic images provided for procedure. Total fluoroscopy time: 15.1 seconds Total submitted images to PACS: 4 DAP: 0.03042 mGym2 Gycm2 uGym2 cGycm2 or equivalent. FINDINGS: Fluoroscopic images during injection for pain management demonstrate multilevel degeneration changes throughout the spine. No evidence for fracture. No acute process identified. IMPRESSION: 1. No evidence for intraoperative complication. 2. Please see the operative/procedural note for further details. [facility], , 01/23/2024 8:52 AM
== END 2024-01-23 08:19 | disposition home or self-care (01) ==
LOC: ORPAIN 06:28
PROVIDERS: ATTEND Specialist
DX: M47.816 Spondylosis without myelopathy or radiculopathy, lumbar region (principal); L23.1 Allergic contact dermatitis due to adhesives
CPT/HCPCS: 64493; J2795

== ENCOUNTER → 2024-02-11 | Outpatient (CLI) | payer MEDICARE ==
[2024-02-11 08:19] VITALS: BP 115/58; PULSE 64; RESP 16
--- NOTE | 2024-02-11 14:59 | P.PAINPG ---
PQRS Measure Charge Sheet Comment: HISTORY OF PRESENT ILLNESS: A 88 yr old wheelchair bound male w at side presents today w severe and chronic LBP > 1 yr secondary to L5-S1 post laminectomy syndrome for evaluation s/p BL MBB L4-L5 #2. Pt states he experienced 90 % pain relief x 3 days s/p procedure. Pt states pain level is provoked at 8 /10 in intensity, intermittent, localized in the mid to lower lumbar spine, predominantly axial, burning in character w occasional shooting pain L & R of midline. Pain is provoked by standing > 3 min. Pain is alleviated by PT x 8 wks in Mar-Apr 2023 & July-Aug 2023, physician guided stretches daily since Apr 2023, use of TENS unit at home, use of a wheelchair for ambulatory assistance, injections, heat, ice, medications, topical, repositioning, reclining and rest. Interventional procedures include BL SI x1 (Mar 2023), R TFESI L5-S1 x2 (05/03, 09/30), BL MBB L3-L5 x2 Medications include Ibu, [place] 7.5/325mg #[address] Bautista REVIEW OF ORGAN SYSTEMS: CONSTITUTIONAL: No fevers or chills. No recent weight loss. NEUROLOGICAL: + numbness and tingling along the distal extremities. No seizure disorders or headaches. MUSCULOSKELETAL: + pain PSYCHIATRIC: Denies current depression or suicidal thoughts. Physical Examinations : Constitutional : Cooperative , not in acute distress . Neurologic : Cranial nerve II to XII intact. No focal neurological deficits. Psychiatric : alert & oriented x 3. Matching mood & appropriate affect. Judgment & insight intact. Musculoskeletal : Cervical Spine Motor strength in the deltoid and biceps: Normal right side. Normal Left side Motor strength biceps and the wrist extensors: Normal right side . Normal left side Motor strength in the triceps muscle: Normal right side. Normal left side Deep tendon reflexes: Normal at the biceps. Normal at Brachioradialis. Normal at triceps Vertebral body tenderness to deep palpation over Cervical facet loading test: positive bilaterally Spurling test: positive bilaterally Neck distraction test: positive bilaterally Rich sign: positive bilaterally Lumbar spine Motor strength lower extremities ,thigh and legs 5/5 Right side , 5/5 Left side Deep tendon reflexes : Normal Knee Jerk. Normal Ankle Jerk Vertebral body tenderness over L5 Gregorio Test positive L5-S1 R> L Lumbar facet Loading Test: positive Right / positive Left L4-L5 Range of motion of the lumbar spine Flexion 30 degrees, extension 10 degrees Straight Leg Raise test: Left/ Right positive at degree Julio test: positive right / positive left. Severe tenderness over the Sacroiliac joint on the Right / Left sides Gaenslen test: positive bilaterally Seated flexion test: positive bilate rally. Sacral spine : Severe tenderness over the Sacroiliac joint: right side / left side Range of motion: Flexion of the lumbar spine <60 degrees Range of motion: Extension of the lumbar spine <20 degrees Gaenslen's Test positive Jose's Test positive Julio test: positive right side / left side Thigh Thrust Test Sacral Thrust Test Imaging: CT non contrast of the lumbar spine from 11/13/22 reviewed X-ray BL knees from 12/23/22 reviewed Assessment/ Plan : Lumbar stenosis, Lumbar radiculopathy, L5-S1 post laminectomy syndrome, BL knee OA Recommendation of BL RFA L4-L5. Risks, benefits of procedure discussed and pt verbalized understanding. Protocol for discontinuation/ continuation of medications lisa procedure discussed. Disinterested in [place] at this time. Minimal anesthesia including Fentanyl and Versed if clinically indicated. Pt and at side acknowledged understanding. All questions answered. I have spent greater than 30 minutes on patient care today. Dr Saunders was available by phone for the evaluation of this patient. The time was used to review the medical records including relevant urine studies and Prescription history (MAPs), review of the available imaging, evaluation and examination of the patient, coordination of care with the medical staff and if applicable referring physicians, as well as creation of the medical record PQRS Narrative: Smoking Status Former smoker Hx Alcohol Use (MH) No Home Medications: Ambulatory Orders Pravastatin Sodium [Pravachol] 80 mg PO HS 09/26/14 Aspirin [Adult Low Dose Aspirin EC] 81 mg PO HS 09/07/20 Cholecalciferol [Vitamin D3 (25 Mcg = 1000 Iu)] 25 mcg PO DAILY 09/07/20 Tamsulosin [Flomax] 0.4 mg PO HS 09/07/20 Biotin [Biotin Disolve] 10,000 mcg PO DAILY 02/14/23 Docusate [Colace] 300 mg PO DAILY PRN 02/14/23 Vit C/E/Zn/Coppr/Lutein/Zeaxan [Preservision Areds 2 Softgel] 1 cap PO BID 02/14/23 levETIRAcetam [Keppra] 500 mg PO Q12H 02/14/23 Co Q-10 200mg 1 cap PO DAILY 02/28/23 Isosorbide Mononitrate [Isosorbide Mononitrate ER] 30 mg PO DAILY 03/28/23 Vitamin B-12 (Unknown Dose) 1 tab PO DAILY 03/28/23 Sennosides [Senokot] 8.6 mg PO BID PRN 30 Days #60 tablet 07/17/23 Finasteride [Proscar] 5 mg PO HS 12/25/23 lisinopriL [Zestril] 2.5 mg PO DAILY 12/25/23 Carbamide Peroxide [Debrox Otic] 5 drops BOTH EARS BID PRN 01/21/24 methocarbamoL 750 mg PO TID 01/23/24 Controlled Substance Measures - Controlled Substance Measures Is patient prescribed a controlled substance at discharge?: No
== END ==
LOC: PNWHC3 07:24
PROVIDERS: ATTEND Specialist
DX: M96.1 Postlaminectomy syndrome, not elsewhere classified (principal); M48.061 Spinal stenosis, lumbar region without neurogenic claudication; M17.0 Bilateral primary osteoarthritis of knee; M54.16 Radiculopathy, lumbar region; Z87.891 Personal history of nicotine dependence; Z88.8 Allergy status to other drugs, medicaments and biological substances; Z91.048 Other nonmedicinal substance allergy status
CPT/HCPCS: 99211

== ENCOUNTER 2024-03-16 05:58 | Day surgery (SDC) | payer MEDICARE ==
[2024-03-16 06:55] VITALS: TEMP 97.9
[2024-03-16] MEDS: SODIUM CHLORIDE 0.9% 250 ML IV ONE (06:59)
[2024-03-16] MEDS ORDERED: fentaNYL (PF) 50 MCG/ML 2 ML AMP ONE (07:15)
[2024-03-16] MEDS ORDERED: ROPIVACAINE 5MG/ML 20ML VIAL ONE (07:15)
[2024-03-16] MEDS ORDERED: ONDANSETRON 4 MG/2 ML VIAL ONE (07:15)
[2024-03-16] MEDS ORDERED: LACTATED RINGERS 1,000 ML IV SCH (07:15)
[2024-03-16] MEDS ORDERED: MIDAZOLAM 2 MG/2 ML VIAL ONE (07:15)
[2024-03-16] MEDS: IV FLUID CONTINUATION 500 ML IV ONE (07:56)
[2024-03-16 07:59] VITALS: PULSE 59; RESP 16
--- NOTE | 2024-03-16 08:00 | P.PCN ---
Description of Procedure: Preprocedure diagnosis. 1. Lumbar spondylosis with facet joint arthropathy without myelopathy. 2. Lumbar degenerative disc disease. Procedure diagnosis. 1. Lumbar spondylosis with facet joint arthropathy without myelopathy. Space 2. Lumbar degenerative disc disease. Procedure.Bilateral radiofrequency thermocoagulation L3, L4 medial branch, with fluoroscopic guidance (fluoroscopy images are available in the radiology department) (to Denervate the facet joint at bilateral L4- 5 levels) Anesthesia. Moderate sedation with intravenous Versed 2 mg and fentanyl 100 g and local infiltration with Lidocaine. Continuous pulse OX,BP,EKG and verbal communication was maintained with patient. Time. EBL minimal. Procedure indication. The patient with low back pain secondary to lumbar facet arthropathy who he had more than 50% relief of her pain with previous diagnostic lumbar medial branch block with local anesthetics.The patient was seen and identified in the preoperative area. Risks: Benefits, complications, including but not limited to risk of infection, bleeding, ALLERGIC reaction to the medications and no complete pain relief and alternatives were discussed with the patient, the patient admitted to proceed with the procedure and signed the consent. Procedure description/technique. Patient was taken to the OR and timeout was completed. The patient was placed in prone position on the procedure table. The lumbar area was prepped and draped in the usual sterile fashion. After injecting 5 ml of 1% Lidocaine subcutaneously,using AP and then oblique, lateral view of fluoroscopy, 18-gauge 100 mm radiofrequency cannula with a 10 mm active tip was advanced and guided by fluoroscopy at the junction of supirior articular process with RIGHT transverse process of L4&L5. Each site then underwent positive sensory testing with 50 Hz and 0-1 V and negative motor testing at 2.5 Hz and 0-3 V with local stimulation but no radicular symptoms down the leg. Thereafter each sites underwent radiofrequency thermocoagulation at 80C for 90 seconds after injecting 1 mL of preservative-free 0.5% ropivacain e. Repeat radiofrequency ablation was done at each points after rotating the needle 180 with same setting. This same procedure was repeated twice on the LEFT side at the junction of superior articular process with transverse process of L4, L5 with the same settings after positive sensory,negative motor stimulation and infiltration of 1.0 ml 5% Ropivacaine at each site . RF needles were taken out. At the end of the procedure the skin was cleansed and Band-Aids were applied. Disposition patient tolerated the procedure well. No complication. She was placed in supine position and transferred to the recovery area in stable condition for observation and was discharged home from recovery room after meeting discharge criteria. Discharge instructions given to the patient by the staff. The patient were examined prior to discharge the patient will schedule a follow-up in the clinic in 2-4 weeks.
[2024-03-16 08:16] VITALS: BP 108/60
--- NOTE | 2024-03-16 08:53 | FL ---
EXAMINATION TYPE: FL guided pain mgmt statistic DATE OF EXAM: 03/16/2024 FLUOROSCOPY RF LUMBAR 58.7 FL 0.96337 DAP 4 images are submitted. [facility], Workstation: [employer], 03/16/2024 8:51 AM
== END 2024-03-16 08:51 | disposition home or self-care (01) ==
LOC: ORPAIN 05:58
PROVIDERS: ATTEND Pain Medicine Interventional Pain Medicine
DX: M47.816 Spondylosis without myelopathy or radiculopathy, lumbar region (principal); M51.369 Other intervertebral disc degeneration, lumbar region without mention of lumbar back pain or lower extremity pain; Z79.899 Other long term (current) drug therapy; Z88.8 Allergy status to other drugs, medicaments and biological substances; Z91.048 Other nonmedicinal substance allergy status
CPT/HCPCS: 64635; 99152; 99153; J2250; J2405; J3010; J2795

== ENCOUNTER → 2024-04-05 | Outpatient (CLI) | payer MEDICARE ==
[2024-04-05 09:52] VITALS: BP 112/72; PULSE 62; RESP 14; TEMP 98.6
--- NOTE | 2024-04-05 14:55 | P.PAINPG ---
PQRS Measure Charge Sheet Comment: HISTORY OF PRESENT ILLNESS: A 88 yr old wheelchair bound male w at side presents today w severe and chronic LBP > 1 yr secondary to L5-S1 post laminectomy syndrome for evaluation s/p BL RFA L4-L5. Pt states he experienced 50 % pain relief s/p procedure. Pt states pain level is provoked at 4 /10 in intensity, intermittent, localized in the mid to lower lumbar spine, predominantly axial, burning in character w occasional shooting pain L & R of midline. Pain is provoked by standing > 3 min. Pain is alleviated by PT x 8 wks in Mar-Apr 2023 & July-Aug 2023, physician guided stretches daily since Apr 2023, use of TENS unit at home, use of a wheelchair for ambulatory assistance, injections, heat, ice, medications, topical, repositioning, reclining and rest. Interventional procedures include BL SI x1 (Mar 2023), R TFESI L5-S1 x2 (05/03, 09/30), BL RFA L4-L5 (Mar 2024) Medications include Ibu, [place] 7.5/325mg #[address] Bautista REVIEW OF ORGAN SYSTEMS: CONSTITUTIONAL: No fevers or chills. No recent weight loss. NEUROLOGICAL: + numbness and tingling along the distal extremities. No seizure disorders or headaches. MUSCULOSKELETAL: + pain PSYCHIATRIC: Denies current depression or suicidal thoughts. Physical Examinations : Constitutional : Cooperative , not in acute distress . Neurologic : Cranial nerve II to XII intact. No focal neurological deficits. Psychiatric : alert & oriented x 3. Matching mood & appropriate affect. Judgment & insight intact. Musculoskeletal : Cervical Spine Motor strength in the deltoid and biceps: Normal right side. Normal Left side Motor strength biceps and the wrist extensors: Normal right side . Normal left side Motor strength in the triceps muscle: Normal right side. Normal left side Deep tendon reflexes: Normal at the biceps. Normal at Brachioradialis. Normal at triceps Vertebral body tenderness to deep palpation over Cervical facet loading test: positive bilaterally Spurling test: positive bilaterally Neck distraction test: positive bilaterally Rich sign: positive bilaterally Lumbar spine Motor strength lower extremities ,thigh and legs 5/5 Right side , 5/5 Left side Deep tendon reflexes : Normal Knee Jerk. Normal Ankle Jerk Vertebral body tenderness over L5 Gregorio Test positive L5-S1 R> L Lumbar facet Loading Test: positive Right / positive Left L4-L5 Range of motion of the lumbar spine Flexion 30 degrees, extension 10 degrees Straight Leg Raise test: Left/ Right positive at degree Julio test: positive right / positive left. Severe tenderness over the Sacroiliac joint on the Right / Left sides Gaenslen test: positive bilaterally Seated flexion test: positive bilaterally. Sacral spine : Severe tenderness over the Sacroiliac joint: right side / left side Range of motion: Flexion of the lumbar spine <60 degrees Range of motion: Extension of the lumbar spine <20 degrees Gaenslen's Test positive Jose's Test positive Julio test: positive right side / left side Thigh Thrust Test Sacral Thrust Test Imaging: CT non contrast of the lumbar spine from 11/13/22 reviewed X-ray BL knees from 12/23/22 reviewed Assessment/ Plan : Lumbar stenosis, Lumbar radiculopathy, L5-S1 post laminectomy syndrome, BL knee OA Recommendation of PT intergrated w therapeutic massage x 6 wks M54.16. All questions answered. I have spent greater than 30 minutes on patient care today. Dr Saunders was available by phone for the evaluation of this patient. The time was used to review the medical records including relevant urine studies and Prescription history (MAPs), review of the available imaging, evaluation and examination of the patient, coordination of care with the medical staff and if applicable referring physicians, as well as creation of the medical record PQRS Narrative: Smoking Status Former smoker Hx Alcohol Use (MH) No Home Medications: Ambulatory Orders Pravastatin Sodium [Pravachol] 80 mg PO HS 09/26/14 Aspirin [Adult Low Dose Aspirin EC] 81 mg PO HS 09/07/20 Cholecalciferol [Vitamin D3 (25 Mcg = 1000 Iu)] 25 mcg PO DAILY 09/07/20 Tamsulosin [Flomax] 0.4 mg PO HS 09/07/20 Biotin [Biotin Disolve] 10,000 mcg PO DAILY 02/14/23 Docusate [Colace] 200 mg PO DAILY PRN 02/14/23 Vit C/E/Zn/Coppr/Lutein/Zeaxan [Preservision Areds 2 Softgel] 1 cap PO BID 02/14/23 levETIRAcetam [Keppra] 500 mg PO Q12H 02/14/23 Co Q-10 200mg 1 cap PO DAILY 02/28/23 Isosorbide Mononitrate [Isosorbide Mononitrate ER] 30 mg PO DAILY 03/28/23 Vitamin B-12 (Unknown Dose) 1 tab PO DAILY 03/28/23 Sennosides [Senokot] 8.6 mg PO BID PRN 30 Days #60 tablet 07/17/23 Finasteride [Proscar] 5 mg PO HS 12/25/23 lisinopriL [Zestril] 2.5 mg PO DAILY 12/25/23 Carbamide Peroxide [Debrox Otic] 5 drops BOTH EARS BID PRN 01/21/24 methocarbamoL 750 mg PO TID PRN 01/23/24 Controlled Substance Measures - Controlled Substance Measures Is patient prescribed a controlled substance at discharge?: No
== END ==
LOC: PNWHC3 07:30
PROVIDERS: ATTEND Specialist
DX: M48.061 Spinal stenosis, lumbar region without neurogenic claudication (principal); M54.16 Radiculopathy, lumbar region; M96.1 Postlaminectomy syndrome, not elsewhere classified; M19.90 Unspecified osteoarthritis, unspecified site; Z91.09 Other allergy status, other than to drugs and biological substances; Z88.8 Allergy status to other drugs, medicaments and biological substances; Z87.891 Personal history of nicotine dependence
CPT/HCPCS: 99212

== ENCOUNTER 2024-04-27 12:19 | Inpatient (IN) | payer MEDICARE ==
--- NOTE | 2024-04-27 12:36 | ED ---
General Adult HPI - General Stated complaint: Fall-Hip Injury Time Seen by Provider: 04/27/24 12:20 Source: patient, EMS, RN notes reviewed Mode of arrival: EMS Limitations: physical limitation - History of Present Illness Initial comments: 88-year-old male presents emergency department via EMS chief plaint of a fall. Patient complains of hip pain. Patient denies any head injury no loss conscious. Patient states that he was trying up a step with his cane states he slipped on the ice falling onto his right hip. Patient denies any head injury no loss conscious denies any upper back pain no upper extremity injuries. Patient states she has had a prior total hip replacement years ago by Dr. Ramon. Patient denies any other associated symptoms. - Related Data Home Medications Medication Instructions Recorded Confirmed Pravastatin Sodium [Pravachol] 80 mg PO HS 09/26/14 03/11/24 Aspirin [Adult Low Dose Aspirin EC] 81 mg PO HS 09/07/20 03/11/24 Cholecalciferol [Vitamin D3 (25 25 mcg PO DAILY 09/07/20 03/11/24 Mcg = 1000 Iu)] Tamsulosin [Flomax] 0.4 mg PO HS 09/07/20 03/11/24 Biotin [Biotin Disolve] 10,000 mcg PO DAILY 02/14/23 03/11/24 Docusate [Colace] 200 mg PO DAILY PRN 02/14/23 03/11/24 Vit C/E/Zn/Coppr/Lutein/Zeaxan 1 cap PO BID 02/14/23 03/11/24 [Preservision Areds 2 Softgel] levETIRAcetam [Keppra] 500 mg PO Q12H 02/14/23 03/11/24 Co Q-10 200mg 1 cap PO DAILY 02/28/23 03/11/24 Isosorbide Mononitrate [Isosorbide 30 mg PO DAILY 03/28/23 03/11/24 Mononitrate ER] Vitamin B-12 (Unknown Dose) 1 tab PO DAILY 03/28/23 03/11/24 Finasteride [Proscar] 5 mg PO HS 12/25/23 03/11/24 lisinopriL [Zestril] 2.5 mg PO DAILY 12/25/23 03/11/24 Carbamide Peroxide [Debrox Otic] 5 drops BOTH EARS BID PRN 01/21/24 03/11/24 methocarbamoL 750 mg PO TID PRN 01/23/24 03/11/24 Previous Rx's Medication Instructions Recorded Sennosides [Senokot] 8.6 mg PO BID PRN 30 Days #60 07/17/23 tablet Allergies Allergy/AdvReac Type Severity Reaction Status Date / Time propoxyphene napsylate AdvReac Unknown Nausea & Verified 04/27/24 12:30 [From Darvocet-N 100] Vomiting Surgical Tape Allergy Severe Blisters Uncoded 04/27/24 12:30 Review of Systems ROS Statement: Those systems with pertinent positive or pertinent negative responses have been documented in the HPI. ROS Other: All systems not noted in ROS Statement are negative. Past Medical History Past Medical History: Cancer, Chest Pain / Angina, Eye Disorder, Hyperlipidemia, Hypertension, Musculoskeletal Disorder, Prostate Disorder, Seizure Disorder, Sleep Apnea/CPAP/BIPAP Additional Past Medical History / Comment(s): "Get rash on joints, dry skin" Bladder Infection/Sepsis, hospitalized 02/28/23-03/04/23. macular degeneration in right eye. Chronic pain. 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 Orthostatic hypotension - one incident. Spinal Stenosis. Constipation. HX OF 1 SEIZURE APPROX 30 YRS AGO, also thought to have had a seizure 2020,No CPAP use. "Silent heart attack" History of Any Multi-Drug Resistant Organisms: None Reported Past Surgical History: Appendectomy, Back Surgery, Coronary Bypass/CABG, Joint Replacement, Orthopedic Surgery Additional Past Surgical History / Comment(s): Lithotripsy of kidney stone, LEFT ANKLE ACHILLES TENDON, BACK SURGERIES, CERVICAL SPINE SURGERY WITH HARDWARE, CARPAL TUNNEL SURGERY, NERVE STIMULATOR PLACED LEFT HIP([employer])- not active at this time-still in lt hip. Rt. TKA Past Anesthesia/Blood Transfusion Reactions: No Reported Reaction, Postoperative Nausea & Vomiting (PONV) Additional Past Anesthesia/Blood Transfusion Reaction / Comment(s): PONV after one surgery from darvocet Smoking Status: Former smoker - Past Family History Father Family Medical History: Coronary Artery Disease (CAD) Additional Family Medical History / Comment(s): Father at age 92. Brother(s) Family Medical History: Cancer Additional Family Medical History / Comment(s): Patient has total of 3 brothers one has from Parkinson's, 1 from old age and one with throat cancer. Sister(s) Family Medical History: Cancer Additional Family Medical History / Comment(s): Patient has one sister that from cancer with history of smoking and one at age 40 from a brain aneurysm. Patient has a total of 4 children. 3 sons, one has bipolar disorder. One daughter with no major medical problems. Mother Family Medical History: No Reported History Additional Family Medical History / Comment(s): Mother at age 76 with heart disease. General Exam Limitations: no limitations General appearance: alert, in no apparent distress Head exam: Present: atraumatic, normocephalic, normal inspection Neck exam: Present: normal inspection, full ROM. Absent: tenderness, meningismus, lymphadenopathy Respiratory exam: Present: normal lung sounds bilaterally. Absent: respiratory distress, wheezes, rales, rhonchi, stridor Cardiovascular Exam: Present: regular rate, normal rhythm, normal heart sounds. Absent: systolic murmur, diastolic murmur, rubs, gallop, clicks GI/Abdominal exam: Present: soft, normal bowel sounds. Absent: distended, tenderness, guarding, rebound, rigid Extremities exam: Present: other (Right hip patient is in a semiflexed position with mild external rotation, there is diffuse tenderness of the right hip region neurovascular intact) Neurological exam: Present: alert, oriented X3 Course Vital Signs 04/27/24 12:25 Temperature 97.7 F Pulse Rate 73 Respiratory 20 Rate Blood Pressure 143/71 O2 Sat by Pulse 98 Oximetry EKG Findings - EKG Comments: EKG Findings:: EKG performed at 12: 53 sinus rhyth EKG performed at 12: 33 normal sinus rhythmm 62 NH 179 QRS 94 QT/QTc 410/416 - EKG Results: EKG: interpreted by ERMD Medical Decision Making - Medical Decision Making Was pt. sent in by a medical professional or institution (, PA, SUPPORT SERVICES MANAGER, urgent care, hospital, or prison...) When possible be specific @ -No Did you speak to anyone other than the patient for history (EMS, parent, family, police, friend...)? What history was obtained from this source @ -No Did you review nursing and triage notes (agree or disagree)? Why? @ -I reviewed and agree with nursing and triage notes Were old charts reviewed (outside hosp., previous admission, EMS record, old EKG, old radiological studies, urgent care reports/EKG's, prison records)? Report findings @ -No old charts were reviewed Differential Diagnosis (chest pain, altered mental status, abdominal pain women, abdominal pain men, vaginal bleeding, weakness, fever, dyspnea, syncope, headache, dizziness, GI bleed, back pain, seizure, CVA, palpatations, mental health, musculoskeletal)? @ -Fall, hip contusion, hip fracture EKG interpreted by me (3pts min.). @ -As above X-rays interpreted by me (1pt min.). @ -X-ray chest 1 view no acute cardiopulmonary process X-ray right hip with AP pelvis showing periprosthetic subtrochanteric fracture CT interpreted by me (1pt min.). @ -None done U/S interpreted by me (1pt. min.). @ -None done What testing was considered but not performed or refused? (CT, X-rays, U/S, labs)? Why? @ -None What meds were considered but not given or refused? Why? @ -None Did you discuss the management of the patient with other professionals (professionals i.e. , PA, SUPPORT SERVICES MANAGER, lab, RT, psych nurse, social problems specialist, ground support equipment fitter, t eacher, community liaison officer, briefcase sewer)? Give summary @ -[place] with orthopedics associate for admission to Dr. Johnson recommended CT Was smoking cessation discussed for >3mins.? @ -No Was critical care preformed (if so, how long)? @ -No Were there social determinants of health that impacted care today? How? (Homelessness, low income, unemployed, alcoholism, drug addiction, transportation, low edu. Level, literacy, decrease access to med. care, fdc, rehab)? @ -No Was there de-escalation of care discussed even if they declined (Discuss DNR or withdrawal of care, Hospice)? DNR status @ -No What co-morbidities impacted this encounter? (DM, HTN, Smoking, COPD, CAD, Cancer, CVA, ARF, Chemo, Hep., AIDS, mental health diagnosis, sleep apnea, morbid obesity)? @ -None Was patient admitted / discharged? Hospital course, mention meds given and route, prescriptions, significant lab abnormalities, going to OR and other pertinent info. @ -Admitted patient has right periprosthetic fracture patient has significant pain will be admitted for CT, pain control and further treatment management. Undiagnosed new problem with uncertain prognosis? @ -No Drug Therapy requiring intensive monitoring for toxicity (Heparin, Nitro, Insulin, Cardizem)? @ -No Were any procedures done? @ -No Diagnosis/symptom? @ -Right periprosthetic hip fracture, fall Acute, or Chronic, or Acute on Chronic? @ -Acute Uncomplicated (without systemic symptoms) or Complicated (systemic symptoms)? @ -Uncomplicated Side effects of treatment? @ -No Exacerbation, Progression, or Severe Exacerbation? @ -No Poses a threat to life or bodily function? How? (Chest pain, USA, PR, pneumonia, PE, COPD, DKA, ARF, appy, cholecystitis, CVA, Diverticulitis, Homicidal, Suicidal, threat to staff... and all critical care pts) @ -No - Lab Data Result diagrams: 04/27/24 12:45 04/27/24 12:45 Lab Results 04/27/24 04/27/24 04/27/24 Range/Units 12:35 12:45 12:45 WBC 7.4 (3.8-10.6) k/uL RBC 3.92 L (4.30-5.90) m/uL Hgb 12.3 L (13.0-17.5) gm/dL Hct 36.2 L (39.0-53.0) % MCV 92.3 (80.0-100.0) fL MCH 31.4 (25.0-35.0) pg MCHC 34.1 (31.0-37.0) g/dL RDW 13.4 (11.5-15.5) % Plt Count 208 (150-450) k/uL MPV 7.9 Neutrophils % 72 % Lymphocytes % 19 % Monocytes % 5 % Eosinophils % 3 % Basophils % 0 % Neutrophils # 5.3 (1.3-7.7) k/uL Lymphocytes # 1.4 (1.0-4.8) k/uL Monocytes # 0.4 (0-1.0) k/uL Eosinophils # 0.2 (0-0.7) k/uL Basophils # 0.0 (0-0.2) k/uL PT 11.4 (10.0-12.5) sec INR 1.0 (<1.2) APTT 22.7 (22.0-30.0) sec Sodium 139 (137-145) mmol/L Potassium 4.0 (3.5-5.1) mmol/L Chloride 108 H (98-107) mmol/L Carbon Dioxide 25 (22-30) mmol/L Anion Gap 6 mmol/L BUN 24 H (9-20) mg/dL Creatinine 1.01 (0.66-1.25) mg/dL Est GFR (CKD-EPI)AfAm 77 (>60 ml/min/1.73 sqM) Est GFR (CKD-EPI)NonAf 67 (>60 ml/min/1.73 sqM) Glucose 139 H (74-99) mg/dL Calcium 8.2 L (8.4-10.2) mg/dL Total Bilirubin 0.3 (0.2-1.3) mg/dL AST 18 (17-59) U/L ALT 15 (4-49) U/L Alkaline Phosphatase 67 (38-126) U/L Total Protein 5.3 L (6.3-8.2) g/dL Albumin 3.3 L (3.5-5.0) g/dL Disposition Clinical Impression: Fall, Periprosthetic fracture around internal prosthetic right hip joint Disposition: ADMITTED IP TO THIS [facility] Condition: Fair Time of Disposition: 14:09
[2024-04-27] MEDS: HYDROmorphone 0.5 MG/0.5 ML SYRINGE IVP STA ×2 (12:41→14:50)
[2024-04-27 12:56] LABS: Basophils % (A) 0 %; Eosinophils # (A) 0.2 k/uL (0-0.7); Eosinophils % (A) 3 %; HCT 36.2 % (39.0-53.0); HGB 12.3 gm/dL (13.0-17.5); Lymphocytes # (A) 1.4 k/uL (1.0-4.8); Lymphocytes % (A) 19 %; MCH 31.4 pg (25.0-35.0); MCHC 34.1 g/dL (31.0-37.0); MCV 92.3 fL (80.0-100.0); Mean Platelet Volume 7.9; Monocytes # (A) 0.4 k/uL (0-1.0); Monocytes % (A) 5 %; Neutrophils # (A) 5.3 k/uL (1.3-7.7); Neutrophils % (A) 72 %; Platelet Count 208 k/uL (150-450); RBC 3.92 m/uL (4.30-5.90); RDW 13.4 % (11.5-15.5); WBC 7.4 k/uL (3.8-10.6)
[2024-04-27 13:05] LABS: ALT 15 U/L (4-49); AST 18 U/L (17-59); African American GFR (CKD) 77 (>60 ml/min/1.73 sqM); Albumin 3.3 g/dL (3.5-5.0); Alkaline Phosphatase 67 U/L (38-126); Anion Gap 6 mmol/L; Blood Urea Nitrogen 24 mg/dL (9-20); Calcium 8.2 mg/dL (8.4-10.2); Carbon Dioxide 25 mmol/L (22-30); Chloride 108 mmol/L (98-107); Glucose 139 mg/dL (74-99); Non-African American GFR(CKD) 67 (>60 ml/min/1.73 sqM); Sodium 139 mmol/L (137-145); Total Bilirubin 0.3 mg/dL (0.2-1.3); Total Protein 5.3 g/dL (6.3-8.2)
[2024-04-27 13:10] LABS: Partial Thromboplastin Time 22.7 sec (22.0-30.0); Prothrombin Time 11.4 sec (10.0-12.5)
--- NOTE | 2024-04-27 13:43 | XR ---
EXAMINATION TYPE: XR chest 1V DATE OF EXAM: 04/27/2024 COMPARISON: 08/22/2023 CLINICAL INDICATION: Male, 88 years old with history of fall; TECHNIQUE: Single frontal view of the chest is obtained. FINDINGS: There is no focal air space opacity, pleural effusion, or pneumothorax seen. The cardiac silhouette size is within normal limits. The osseous structures are intact. IMPRESSION: No acute process. [facility], , 04/27/2024 1:41 PM
--- NOTE | 2024-04-27 13:45 | XR ---
EXAMINATION TYPE: XR Hip RT and AP Pelvis DATE OF EXAM: 04/27/2024 COMPARISON: NONE CLINICAL INDICATION: Male, 88 years old with history of fall; TECHNIQUE: A single AP view of the pelvis is obtained. Two views of the right hip are obtained. FINDINGS: There is no acute fracture/dislocation evident in the pelvis. The hip and sacroiliac join ts appear symmetric and unremarkable. The overlying soft tissue appears unremarkable. There is a right hip prosthesis. There is a displaced intertrochanteric fracture of the right hip. Th ere is no hip dislocation The left hip is intact. IMPRESSION: 1. Right hip prosthesis. 2. Displaced intertrochanteric fracture of the right hip. [facility], , 04/27/2024 1:43 PM
[2024-04-27] MEDS ORDERED: ONDANSETRON 4 MG/2 ML VIAL IVP PRN (14:09)
[2024-04-27] MEDS ORDERED: NALOXONE 0.4 MG/ML 1 ML VIAL IV PRN (14:09)
[2024-04-27] MEDS: HYDROmorphone 0.5 MG/0.5 ML SYRINGE IVP PRN (16:27)
--- NOTE | 2024-04-27 16:45 | CT ---
EXAMINATION TYPE: CT hip RT wo con CT DLP: 746.5 mGycm, Automated exposure control for dose reduction was used. DATE OF EXAM: 04/27/2024 4:34 PM COMPARISON: Right hip and pelvic radiograph 04/27/2024 CLINICAL INDICATION:Male, 88 years old with history of fall, pain, fracture; PHH, Fall. Rt side hip F x. TECHNIQUE: Axial images were obtained of the right hip without the use of IV contrast. Additional co eduardo and sagittal reformatted images and soft tissue and bone window were obtained for review. FINDINGS: Diffuse bone demineralization. Postsurgical changes from right total hip arthroplasty. Hard moreno appears intact with appropriate alignment. Degenerative changes of the right SI joint with anter ior bridging. Additional degenerative changes of the pubic symphysis. Acute mildly comminuted intertr ochanteric fracture with mild displacement. Mild surrounding soft tissue swelling. No focal muscular atrophy or edema is identified. Atherosclerotic calcification of the visualized vasculature. Mildly prominent prostate gland. Bladder with Taylor catheter in place. Bilateral hydroceles. IMPRESSION: 1. Acute mildly displaced right proximal femoral trochanteric fracture. 2. Postsurgical changes from right hip prosthesis. Hardware appears intact with appropriate alignmen t. [facility], , 04/27/2024 4:43 PM
[2024-04-27] MEDS ORDERED: SENNOSIDES 8.6 MG TAB PO PRN (17:42)
[2024-04-27] MEDS ORDERED: LACTULOSE 20 GM/30 ML CUP PO PRN (17:42)
[2024-04-27] MEDS ORDERED: methocarbamoL 750 MG TAB PO PRN (17:42)
[2024-04-27] MEDS: levETIRAcetam 500 MG TAB PO SCH (18:18)
[2024-04-27] MEDS: HYDROcodone/APAP 7.5-325MG 1 EACH TAB PO PRN (18:18)
--- NOTE | 2024-04-27 18:51 | P.HPOR ---
History of Present Illness H&P Date: 04/27/24 This is an 88-year-old male who is admitted for a right periprosthetic femur fracture. Patient is seen and evaluated at bedside today. Patient states that he fell on a step in his home earlier today. Patient denies any head injury or loss of consciousness. Patient states that he developed pain in the right hip and was transported to the emergency room via EMS. X-rays done in the emergency room revealed a right periprosthetic hip fracture. Patient states that he had a hip replacement done 7 or [address] Ramon. Patient's past medical history significant for hyperlipidemia, hypertension, prostate disorder, seizure disorder, sleep apnea, macular degeneration, history of skin cancer, and spinal stenosis. Patient denies any fever/chills, chest pain, shortness breath, abdo mariaelena pain, numbness, weakness or tingling. Review of Systems See HPI. Past Medical History Past Medical History: Cancer, Chest Pain / Angina, Eye Disorder, Hyperlipidemia, Hypertension, Musculoskeletal Disorder, Prostate Disorder, Seizure Disorder, Sleep Apnea/CPAP/BIPAP Additional Past Medical History / Comment(s): "Get rash on joints, dry skin" Bladder Infection/Sepsis, hospitalized 02/28/23-03/04/23. macular degeneration in right eye. Chronic pain. 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 Orthostatic hypotension - one incident. Spinal Stenosis. Constipation. HX OF 1 SEIZURE APPROX 30 YRS AGO, also thought to have had a seizure 2020,No CPAP use. "Silent heart attack" History of Any Multi-Drug Resistant Organisms: None Reported Past Surgical History: Appendectomy, Back Surgery, Coronary Bypass/CABG, Joint Replacement, Orthopedic Surgery Additional Past Surgical History / Comment(s): Lithotripsy of kidney stone, LEFT ANKLE ACHILLES TENDON, BACK SURGERIES, CERVICAL SPINE SURGERY WITH HARDWARE, CARPAL TUNNEL SURGERY, NERVE STIMULATOR PLACED LEFT HIP([employer])- not active at this time-still in lt hip. Rt. TKA Past Anesthesia/Blood Transfusion Reactions: No Reported Reaction, Postoperative Nausea & Vomiting (PONV) Additional Past Anesthesia/Blood Transfusion Reaction / Comment(s): PONV after one surgery from darvocet Smoking Status: Former smoker - Past Family History Father Family Medical History: Coronary Artery Disease (CAD) Additional Family Medical History / Comment(s): Father at age 92. Brother(s) Family Medical History: Cancer Additional Family Medical History / Comment(s): Patient has total of 3 brothers one has from Parkinson's, 1 from old age and one with throat cancer. Sister(s) Family Medical History: Cancer Additional Family Medical History / Comment(s): Patient has one sister that from cancer with history of smoking and one at age 40 from a brain aneurysm. Patient has a total of 4 children. 3 sons, one has bipolar disorder. One daughter with no major medical problems. Mother Family Medical History: No Reported History Additional Family Medical History / Comment(s): Mother at age 76 with heart disease. Medications and Allergies Home Medications Medication Instructions Recorded Confirmed Type Pravastatin Sodium [Pravachol] 80 mg PO HS 09/26/14 04/27/24 History Aspirin [Adult Low Dose Aspirin EC] 81 mg PO HS 09/07/20 04/27/24 History Cholecalciferol [Vitamin D3 (25 25 mcg PO DAILY 09/07/20 04/27/24 History Mcg = 1000 Iu)] Tamsulosin [Flomax] 0.4 mg PO HS 09/07/20 04/27/24 History Biotin [Biotin Disolve] 10,000 mcg PO DAILY 02/14/23 04/27/24 History Docusate [Colace] 100 mg PO TID PRN 02/14/23 04/27/24 History Vit C/E/Zn/Coppr/Lutein/Zeaxan 1 cap PO BID 02/14/23 04/27/24 History [Preservision Areds 2 Softgel] levETIRAcetam [Keppra] 500 mg PO Q12H 02/14/23 04/27/24 History Isosorbide Mononitrate [Isosorbide 30 mg PO DAILY 03/28/23 04/27/24 History Mononitrate ER] Sennosides [Senokot] 8.6 mg PO BID PRN 30 Days #60 07/17/23 04/27/24 Rx tablet Finasteride [Proscar] 5 mg PO HS 12/25/23 04/27/24 History lisinopriL [Zestril] 2.5 mg PO DAILY 12/25/23 04/27/24 History methocarbamoL 750 mg PO TID PRN 01/23/24 04/27/24 History Cyanocobalamin (Vitamin B-12) 1,000 mcg PO DAILY 04/27/24 04/27/24 History [Vitamin B-12] HYDROcodone/APAP 7.5-325MG [[place] 1 tab PO TID PRN 04/27/24 04/27/24 History 7.5-325] Lactulose [Constulose] 10 gm PO BID PRN 04/27/24 04/27/24 History Ubidecarenone [Coenzyme Q10] 100 mg PO DAILY 04/27/24 04/27/24 History Allergies Allergy/AdvReac Type Severity Reaction Status Date / Time propoxyphene napsylate AdvReac Unknown Nausea & Verified 04/27/24 16:03 [From Darnickicet-N 100] Vomiting Surgical Tape Allergy Severe Blisters Uncoded 04/27/24 12:30 Physical Examination On exam patient is resting comfortably in bed in no acute distress. Patient is alert and oriented 3. Right lower extremity: Skin is intact. There is no significant swelling. Tenderness to palpation over the right thigh. Calf is soft and nontender to palpation. Patient has full range of motion of the right foot and ankle. Sensation intact. Right lower extremity is warm and well-perfused. Neurovascular status and circulatory status are intact. Exams of the left lower extremity, bilateral upper extremities, head and neck are within normal limits. Results An x-ray report of the right hip and pelvis dated 04/27/2024 shows: 1. Right hip prosthesis 2. Displaced intertrochanteric fracture of the right hip. A CT report of the right hip shows: 1. Acute mildly displaced right proximal femoral trochanteric fracture. 2. Postsurgical changes from right hip prosthesis. Hardware appears intact with appropriate alignment. - Labs Labs: Abnormal Lab Results - Last 24 Hours (Table) 04/27/24 04/27/24 Range/Units 12:45 12:45 RBC 3.92 L (4.30-5.90) m/uL Hgb 12.3 L (13.0-17.5) gm/dL Hct 36.2 L (39.0-53.0) % Chloride 108 H (98-107) mmol/L BUN 24 H (9-20) mg/dL Glucose 139 H (74-99) mg/dL Calcium 8.2 L (8.4-10.2) mg/dL Total Protein 5.3 L (6.3-8.2) g/dL Albumin 3.3 L (3.5-5.0) g/dL H & H 04/27/24 Range/Units 12:45 Hgb 12.3 L (13.0-17.5) gm/dL Hct 36.2 L (39.0-53.0) % Coagulation 04/27/24 Range/Units 12:35 INR 1.0 (<1.2) Result Diagrams: 04/27/24 12:45 04/27/24 12:45 Assessment and Plan (1) Fall Current Visit: Yes Status: Acute Code(s): W19.XXXA - UNSPECIFIED FALL, INITIAL ENCOUNTER SNOMED Code(s): 6785472 (2) Periprosthetic fracture around internal prosthetic right hip joint Current Visit: Yes Status: Acute Code(s): M97.01XA - PERIPROSTH FRACTURE AROUND INTERNAL PROSTH R HIP JT, INIT SNOMED Code(s): 507662147 Plan: 1. Imaging is reviewed revealing a mildly displaced periprosthetic right hip fracture with hardware in good position and alignment. 2. Continue bedrest and pain control. 3. Appreciate input from internal medicine. 4. Patient is to remain nonweightbearing to the right lower extremity. 5. Recommend conservative management at this time. Patient will likely need ECF placement upon discharge.
[2024-04-27] MEDS: DOCUSATE 100 MG CAP PO PRN (20:50)
[2024-04-27] MEDS: TAMSULOSIN 0.4 MG CAP.ER.24H PO SCH (20:50)
[2024-04-27] MEDS: PRAVASTATIN SODIUM 80 MG TAB PO SCH (20:50)
[2024-04-27] MEDS: ASPIRIN 81 MG PO SCH (20:50)
[2024-04-27] MEDS: FINASTERIDE 5 MG TAB PO SCH (20:50)
[2024-04-27] MEDS: VIT A,C & E-LUTEIN-MINERALS 1 EACH TAB PO SCH (20:51)
[2024-04-28] MEDS: NITROGLYCERIN SL TABS 0.4 MG TAB SUBLINGUAL PRN (05:24)
[2024-04-28] MEDS: CHOLECALCIFEROL 25 MCG (1000 IU) TABLET PO SCH (08:40)
[2024-04-28] MEDS: ISOSORBIDE MONONITRATE ER 30 MG TAB.ER.24H PO SCH (08:40)
[2024-04-28] MEDS: CYANOCOBALAMIN 500 MCG TAB PO SCH (08:40)
[2024-04-28] MEDS: HYDROcodone/APAP 5-325MG 1 EACH TAB PO PRN (08:48)
[2024-04-28] MEDS ORDERED: NON FORMULARY DRUG (Ubidecarenone [Coenzyme Q10] 50 MG Capsule) PO SCH (09:00)
[2024-04-28] MEDS ORDERED: NON FORMULARY DRUG (Biotin [Biotin Disolve] 10,000 MCG Tablet) PO SCH (09:00)
--- NOTE | 2024-04-28 11:06 | XR ---
EXAMINATION TYPE: XR hand complete RT DATE OF EXAM: 04/28/2024 10:35 AM COMPARISON: None. CLINICAL INDICATION: Male, 88 years old with history of pain, fall, pain TECHNIQUE: 3 view(s) obtained. FINDINGS: Advanced degenerative joint changes present at the first carpal metacarpal junction. Mild joint space narrowing is present in the proximal and distal interphalangeal joint spaces. No acute fracture evident. Soft tissues appear normal. Follow up exams can be performed 7-10 days from acute trauma for continued pain. IMPRESSION: 1. No acute osseous abnormality right hand. [facility], , 04/28/2024 11:03 AM
--- NOTE | 2024-04-28 11:07 | XR ---
EXAMINATION TYPE: XR wrist limited RT DATE OF EXAM: 04/28/2024 10:35 AM COMPARISON: Right hand same date CLINICAL INDICATION: Male, 88 years old with history of pain, pain TECHNIQUE: 2 view(s) obtained. FINDINGS: Advanced degenerative changes at the first carpometacarpal junction. No acute fractures are evident. The soft tissues appear within normal limits. Vascular calcification is noted. Follow up exams can be performed 7-10 days from acute trauma for continued pain. If there is pain at the anatomic snuff box, nuclear medicine bone scan could be performed for additional evaluation. IMPRESSION: 1. No acute osseous abnormality to the right wrist. 2. Follow up exams can be performed as clinically indicated. [facility], , 04/28/2024 11:05 AM
--- NOTE | 2024-04-28 13:38 | P.PN ---
Subjective Progress Note Date: 04/28/24 This is an 88-year-old male who is admitted for a right periprosthetic hip fracture. Patient is seen and evaluated at bedside today. Patient states that he has noticed some pain in the right hand and wrist today. Otherwise, patient denies any new complaints today. Objective - Vital Signs Vital signs: Vital Signs Temp 98.5 F 04/28/24 06:46 Pulse 68 04/28/24 06:46 Resp 18 04/28/24 06:46 BP 104/64 04/28/24 06:46 Pulse Ox 94 L 04/28/24 06:46 FiO2 Intake & Output 04/27/24 04/28/24 04/28/24 18:59 06:59 18:59 Output Total 675 275 Balance -675 -275 Weight 80.739 kg Output: Urine 675 275 Uretheral (Taylor) 300 Other: Voiding Method Indwelling Catheter Indwelling Catheter - Exam On exam patient is resting comfortably in bed in no acute distress. Patient is alert and oriented 3. Right lower extremity: Limited motion of the right lower extremity secondary to fracture. Right lower extremity is warm and well-perfused. Calf is soft and nontender to palpation. Sensation intact. Neurovascular status and circulatory status are intact. Right wrist and hand examination: There is tenderness to palpation over the dorsal radial aspect of the right wrist. There is minimal soft tissue swelling. Skin is intact. Patient has good range of motion of the right hand. Some discomfort with wrist motion. Radial pulse is 2+. Sensation intact. Neurovascular status and circulatory status are intact. - Labs CBC & Chem 7: 04/27/24 12:45 04/27/24 12:45 Labs: Abnormal Lab Results - Last 24 Hours (Table) 04/27/24 04/27/24 Range/Units 12:45 12:45 RBC 3.92 L (4.30-5.90) m/uL Hgb 12.3 L (13.0-17.5) gm/dL Hct 36.2 L (39.0-53.0) % Chloride 108 H (98-107) mmol/L BUN 24 H (9-20) mg/dL Glucose 139 H (74-99) mg/dL Calcium 8.2 L (8.4-10.2) mg/dL Total Protein 5.3 L (6.3-8.2) g/dL Albumin 3.3 L (3.5-5.0) g/dL Assessment and Plan (1) Fall Current Visit: Yes Status: Acute Code(s): W19.XXXA - UNSPECIFIED FALL, INITIAL ENCOUNTER SNOMED Code(s): 0085536 (2) Periprosthetic fracture around internal prosthetic right hip joint Current Visit: Yes Status: Acute Code(s): M97.01XA - PERIPROSTH FRACTURE AROUND INTERNAL PROSTH R HIP JT, INIT SNOMED Code(s): 076649091 (3) Right wrist pain Current Visit: Yes Status: Acute Code(s): M25.531 - PAIN IN RIGHT WRIST SNOMED Code(s): 22631718 Plan: 1. Recommend toe-touch weightbearing to the right lower extremity. Consult to physical therapy for mobilization. 2. An x-ray report of the right hand dated 04/28/2024 shows: 1. No acute osseous abnormality right hand. Advanced degenerative joint changes present at the first carpometacarpal junction. Mild joint space narrowing is present in the proximal and distal interphalangeal joint spaces. An x-ray report of the right wrist dated 04/28/2024 shows: 1. No acute osseous abnormality to the right wrist. Advanced degenerative changes of the first carpometacarpal junction. 2. Follow-up exams can be performed as clinically indicated. 3. Recommend a wrist brace to the right upper extremity for support. 4. Continue pain control. 5. Appreciate input from internal medicine. 6. There is no surgical intervention planned. Anticipate discharge to [facility] in the next 24 to 48 hours.
[2024-04-28] MEDS: ASPIRIN 81 MG PO SCH (22:10)
--- NOTE | 2024-04-29 06:37 | P.CONS ---
History of Present Illness - Reason for Consult Consult date: 04/28/24 Medical management Requesting physician: Colin Johnson - Chief Complaint Right periprosthetic hip fracture - History of Present Illness HISTORY OF PRESENT ILLNESS: This is an 88-year-old male patient of mine with past medical history of coronary artery disease with previous myocardial infarction and stenting status post 5 vessel CABG with placement of left internal mammary to the 100% occluded left anterior descending, reverse saphenous vein graft as a natural Y sequential to the 100% occluded first diagonal in the subtotally occluded second obtuse marginal, and reverse saphenous vein graft to the 80% occluded right coronary, which was a 2.5 mm vessel, and short jump graft to the terminal circumflex, seasonal ALLERGIES, hyperlipidemia, hypertension, benign prostatic hypertrophy, generalized osteoarthritis, 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, remote history of tobacco use, seizure disorder, chronic pain syndrome due to a chronic spondylolisthesis of the lumbar spine has been seen by pain management for epidural injection and possible radiofrequency ablation, has been doing this apparently the patient brought to the emergency department at [facility] yesterday after he missed a step while he was coming down, and he ended up falling and landing on the right side of his head, he did hurt his right wrist as well, he ended up getting transported to [facility], he underwent right hip as well pelvic x-ray that showed evidence of intact hip prosthesis with mildly displaced right trochanter fracture followed by a CT scan of the hip that documented this with intact prosthesis as well, he also underwent hand and wrist x-ray that was negative for acute abnormalities, chest x-ray was negative as well twelve-lead EKG showed evidence of sinus rhythm with no evidence of acute ST-T wave changes, he was admitted under orthopedic surgery and we were asked to see the patient for medical management. REVIEW OF SYSTEMS: Constitutional: positive for documented fever, positive for chills, no night sweats. No weight change. positive for weakness, fatigue or lethargy. positive for daytime sleepiness. HEENT: No headache. No blurred vision or double vision, no loss of vision. positive for loss of Hearing, no ringing in the ears, no dizziness. No nasal drainage or congestion. No epistaxis. No sore throat. Lungs: No shortness of breath, no cough, no sputum production. No wheezing. Reports dyspnea with activity. Cardiovascular: Occasional chest pain, no lower extremity edema. No palpitations. No paroxysmal nocturnal dyspnea. No orthopnea. No lightheadedness or dizziness. No syncopal episodes. Abdominal: Reports no abdominal pain. No nausea, vomiting. No diarrhea. positive for constipation. No bloody or tarry stools reports loss of appetite. Genitourinary: No dysuria, increased frequency, urgency. positive for urinary retention. Musculoskeletal: No myalgias. positive for muscle weakness, positive for gait dysfunction, frequent falls. Moderate back pain. moderate neck pain. Right hip pain. Integumentary: No wounds, no lesions. No rash or pruritus. No unusual bruising. No change in hair or nails. Neurologic: No aphasia. No facial droop. No change in mentation. No head injury. No headache. No paralysis. No paresthesia. Psychiatric: No depression. No anxiety. No mood swings. Endocrine: No abnormal blood sugars. No weight change. PAST MEDICAL HISTORY: CAD post CABG 5 with MARTINEZ to LAD, as. G2 first diagonal and second obtuse marginal SVG to the RCA, SVG to LCx Hypertension and hypertensive cardio vascular disease. Hyperlipidemia. ALLERGIC rhinitis. BPH. Osteoarthritis. Spondylo-listhesis of the lumbar spine and cervical spine. Seizure. Constipation. postlaminectomy syndrome. PAST SURGICAL HISTORY: CABG 5. Appendectomy. Multiple back surgeries. Posterior or cervical discectomy with fusion. Spinal cord stimulator on the left side. left Achilles tendon repair SOCIAL HISTORY: Patient is as well as a pack every day, he smoked for years and quit many years ago, he drinks occasionally, he loses , he uses a walker and wheelchair for ambulation. FAMILY HISTORY: Father at age 92 from coronary artery disease, mother at age of 76 from ID, patient had 3 brothers one from old age one from Parkinson and the other one from throat cancer patient had 2 sisters one from lung cancer and the other one at age of 40 from brain aneurysm patient has 3 sons one with bipolar and one daughter PHYSICAL EXAMINATION: General: 88-year-old male laying down in bed in minimal distress. HEENT: Head is atraumatic, normocephalic, pupils were equal round reactive to light and recommendation, extraocular muscle movement were intact, sclera nonicteric, conjunctivae were pale, mucous membranes of the mouth are somewhat d ry. Neck: Supple, no JVP, normal carotid upstroke bilaterally, no lymphadenopathy. Chest: Decreased breath sounds at the bases, few rhonchi, no expiratory wheezes, no chest wall tenderness, no intercostal retractions. Heart: First heart sound is normal, second heart sound is normal there is systolic ejection murmur 2/6 located in the left sternal border. Abdomen: Soft, nontender, nondistended, positive bowel sounds. Extremities: There is no edema no calf tenderness DP +2 bilaterally. Neurologic examination: Patient is awake alert and oriented X 3, cranial nerves II-12 appear grossly intact, muscle power were 4 out of 5 in upper extremities and 3 out of 5 in bilateral lower extremities, deep tendon reflexes normal bilaterally. ASSESSMENT AND PLAN: 1. Mildly displaced right trochanteric fracture with intact prosthesis of the right hip. Patient was seen by orthopedic surgery was recommended to continue conservative management for now, continue current pain management at this point in time, physical therapy/Occupational Therapy evaluation, patient will Likely require to go to [facility] for physical therapy and rehabilitation. 2. chest pain episode early hours in the morning today, twelve-lead EKG did not show evidence of acute abnormalities, patient did receive nitroglycerin that helped the pain a bit, we will continue to monitor the patient very closely, troponin came back negative. 3. Coronary artery disease status post coronary artery bypass graft 5. Continue patient on aspirin 81 mg once every day, pravastatin 80 mg at bedtime. 4. Hypertension and hypertensive cardiovascular disease. Continue patient on lisinopril 2.5 mg orally once every day. 5. Mixed hyperlipidemia. Continue pravastatin 80 mg at bedtime, monitor lipid panel, keep LDL 55-70. 6. Seizure disorder. Continue Keppra 500 mg orally twice every day. 7. BPH with urinary retention continue tamsulosin 0.4 mg once every along with finasteride 5 mg once every day, monitor the patient for urinary retention. 8. Constipation. Continue Colace 100 mg orally 3 times every day, continue lac tulose 10 g orally twice every day, senna twice every day encourage oral intake of fluid. 9. Lumbar spondylolisthesis status post multiple back surgeries. Continue methocarbamol 750 mg orally 3 times every day, continue hydrocodone 7.5/325 1 tablet every 8 hours as needed. 10. ALLERGIC rhinitis. Continue loratadine 10 mg once every day, Flonase nasal. 1 puff in each nostril twice every day. 11. DVT prophylaxis. patient was placed on aspirin 81 mg orally twice daily per orthopedic surgery. 12. GI prophylaxis. Continue Protonix 40 mg orally once every day. 13. Thank you for the consult we will follow the patient with you. Past Medical History Past Medical History: Cancer, Chest Pain / Angina, Eye Disorder, Hyperlipidemia, Hypertension, Musculoskeletal Disorder, Prostate Disorder, Seizure Disorder, Sleep Apnea/CPAP/BIPAP Additional Past Medical History / Comment(s): "Get rash on joints, dry skin" Bladder Infection/Sepsis, hospitalized 02/28/23-03/04/23. macular degeneration in right eye. Chronic pain. 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 Orthostatic hypotension - one incident. Spinal Stenosis. Constipation. HX OF 1 SEIZURE APPROX 30 YRS AGO, also thought to have had a seizure 2020,No CPAP use. "Silent heart attack" History of Any Multi-Drug Resistant Organisms: None Reported Past Surgical History: Appendectomy, Back Surgery, Coronary Bypass/CABG, Joint Replacement, Orthopedic Surgery Additional Past Surgical History / Comment(s): Lithotripsy of kidney stone, LEFT ANKLE ACHILLES TENDON, BACK SURGERIES, CERVICAL SPINE SURGERY WITH HARDWARE, CARPAL TUNNEL SURGERY, NERVE STIMULATOR PLACED LEFT HIP([facility])- not active at this time-still in lt hip. Rt. TKA Past Anesthesia/Blood Transfusion Reactions: No Reported Reaction, Postoperative Nausea & Vomiting (PONV) Additional Past Anesthesia/Blood Transfusion Reaction / Comm: PONV after one surgery from darvocet Smoking Status: Former smoker - Past Family History Father Family Medical History: Coronary Artery Disease (CAD) Additional Family Medical History / Comment(s): Father at age 92. Brother(s) Family Medical History: Cancer Additional Family Medical History / Comment(s): Patient has total of 3 brothers one has from Parkinson's, 1 from old age and one with throat cancer. Sister(s) Family Medical History: Cancer Additional Family Medical History / Comment(s): Patient has one sister that from cancer with history of smoking and one at age 40 from a brain aneurysm. Patient has a total of 4 children. 3 sons, one has bipolar disorder. One daughter with no major medical problems. Mother Family Medical History: No Reported History Additional Family Medical History / Comment(s): Mother at age 76 with heart disease. Medications and Allergies Home Medications Medication Instructions Recorded Confirmed Type Pravastatin Sodium [Pravachol] 80 mg PO HS 09/26/14 04/27/24 History Aspirin [Adult Low Dose Aspirin EC] 81 mg PO HS 09/07/20 04/27/24 History Cholecalciferol [Vitamin D3 (25 25 mcg PO DAILY 09/07/20 04/27/24 History Mcg = 1000 Iu)] Tamsulosin [Flomax] 0.4 mg PO HS 09/07/20 04/27/24 History Biotin [Biotin Disolve] 10,000 mcg PO DAILY 02/14/23 04/27/24 History Docusate [Colace] 100 mg PO TID PRN 02/14/23 04/27/24 History Vit C/E/Zn/Coppr/Lutein/Zeaxan 1 cap PO BID 02/14/23 04/27/24 History [Preservision Areds 2 Softgel] levETIRAcetam [Keppra] 500 mg PO Q12H 02/14/23 04/27/24 History Isosorbide Mononitrate [Isosorbide 30 mg PO DAILY 03/28/23 04/27/24 History Mononitrate ER] Sennosides [Senokot] 8.6 mg PO BID PRN 30 Days #60 07/17/23 04/27/24 Rx tablet Finasteride [Proscar] 5 mg PO HS 12/25/23 04/27/24 History lisinopriL [Zestril] 2.5 mg PO DAILY 12/25/23 04/27/24 History methocarbamoL 750 mg PO TID PRN 01/23/24 04/27/24 History Cyanocobalamin (Vitamin B-12) 1,000 mcg PO DAILY 04/27/24 04/27/24 History [Vitamin B-12] HYDROcodone/APAP 7.5-325MG [[place] 1 tab PO TID PRN 04/27/24 04/27/24 History 7.5-325] Lactulose [Constulose] 10 gm PO BID PRN 04/27/24 04/27/24 History Ubidecarenone [Coenzyme Q10] 100 mg PO DAILY 04/27/24 04/27/24 History Allergies Allergy/AdvReac Type Severity Reaction Status Date / Time propoxyphene napsylate AdvReac Unknown Nausea & Verified 04/27/24 16:03 [From [place]illet-N 100] Vomiting Surgical Tape Allergy Severe Blisters Uncoded 04/27/24 12:30 Physical Exam Vitals: Vital Signs Temp Pulse Pulse Resp BP BP BP 04/28/24 06:46 98.5 F 68 18 104/64 04/28/24 06:06 68 14 102/58 04/28/24 05:12 73 19 123/65 04/28/24 01:52 98.4 F 64 17 114/64 04/27/24 20:15 76 15 04/27/24 20:00 98.6 F 76 15 141/61 04/27/24 16:50 98.2 F 80 20 122/66 04/27/24 16:06 97.9 F 82 18 117/65 04/27/24 12:25 97.7 F 73 20 143/71 Pulse Ox 04/28/24 06:46 94 L 04/28/24 06:06 92 L 04/28/24 05:12 95 04/28/24 01:52 94 L 04/27/24 20:15 04/27/24 20:00 94 L 04/27/24 16:50 96 04/27/24 16:06 96 04/27/24 12:25 98 Intake and Output 04/27/24 04/28/24 04/28/24 22:59 06:59 14:59 Output Total 375 275 Balance -375 -275 Output: Urine 375 275 Other: Voiding Method Indwelling Catheter Weight 80.739 kg Results CBC & Chem 7: 04/27/24 12:45 04/27/24 12:45 Labs: Abnormal Lab Results - Last 24 Hours (Table) 04/27/24 04/27/24 Range/Units 12:45 12:45 RBC 3.92 L (4.30-5.90) m/uL Hgb 12.3 L (13.0-17.5) gm/dL Hct 36.2 L (39.0-53.0) % Chloride 108 H (98-107) mmol/L BUN 24 H (9-20) mg/dL Glucose 139 H (74-99) mg/dL Calcium 8.2 L (8.4-10.2) mg/dL Total Protein 5.3 L (6.3-8.2) g/dL Albumin 3.3 L (3.5-5.0) g/dL
[2024-04-29 07:17] LABS: Basophils % (A) 0 %; Eosinophils # (A) 0.1 k/uL (0-0.7); Eosinophils % (A) 1 %; HCT 37.4 % (39.0-53.0); HGB 12.3 gm/dL (13.0-17.5); Lymphocytes # (A) 1.4 k/uL (1.0-4.8); Lymphocytes % (A) 14 %; MCH 31.2 pg (25.0-35.0); MCV 94.5 fL (80.0-100.0); Mean Platelet Volume 7.2; Monocytes # (A) 0.6 k/uL (0-1.0); Monocytes % (A) 6 %; Neutrophils # (A) 7.8 k/uL (1.3-7.7); Neutrophils % (A) 77 %; Platelet Count 187 k/uL (150-450); RBC 3.96 m/uL (4.30-5.90); RDW 12.9 % (11.5-15.5); WBC 10.1 k/uL (3.8-10.6)
[2024-04-29 07:30] LABS: ALT 13 U/L (4-49); AST 27 U/L (17-59); African American GFR (CKD) >90 (>60 ml/min/1.73 sqM); Albumin 3.5 g/dL (3.5-5.0); Albumin/Globulin Ratio 1.7; Alkaline Phosphatase 59 U/L (38-126); Anion Gap 6 mmol/L; Blood Urea Nitrogen 19 mg/dL (9-20); Calcium 9.1 mg/dL (8.4-10.2); Carbon Dioxide 27 mmol/L (22-30); Chloride 102 mmol/L (98-107); Globulin 2.1 g/dL; Glucose 95 mg/dL (74-99); Non-African American GFR(CKD) 83 (>60 ml/min/1.73 sqM); Potassium 4.3 mmol/L (3.5-5.1); Sodium 135 mmol/L (137-145); Total Bilirubin 0.6 mg/dL (0.2-1.3); Total Protein 5.6 g/dL (6.3-8.2)
[2024-04-29 08:00] VITALS: BP 127/72; PULSE 69; RESP 17; TEMP 98.1
--- NOTE | 2024-04-29 12:19 | P.DS ---
Providers Date of admission: 04/27/24 14:03 Expected date of discharge: 04/29/24 Attending physician: Colin Johnson Consults: 04/27/24 14:09 Consult Physician Urgent Consulting Provider: Mehnaz Bautista Consult Reason/Comments: Medical management Do you want consulting provider notified?: Yes Primary care physician: Mehnaz Bautista - Discharge Diagnosis(es) (1) Fall Current Visit: Yes Status: Acute (2) Periprosthetic fracture around internal prosthetic right hip joint Current Visit: Yes Status: Acute (3) Right wrist pain Current Visit: Yes Status: Acute (4) Osteoarthritis of carpometacarpal (CMC) joint of right thumb Current Visit: Yes Status: Acute Hospital Course: This is an 88-year-old male who sustained a periprosthetic fracture of his right hip after a fall at home on 04/27/2024. The patient presented for evaluation in the emergency room where x-rays revealed a periprosthetic fracture of the right hip with a stable total hip arthroplasty in good position and alignment. Conservative treatment was recommended and patient will be followed as an outpatient. Patient also received a brace for the right wrist. X-rays of the right wrist were negative for any fracture but did show significant arthritis at the first CMC joint of the right hand. Patient was admitted to [facility] on 04/27/2024. Labs and vital signs are stable on day of discharge. Patient has also been followed by internal medicine. Patient had an EKG done which was negative for any acute abn ormalities. On day of discharge there is minimal soft tissue swelling to the hip and thigh. Patient has full right foot and ankle motion without difficulty or pain. Calves are soft and nontender to palpation. Neurovascular status to the right lower extremity is intact. There is minimal soft tissue swelling of the right upper extremity. The skin is intact to the right upper extremity. Right upper extremity is warm and well-perfused. Patient is [facility] to [facility] in good condition. Please see med rec for accurate list of home medications. Patient Condition at Discharge: Fair Plan - Discharge Summary Discharge Rx Participant: No New Discharge Prescriptions: New HYDROcodone/APAP 5-325MG [[place] 5-325] 1 - 2 tab PO Q6HR PRN #32 tab PRN Reason: Pain Sennosides [Senokot] 2 tab PO DAILY PRN #60 tablet PRN Reason: Constipation Aspirin [Adult Low Dose Aspirin EC] 81 mg PO BID 30 Days #60 tab Continue Pravastatin Sodium [Pravachol] 80 mg PO HS Cholecalciferol [Vitamin D3 (25 Mcg = 1000 Iu)] 25 mcg PO DAILY levETIRAcetam [Keppra] 500 mg PO Q12H Sennosides [Senokot] 8.6 mg PO BID PRN 30 Days #60 tablet PRN Reason: Constipation Cyanocobalamin (Vitamin B-12) [Vitamin B-12] 1,000 mcg PO DAILY Lactulose [Constulose] 10 gm PO BID PRN PRN Reason: Constipation HYDROcodone/APAP 7.5-325MG [[place] 7.5-325] 1 tab PO TID PRN #9 tab PRN Reason: Pain Tamsulosin [Flomax] 0.4 mg PO HS Docusate [Colace] 100 mg PO TID PRN PRN Reason: Constipation Biotin [Biotin Disolve] 10,000 mcg PO DAILY Vit C/E/Zn/Coppr/Lutein/Zeaxan [Preservision Areds 2 Softgel] 1 cap PO BID Isosorbide Mononitrate [Isosorbide Mononitrate ER] 30 mg PO DAILY lisinopriL [Zestril] 2.5 mg PO DAILY Finasteride [Proscar] 5 mg PO HS methocarbamoL 750 mg PO TID PRN PRN Reason: muscle relaxer Ubidecarenone [Coenzyme Q10] 100 mg PO DAILY Changed Aspirin [Adult Low Dose Aspirin EC] 81 mg PO BID #0 Discharge Medication List Pravastatin Sodium [Pravachol] 80 mg PO HS 09/26/14 [History] Cholecalciferol [Vitamin D3 (25 Mcg = 1000 Iu)] 25 mcg PO DAILY 09/07/20 [History] Tamsulosin [Flomax] 0.4 mg PO HS 09/07/20 [History] Biotin [Biotin Disolve] 10,000 mcg PO DAILY 02/14/23 [History] Docusate [Colace] 100 mg PO TID PRN 02/14/23 [History] Vit C/E/Zn/Coppr/Lutein/Zeaxan [Preservision Areds 2 Softgel] 1 cap PO BID 02/14/23 [History] levETIRAcetam [Keppra] 500 mg PO Q12H 02/14/23 [History] Isosorbide Mononitrate [Isosorbide Mononitrate ER] 30 mg PO DAILY 03/28/23 [History] Sennosides [Senokot] 8.6 mg PO BID PRN 30 Days #60 tablet 07/17/23 [Rx] Finasteride [Proscar] 5 mg PO HS 12/25/23 [History] lisinopriL [Zestril] 2.5 mg PO DAILY 12/25/23 [History] methocarbamoL 750 mg PO TID PRN 01/23/24 [History] Cyanocobalamin (Vitamin B-12) [Vitamin B-12] 1,000 mcg PO DAILY 04/27/24 [History] Lactulose [Constulose] 10 gm PO BID PRN 04/27/24 [History] Ubidecarenone [Coenzyme Q10] 100 mg PO DAILY 04/27/24 [History] Aspirin [Adult Low Dose Aspirin EC] 81 mg PO BID #0 04/29/24 [Rx] Aspirin [Adult Low Dose Aspirin EC] 81 mg PO BID 30 Days #60 tab 04/29/24 [Rx] HYDROcodone/APAP 5-325MG [[place] 5-325] 1 - 2 tab PO Q6HR PRN #32 tab 04/29/24 [Rx] HYDROcodone/APAP 7.5-325MG [[place] 7.5-325] 1 tab PO TID PRN #9 tab 04/29/24 [Rx] Sennosides [Senokot] 2 tab PO DAILY PRN #60 tablet 04/29/24 [Rx] Follow up Appointment(s)/Referral(s): Mehnaz Bautista MD [Primary Care Provider] - 1 Week (at [facility]) Carlos Jerez, [NON-STAFF] - As Needed Rahul Jones [NON-STAFF] - As Needed (right spica wrist brace) Colin Johnson DO [Doctor of Osteopathic Medicine] - 10 Days Activity/Diet/Wound Care/Special Instructions: Toe-touch weightbearing to the right lower extremity with a walker. Wrist brace to the right upper extremity as needed for support. Patient may remove the brace for hygiene, skin checks, and when resting. Please take aspirin 81mg twice daily for 30 days to prevent blood clots. Recommend use of compression stockings daily until follow up to help prevent swelling and blood clots. May remove at night before sleeping. Please follow-up with [facility] in 2 weeks and call with any questions or concerns, . Discharge Disposition: TRANSFER TO SNF/ECF
--- NOTE | 2024-04-29 13:50 | P.PN ---
Subjective Progress Note Date: 04/29/24 HISTORY OF PRESENT ILLNESS: This is an 88-year-old male patient of mine with past medical history of coronary artery disease with previous myocardial infarction and stenting status post 5 vessel CABG with placement of left internal mammary to the 100% occluded left anterior descending, reverse saphenous vein graft as a natural Y sequential to the 100% occluded first diagonal in the subtotally occluded second obtuse marginal, and reverse saphenous vein graft to the 80% occluded right coronary, which was a 2.5 mm vessel, and short jump graft to the terminal circumflex, seasonal ALLERGIES, hyperlipidemia, hypertension, benign prostatic hypertrophy, generalized osteoarthritis, 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, remote history of tobacco use, seizure disorder, chronic pain syndrome due to a chronic spondylolisthesis of the lumbar spine has been seen by pain management for epidural injection and possible radiofrequency ablation, has been doing this apparently the patient brought to the emergency department at [facility] yesterday after he missed a step while he was coming down, and he ended up falling and landing on the right side of his head, he did hurt his right wrist as well, he ended up getting transported to [facility], he underwent right hip as well pelvic x-ray that showed evidence of intact hip prosthesis with mildly displaced right trochanter fracture followed by a CT scan of the hip that documented this with intact prosthesis as well, he also underwent hand and wrist x-ray that was negative for acute abnormalities, chest x-ray was negative as well twelve-lead EKG showed evidence of sinus rhythm with no evidence of acute ST-T wave changes, he was admitted under orthopedic surgery and we were asked to see the patient for medical management. 04/29: Patient is laying down in bed in no apparent distress, he continues to do well with the current pain management, continue to tolerate treatment very well, he was instructed to use incentive spirometer, he was instructed to work with physical therapy occupational therapy, we will try to get the patient to subacute rehabilitation patient elected to go to [facility] at this point in time. REVIEW OF SYSTEMS: Constitutional: positive for documented fever, positive for chills, no night sweats. No weight change. positive for weakness, fatigue or lethargy. positive for daytime sleepiness. HEENT: No headache. No blurred vision or double vision, no loss of vision. positive for loss of Hearing, no ringing in the ears, no dizziness. No nasal drainage or congestion. No epistaxis. No sore throat. Lungs: No shortness of breath, no cough, no sputum production. No wheezing. Reports dyspnea with activity. Cardiovascular: Occasional chest pain, no lower extremity edema. No palpitations. No paroxysmal nocturnal dyspnea. No orthopnea. No lightheadedness or dizziness. No syncopal episodes. Abdominal: Reports no abdominal pain. No nausea, vomiting. No diarrhea. posi tive for constipation. No bloody or tarry stools reports loss of appetite. Genitourinary: No dysuria, increased frequency, urgency. positive for urinary retention. Musculoskeletal: No myalgias. positive for muscle weakness, positive for gait dysfunction, frequent falls. Moderate back pain. moderate neck pain. Right hip pain. Integumentary: No wounds, no lesions. No rash or pruritus. No unusual bruising. No change in hair or nails. Neurologic: No aphasia. No facial droop. No change in mentation. No head injury. No headache. No paralysis. No paresthesia. Psychiatric: No depression. No anxiety. No mood swings. Endocrine: No abnormal blood sugars. No weight change. PHYSICAL EXAMINATION: General: 88-year-old male laying down in bed in minimal distress. HEENT: Head is atraumatic, normocephalic, pupils were equal round reactive to light and recommendation, extraocular muscle movement were intact, sclera nonicteric, conjunctivae were pale, mucous membranes of the mouth are somewhat dry. Neck: Supple, no JVP, normal carotid upstroke bilaterally, no lymphadenopathy. Chest: Decreased breath sounds at the bases, few rhonchi, no expiratory wheezes, no chest wall tenderness, no intercostal retractions. Heart: First heart sound is normal, second heart sound is normal there is systolic ejection murmur 2/6 located in the left sternal border. Abdomen: Soft, nontender, nondistended, positive bowel sounds. Extremities: There is no edema no calf tenderness DP +2 bilaterally. Neurologic examination: Patient is awake alert and oriented X 3, cranial nerves II-12 appear grossly intact, muscle power were 4 out of 5 in upper extremities and 3 out of 5 in bilateral lower extremities, deep tendon reflexes normal bilaterally. ASSESSMENT AND PLAN: 1. Mildly displaced right trochanteric fracture with intact prosthesis of the right hip. Patient was seen by orthopedic surgery was recommended to continue conservative management for now, continue current pain management at this point in time, physical therapy/Occupational Therapy evaluation, patient will Likely require to go to [facility] for physical therapy and rehabilitation. 2. chest pain episode early hours in the morning today, twelve-lead EKG did not show evidence of acute abnormalities, patient did receive nitroglycerin that helped the pain a bit, we will continue to monitor the patient very closely, troponin came back negative. 3. Coronary artery disease status post coronary artery bypass graft 5. Continue patient on aspirin 81 mg once every day, pravastatin 80 mg at bedtime. 4. Hypertension and hypertensive cardiovascular disease. Continue patient on lisinopril 2.5 mg orally once every day. 5. Mixed hyperlipidemia. Continue pravastatin 80 mg at bedtime, monitor lipid panel, keep LDL 55-70. 6. Seizure disorder. Continue Keppra 500 mg orally twice every day. 7. BPH with urinary retention continue tamsulosin 0.4 mg once every along with finasteride 5 mg once every day, monitor the patient for urinary retention. 8. Constipation. Continue Colace 100 mg orally 3 times every day, continue lactulose 10 g orally twice every day, senna twice every day encourage oral intake of fluid. 9. Lumbar spondylolisthesis status post multiple back surgeries. Continue methocarbamol 750 mg orally 3 times every day, continue hydrocodone 7.5/325 1 tablet every 8 hours as needed. 10. ALLERGIC rhinitis. Continue loratadine 10 mg once every day, Flonase nasal. 1 puff in each nostril twice every day. 11. DVT prophylaxis. patient was placed on aspirin 81 mg orally twice daily per orthopedic surgery. 12. GI prophylaxis. Continue Protonix 40 mg orally once every day. 13. Patient is medically stable for discharge. Objective - Vital Signs Vital signs: Vital Signs Temp 97.9 F 04/29/24 00:47 Pulse 62 04/29/24 00:47 Resp 20 04/29/24 00:47 BP 147/75 04/29/24 00:47 Pulse Ox 95 04/29/24 00:47 FiO2 Intake & Output 04/28/24 04/28/24 04/29/24 06:59 18:59 06:59 Intake Total 360 Output Total 275 1602 850 Balance -275 -160 -490 Intake: Oral 360 Output: Urine 275 1600 850 Stool 2 Other: Voiding Method Indwelling Catheter Indwelling Catheter Indwelling Catheter - Labs CBC & Chem 7: 04/29/24 06:52 04/29/24 06:52
== END 2024-04-29 16:39 | DRG 536 ==
LOC: EC 12:19 → 4SSUR 14:03
PROVIDERS: ADMIT Orthopaedic Surgery; ATTEND Orthopaedic Surgery
DX: S72.141A Displaced intertrochanteric fracture of right femur, initial encounter for closed fracture (principal); M97.01XA Periprosthetic fracture around internal prosthetic right hip joint, initial encounter; G40.909 Epilepsy, unspecified, not intractable, without status epilepticus; I11.9 Hypertensive heart disease without heart failure; M96.1 Postlaminectomy syndrome, not elsewhere classified; E78.2 Mixed hyperlipidemia; N40.1 Benign prostatic hyperplasia with lower urinary tract symptoms; R33.8 Other retention of urine; K59.00 Constipation, unspecified; M43.16 Spondylolisthesis, lumbar region; J30.9 Allergic rhinitis, unspecified; I25.10 Atherosclerotic heart disease of native coronary artery without angina pectoris; M18.11 Unilateral primary osteoarthritis of first carpometacarpal joint, right hand; R07.9 Chest pain, unspecified; W00.1XXA Fall from stairs and steps due to ice and snow, initial encounter; Y92.009 Unspecified place in unspecified non-institutional (private) residence as the place of occurrence of the external cause; Z96.651 Presence of right artificial knee joint; I25.2 Old myocardial infarction; Z95.1 Presence of aortocoronary bypass graft; Z87.442 Personal history of urinary calculi; Z87.891 Personal history of nicotine dependence; Z79.82 Long term (current) use of aspirin; Z95.5 Presence of coronary angioplasty implant and graft; Z85.828 Personal history of other malignant neoplasm of skin; Z79.899 Other long term (current) drug therapy
CPT/HCPCS: 36415; 71045; 73502; 80053; 84484; 85025; 85610; 85730; 93005; 96374; 96376; 99285

== ENCOUNTER 2024-06-10 11:56 | Emergency (ER) | payer MEDICARE ==
[2024-06-10] MEDS: SODIUM CHLORIDE 0.9% 1,000 ML IV STA (12:30)
[2024-06-10] MEDS: METOCLOPRAMIDE 5 MG/ML 2 ML VIAL IVP STA (12:31)
[2024-06-10 12:32] LABS: Basophils % (A) 0 %; Eosinophils # (A) 0.1 k/uL (0-0.7); Eosinophils % (A) 1 %; HCT 44.8 % (39.0-53.0); HGB 14.5 gm/dL (13.0-17.5); Lymphocytes # (A) 1.7 k/uL (1.0-4.8); Lymphocytes % (A) 15 %; MCH 29.9 pg (25.0-35.0); MCHC 32.4 g/dL (31.0-37.0); MCV 92.2 fL (80.0-100.0); Mean Platelet Volume 7.7; Monocytes # (A) 0.4 k/uL (0-1.0); Monocytes % (A) 3 %; Neutrophils # (A) 9.4 k/uL (1.3-7.7); Neutrophils % (A) 80 %; Platelet Count 353 k/uL (150-450); RBC 4.86 m/uL (4.30-5.90); RDW 14.1 % (11.5-15.5); WBC 11.7 k/uL (3.8-10.6)
[2024-06-10 12:49] LABS: ALT 26 U/L (4-49); AST 29 U/L (17-59); African American GFR (CKD) 85 (>60 ml/min/1.73 sqM); Albumin 3.7 g/dL (3.5-5.0); Alkaline Phosphatase 97 U/L (38-126); Anion Gap 8 mmol/L; Blood Urea Nitrogen 19 mg/dL (9-20); Calcium 9.2 mg/dL (8.4-10.2); Carbon Dioxide 25 mmol/L (22-30); Chloride 102 mmol/L (98-107); Glucose 102 mg/dL (74-99); Magnesium 2.3 mg/dL (1.6-2.3); Non-African American GFR(CKD) 74 (>60 ml/min/1.73 sqM); Potassium 4.9 mmol/L (3.5-5.1); Sodium 135 mmol/L (137-145); Total Bilirubin 0.7 mg/dL (0.2-1.3); Total Protein 6.1 g/dL (6.3-8.2)
[2024-06-10 12:52] LABS: Partial Thromboplastin Time 22.3 sec (22.0-30.0)
[2024-06-10 13:00] LABS: NT-Pro-B-Type Natriuretic Pept 576 pg/mL
--- NOTE | 2024-06-10 13:26 | XR ---
EXAMINATION TYPE: XR chest 2V DATE OF EXAM: 06/10/2024 12:49 PM COMPARISON: 04/27/2024 CLINICAL INDICATION: Male, 88 years old with history of Chest Pain, , TECHNIQUE: AP and lateral views FINDINGS: Heart normal size. Tortuous/ectatic thoracic aorta. Mild interstitial prominence is unchanged. Some p atchy posterior basilar opacity on the lateral view. Spinal stimulator array centered along the mid t horacic spinal canal. Median sternotomy wires. IMPRESSION: 1. Interstitial prominence which could reflect bronchitis or asthma. 2. Some patchy posterior basilar atelectasis versus early infiltrate on the lateral view. Correlate w ith symptoms. [facility], , 06/10/2024 1:24 PM
[2024-06-10 13:28] VITALS: RESP 20
[2024-06-10] MEDS: ACETAMINOPHEN TAB 325 MG TAB PO STA (13:29)
[2024-06-10] MEDS: KETOROLAC 15 MG/ML 1 ML VIAL IVP STA (13:30)
--- NOTE | 2024-06-10 14:26 | ED ---
Chest Pain HPI - General Chief Complaint: Chest Pain Stated Complaint: chest pain Time Seen by Provider: 06/10/24 12:00 Source: patient, EMS, RN notes reviewed Mode of arrival: EMS Limitations: physical limitation - History of Present Illness Initial Comments: 88-year-old male presents emergency department from [facility] for evaluation of nausea, generalized not feeling well. He states he woke up not feeling well today. He states he had some discomfort in his chest which is actually improved. Patient noted to have some mild hypotension but this was only after given 2 nitro. Patient has been in [facility] for 8 weeks for rehabilitation since severe spinal stenosis and back pain. Denies any significant shortness of breath he was given Zofran by EMS for his nausea, dry heaving. He states that he gets very anxious about the situation. He has had a prior CABG but no stenting after. He denies any focal weakness at this time. - Related Data Home Medications Medication Instructions Recorded Confirmed Pravastatin Sodium [Pravachol] 80 mg PO HS@209909/26/14 06/10/24 Cholecalciferol [Vitamin D3 (25 25 mcg PO DAILY@0800 09/07/20 06/10/24 Mcg = 1000 Iu)] Tamsulosin [Flomax] 0.4 mg PO HS@209909/07/20 06/10/24 Biotin [Biotin Disolve] 10,000 mcg PO DAILY@0800 02/14/23 06/10/24 Vit C/E/Zn/Coppr/Lutein/Zeaxan 1 cap PO BID@0800,1700 02/14/23 06/10/24 [Preservision Areds 2 Softgel] levETIRAcetam [Keppra] 500 mg PO BID@0800,2100 02/14/23 06/10/24 Isosorbide Mononitrate [Isosorbide 30 mg PO DAILY@0800 03/28/23 06/10/24 Mononitrate ER] Finasteride [Proscar] 5 mg PO HS@209912/25/23 06/10/24 lisinopriL [Zestril] 2.5 mg PO DAILY@0800 12/25/23 06/10/24 methocarbamoL 750 mg PO TID PRN 01/23/24 06/10/24 Cyanocobalamin (Vitamin B-12) 1,000 mcg PO DAILY@0800 02/18/25 04/03/25 [Vitamin B-12] Lactulose [Constulose] 10 gm PO DAILY@79904/27/24 06/10/24 Ubidecarenone [Coenzyme Q10] 100 mg PO DAILY@79904/27/24 06/10/24 Acetaminophen Tab [Tylenol] 650 mg PO Q4H PRN 06/10/24 06/10/24 Aspirin [Adult Low Dose Aspirin EC] 81 mg PO DAILY@79906/10/24 06/10/24 Famotidine 20 mg PO DAILY@79906/10/24 06/10/24 Fluocinolone Acetonide [Synalar] 1 applic TOPICAL DAILY 06/10/24 06/10/24 Lidocaine 5% Patch [Lidoderm] 1 patch TOPICAL DAILY@79906/10/24 06/10/24 Loperamide HCl [Imodium A-D] 2 - 4 mg PO TID PRN MDD 8mg 06/10/24 06/10/24 Magnesium Hydroxide [Milk of 7,200 mg PO DAILY PRN 06/10/24 06/10/24 Magnesia Concentrate] Na Phos,M-B/Na Phos,Di-Ba [Fleet 133 ml RECTAL DAILY PRN 06/10/24 06/10/24 Adult] Ondansetron [Zofran] 4 mg PO Q6H PRN 06/10/24 06/10/24 Potassium Chloride ER [K-Dur 20] 20 meq PO DAILY@79906/10/24 06/10/24 Sennosides/Docusate Sodium [Senna 1 cap PO BID@0800,1700 06/10/24 06/10/24 Plus 8.6-50 mg Softgel] Sennosides/Docusate Sodium [Senna 2 cap PO DAILY PRN 06/10/24 06/10/24 Plus 8.6-50 mg Softgel] bisacodyL [Dulcolax] 10 mg RECTAL DAILY PRN 06/10/24 06/10/24 guaiFENesin [guaiFENesin Oral 200 mg PO Q4H PRN 06/10/24 06/10/24 Solution] Previous Rx's Medication Instructions Recorded HYDROcodone/APAP 7.5-325MG [[place] 1 tab PO TID PRN #9 tab 04/29/24 7.5-325] Allergies Allergy/AdvReac Type Severity Reaction Status Date / Time propoxyphene napsylate AdvReac Unknown Nausea & Verified 06/10/24 12:17 [From Darvocet-N 100] Vomiting Surgical Tape Allergy Severe Blisters Uncoded 06/10/24 12:17 Review of Systems ROS Statement: Those systems with pertinent positive or pertinent negative responses have been documented in the HPI. ROS Other: All systems not noted in ROS Statement are negative. EKG Findings - EKG Comments: EKG Findings:: EKG performed at 12: 18 sinus rhythm rate of 87 NH 155 QRS 100 QT/QTc 355/399 - EKG Results: EKG: interpreted by SONYA Past Medical History Past Medical History: Cancer, Chest Pain / Angina, Eye Disorder, Hyperlipidemia, Hypertension, Musculoskeletal Disorder, Prostate Disorder, Seizure Disorder, Sleep Apnea/CPAP/BIPAP Additional Past Medical History / Comment(s): "Get rash on joints, dry skin" Bladder Infection/Sepsis, hospitalized 02/28/23-03/04/23. macular degeneration in right eye. Chronic pain. 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 Orthostatic hypotension - one incident. Spinal Stenosis. Constipation. HX OF 1 SEIZURE APPROX 30 YRS AGO, also thought to have had a seizure 2020,No CPAP use. "Silent heart attack", stenosis History of Any Multi-Drug Resistant Organisms: None Reported Past Surgical History: Appendectomy, Back Surgery, Coronary Bypass/CABG, Joint Replacement, Orthopedic Surgery Additional Past Surgical History / Comment(s): Lithotripsy of kidney stone, LEFT ANKLE ACHILLES TENDON, BACK SURGERIES, CERVICAL SPINE SURGERY WITH HARDWARE, CARPAL TUNNEL SURGERY, NERVE STIMULATOR PLACED LEFT HIP([employer])- not active at this time-still in lt hip. Rt. TKA Past Anesthesia/Blood Transfusion Reactions: No Reported Reaction, Postoperative Nausea & Vomiting (PONV) Additional Past Anesthesia/Blood Transfusion Reaction / Comment(s): PONV after one surgery from darvocet Past Psychological History: No Psychological Hx Reported Smoking Status: Former smoker Past Alcohol Use History: Rare - Past Family History Father Family Medical History: Coronary Artery Disease (CAD) Additional Family Medical History / Comment(s): Father at age 92. Brother(s) Family Medical History: Cancer Additional Family Medical History / Comment(s): Patient has total of 3 brothers one has from Parkinson's, 1 from old age and one with throat cancer. Sister(s) Family Medical History: Cancer Additional Family Medical History / Comment(s): Patient has one sister that from cancer with history of smoking and one at age 40 from a brain aneurysm. Patient has a total of 4 children. 3 sons, one has bipolar disorder. One daughter with no major medical problems. Mother Family Medical History: No Reported History Additional Family Medical History / Comment(s): Mother at age 76 with heart disease. General Exam Limitations: no limitations General appearance: alert, in no apparent distress Head exam: Present: atraumatic, normocephalic, normal inspection Eye exam: Present: normal appearance, PERRL, EOMI. Absent: scleral icterus, conjunctival injection, periorbital swelling ENT exam: Present: normal exam, normal oropharynx, mucous membranes moist, TM's normal bilaterally Neck exam: Present: normal inspection, full ROM. Absent: tenderness, meningismus, lymphadenopathy Respiratory exam: Present: normal lung sounds bilaterally. Absent: respiratory distress, wheezes, rales, rhonchi, stridor Cardiovascular Exam: Present: regular rate, normal rhythm, normal heart sounds. Absent: systolic murmur, diastolic murmur, rubs, gallop, clicks GI/Abdominal exam: Present: soft, normal bowel sounds. Absent: distended, tenderness, guarding, rebound, rigid Neurological exam: Present: alert, oriented X3, CN II-XII intact Course Vital Signs 06/10/24 06/10/24 06/10/24 12:01 13:15 13:30 Temperature 98.4 F Pulse Rate 90 80 Respiratory 18 20 Rate Blood Pressure 107/68 122/66 98/69 O2 Sat by Pulse 95 95 Oximetry Chest Pain MDM - MDM Was pt. sent in by a medical professional or institution (, PA, WEIGHT CONTROL ENGINEER, urgent care, hospital, or group home...) When possible be specific @ -care home Did you speak to anyone other than the patient for history (EMS, parent, family, police, friend...)? What history was obtained from this source @ -No Did you review nursing and triage notes (agree or disagree)? Why? @ -I reviewed and agree with nursing and triage notes Were old charts reviewed (outside hosp., previous admission, EMS record, old EKG, old radiological studies, urgent care reports/EKG's, group home records)? Report findings @ -No old charts were reviewed Differential Diagnosis (chest pain, altered mental status, abdominal pain women, abdominal pain men, vaginal bleeding, weakness, fever, dyspnea, syncope, headache, dizziness, GI bleed, back pain, seizure, CVA, palpatations, mental health, musculoskeletal)? @ -Differential Chest Pain: Stable Angina, Unstable Angina, STEMI, NSTEMI Aortic Dissection, Pneumothorax, Musculoskeletal, Esophageal Spasm GERD, Cholecystitis, Pancreatitis, Zoster, this is not meant to be an all-inclusive list. EKG interpreted by me (3pts min.). @ -As above X-rays interpreted by me (1pt min.). @ -Chest x-ray shows no acute cardiopulmonary process CT interpreted by me (1pt min.). @ -None done U/S interpreted by me (1pt. min.). @ -None done What testing was considered but not performed or refused? (CT, X-rays, U/S, labs)? Why? @ -None What meds were considered but not given or refused? Why? @ -None Did you discuss the management of the patient with other professionals (professionals i.e. , PA, WEIGHT CONTROL ENGINEER, lab, RT, psych nurse, social science instructor, deskidding machine operator, teacher, communications officer, case management coordinator)? Give summary @ -Dr. Joy was updated on results recommended second troponin if negative patient can be discharged back to group home. Was smoking cessation discussed for >3mins.? @ -No Was critical care preformed (if so, how long)? @ -No Were there social determinants of health that impacted care today? How? (Homelessness, low income, unemployed, alcoholism, drug addiction, transportation, low edu. Level, literacy, decrease access to med. care, mcc, rehab)? @ -No Was there de-escalation of care discussed even if they declined (Discuss DNR or withdrawal of care, Hospice)? DNR status @ -No What co-morbidities impacted this encounter? (DM, HTN, Smoking, COPD, CAD, Cancer, CVA, ARF, Chemo, Hep., AIDS, mental health diagnosis, sleep apnea, morbid obesity)? @ -None Was patient admitted / discharged? Hospital course, mention meds given and route, prescriptions, significant lab abnormalities, going to OR and other per tinent info. @Discharge patient had negative work including troponin x 2, patient requesting to be discharged patient has no current complaints. Patient's nausea has resolved after Reglan. Undiagnosed new problem with uncertain prognosis? @ -No Drug Therapy requiring intensive monitoring for toxicity (Heparin, Nitro, Insulin, Cardizem)? @ -No Were any procedures done? @ -No Diagnosis/symptom? @ -Nausea, atypical chest pain Acute, or Chronic, or Acute on Chronic? @ -Acute Uncomplicated (without systemic symptoms) or Complicated (systemic symptoms)? @ -Complicated Side effects of treatment? @ -No Exacerbation, Progression, or Severe Exacerbation? @ -No Poses a threat to life or bodily function? How? (Chest pain, [place], [place], pneumonia, PE, COPD, DKA, ARF, appy, cholecystitis, CVA, Diverticulitis, Homicidal, Suicidal, threat to staff... and all critical care pts) @ -No Disposition Clinical Impression: Atypical chest pain, Nausea Disposition: HOME SELF-CARE Condition: Stable Instructions (If sedation given, give patient instructions): Chest Pain (ED) Additional Instructions: Please return to the Emergency Department if symptoms worsen or any other concerns. Is patient prescribed a controlled substance at d/c from ED?: No Referrals: Mehnaz Bautista MD [Primary Care Provider] - 1-2 days Time of Disposition: 15:38
[2024-06-10 16:13] VITALS: BP 114/64; PULSE 73; TEMP 98.7
== END 2024-06-10 16:13 | disposition home or self-care (01) ==
LOC: EC 11:56
DX: R07.89 Other chest pain (principal); R11.0 Nausea; Z88.8 Allergy status to other drugs, medicaments and biological substances; Z91.09 Other allergy status, other than to drugs and biological substances; Z87.891 Personal history of nicotine dependence
CPT/HCPCS: 36415; 93005; 83880; 80053; 83735; 84484; 85025; 85610; 85730; 71046; 99285; 96374; 96375; 96361; J2765; J1885

== ENCOUNTER → 2024-07-22 | Outpatient (CLI) | payer MEDICARE ==
[2024-07-22 10:41] VITALS: BP 94/62; PULSE 67; RESP 17; TEMP 97.8
--- NOTE | 2024-07-22 15:51 | P.PAINPG ---
Objective - Vital Signs Vital signs: Vital Signs Temp 97.8 F 07/22/24 10:32 Pulse 67 07/22/24 10:32 Resp 17 07/22/24 10:32 BP 94/62 07/22/24 10:32 Pulse Ox 97 07/22/24 10:32 FiO2 Intake & Output 07/21/24 07/22/24 07/22/24 18:59 06:59 18:59 Weight 71.668 kg PQRS Measure Charge Sheet Mode of Arrival: Ambulatory Comment: HISTORY OF PRESENT ILLNESS: A 88 yr old wheelchair bound male w at side presents today w severe and chronic LBP > 1 yr secondary to L5-S1 post laminectomy syndrome for evaluation. Pt states pain level is provoked at 4-6 /10 in intensity, intermittent, localized in the mid to lower lumbar spine, predominantly axial, burning in character w occasional shooting pain L & R of midline. Pain is provoked by standing > 3 min. Pain is alleviated by PT x 4-5 wks which he is currently in, physician guided stretches daily since Apr 2023, use of TENS unit at home, use of a wheelchair for ambulatory assistance, injections, heat, ice, medications, topical, repositioning, reclining and rest. Interventional procedures include BL SI x1 (Mar 2023), R TFESI L5-S1 x2 (05/03, 09/30), BL RFA L4-L5 (Mar 2024) Medications include Ibu, Schaller 7.5/325mg #[address] Bautista REVIEW OF ORGAN SYSTEMS: CONSTITUTIONAL: No fevers or chills. No recent weight loss. NEUROLOGICAL: + numbness and tingling along the distal extremities. No seizure disorders or headaches. MUSCULOSKELETAL: + pain PSYCHIATRIC: Denies current depression or suicidal thoughts. Physical Examinations : Constitutional : Cooperative , not in acute distress . Neurologic : Cranial nerve II to XII intact. No focal neurological deficits. Psychiatric : alert & oriented x 3. Matching mood & appropriate affect. Judgment & insight intact. Musculoskeletal : Cervical Spine Motor strength in the deltoid and biceps: Normal right side. Normal Left side Motor strength biceps and the wrist extensors: Normal right side . Normal left side Motor strength in the triceps muscle: Normal right side. Normal left side Deep tendon reflexes: Normal at the biceps. Normal at Brachioradialis. Normal at triceps Vertebral body tenderness to deep palpation over Cervical facet loading test: positive bilaterally Spurling test: positive bilaterally Neck distraction test: positive bilaterally Rich sign: positive bilaterally Lumbar spine Motor strength lower extremities ,thigh and legs 5/5 Right side , 5/5 Left side Deep tendon reflexes : Normal Knee Jerk. Normal Ankle Jerk Vertebral body tenderness over L5 Gregorio Test positive L5-S1 R> L Lumbar facet Loading Test: positive Right / positive Left L4-L5 Range of motion of the lumbar spine Flexion 30 degrees, extension 10 degrees Straight Leg Raise test: Left/ Right positive at degree Julio test: positive right / positive left. Severe tenderness over the Sacroiliac joint on the Right / Left sides Gaenslen test: positive bilaterally Seated flexion test: positive bilaterally. Sacral spine : Severe tenderness over the Sacroiliac joint: right side / left side Range of motion: Flexion of the lumbar spine <60 degrees Range of motion: Extension of the lumbar spine <20 degrees Gaenslen's Test positive Jose's Test positive Julio test: positive right side / left side Thigh Thrust Test Sacral Thrust Test Imaging: CT non contrast of the lumbar spine from 11/13/22 reviewed X-ray BL knees from 12/23/22 reviewed Assessment/ Plan : Lumbar stenosis, Lumbar radiculopathy, L5-S1 post laminectomy syndrome, BL knee OA Recommendation of R TFESI L4-L5/ L5-S1 #1. Risk, benefits of procedure discussed and patient verbalized understanding. Protocol for discont inuation/continuation of medication surrounding procedure discussed. Opiate/ narcotic agreement sgined 07/22/24. Tylenol No. 3 #30 with 1RF. Use, side effects, adverse reactions and safe storage discussed. PT x 6 weeks M54.16/ M16.10. Script provided. All questions answered. I have spent greater than 30 minutes on patient care today. Dr Saunders was available by phone for the evaluation of this patient. The time was used to review the medical records including relevant urine studies and Prescription history (MAPs), review of the available imaging, evaluation and examination of the patient, coordination of care with the medical staff and if applicable referring physicians, as well as creation of the medical record - Pain Location Lower Back Non-Pharmacological Interventions: Inactivity, Physical Therapy, Position/Reposition Pharmacological Interventions: PRN Medication PQRS Narrative: Smoking Status Former smoker Blood Pressure 94/62 Pain Intensity [Lower Back] 4 Scale Used Numeric (1 - 10) Hx Alcohol Use (MH) No Home Medications: Ambulatory Orders Pravastatin Sodium [Pravachol] 80 mg PO HS@209909/26/14 Cholecalciferol [Vitamin D3 (25 Mcg = 1000 Iu)] 25 mcg PO DAILY@79909/07/20 Tamsulosin [Flomax] 0.4 mg PO HS@209909/07/20 Biotin [Biotin Disolve] 10,000 mcg PO DAILY@79902/14/23 Vit C/E/Zn/Coppr/Lutein/Zeaxan [Preservision Areds 2 Softgel] 1 cap PO BID@0800,1700 02/14/23 levETIRAcetam [Keppra] 500 mg PO BID@799,209902/14/23 Isosorbide Mononitrate [Isosorbide Mononitrate ER] 30 mg PO DAILY@79903/28/23 Finasteride [Proscar] 5 mg PO HS@209912/25/23 lisinopriL [Zestril] 2.5 mg PO DAILY@79912/25/23 methocarbamoL 750 mg PO TID PRN 01/23/24 Cyanocobalamin (Vitamin B-12) [Vitamin B-12] 1,000 mcg PO DAILY@79904/27/24 Lactulose [Constulose] 10 gm PO DAILY@79904/27/24 Ubidecarenone [Coenzyme Q10] 100 mg PO DAILY@79904/27/24 Acetaminophen Tab [Tylenol] 650 mg PO Q4H PRN 06/10/24 Aspirin [Adult Low Dose Aspirin EC] 81 mg PO DAILY@79906/10/24 Famotidine 20 mg PO DAILY@79906/10/24 Fluocinolone Acetonide [Synalar] 1 applic TOPICAL DAILY 06/10/24 Lidocaine 5% Patch [Lidoderm] 1 patch TOPICAL DAILY@79906/10/24 Loperamide HCl [Imodium A-D] 2 - 4 mg PO TID PRN MDD 8mg 06/10/24 Magnesium Hydroxide [Milk of Magnesia Concentrate] 7,200 mg PO DAILY PRN 06/10/24 Na Phos,M-B/Na Phos,Di-Ba [Fleet Adult] 133 ml RECTAL DAILY PRN 06/10/24 Ondansetron [Zofran] 4 mg PO Q6H PRN 06/10/24 Potassium Chloride ER [K-Dur 20] 20 meq PO DAILY@0800 06/10/24 Sennosides/Docusate Sodium [Senna Plus 8.6-50 mg Softgel] 1 cap PO BID@0800,1700 06/10/24 Sennosides/Docusate Sodium [Senna Plus 8.6-50 mg Softgel] 2 cap PO DAILY PRN 06/10/24 bisacodyL [Dulcolax] 10 mg RECTAL DAILY PRN 06/10/24 guaiFENesin [guaiFENesin Oral Solution] 200 mg PO Q4H PRN 06/10/24 Acetaminophen-Codeine 300-30mg [Tylenol w/codeine #3] 1 tab PO HS PRN 30 Days #30 tablet 07/22/24 Controlled Substance Measures - Controlled Substance Measures Is patient prescribed a controlled substance at discharge?: Yes When asked, does pt state using other controlled substances?: Yes If prescribed controlled substance>3 days was MAPS reviewed?: Yes
== END ==
LOC: PNWHC3 10:23
PROVIDERS: ATTEND Specialist
DX: M54.16 Radiculopathy, lumbar region (principal); M48.061 Spinal stenosis, lumbar region without neurogenic claudication; M96.1 Postlaminectomy syndrome, not elsewhere classified; M17.0 Bilateral primary osteoarthritis of knee; Z87.891 Personal history of nicotine dependence; Z88.6 Allergy status to analgesic agent; Z91.048 Other nonmedicinal substance allergy status

== ENCOUNTER 2024-08-28 00:36 | Emergency (ER) | payer MEDICARE ==
--- NOTE | 2024-08-28 01:07 | ED ---
Male Urogenital HPI - General Chief complaint: Urogenital Stated complaint: Urogenital Time Seen by Provider: 08/28/24 00:46 Source: patient, RN notes reviewed Mode of arrival: wheelchair Limitations: no limitations - History of Present Illness Initial comments: This is an 89-year-old male who presents to the emergency department for urinary symptoms. States that about 3 weeks ago he was treated for a bladder infection with antibiotics. However, a few days ago the symptoms of burning with urination and urinary frequency returned. Also notes that around the same time he developed extreme itching to his hands, armpits, and head. He has not notice d a rash or any lesions to these areas. - Related Data Home Medications Medication Instructions Recorded Confirmed Pravastatin Sodium [Pravachol] 80 mg PO HS@209909/26/14 06/10/24 Cholecalciferol [Vitamin D3 (25 25 mcg PO DAILY@79909/07/20 06/10/24 Mcg = 1000 Iu)] Tamsulosin [Flomax] 0.4 mg PO HS@209909/07/20 06/10/24 Biotin [Biotin Disolve] 10,000 mcg PO DAILY@0800 02/14/23 06/10/24 Vit C/E/Zn/Coppr/Lutein/Zeaxan 1 cap PO BID@0800,1700 02/14/23 06/10/24 [Preservision Areds 2 Softgel] levETIRAcetam [Keppra] 500 mg PO BID@0800,209902/14/23 06/10/24 Isosorbide Mononitrate [Isosorbide 30 mg PO DAILY@79903/28/23 06/10/24 Mononitrate ER] Finasteride [Proscar] 5 mg PO HS@209912/25/23 06/10/24 lisinopriL [Zestril] 2.5 mg PO DAILY@79912/25/23 06/10/24 methocarbamoL 750 mg PO TID PRN 01/23/24 06/10/24 Cyanocobalamin (Vitamin B-12) 1,000 mcg PO DAILY@0800 04/27/24 06/10/24 [Vitamin B-12] Lactulose [Constulose] 10 gm PO DAILY@79904/27/24 06/10/24 Ubidecarenone [Coenzyme Q10] 100 mg PO DAILY@0800 04/27/24 06/10/24 Acetaminophen Tab [Tylenol] 650 mg PO Q4H PRN 06/10/24 06/10/24 Aspirin [Adult Low Dose Aspirin EC] 81 mg PO DAILY@0800 06/10/24 06/10/24 Famotidine 20 mg PO DAILY@0800 06/10/24 06/10/24 Fluocinolone Acetonide [Synalar] 1 applic TOPICAL DAILY 06/10/24 06/10/24 Lidocaine 5% Patch [Lidoderm] 1 patch TOPICAL DAILY@0806/10/24 06/10/24 Loperamide HCl [Imodium A-D] 2 - 4 mg PO TID PRN MDD 8mg 06/10/24 06/10/24 Magnesium Hydroxide [Milk of 7,200 mg PO DAILY PRN 06/10/24 06/10/24 Magnesia Concentrate] Na Phos,M-B/Na Phos,Di-Ba [Fleet 133 ml RECTAL DAILY PRN 06/10/24 06/10/24 Adult] Ondansetron [Zofran] 4 mg PO Q6H PRN 06/10/24 06/10/24 Potassium Chloride ER [K-Dur 20] 20 meq PO DAILY@0800 06/10/24 06/10/24 Sennosides/Docusate Sodium [Senna 1 cap PO BID@0800,1700 06/10/24 06/10/24 Plus 8.6-50 mg Softgel] Sennosides/Docusate Sodium [Senna 2 cap PO DAILY PRN 06/10/24 06/10/24 Plus 8.6-50 mg Softgel] bisacodyL [Dulcolax] 10 mg RECTAL DAILY PRN 06/10/24 06/10/24 guaiFENesin [guaiFENesin Oral 200 mg PO Q4H PRN 06/10/24 06/10/24 Solution] Previous Rx's Medication Instructions Recorded Acetaminophen-Codeine 300-30mg 1 tab PO HS PRN 30 Days #30 tablet 07/22/24 [Tylenol w/codeine #3] Phenazopyridine [Pyridium] 100 mg PO TID #9 tablet 08/28/24 cefuroxime axetiL [Ceftin] 500 mg PO BID 7 Days #14 tab 08/28/24 Allergies Allergy/AdvReac Type Severity Reaction Status Date / Time propoxyphene napsylate AdvReac Unknown Nausea & Verified 08/28/24 00:39 [From Darvocet-N 100] Vomiting Surgical Tape Allergy Severe Blisters Uncoded 08/28/24 00:39 Review of Systems ROS Statement: Those systems with pertinent positive or pertinent negative responses have been documented in the HPI. ROS Other: All systems not noted in ROS Statement are negative. Past Medical History Past Medical History: Cancer, Chest Pain / Angina, Eye Disorder, Hyperlipidemia, Hypertension, Musculoskeletal Disorder, Prostate Disorder, Seizure Disorder, Sleep Apnea/CPAP/BIPAP Additional Past Medical History / Comment(s): "Get rash on joints, dry skin" Bl adder Infection/Sepsis, hospitalized 02/28/23-03/04/23. macular degeneration in right eye. Chronic pain. 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 Orthostatic hypotension - one incident. Spinal Stenosis. Constipation. HX OF 1 SEIZURE APPROX 30 YRS AGO, also thought to have had a seizure 2020,No CPAP use. "Silent heart attack", stenosis History of Any Multi-Drug Resistant Organisms: None Reported Past Surgical History: Appendectomy, Back Surgery, Coronary Bypass/CABG, Joint Replacement, Orthopedic Surgery Additional Past Surgical History / Comment(s): Lithotripsy of kidney stone, LEFT ANKLE ACHILLES TENDON, BACK SURGERIES, CERVICAL SPINE SURGERY WITH HARDWARE, CARPAL TUNNEL SURGERY, NERVE STIMULATOR PLACED LEFT HIP([facility])- not active at this time-still in lt hip. Rt. TKA Past Anesthesia/Blood Transfusion Reactions: No Reported Reaction, Postoperative Nausea & Vomiting (PONV) Additional Past Anesthesia/Blood Transfusion Reaction / Comment(s): PONV after one surgery from darvocet Past Psychological History: No Psychological Hx Reported Smoking Status: Former smoker - Past Family History Father Family Medical History: Coronary Artery Disease (CAD) Additional Family Medical History / Comment(s): Father at age 92. Brother(s) Family Medical History: Cancer Additional Family Medical History / Comment(s): Patient has total of 3 brothers one has from Parkinson's, 1 from old age and one with throat cancer. Sister(s) Family Medical History: Cancer Additional Family Medical History / Comment(s): Patient has one sister that from cancer with history of smoking and one at age 40 from a brain aneurys m. Patient has a total of 4 children. 3 sons, one has bipolar disorder. One daughter with no major medical problems. Mother Family Medical History: No Reported History Additional Family Medical History / Comment(s): Mother at age 76 with heart disease. General Exam Limitations: no limitations General appearance: alert, in no apparent distress Head exam: Present: atraumatic, normocephalic, normal inspection Respiratory exam: Present: normal lung sounds bilaterally. Absent: respiratory distress, wheezes, rales, rhonchi, stridor Cardiovascular Exam: Present: regular rate, normal rhythm GI/Abdominal exam: Present: soft. Absent: distended, tenderness Neurological exam: Present: alert, oriented X3, CN II-XII intact Psychiatric exam: Present: normal affect, normal mood Skin exam: Present: warm, dry, intact, normal color. Absent: rash Course Vital Signs 08/28/24 00:39 Temperature 97.7 F Pulse Rate 71 Respiratory 18 Rate Blood Pressure 115/73 O2 Sat by Pulse 97 Oximetry Medical Decision Making - Medical Decision Making This is an 89 year old male who presents to the emergency department for urinary symptoms. Was pt. sent in by a medical professional or institution? @ -No Did you speak to anyone other than the patient for history? @ -No Did you review nursing and triage notes? @ -Yes, and I agree, it is accurate with regards to the patient's symptoms. Were old charts reviewed? @ -Urine culture from 06/02/2024 and 08/12/2024 which were both positive for E. coli. Differential Diagnosis? @ -UTI, STI, BPH, renal calculus, this is not meant to be an all-inclusive list. EKG interpreted by me (3pts min.)? @ -Not obtained X-rays interpreted by me (1pt min.)? @ -Not obtained CT interpreted by me (1pt min.)? @ -Not obtained U/S interpreted by me (1pt. min.)? @ -Not obtained What testing was considered but not performed? (CT, X-rays, U/S, labs)? Why? @ -None What meds were considered but not given? Why? @ -None Did you discuss the management of the patient with other professionals? @ -No Did you reconcile home meds? @ -No Was smoking cessation discussed for >3mins.? @ -No Was critical care preformed (if so, how long)? @ -No Were there social determinants of health that impacted care today? How? (Homelessness, low income, unemployed, alcoholism, drug addiction, transportation, low edu. Level, literacy, decrease access to med. care, custodial, rehab)? @ -No Was there de-escalation of care discussed even if they declined? (Discuss DNR or withdrawal of care, Hospice)? @ -No What co-morbidities impacted this encounter? (DM, HTN, Smoking, COPD, CAD, Cancer, CVA, Hep., AIDS, mental health diagnosis, sleep apnea, morbid obesity)? @ -Prostate disorder Was patient admitted / discharged? @ -Discharged. Urinalysis consistent with infection and urine was sent for culture. We discussed that the itching can have a multitude of causes and I offered lab work for further evaluation, which the patient was in agreement with. Lab work found to be unremarkable. Advised he try something like an efpl-cgl-mlmvtuv antihistamine to see if that helps with his itching. 1 g of ceftriaxone administered in the emergency department for the UTI and a prescription for cefuroxime was provided along with Pyridium for symptom control. His 2 most recent urine cultures were found to be positive for E. coli and cephalosporins were shown to be effective on both of them. Advised follow- up with his primary care provider for reevaluation. Patient discharged home in stable condition. Case discussed with ED attending Dr. Skinner. Return precautions reviewed in depth, the patient is instructed to return to the emergency department with any new, worsening, or concerning symptoms. Patient verbalized understanding. Undiagnosed new problem with uncertain prognosis? @ -None Drug Therapy requiring intensive monitoring for toxicity (Heparin, Nitro, Insulin, Cardizem)? @ -None Were any procedures done? @ -None Diagnosis/symptom? @ -UTI, itching Acute, or Chronic, or Acute on Chronic? @ -Acute Uncomplicated (without systemic symptoms) or Complicated (systemic symptoms)? @ -Uncomplicated Side effects of treatment? @ -None Exacerbation, Progression, or Severe Exacerbation] @ -Not applicable Poses a threat to life or bodily function? @ -No - Lab Data Result diagrams: 08/28/24 01:31 08/28/24 01:31 Lab Results 08/28/24 08/28/24 08/28/24 Range/Units 00:55 01:31 01:31 WBC 9.71 (4.50-10.00) 10*3/uL RBC 4.25 L (4.40-5.60) 10*6/uL Hgb 13.1 (13.0-17.0) g/dL Hct 39.4 L (39.6-50.0) % MCV 92.7 D (80.0-97.0) fL MCH 30.8 (27.0-32.0) pg MCHC 33.2 (32.0-37.0) g/dL Plt Count 241 (140-440) 10*3/uL MPV 9.6 (9.5-12.2) fL Immature Gran % (Auto) 0.4 % Neutrophils % 71.9 % Lymphocytes % 15.8 % Monocytes % 8.5 % Eosinophils % 3.0 % Basophils % 0.4 % Immature Gran # 0.04 (0.00-0.04) 10*3/uL Neutrophils # 6.98 (1.80-7.70) 10*3/uL Lymphocytes # 1.53 (0.90-5.00) 10*3/uL Monocytes # 0.83 (0.20-1.00) 10*3/uL Eosinophils # 0.29 (0.04-0.35) 10*3/uL Basophils # 0.04 (0.00-0.10) 10*3/uL Sodium 139 (137-145) mmol/L Potassium 4.1 (3.5-5.1) mmol/L Chloride 102 (98-107) mmol/L Carbon Dioxide 28 (22-30) mmol/L Anion Gap 9 mmol/L BUN 19 (9-20) mg/dL Creatinine 0.71 (0.66-1.25) mg/dL Est GFR (CKD-EPI)AfAm >90 (>60 ml/min/1.73 sqM) Est GFR (CKD-EPI)NonAf 84 (>60 ml/min/1.73 sqM) Glucose 97 (74-99) mg/dL Calcium 9.9 (8.4-10.2) mg/dL Total Bilirubin 0.4 (0.2-1.3) mg/dL AST 22 (17-59) U/L ALT 17 (4-49) U/L Alkaline Phosphatase 90 (38-126) U/L Total Protein 5.9 L (6.3-8.2) g/dL Albumin 3.7 (3.5-5.0) g/dL Urine Color Yellow Urine Appearance Turbid (Clear) Urine pH 5.5 (5.0-8.0) Ur Specific [place] 1.019 (1.001-1.035) Urine Protein 2+ H (Negative) Urine Glucose (UA) Negative (Negative) Urine Ketones Negative (Negative) Urine Blood Moderate H (Negative) Urine Nitrite Negative (Negative) Urine Bilirubin Negative (Negative) Urine Urobilinogen <2.0 (<2.0) mg/dL Ur Leukocyte Esterase Large H (Negative) Urine RBC >182 H (0-5) /hpf Urine WBC >182 H (0-5) /hpf Urine WBC Clumps Many H (None) /hpf Urine Bacteria Occasional H (None) /hpf Disposition Clinical Impression: UTI (urinary tract infection), Itching Disposition: HOME SELF-CARE Instructions (If sedation given, give patient instructions): Urinary Tract Infection in Men (ED) Additional Instructions: Return to the emergency department with any new, worsening, or concerning symptoms. Take the antibiotic as prescribed for 7 days. Take the Pyridium up to 3 times daily to help with burning with urination. Be aware that this may turn your urine orange. Take an zmgd-olm-lgtmxxk antihistamine like Benadryl or Zyrtec to see if this helps with the itching. Follow up with your primary care provider for reevaluation. Prescriptions: cefuroxime axetiL [Ceftin] 500 mg PO BID 7 Days #14 tab Phenazopyridine [Pyridium] 100 mg PO TID #9 tablet Is patient prescribed a controlled substance at d/c from ED?: No Referrals: Mehnaz Bautista MD [Primary Care Provider] - 1-2 days Time of Disposition: 02:39
[2024-08-28 01:23] LABS: Appearance,Urine Turbid (Clear); Bacteria,Urine Occasional /hpf; Bilirubin,Urine Negative (Negative); Blood,Urine Moderate (Negative); Color,Urine Yellow; Glucose,Urine (UA) Negative (Negative); Ketones,Urine Negative (Negative); Leukocyte Esterase,Urine Large (Negative); Nitrite,Urine Negative (Negative); PH, Urine 5.5 (5.0-8.0); Protein,Urine 2+ (Negative); RBC,Urine >182 /hpf (0-5); Specific Gravity,Urine 1.019 (1.001-1.035); Urobilinogen,Urine <2.0 mg/dL (<2.0); WBC,Urine >182 /hpf (0-5)
[2024-08-28] MEDS: PHENAZOPYRIDINE 200 MG TAB PO STA (01:25)
[2024-08-28] MEDS: cefTRIAXone 1,000 MG VIAL (IM USE) IM STA (01:40)
[2024-08-28 01:41] LABS: Basophils # (A) 0.04 10*3/uL (0.00-0.10); Basophils % (A) 0.4 %; Eosinophils # (A) 0.29 10*3/uL (0.04-0.35); HCT 39.4 % (39.6-50.0); HGB 13.1 g/dL (13.0-17.0); Lymphocytes # (A) 1.53 10*3/uL (0.90-5.00); Lymphocytes % (A) 15.8 %; MCH 30.8 pg (27.0-32.0); MCHC 33.2 g/dL (32.0-37.0); Mean Platelet Volume 9.6 fL (9.5-12.2); Monocytes # (A) 0.83 10*3/uL (0.20-1.00); Monocytes % (A) 8.5 %; Neutrophils # (A) 6.98 10*3/uL (1.80-7.70); Neutrophils % (A) 71.9 %; Platelet Count 241 10*3/uL (140-440); RBC 4.25 10*6/uL (4.40-5.60); RDW 13.9 % (11.5-14.5); WBC 9.71 10*3/uL (4.50-10.00)
[2024-08-28 02:15] LABS: ALT 17 U/L (4-49); AST 22 U/L (17-59); African American GFR (CKD) >90 (>60 ml/min/1.73 sqM); Albumin 3.7 g/dL (3.5-5.0); Alkaline Phosphatase 90 U/L (38-126); Anion Gap 9 mmol/L; Blood Urea Nitrogen 19 mg/dL (9-20); Calcium 9.9 mg/dL (8.4-10.2); Carbon Dioxide 28 mmol/L (22-30); Chloride 102 mmol/L (98-107); Glucose 97 mg/dL (74-99); Non-African American GFR(CKD) 84 (>60 ml/min/1.73 sqM); Potassium 4.1 mmol/L (3.5-5.1); Sodium 139 mmol/L (137-145); Total Bilirubin 0.4 mg/dL (0.2-1.3); Total Protein 5.9 g/dL (6.3-8.2)
[2024-08-28 02:27] LABS: MCV 92.7 fL (80.0-97.0)
[2024-08-28 02:54] VITALS: BP 126/72; PULSE 63; RESP 16; TEMP 98.2
== END 2024-08-28 02:45 | disposition home or self-care (01) ==
LOC: EC 00:36
DX: N39.0 Urinary tract infection, site not specified (principal); N42.9 Disorder of prostate, unspecified; A41.50 Gram-negative sepsis, unspecified; Z88.8 Allergy status to other drugs, medicaments and biological substances; Z91.09 Other allergy status, other than to drugs and biological substances; Z87.891 Personal history of nicotine dependence
CPT/HCPCS: 36415; 80053; 85025; 81001; 87086; 99284; 96372; J0696; 87077; 87186

== ENCOUNTER 2024-09-23 05:57 | Day surgery (SDC) | payer MEDICARE ==
[2024-09-21 14:51] VITALS: BMI 25.0
[2024-09-23] MEDS ORDERED: LACTATED RINGERS 1,000 ML IV SCH ×2 (06:11→06:45)
[2024-09-23 06:52] VITALS: RESP 16; TEMP 98
[2024-09-23] MEDS ORDERED: IOPAMIDOL M300 15ML VIAL ONE (07:12)
[2024-09-23] MEDS ORDERED: DEXAMETHASONE SOD PHOSPHATE 10 MG/ML 1 ML VIAL ONE (07:12)
--- NOTE | 2024-09-23 07:57 | FL ---
EXAMINATION TYPE: FL guided pain mgmt statistic DATE OF EXAM: 09/23/2024 7:51 AM COMPARISON: Pre Operative Images if available both CT/MRI or plain film CLINICAL INDICATION: Male, 89 years old with history of TRANSFORAMINAL EPI; TECHNIQUE: FL guided pain mgmt statistic, multiple fluoroscopic images provided for procedure. DAP: 0.14480 mGym2 Gycm2 uGym2 cGycm2 or equivalent. FINDINGS: Multiple intraoperative fluoroscopic images were taken resulting in ureteral stent placement with sup erior pigtail in appropriate position projecting over the renal pelvis. No immediate intraoperative c omplication. Multilevel degeneration changes throughout the spine. IMPRESSION: 1. No evidence for intraoperative complication. 2. Please see the operative/procedural note for further details. [facility], , 09/23/2024 7:55 AM
--- NOTE | 2024-09-23 08:02 | P.PCN ---
Description of Procedure: PREOPERATIVE DIAGNOSIS: 1-Lumbar radiculopathy . 2-lumbar degenerative disc disease. 3-lumbar spondylosis with lumbar facet arthropathy without myelopathy POSTOPERATIVE DIAGNOSIS: 1-lumbar radiculopathy. 2-lumbar degenerative disc disease. 3-lumbar spondylosis with facet arthropathy without myelopathy PROCEDURE 1. Transforaminal epidural steroid injection under fluoroscopic guidance at RIGHT L4-5, L5-S1 level. (Fluoroscopy images stored on file in the radiology Department ) 2. Lumbar epidurogram . ANESTHESIA: Local with 1% lidocaine 5 ml. subcutaneously. Continuous pulse ox, EKG, blood pressure and verbal communication was maintained with the patient. EBL: Minimal PROCEDURE INDICATION: The patient with low back pain and radiculopathy symptoms unresponsive to conservative treatment. The patient was seen and identified in the preoperative area. Risks, benefits, complications, and alternatives were discussed with the patient. The patient agreed to proceed with the procedure and signed the consent. IV was started, and vital signs were stable. Significant tenderness over right sacroiliac joint on physical examination today. Consider right sacroiliac joint injection in future. PROCEDURE DESCRIPTION / TECHNIQUE: After getting consent, patient was taken to the OR and time out was completed. The patient was placed in the prone position on procedure table and a pillow was placed under the abdomen to reduce lumbar lordosis. The lumbosacral area was prepped and draped in the usual sterile fashion. Critical pause was taken. After injecting 5 mL of plain 1% lidocaine subcutaneously, under oblique view of the fluoroscope, a 22-gauge spinal needle was introduced under the tunnel view of the fluoroscope on the L4-5 RIGHT side and the needle was advanced so that the tip of the needle was at the posterior inferior quadrant of the intervertebral foramen at the lateral view of the fluoroscope and in the lateral third of the facet column in the AP view of the fluoroscope. Negative CSF, negative blood, negative paresthesia. After needle position confirmation by AP and cross table lateral view, 3 mL of Isovue-M 200 contrast was injected under continuous fluoroscope. No contrast was noted in the intrathecal or intravascular space. The epidurogram was noted. Again after repeated negative aspiration 2.5 mL solution was injected which consists 1 mL of normal saline mixed with 1.5 mL of 15 mg dexamethasone. Needle was removed . Same procedure was repeated at the L5-S1 RIGHT side , using contrast under continuous fluoroscopy and using same amount of dexamethasone. At the end of the procedure, skin was cleansed, and bandages were applied. DISPOSITION / PLANS: No complication. The patient tolerated the procedure well. The patient was placed in a supine position and transferred to the recovery area in a stable condition for observation. There was no evidence of lower extremity motor or sensory deficit after the procedure. Patient was discharged from the recovery room after meeting discharge criteria. Home discharge instructions were given to the patient by the staff. The patient was reexamined prior to discharge.
[2024-09-23 08:13] VITALS: BP 117/70; PULSE 68
== END 2024-09-23 08:30 | disposition home or self-care (01) ==
LOC: ORPAIN 05:57
PROVIDERS: ATTEND Pain Medicine Interventional Pain Medicine
DX: M51.16 Intervertebral disc disorders with radiculopathy, lumbar region (principal); M47.26 Other spondylosis with radiculopathy, lumbar region
CPT/HCPCS: 64483; 64484; J1100; Q9967

== ENCOUNTER 2024-10-01 08:14 | Emergency (ER) | payer MEDICARE ==
[2024-10-01 08:19] VITALS: TEMP 97.9
[2024-10-01 08:35] VITALS: RESP 16
[2024-10-01] MEDS: ACETAMINOPHEN TAB 500 MG TAB PO STA ×2 (09:18→09:27)
[2024-10-01 09:19] LABS: Basophils # (A) 0.03 10*3/uL (0.00-0.10); Basophils % (A) 0.4 %; Eosinophils # (A) 0.26 10*3/uL (0.04-0.35); Eosinophils % (A) 3.5 %; HCT 38.5 % (39.6-50.0); HGB 12.7 g/dL (13.0-17.0); Lymphocytes # (A) 1.87 10*3/uL (0.90-5.00); Lymphocytes % (A) 25.2 %; MCH 30.7 pg (27.0-32.0); MCHC 33.0 g/dL (32.0-37.0); MCV 93.0 fL (80.0-97.0); Monocytes # (A) 0.76 10*3/uL (0.20-1.00); Monocytes % (A) 10.2 %; Neutrophils # (A) 4.48 10*3/uL (1.80-7.70); Neutrophils % (A) 60.3 %; Platelet Count 226 10*3/uL (140-440); RBC 4.14 10*6/uL (4.40-5.60); RDW 13.3 % (11.5-14.5); WBC 7.43 10*3/uL (4.50-10.00)
[2024-10-01] MEDS: SODIUM CHLORIDE 0.9% 1,000 ML IV STA (09:26)
[2024-10-01 09:47] LABS: ALT 18 U/L (4-49); AST 25 U/L (17-59); African American GFR (CKD) >90 (>60 ml/min/1.73 sqM); Albumin 3.6 g/dL (3.5-5.0); Alkaline Phosphatase 85 U/L (38-126); Anion Gap 7 mmol/L; Blood Urea Nitrogen 22 mg/dL (9-20); Calcium 9.2 mg/dL (8.4-10.2); Carbon Dioxide 27 mmol/L (22-30); Chloride 105 mmol/L (98-107); Glucose 82 mg/dL (74-99); Magnesium 2.3 mg/dL (1.6-2.3); Non-African American GFR(CKD) 85 (>60 ml/min/1.73 sqM); Potassium 4.6 mmol/L (3.5-5.1); Sodium 139 mmol/L (137-145); Total Protein 5.8 g/dL (6.3-8.2)
--- NOTE | 2024-10-01 10:01 | XR ---
EXAMINATION TYPE: XR chest 2V DATE OF EXAM: 10/01/2024 9:25 AM COMPARISON: 06/10/2024 CLINICAL INDICATION: Male, 89 years old with history of Dizziness, , TECHNIQUE: AP and lateral views FINDINGS: Spinal stimulator centered along the mid thoracic spinal canal. Median sternotomy wires are present w ith postsurgical clips. Normal variant azygos fissure. ACDF hardware. Heart upper limits of normal in size. Mild hyperinflation. Somewhat enlarged appearance to the main right pulmonary artery on the la teral view. Asymmetric elevation left hemidiaphragm is unchanged. No consolidation or pleural effusio n seen. IMPRESSION: Borderline heart size, COPD, and possible underlying pulmonary arterial hypertension. Otherwise, no d efinite acute process. [facility], , 10/01/2024 9:58 AM
--- NOTE | 2024-10-01 10:14 | ED ---
Dizziness HPI - General Chief Complaint: Dizziness Stated Complaint: Hypertension Time Seen by Provider: 10/01/24 08:32 Source: patient, RN notes reviewed Mode of arrival: ambulatory Limitations: no limitations - History of Present Illness Initial Comments: This is an 89-year-old male who presents to the emergency department for dizziness and hypotension. Patient is attending physical therapy regularly to help with his balance. States that when he was in the middle of physical therapy they were checking his blood pressure and found it to be low in the 90s systolically. He did feel dizzy when this happened. He has had this happen before and states that they are trying to make adjustments to his medication. Other than a mild headache, which he states occurs with his spinal stenosis, states that he currently feels fine. Denies any chest pain or shortness of breath. MD Complaint: dizziness - Related Data Home Medications Medication Instructions Recorded Confirmed Pravastatin Sodium [Pravachol] 80 mg PO HS@209909/26/14 09/23/24 Cholecalciferol [Vitamin D3 (25 25 mcg PO DAILY@0800 09/07/20 09/23/24 Mcg = 1000 Iu)] Tamsulosin [Flomax] 0.4 mg PO HS@209909/07/20 09/23/24 Biotin [Biotin Disolve] 10,000 mcg PO DAILY@0800 02/14/23 09/23/24 Vit C/E/Zn/Coppr/Lutein/Zeaxan 1 cap PO BID@0800,1700 02/14/23 09/23/24 [Preservision Areds 2 Softgel] levETIRAcetam [Keppra] 500 mg PO BID@0800,209902/14/23 09/23/24 Isosorbide Mononitrate [Isosorbide 30 mg PO DAILY@0800 03/28/23 09/23/24 Mononitrate ER] Finasteride [Proscar] 5 mg PO HS@209912/25/23 09/23/24 lisinopriL [Zestril] 2.5 mg PO DAILY@0800 12/25/23 09/23/24 Lactulose [Constulose] 10 gm PO DAILY@0800 04/27/24 09/23/24 Ubidecarenone [Coenzyme Q10] 100 mg PO DAILY@0800 04/27/24 09/23/24 Acetaminophen Tab [Tylenol] 650 mg PO Q4H PRN 06/10/24 09/23/24 Aspirin [Adult Low Dose Aspirin EC] 81 mg PO DAILY@0800 06/10/24 09/23/24 Famotidine 20 mg PO DAILY@0800 06/10/24 09/23/24 Fluocinolone Acetonide [Synalar] 1 applic TOPICAL DAILY 06/10/24 09/23/24 Lidocaine 5% Patch [Lidoderm] 1 patch TOPICAL DAILY@0800 06/10/24 09/23/24 Magnesium Hydroxide [Milk of 7,200 mg PO DAILY PRN 06/10/24 09/23/24 Magnesia Concentrate] Potassium Chloride ER [K-Dur 20] 20 meq PO DAILY@0800 06/10/24 09/23/24 Sennosides/Docusate Sodium [Senna 1 cap PO BID@0800,1700 06/10/24 09/23/24 Plus 8.6-50 mg Softgel] Sennosides/Docusate Sodium [Senna 2 cap PO DAILY PRN 06/10/24 09/23/24 Plus 8.6-50 mg Softgel] bisacodyL [Dulcolax] 10 mg RECTAL DAILY PRN 06/10/24 09/23/24 Allergies Allergy/AdvReac Type Severity Reaction Status Date / Time propoxyphene napsylate AdvReac Unknown Nausea & Verified 10/01/24 08:19 [From Darvocet-N 100] Vomiting Surgical Tape Allergy Severe Blisters Uncoded 10/01/24 08:19 Review of Systems ROS Statement: Those systems with pertinent positive or pertinent negative responses have been documented in the HPI. ROS Other: All systems not noted in ROS Statement are negative. Past Medical History Past Medical History: Cancer, Chest Pain / Angina, Eye Disorder, Hyperlipidemia, Hypertension, Musculoskeletal Disorder, Prostate Disorder, Seizure Disorder, Sleep Apnea/CPAP/BIPAP Additional Past Medical History / Comment(s): "Get rash on joints, dry skin" Bladder Infection/Sepsis, hospitalized 02/28/23-03/04/23. macular degeneration in right eye. Chronic pain. 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 Orthostatic hypotension - one incident. Spinal Stenosis. Constipation. HX OF 1 SEIZURE APPROX 30 YRS AGO, also thought to have had a seizure 2020,No CPAP use. "Silent heart attack", stenosis History of Any Multi-Drug Resistant Organisms: None Reported Past Surgical History: Appendectomy, Back Surgery, Coronary Bypass/CABG, Joint Replacement, Orthopedic Surgery Additional Past Surgical History / Comment(s): Lithotripsy of kidney stone, LEFT ANKLE ACHILLES TENDON, BACK SURGERIES, CERVICAL SPINE SURGERY WITH HARDWARE, CARPAL TUNNEL SURGERY, NERVE STIMULATOR PLACED LEFT HIP([employer])- not active at this time-still in lt hip. Rt. TKA Past Anesthesia/Blood Transfusion Reactions: No Reported Reaction, Postoperative Nausea & Vomiting (PONV) Additional Past Anesthesia/Blood Transfusion Reaction / Comment(s): PONV after one surgery from darvocet Past Psychological History: No Psychological Hx Reported Smoking Status: Former smoker Past Alcohol Use History: None Reported Past Drug Use History: None Reported - Past Family History Father Family Medical History: Coronary Artery Disease (CAD) Additional Family Medical History / Comment(s): Father at age 92. Brother(s) Family Medical History: Cancer Additional Family Medical History / Comment(s): Patient has total of 3 brothers one has from Parkinson's, 1 from old age and one with throat cancer. Sister(s) Family Medical History: Cancer Additional Family Medical History / Comment(s): Patient has one sister that from cancer with history of smoking and one at age 40 from a brain aneurysm . Patient has a total of 4 children. 3 sons, one has bipolar disorder. One daughter with no major medical problems. Mother Family Medical History: No Reported History Additional Family Medical History / Comment(s): Mother at age 76 with heart disease. General Exam Limitations: no limitations General appearance: alert, in no apparent distress Head exam: Present: atraumatic, normocephalic, normal inspection Eye exam: Present: normal appearance, PERRL, EOMI. Absent: scleral icterus, conjunctival injection, periorbital swelling Respiratory exam: Present: normal lung sounds bilaterally. Absent: respiratory distress, wheezes, rales, rhonchi, stridor Cardiovascular Exam: Present: regular rate, normal rhythm GI/Abdominal exam: Present: soft. Absent: distended, tenderness Neurological exam: Present: alert, oriented X3, CN II-XII intact Psychiatric exam: Present: normal affect, normal mood Skin exam: Present: warm, dry, intact, normal color. Absent: rash Course Vital Signs 10/01/24 10/01/24 10/01/24 08:16 08:34 10:30 Temperature 97.9 F Pulse Rate 67 63 57 L Pulse Rate [ Sitting Focused Factory Manager] Pulse Rate [ Standing Focused Factory Manager ] Pulse Rate [ Supine Focused Factory Manager] Respiratory 18 16 16 Rate Blood Pressure 108/67 108/65 131/67 Blood Pressure [Left Arm Sitting] Blood Pressure [Left Arm Standing] Blood Pressure [Left Arm Supine] O2 Sat by Pulse 98 100 99 Oximetry 10/01/24 10/01/24 10/01/24 10:50 11:00 12:01 Temperature Pulse Rate 56 L 62 Pulse Rate [ 62 Sitting Focused Factory Manager] Pulse Rate [ 62 Standing Focused Factory Manager ] Pulse Rate [ 62 Supine Focused Factory Manager] Respiratory 16 16 16 Rate Blood Pressure 128/68 122/64 Blood Pressure 128/67 [Left Arm Sitting] Blood Pressure 132/73 [Left Arm Standing] Blood Pressure 136/72 [Left Arm Supine] O2 Sat by Pulse 97 97 97 Oximetry Medical Decision Making - Medical Decision Making This is an 89 year old male who presents to the emergency department for hypotension. Was pt. sent in by a medical professional or institution? @ -No Did you speak to anyone other than the patient for history? @ -No Did you review nursing and triage notes? @ -Yes, and I agree, it is accurate with regards to the patient's symptoms. Were old charts reviewed? @ -No Differential Diagnosis? @ -Infection, vasovagal episode, dehydration, medication induced, this is not meant to be an all-inclusive list. EKG interpreted by me (3pts min.)? @ -EKG interpreted by me demonstrating the following: Sinus rhythm. Ventricular rate 62 bpm, NV interval 175 ms, QRS duration 106 ms, QTc 417 ms. X-rays interpreted by me (1pt min.)? @ -Chest x-ray obtained, my interpretation identifies no localized consolidations or infiltrates. CT interpreted by me (1pt min.)? @ -Not obtained U/S interpreted by me (1pt. min.)? @ -Not obtained What testing was considered but not performed? (CT, X-rays, U/S, labs)? Why? @ -None What meds were considered but not given? Why? @ -None Did you discuss the management of the patient with other professionals? @ -No Did you reconcile home meds? @ -No Was smoking cessation discussed for >3mins.? @ -No Was critical care preformed (if so, how long)? @ -No Were there social determinants of health that impacted care today? How? (Homelessness, low income, unemployed, alcoholism, drug addiction, transportation, low edu. Level, literacy, decrease access to med. care, fdc, rehab)? @ -No Was there de-escalation of care discussed even if they declined? (Discuss DNR or withdrawal of care, Hospice)? @ -No What co-morbidities impacted this encounter? (DM, HTN, Smoking, COPD, CAD, Cancer, CVA, Hep., AIDS, mental health diagnosis, sleep apnea, morbid obesity)? @ -HTN, HLD Was patient admitted / discharged? @ -Discharged. Lab work unremarkable. Chest x-ray reveals no acute findings. Patient's BP was well-controlled in the emergency department. Orthostatics obtained as well and found to be negative. He was given a liter bolus of IV fluids. States that he is on medication for his blood pressure but is unsure what he is taking. Advised that if he continues to have hypotensive episodes he may need to discuss medication adjustments with his primary care provider. However, he is advised to follow-up with them regardless for reevaluation of ongoing symptoms. Patient discharged home in stable condition. Case discussed with ED attending Dr. Kimball. Return precautions reviewed in depth, the patient is instructed to return to the emergency department with any new, worsening, or concerning symptoms. Patient verbalized understanding. Undiagnosed new problem with uncertain prognosis? @ -None Drug Therapy requiring intensive monitoring for toxicity (Heparin, Nitro, Insulin, Cardizem)? @ -None Were any procedures done? @ -None Diagnosis/symptom? @ -Hypotension Acute, or Chronic, or Acute on Chronic? @ -Acute Uncomplicated (without systemic symptoms) or Complicated (systemic symptoms)? @ -Uncomplicated Side effects of treatment? @ -None Exacerbation, Progression, or Severe Exacerbation] @ -Not applicable Poses a threat to life or bodily function? @ -Unlikely - Lab Data Result diagrams: 10/01/24 09:08 10/01/24 09:08 Lab Results 10/01/24 10/01/24 10/01/24 Range/Units 09:08 09:08 09:08 WBC 7.43 (4.50-10.00) 10*3/uL RBC 4.14 L (4.40-5.60) 10*6/uL Hgb 12.7 L (13.0-17.0) g/dL Hct 38.5 L (39.6-50.0) % MCV 93.0 (80.0-97.0) fL MCH 30.7 (27.0-32.0) pg MCHC 33.0 (32.0-37.0) g/dL Plt Count 226 (140-440) 10*3/uL MPV 9.7 (9.5-12.2) fL Immature Gran % (Auto) 0.4 % Neutrophils % 60.3 % Lymphocytes % 25.2 % Monocytes % 10.2 % Eosinophils % 3.5 % Basophils % 0.4 % Immature Gran # 0.03 (0.00-0.04) 10*3/uL Neutrophils # 4.48 (1.80-7.70) 10*3/uL Lymphocytes # 1.87 (0.90-5.00) 10*3/uL Monocytes # 0.76 (0.20-1.00) 10*3/uL Eosinophils # 0.26 (0.04-0.35) 10*3/uL Basophils # 0.03 (0.00-0.10) 10*3/uL Sodium 139 (137-145) mmol/L Potassium 4.6 (3.5-5.1) mmol/L Chloride 105 (98-107) mmol/L Carbon Dioxide 27 (22-30) mmol/L Anion Gap 7 mmol/L BUN 22 H (9-20) mg/dL Creatinine 0.70 (0.66-1.25) mg/dL Est GFR (CKD-EPI)AfAm >90 (>60 ml/min/1.73 sqM) Est GFR (CKD-EPI)NonAf 85 (>60 ml/min/1.73 sqM) Glucose 82 (74-99) mg/dL Plasma Lactic Acid Mack 1.2 (0.7-2.0) mmol/L Calcium 9.2 (8.4-10.2) mg/dL Magnesium 2.3 (1.6-2.3) mg/dL Total Bilirubin 0.3 (0.2-1.3) mg/dL AST 25 (17-59) U/L ALT 18 (4-49) U/L Alkaline Phosphatase 85 (38-126) U/L Total Protein 5.8 L (6.3-8.2) g/dL Albumin 3.6 (3.5-5.0) g/dL Urine Color Urine Appearance (Clear) Urine pH (5.0-8.0) Ur Specific [place] (1.001-1.035) Urine Protein (Negative) Urine Glucose (UA) (Negative) Urine Ketones (Negative) Urine Blood (Negative) Urine Nitrite (Negative) Urine Bilirubin (Negative) Urine Urobilinogen (<2.0) mg/dL Ur Leukocyte Esterase (Negative) 10/01/24 Range/Units 10:53 WBC (4.50-10.00) 10*3/uL RBC (4.40-5.60) 10*6/uL Hgb (13.0-17.0) g/dL Hct (39.6-50.0) % MCV (80.0-97.0) fL MCH (27.0-32.0) pg MCHC (32.0-37.0) g/dL Plt Count (140-440) 10*3/uL MPV (9.5-12.2) fL Immature Gran % (Auto) % Neutrophils % % Lymphocytes % % Monocytes % % Eosinophils % % Basophils % % Immature Gran # (0.00-0.04) 10*3/uL Neutrophils # (1.80-7.70) 10*3/uL Lymphocytes # (0.90-5.00) 10*3/uL Monocytes # (0.20-1.00) 10*3/uL Eosinophils # (0.04-0.35) 10*3/uL Basophils # (0.00-0.10) 10*3/uL Sodium (137-145) mmol/L Potassium (3.5-5.1) mmol/L Chloride (98-107) mmol/L Carbon Dioxide (22-30) mmol/L Anion Gap mmol/L BUN (9-20) mg/dL Creatinine (0.66-1.25) mg/dL Est GFR (CKD-EPI)AfAm (>60 ml/min/1.73 sqM) Est GFR (CKD-EPI)NonAf (>60 ml/min/1.73 sqM) Glucose (74-99) mg/dL Plasma Lactic Acid Amck (0.7-2.0) mmol/L Calcium (8.4-10.2) mg/dL Magnesium (1.6-2.3) mg/dL Total Bilirubin (0.2-1.3) mg/dL AST (17-59) U/L ALT (4-49) U/L Alkaline Phosphatase (38-126) U/L Total Protein (6.3-8.2) g/dL Albumin (3.5-5.0) g/dL Urine Color Colorless Urine Appearance Clear (Clear) Urine pH 6.5 (5.0-8.0) Ur Specific [place] 1.018 (1.001-1.035) Urine Protein Negative (Negative) Urine Glucose (UA) Negative (Negative) Urine Ketones Negative (Negative) Urine Blood Negative (Negative) Urine Nitrite Negative (Negative) Urine Bilirubin Negative (Negative) Urine Urobilinogen <2.0 (<2.0) mg/dL Ur Leukocyte Esterase Negative (Negative) - Radiology Data Radiology results: report reviewed, image reviewed Disposition Clinical Impression: Hypotension Disposition: HOME SELF-CARE Instructions (If sedation given, give patient instructions): Hypotension (ED) Additional Instructions: Return to the emergency department with any new, worsening, or concerning symptoms. Follow-up with your primary care provider in the next couple of days to discuss your medications and if any adjustments are needed. Is patient prescribed a controlled substance at d/c from ED?: No Referrals: Mehnaz Bautista MD [Primary Care Provider] - 1-2 days Time of Disposition: 11:47
[2024-10-01 11:30] LABS: Bilirubin,Urine Negative (Negative); Blood,Urine Negative (Negative); Color,Urine Colorless; Glucose,Urine (UA) Negative (Negative); Ketones,Urine Negative (Negative); Leukocyte Esterase,Urine Negative (Negative); Nitrite,Urine Negative (Negative); PH, Urine 6.5 (5.0-8.0); Protein,Urine Negative (Negative); Specific Gravity,Urine 1.018 (1.001-1.035); Urobilinogen,Urine <2.0 mg/dL (<2.0)
[2024-10-01 12:03] VITALS: BP 122/64; PULSE 62
== END 2024-10-01 12:08 | disposition home or self-care (01) ==
LOC: EC 08:14
DX: I95.9 Hypotension, unspecified (principal); E78.5 Hyperlipidemia, unspecified; Z87.891 Personal history of nicotine dependence; Z88.8 Allergy status to other drugs, medicaments and biological substances
CPT/HCPCS: 36415; 71046; 80053; 81003; 83605; 83735; 85025; 93005; 96360; 99284